=== PATIENT | male | born 1955 | race Caucasian/White ===

== ENCOUNTER 2020-03-15 15:33 | Outpatient (REF) | payer BC, SELFPAY | END 2020-03-15 15:34 | disposition home or self-care (01) | LOC: HO.LAB 15:33 | PROVIDERS: Visit Provider Internal Medicine | DX: Z20.828 Contact with and (suspected) exposure to other viral communicable diseases (principal) | CPT/HCPCS: C9803; U0003 ==

== ENCOUNTER 2020-09-18 11:30 | Outpatient (REF) | payer BC, SELFPAY ==
[2020-09-18 12:45] LABS: MANUAL DIFF FLAG NO
[2020-09-18 12:52] LABS: Basophils Absolute Auto 0.1 X10*3/uL (0.0-0.2); Basophils Percent Auto 1.3 % (0-2); Eosinophils Absolute Auto 0.1 X10*3/uL (0.0-0.4); Eosinophils Percent Auto 2.1 % (0-4); Hematocrit 43.6 % (42-52); Hemoglobin 14.5 g/dl (14.0-18.0); Imm Gran Abs Auto 0.02 X10*3/uL (0.00-0.03); Imm Gran Pct Auto 0.4 % (0.0-0.4); Lymphocytes Absolute Auto 1.5 X10*3/uL (1.2-4.9); Lymphocytes Percent Auto 28.2 % (20-40); Mean Corpuscular HGB Conc 33.3 g/dl (31.0-36.0); Mean Corpuscular Hemoglobin 30.9 pg (27.0-33.0); Mean Corpuscular Volume 92.8 fL (80-98); Monocytes Absolute Auto 0.7 X10*3/uL (0.1-1.2); Neutrophils Absolute Auto 2.8 X10*3/uL (2.0-8.3); Platelet Count 320 X10*3/uL (160-400); Red Cell Distribution Width 12.9 % (11.0-16.0); White Blood Count 5.2 X10*3/uL (4.8-10.8)
[2020-09-18 13:20] LABS: Alanine Aminotransferase 26 U/L (0-40); Albumin Level 4.3 g/dL (3.5-5.0); Alkaline Phosphatase 91 U/L (39-117); Anion Gap 14 (12-20); Aspartate Amino Transferase 25 U/L (5-37); Bilirubin Total 0.4 mg/dL (0.0-1.0); Blood Urea Nitrogen 12 mg/dL (9-16); Calcium 9.3 mg/dL (8.4-10.2); Carbon Dioxide 23 mmol/L (22-29); Chloride 108 mmol/L (96-108); Cholesterol 194 mg/dL; Estimated Glomerular Filt Rate > 60; Glucose Fasting 85 mg/dL (60-99); HDL Cholesterol 47 mg/dL; LDL Cholesterol Calculated 130 mg/dl; Potassium 5.3 mmol/L (3.3-5.1); Sodium 140 mmol/L (135-145); Total Protein 8.2 g/dL (6.5-8.0); Triglycerides 85 mg/dL
== END 2020-09-18 11:31 | disposition home or self-care (01) ==
LOC: HO.LAB 11:30
PROVIDERS: PCP Internal Medicine; Visit Provider Internal Medicine
DX: Z00.00 Encounter for general adult medical examination without abnormal findings (principal); E11.9 Type 2 diabetes mellitus without complications
CPT/HCPCS: 36415; 80053; 80061; 85025

== ENCOUNTER 2021-07-02 08:53 | Day surgery (SDC) | payer BC, SELFPAY ==
[2021-06-26 10:02] VITALS: BMI 24.7
--- NOTE | 2021-06-28 14:19 | P.CONAN_ITS ---
HPI - Anesthesia Eval Consult details Narrative: 66yo M for Colonoscopy [facility] Active Problems Active Problems: All Active Problems (Updated 06/26/21 @ 10:01 by Geneva Harrison RN) Physical exam (Acute) Allergic rhinitis (Acute) Asthma (Acute) Past Medical History Medical History (Updated 06/26/21 @ 10:01 by Geneva Harrison RN) Allergic rhinitis Asthma COVID-19 vaccine series completed Family History Family History Mother No problems noted. Father No problems noted. Surgical History Surgical History (Updated 06/26/21 @ 09:49 by Geneva Harrison RN) H/O colonoscopy Hx of bilateral inguinal hernia repair Hx of shoulder surgery Social History Social History Housing: House Are you a primary aged or disabled carer to a significant other at home: No Do you presently have visiting nurse or other home services: No Alcohol intake: current Alcohol intake frequency: a few times a month Patient Tobacco Use Status: Never used Tobacco Second Hand Smoke Exposure: No Use of substances other than those prescribed or required for medical reasons: Yes Substance Use Type Other:: occasional use-advised to hold pre-op Substance Use Frequency: Occasionally Have you been hit, kicked, punched, or otherwise hurt by someone within the past year? If so, by whom?: No Are you DNR?: No Advance Directives: No Advance Directives Information Provided: Yes Advance Directives on File: No Recently lost weight without trying: No Eating poorly because of decreased appetite: No Nutrition Risks: No Nutritional Risk Poor oral hygiene: No (full upper denture) service: No Current occupational status: employed Meds Allergies Allergy/AdvReac Type Severity Reaction Status Date / Time Penicillins Allergy Severe ANAPHYLAXIS Verified 03/09/21 08:31 Home Medications Medication Instructions Recorded Confirmed Last Taken Type loratadine 10 mg tablet (Allergy 10 mg PO DAILY 06/16/20 06/26/21 Unknown History Relief (loratadine)) albuterol sulfate 90 mcg/actuation 2 puff INHALATION Q4-6H PRN 06/26/21 06/26/21 Unknown History aerosol inhaler (Ventolin HFA) Exam Exam Date and Time: June 28, 2021 1419 Height,Weight and Vital Signs: Height 5 ft 10 in Weight 78.018 kg Assessment and Plan Assessment Anesthesia Assessment: Chart Reviewed
[2021-07-02 09:36] VITALS: PULSE 98; RESP 17; TEMP 36.6; O2SAT 98; BMI 25.0
[2021-07-02 09:55] VITALS: BP 176/110
[2021-07-02 10:14] VITALS: BP 163/105
[2021-07-02 11:31] VITALS: BP 106/74; PULSE 68; RESP 16; TEMP 36.1; O2SAT 98
--- NOTE | 2021-07-02 11:34 | P.BOP_ITS ---
Brief Operative Note Date of Service: 07/02/21 Pre-op diagnosis: Screening Post-op diagnosis: other (Colon polyps) Procedure: Colonoscopy to the cecum with cold snare polypectomy at 50cm and distal transverse colon, and hot snare polypectomy at cecum , ascending colon, and transverse colon x 2 Surgeon: Pedro Montesinos Anesthesia: MAC Was an Office Services Associate used for this Procedure?: No Estimated blood loss (mL): 2.0 Pathology: other (A. Polyp at 50cm B. Transverse colon polyps C. Cecal polyp D. Ascending colon polyp) Condition: stable Disposition: PACU
[2021-07-02 11:46] VITALS: BP 117/84; PULSE 80; RESP 16; TEMP 36.1; O2SAT 99
--- NOTE | 2021-07-02 13:14 | OP_ITS ---
SURGEON: Pedro Montesinos MD INDICATIONS: The patient presents for evaluation of colorectal cancer screening. Full consent was obtained from him for this, including risks of bleeding and perforation. PREOPERATIVE DIAGNOSIS: Colorectal cancer screening. POSTOPERATIVE DIAGNOSIS: Colorectal cancer screening, colon polyps, diverticulosis and internal hemorrhoids. PROCEDURE PERFORMED: Colonoscopy to the cecum with cold snare polypectomy and hot snare polypectomies. ESTIMATED BLOOD LOSS: COMPLICATIONS: ANESTHESIA: Monitored anesthesia care. ASSISTANTS: SPECIMENS: DESCRIPTION OF PROCEDURE: The patient was placed in the left lateral decubitus position. The digital rectal exam revealed no abnormalities. The Olympus video pediatric colonoscope was entered into the rectum and advanced easily to the cecum. Once in the cecum I did identify cecal pouch with appendiceal orifice and a normal appearing ileocecal valve. The entire cecum was well visualized. In the cecum was an approximately 10 mm polyp, which was removed by hot snare polypectomy and recovered by suction. The polypectomy site appeared clean, without any sign of residual polyp nor bleeding. There was transillumination of light deep in the right lower quadrant. The remainder of the cecum appeared normal. The scope was then slowly withdrawn assessing all mucosal surfaces carefully. Preparation was excellent. In the distal ascending colon was an approximately 10-12 mm polyp, which was removed by hot snare polypectomy and recovered by suction. The polypectomy site appeared clean, without any sign of residual polyp nor bleeding. In the transverse colon were 2 somewhat larger polyps approximately 12 to 15 mm in size. Both of these were removed by hot snare polypectomy and recovered by suction. Both polypectomy sites appeared clean, without any sign of residual polyp nor bleeding. Also, in the transverse colon was an approximately 4 or 5 mm polyp, which was removed by cold snare polypectomy and recovered by suction. There was no sign of any residual polyp nor significant bleeding. At 50 cm was an approximately 4 or 5 mm polyp, which was also removed by cold snare polypectomy and recovered by suction. The polypectomy site appeared clean, without any sign of residual polyp nor any significant bleeding. I did not visualize any other polyps, colitis, nor angiodysplasia. There was a mild amount of sigmoid diverticulosis. In the rectum, the scope was retroflexed visualizing internal hemorrhoids, but no other pathology. The rectal mucosa appeared normal. The scope was straightened and withdrawn from the patient. He tolerated the procedure well and was returned to recovery area in stable condition. IMPRESSION: 1. Colon polyps. 2. Diverticulosis. 3. Internal hemorrhoids. PLAN: The results of the pathology will be checked. I would recommend a repeat colonoscopy in 3 years for further screening. He was advised not to use any aspirin and NSAIDs for 1 week. He will otherwise see me on a p.r.n. basis. MD ZACKARY Boss/YANCI / [phone] MTDJean Marie
== END 2021-07-02 12:20 | disposition home or self-care (01) ==
PROVIDERS: PCP Internal Medicine; Visit Provider Internal Medicine
PROC: 0DJD8ZZ Inspection of Lower Intestinal Tract, Via Natural or Artificial Opening Endoscopic (ICD-10-PCS; CPT 45378; principal; 2021-07-02 10:00)
DX: Z12.11 Encounter for screening for malignant neoplasm of colon (principal); D12.0 Benign neoplasm of cecum; D12.2 Benign neoplasm of ascending colon; D12.3 Benign neoplasm of transverse colon; D12.6 Benign neoplasm of colon, unspecified; K57.30 Diverticulosis of large intestine without perforation or abscess without bleeding; K64.8 Other hemorrhoids
CPT/HCPCS: 45385; 88305

== ENCOUNTER 2021-07-25 18:32 | Inpatient (IN) | payer BC, SELFPAY ==
[2021-07-25 19:33] VITALS: BP 188/84; PULSE 101; RESP 19; TEMP 36.6; O2SAT 96; BMI 25.8
--- NOTE | 2021-07-25 20:18 | PC.NURSE ---
Pt not in waiting room at this time 2018
[2021-07-25 20:26] LABS: MANUAL DIFF FLAG NO
--- NOTE | 2021-07-25 20:32 | ED_ITS ---
HPI - GI Bleed General Chief complaint: GI Bleed Stated complaint: rectal bleed Time Seen by Provider: 07/25/21 20:32 Source: patient Mode of arrival: ambulatory Limitations: no limitations History of Present Illness HPI Narrative: Patient had a colonoscopy 07/02. He had 6 polyps removed all benign. Patient has been spotting since the colonoscopy but last night had a large BM with blood and again this morning. This afternoon it has stopped. Stool is dark but it has blood around it. No pain. Onset (ago): week(s) Severity: mild Associated symptoms: denies other symptoms Related Data Home Medications Medication Instructions Recorded Confirmed loratadine 10 mg tablet (Allergy 10 mg PO DAILY 06/16/20 06/26/21 Relief (loratadine)) albuterol sulfate 90 mcg/actuation 2 puff INHALATION Q4-6H PRN 06/26/21 06/26/21 aerosol inhaler (Ventolin HFA) Allergies Allergy/AdvReac Type Severity Reaction Status Date / Time Penicillins Allergy Severe ANAPHYLAXIS Verified 07/25/21 19:35 Review of Systems Constitutional: Constitutional: Reports no additional constitutional complaints Eyes: Eyes: Reports no additional eye complaints ENT: Denies dizziness Cardiovascular: Cardiovascular: Reports no additional cardiovascular complaints Respiratory: Respiratory: Reports as per HPI Gastrointestinal: Gastrointestinal: Reports no additional gastrointestinal complaints Musculoskeletal: Musculoskeletal: Reports no additional musculoskeletal complaints Integumentary/Breasts: Skin/Breast: Denies rash Neurologic: Reports system reviewed and no additional complaints, except as documented, Denies dizziness and Denies Sensory deficit (Neuro) Psychiatric: Psychiatric: Denies anxiety [facility] Past Medical History Medical History Allergic rhinitis Asthma COVID-19 vaccine series completed Surgical History H/O colonoscopy Hx of bilateral inguinal hernia repair Hx of shoulder surgery Family History Family History Mother No problems noted. Father No problems noted. Social History Social History Housing: House Are you a primary career technical counselor to a significant other at home: No Do you presently have visiting nurse or other home services: No Alcohol intake: current Alcohol intake frequency: a few times a month Patient Tobacco Use Status: Never used Tobacco Second Hand Smoke Exposure: No Advance Directives: No service: No Current occupational status: employed Physical Exam Vital Signs: Vital Signs: Last Vital Signs Temp 97.9 F 07/25/21 20:44 Pulse 72 07/25/21 20:44 Resp 20 07/25/21 20:44 BP 162/98 H 07/25/21 20:44 Pulse Ox 98 07/25/21 20:44 BMI result Body Mass Index 25.8 Const: General: healthy appearing Nutritional Appearance: average body habitus Orientation/consciousness: oriented to person and patient oriented x3 Limitations: no limitations HEENT: Head: Yes normal to inspection Ears: external ears normal General nose exam: Normal external nose present Mouth: Normal oral and palatal mucosa present and oropharynx normal Throat: Yes posterior oropharynx normal Eyes: General: appearance normal, both eyes and all related structures Neck: Other: supple Neck: Yes normal visual inspection Chest: Chest palpation & inspection: normal inspection of the chest Resp: Auscultation: clear to auscultation bilaterally Cardio: Jugular venous distension: no JVD Rate: regular rate Rhythm: regular rhythm Heart sounds: S1 normal heart sound present and S2 normal heart sound present GI: Inspection: Yes normal to inspection Palpation (GI): Soft to palpation, nontender and No hepatosplenomegaly present Auscultation: normal bowel sounds : Other: rectal black, maroon strong heme positive General: Yes no CVA tenderness Back/Spine/Pelvis: Back: no CVA tenderness Skin: General skin exam: no rashes or lesions noted Neuro: General: oriented to person and patient oriented x3 Cranial nerves: Yes CN's II-XII intact bilaterally Motor exam (neuro): 5/5 motor strength present throughout Sensory Exam: No Sensory deficit (Neuro) Extrem: General: Yes normal to inspection Psych: Appearance: grossly normal Course Reevaluation(s) Reevaluation #1: Discussed with both Dr. Gomez and Dr. Montesinos, with roughly 4 point Hct drop will admit Time: 21:23 MDM - GI Bleed Lab Data Result diagrams: 07/25/21 20:20 07/25/21 20:20 Labs: Lab Results 07/25/21 07/25/21 Range/Units 20:20 20:20 WBC 4.9 (4.8-10.8) X10*3/uL RBC 4.16 L (4.60-5.80) X10*6/uL Hgb 12.8 L (14.0-18.0) g/dl Hct 38.9 L (42.0-52.0) % MCV 93.5 (80.0-98.0) fL MCH 30.8 (27.0-33.0) pg MCHC 32.9 (31.0-36.0) g/dl RDW 12.7 (11.0-16.0) % Plt Count 306 (160-400) X10*3/uL MPV 8.5 L (9.4-12.4) fL Immature Gran % (Auto) 0.4 (0.0-0.4) % Neut % (Auto) 45.6 (45-73) % Lymph % (Auto) 32.5 (20-40) % Emmet % (Auto) 15.8 H (2-11) % Eos % (Auto) 4.3 H (0-4) % Baso % (Auto) 1.4 (0-2) % Lymph # (Auto) 1.6 (1.2-4.9) X10*3/uL Emmet # (Auto) 0.8 (0.1-1.2) X10*3/uL Eos # (Auto) 0.2 (0.0-0.4) X10*3/uL Baso # (Auto) 0.1 (0.0-0.2) X10*3/uL Abs Immat Gran (auto) 0.02 (0.00-0.03) X10*3/uL Absolute Neuts (auto) 2.2 (2.0-8.3) x10*3/uL Absolute Nucleated RBC 0.000 (0.0-0.012) X10*3/uL Nucleated RBC % (auto) 0.0 (0.0-0.2) /100WBC Sodium 139 (135-145) mmol/L Potassium 4.3 (3.3-5.1) mmol/L Chloride 103 (96-108) mmol/L Carbon Dioxide 28 (22-29) mmol/L Anion Gap 12 (12-20) BUN 23 H (9-16) mg/dL Creatinine 0.91 (0.5-1.4) mg/dL Estim Creat Clear Calc 78.2 Estimated GFR > 60 Random Glucose 99 (60-115) mg/dL Calcium 9.7 (8.4-10.2) mg/dL Total Bilirubin 0.3 (0.0-1.0) mg/dL AST 29 (5-37) U/L ALT 34 (0-40) U/L Alkaline Phosphatase 106 (39-117) U/L Total Protein 7.9 (6.5-8.0) g/dL Albumin 4.1 (3.5-5.0) g/dL Discharge Plan Discharge Clinical Impression: Lower gastrointestinal hemorrhage, Upper gastrointestinal hemorrhage Patient Disposition: Admitted As Inpatient Prescriptions: No Action albuterol sulfate [Ventolin HFA] 90 mcg/actuation Hfa Aerosol Inhaler 2 puff INHALATION Q4-6H PRN (Reason: Wheezing) 0RF loratadine [Allergy Relief (loratadine)] 10 mg tablet 10 mg PO DAILY 0RF
[2021-07-25 20:42] LABS: Basophils Absolute Auto 0.1 X10*3/uL (0.0-0.2); Basophils Percent Auto 1.4 % (0-2); Eosinophils Absolute Auto 0.2 X10*3/uL (0.0-0.4); Eosinophils Percent Auto 4.3 % (0-4); Hematocrit 38.9 % (42.0-52.0); Hemoglobin 12.8 g/dl (14.0-18.0); Imm Gran Abs Auto 0.02 X10*3/uL (0.00-0.03); Imm Gran Pct Auto 0.4 % (0.0-0.4); Lymphocytes Absolute Auto 1.6 X10*3/uL (1.2-4.9); Lymphocytes Percent Auto 32.5 % (20-40); Mean Corpuscular HGB Conc 32.9 g/dl (31.0-36.0); Mean Corpuscular Hemoglobin 30.8 pg (27.0-33.0); Mean Corpuscular Volume 93.5 fL (80.0-98.0); Mean Platelet Volume 8.5 fL (9.4-12.4); Monocytes Absolute Auto 0.8 X10*3/uL (0.1-1.2); Monocytes Percent Auto 15.8 % (2-11); Neutrophils Absolute Auto 2.2 x10*3/uL (2.0-8.3); Neutrophils Percent Auto 45.6 % (45-73); Platelet Count 306 X10*3/uL (160-400); Red Blood Count 4.16 X10*6/uL (4.60-5.80); Red Cell Distribution Width 12.7 % (11.0-16.0); White Blood Count 4.9 X10*3/uL (4.8-10.8)
[2021-07-25 20:44] VITALS: BP 162/98; PULSE 72; RESP 20; TEMP 36.6; O2SAT 98
[2021-07-25 20:45] LABS: Alanine Aminotransferase 34 U/L (0-40); Albumin Level 4.1 g/dL (3.5-5.0); Alkaline Phosphatase 106 U/L (39-117); Anion Gap 12 (12-20); Aspartate Amino Transferase 29 U/L (5-37); Bilirubin Total 0.3 mg/dL (0.0-1.0); Blood Urea Nitrogen 23 mg/dL (9-16); Calcium 9.7 mg/dL (8.4-10.2); Carbon Dioxide 28 mmol/L (22-29); Chloride 103 mmol/L (96-108); Creatinine Clr Calc Pharmacy 78.2; Estimated Glomerular Filt Rate > 60; Glucose Random 99 mg/dL (60-115); Potassium 4.3 mmol/L (3.3-5.1); Sodium 139 mmol/L (135-145); Total Protein 7.9 g/dL (6.5-8.0)
--- NOTE | 2021-07-25 21:41 | PHA.MEDREC ---
Pharmacy Consult ? Medication Reconciliation Pharmacy has completed the medication reconciliation.
[2021-07-25 22:19] LABS: COVID-19 Test Negative (Negative)
--- NOTE | 2021-07-25 22:19 | PM.EVENT ---
Event Note Date of Service: 07/25/21 Event Note: GI-Case D/W patient via phone calls and with Dr. Lau--Full consult will be done in the AM, 07/26. GI bleed in a 66 yo male s/p colonoscopy with me on 07/02 with multiple polypectomies. His presentation of a possible postpolypectomy bleed is quite unusual given the > 3 weeks that have passed since the colonoscopy. He is having dark stool which could imply an UGI source but that would be an unusual coinicidence as well. His Hgb has dropped somewhat from baseline to 12.8 and his BUN is 23. At this point I will plan for an upper endoscopy and colonoscopy for him tomorrow after an overnight bowel prep. In the meantime, F/U Hgb, check PT/INR, IV PPI, and NPO except for meds. D/W patient in detail and he is comfortable with this plan. Thanks
[2021-07-25] MEDS: Pantoprazole Sodium 40 MG/10 ML VIAL IVPUSH (22:28)
--- NOTE | 2021-07-25 22:31 | MHC.CM.PN ---
CM met with admitted patient with bed assignment pending. Pt recently unemployed. Pt does not have medicare. Still has [employer]. HCP not on file. HCP/nephew Efrem Segura ([phone]). Copy requested. Vax/boostedx1/Modern[employer]. Lives alone. No services/DME. Independent. D/C plan: Home without services. Will drive home. CM to follow for d/c needs.
--- NOTE | 2021-07-25 22:37 | PM.IMHP ---
History of Present Illness Date of Service: 07/25/21 Chief Complaint: GI bleed This is a 66-year-old male with no significant past medical history who presents to the hospital with complaints of bleed per rectum. Patient reports that he had colonoscopy done on 07/02, and ever since has been progressively having increased bleed per rectum. He reports that it started with spotting but last night he had a large stool with large amount of blood, another 2 episodes today prior to presenting to the hospital. Patient reports no abdominal pain. No headache, no dizziness, no change in vision. No shortness of breath or chest pain. Patient reports that his stools have also been dark Ilsa. He otherwise denies any palpitations, no nausea or vomiting, no diarrhea or constipation, no urinary symptoms and no lower extremity edema. Patient colonoscopy was done on 07/02, status post polypectomy. Patient was evaluated by in the ED tonight, advised to be admitted, started on PPI, and made NPO for colonoscopy as well possible EGD in a.m.. Vitals were reviewed, unremarkable except for a slight elevated blood pressure Labs are significant for WBC count of 4.7, hemoglobin of 12.8 which dropped from 14.5 on 09/18 , hematocrit of 30.9, labs otherwise unremarkable. Review of Systems Review of Systems: Yes all other systems are reviewed and are negative [facility] Medical History Allergic rhinitis Asthma COVID-19 vaccine series completed Family History Mother No problems noted. Father No problems noted. Surgical History H/O colonoscopy Hx of bilateral inguinal hernia repair Hx of shoulder surgery Social History Housing: House Are you a primary childcare aide to a significant other at home: No Do you presently have visiting nurse or other home services: No Alcohol intake: current Alcohol intake frequency: a few times a month Patient Tobacco Use Status: Never used Tobacco Second Hand Smoke Exposure: No Advance Directives: No service: No Current occupational status: employed Meds Allergies Allergy/AdvReac Type Severity Reaction Status Date / Time Penicillins Allergy Severe ANAPHYLAXIS Verified 07/25/21 19:35 Active Medications: Current Medications Pharmacy Consult (Consult Rx Perform Med Rec) 1 each MISCELLANE ONCE PRN PRN Reason: Consult order Home Medications Medication Instructions Recorded Confirmed Last Taken Type loratadine 10 mg tablet (Allergy 10 mg PO DAILY PRN 06/16/20 07/25/21 Unknown History Relief (loratadine)) Physical Exam Vital Signs and Narrative: Vital Signs: Last Vital Signs Temp 97.9 F 07/25/21 20:44 Pulse 72 07/25/21 20:44 Resp 20 07/25/21 20:44 BP 162/98 H 07/25/21 20:44 Pulse Ox 98 07/25/21 20:44 BMI result Body Mass Index 25.8 Const: General: cooperative and no acute distress Orientation/consciousness: patient oriented x3 Eyes: General: appearance normal, both eyes and all related structures Pupils: Equal, round and reactive pupils present Resp: Effort & Inspection: normal respiratory effort Auscultation: clear to auscultation bilaterally Cardio: Rate: regular rate Rhythm: regular rhythm GI: Other: No abdominal tenderness guarding or rebound Palpation (GI): Soft to palpation Auscultation: normal bowel sounds Skin: General skin exam: no rashes or lesions noted Neuro: General: patient oriented x3 Cranial nerves: Yes Equal, round and reactive pupils present Cognition (Neuro): normal cognition Extrem: General: Yes normal to inspection and Yes no pedal edema Results Labs CBC and Chem 7: 07/25/21 22:52 07/25/21 20:20 Labs: Laboratory Results - last 24 hr 07/25/21 07/25/21 07/25/21 20:20 20:20 22:00 MCV 93.5 MCH 30.8 MCHC 32.9 RDW 12.7 Plt Count 306 MPV 8.5 L Immature Gran % (Auto) 0.4 Neut % (Auto) 45.6 Lymph % (Auto) 32.5 Brown % (Auto) 15.8 H Eos % (Auto) 4.3 H Baso % (Auto) 1.4 Lymph # (Auto) 1.6 Brown # (Auto) 0.8 Eos # (Auto) 0.2 Baso # (Auto) 0.1 Abs Immat Gran (auto) 0.02 Absolute Neuts (auto) 2.2 Absolute Nucleated RBC 0.000 Nucleated RBC % (auto) 0.0 Anion Gap 12 Estim Creat Clear Calc 78.2 Estimated GFR > 60 Random Glucose 99 Calcium 9.7 Total Bilirubin 0.3 AST 29 ALT 34 Alkaline Phosphatase 106 Total Protein 7.9 Albumin 4.1 COVID-19 (JACOBY) Negative COVID-19 Clin Com See Note Assessment and Plan (1) GI bleed: Status: Acute Plan 66-year-old male with no significant past medical history presents to the hospital with complaints of blood per rectum # GI bleed - lower versus upper GI bleed - patient had colonoscopy on 07/02, with polypectomy - evaluated by GI in the ED tonight, unusual for bleed post polypectomy but patient will be admitted for further evaluation with colonoscopy and possibly EGD in a.m. - will continue PPI IV b.i.d. - follow CBC - GoLYTELY ordered by GI DVT prophylaxis: SCDs in the setting of acute GI bleed Quality Stroke Does the patient have a stroke diagnosis?: No VTE Prior VTE?: No VTE Risk Level:: Medical - moderate - high VTE Device Contraindication: N/A - Device Ordered VTE Drug Contraindication: Treatment Not Indicated
[2021-07-25 22:58] LABS: MANUAL DIFF FLAG NO
[2021-07-25] MEDS: PEG 3350/Na Sulf,Bicarb,Cl/KCL 4,000 ML SOLN.RECON 4000 ML PO (23:06)
[2021-07-25 23:08] LABS: INTERNATIONAL NORM RATIO 1.1 (0.9-1.1); Prothrombin Time 12.5 SEC (9.9-13.0)
[2021-07-25 23:18] LABS: Basophils Absolute Auto 0.1 X10*3/uL (0.0-0.2); Basophils Percent Auto 1.7 % (0-2); Eosinophils Absolute Auto 0.2 X10*3/uL (0.0-0.4); Eosinophils Percent Auto 4.1 % (0-4); Hematocrit 35.6 % (42.0-52.0); Hemoglobin 11.8 g/dl (14.0-18.0); Imm Gran Abs Auto 0.02 X10*3/uL (0.00-0.03); Imm Gran Pct Auto 0.4 % (0.0-0.4); Lymphocytes Absolute Auto 1.6 X10*3/uL (1.2-4.9); Lymphocytes Percent Auto 33.7 % (20-40); Mean Corpuscular HGB Conc 33.1 g/dl (31.0-36.0); Mean Corpuscular Hemoglobin 30.9 pg (27.0-33.0); Mean Corpuscular Volume 93.2 fL (80.0-98.0); Mean Platelet Volume 8.5 fL (9.4-12.4); Monocytes Absolute Auto 0.7 X10*3/uL (0.1-1.2); Monocytes Percent Auto 14.9 % (2-11); Neutrophils Absolute Auto 2.1 x10*3/uL (2.0-8.3); Neutrophils Percent Auto 45.2 % (45-73); Platelet Count 277 X10*3/uL (160-400); Red Blood Count 3.82 X10*6/uL (4.60-5.80); Red Cell Distribution Width 12.6 % (11.0-16.0); White Blood Count 4.7 X10*3/uL (4.8-10.8)
[2021-07-26] VITALS (10 sets, daily range): BP systolic 99–168; BP diastolic 62–95; PULSE 64–94; RESP 12–18; TEMP 36.3–36.7; O2SAT 96–99
[2021-07-26] MEDS: 0.9 % Sodium Chloride Flush 3 ML SYRINGE IVFLUSH ×2 (00:59→07:49)
--- NOTE | 2021-07-26 02:07 | PC.NURSE ---
Patient arrived to ED overflow around midnight. Pt is A&O X4, completing bowel prep for procedure later today. PT to BR a few times, offered commode but declined. Pt on SR on tele.
[2021-07-26] MEDS: Pantoprazole Sodium 40 MG/10 ML VIAL IVPUSH (05:56)
[2021-07-26 07:04] LABS: MANUAL DIFF FLAG NO
[2021-07-26 07:13] LABS: Basophils Absolute Auto 0.1 X10*3/uL (0.0-0.2); Basophils Percent Auto 1.4 % (0-2); Basophils Percent Auto 1.6 % (0-2); Eosinophils Absolute Auto 0.2 X10*3/uL (0.0-0.4); Eosinophils Percent Auto 3.9 % (0-4); Eosinophils Percent Auto 4.1 % (0-4); Hematocrit 33.6 % (42.0-52.0); Hematocrit 34.1 % (42.0-52.0); Hemoglobin 11.2 g/dl (14.0-18.0); Imm Gran Abs Auto 0.02 X10*3/uL (0.00-0.03); Imm Gran Pct Auto 0.5 % (0.0-0.4); Lymphocytes Absolute Auto 1.3 X10*3/uL (1.2-4.9); Lymphocytes Percent Auto 28.6 % (20-40); Lymphocytes Percent Auto 29.3 % (20-40); Mean Corpuscular HGB Conc 32.8 g/dl (31.0-36.0); Mean Corpuscular HGB Conc 33.3 g/dl (31.0-36.0); Mean Corpuscular Hemoglobin 30.7 pg (27.0-33.0); Mean Corpuscular Hemoglobin 30.9 pg (27.0-33.0); Mean Corpuscular Volume 92.8 fL (80.0-98.0); Mean Corpuscular Volume 93.4 fL (80.0-98.0); Mean Platelet Volume 8.5 fL (9.4-12.4); Monocytes Absolute Auto 0.7 X10*3/uL (0.1-1.2); Monocytes Percent Auto 14.9 % (2-11); Monocytes Percent Auto 15.6 % (2-11); Neutrophils Absolute Auto 2.2 x10*3/uL (2.0-8.3); Neutrophils Percent Auto 49.8 % (45-73); Platelet Count 251 X10*3/uL (160-400); Platelet Count 257 X10*3/uL (160-400); Red Blood Count 3.62 X10*6/uL (4.60-5.80); Red Blood Count 3.65 X10*6/uL (4.60-5.80); Red Cell Distribution Width 12.6 % (11.0-16.0); Red Cell Distribution Width 12.7 % (11.0-16.0); White Blood Count 4.4 X10*3/uL (4.8-10.8)
[2021-07-26 07:34] LABS: Anion Gap 12 (12-20); Blood Urea Nitrogen 19 mg/dL (9-16); Calcium 8.8 mg/dL (8.4-10.2); Carbon Dioxide 26 mmol/L (22-29); Chloride 104 mmol/L (96-108); Creatinine Clr Calc Pharmacy 90.1; Estimated Glomerular Filt Rate > 60; Glucose Fasting 87 mg/dL (60-99); Potassium 4.1 mmol/L (3.3-5.1); Sodium 138 mmol/L (135-145)
[2021-07-26 07:38] LABS: Anion Gap 12 (12-20); Blood Urea Nitrogen 19 mg/dL (9-16); Calcium 8.9 mg/dL (8.4-10.2); Carbon Dioxide 27 mmol/L (22-29); Chloride 104 mmol/L (96-108); Creatinine Clr Calc Pharmacy 90.1; Estimated Glomerular Filt Rate > 60; Glucose Random 86 mg/dL (60-115); Potassium 4.2 mmol/L (3.3-5.1); Sodium 139 mmol/L (135-145)
--- NOTE | 2021-07-26 08:34 | MHC.SHP ---
Pre-Procedural Eval Section A Date of Service: 07/26/21 The patient is an INPATIENT: Yes The History & Physical has been completed within 30 days and I have reviewed it.: Yes Section B Chief Complaint: GI bleed Allergies: Allergies Allergy/AdvReac Type Severity Reaction Status Date / Time Penicillins Allergy Severe ANAPHYLAXIS Verified 07/25/21 19:35 Plan I have reviewed the history and physical and performed a pertinent physical examination on my patient. No changes have occurred unless specified.
--- NOTE | 2021-07-26 08:43 | PM.EVENT ---
Event Note Date of Service: 07/26/21 Event Note: GI-Consult dictated Imp: GI Bleed-? Postpolypectomy in relation to colonoscopy on 07/02/2021 vs. an UGI bleed Rec: EGD/Colonoscopy with MAC today. Full consent obtained from him for this, including risks of bleeding and perforation. Continue monitoring of Hgb and continue IV PPI. D/W patient in detail and he is comfortable wih this plan. Thanks
--- NOTE | 2021-07-26 09:51 | P.CONAN_ITS ---
HPI - Anesthesia Eval Consult details Narrative: 66-year-old male presenting with lower GI bleed for upper and lower endoscopy [facility] Active Problems Active Problems: All Active Problems (Updated 07/26/21 @ 06:23 by Brie Piedra MD) GI bleed (Acute) Physical exam (Acute) Lower gastrointestinal hemorrhage (Acute) Upper gastrointestinal hemorrhage (Acute) Allergic rhinitis (Acute) Asthma (Acute) Past Medical History Medical History Allergic rhinitis Asthma COVID-19 vaccine series completed Family History Family History Mother No problems noted. Father No problems noted. Family history of problems with anesthesia: No Surgical History Surgical History H/O colonoscopy Hx of bilateral inguinal hernia repair Hx of shoulder surgery History of Problems with Anesthesia: No Social History Social History Housing: House Are you a primary vehicle care specialist to a significant other at home: No Do you presently have visiting nurse or other home services: No Alcohol intake: current Alcohol intake frequency: a few times a month Patient Tobacco Use Status: Never used Tobacco Second Hand Smoke Exposure: No Use of substances other than those prescribed or required for medical reasons: Yes Substance Use Frequency: Weekly Are you DNR?: No Advance Directives: No service: No Current occupational status: employed Meds Allergies Allergy/AdvReac Type Severity Reaction Status Date / Time Penicillins Allergy Severe ANAPHYLAXIS Verified 07/26/21 08:51 Active Medications: Current Medications Ondansetron HCl (Ondansetron Hcl 4 Mg/2 Ml Vial) 4 mg IVPUSH Q8H PRN PRN Reason: Nausea and Vomiting Pantoprazole Sodium (Pantoprazole Sodium 40 Mg/10 Ml Vial) 40 mg IVPUSH BID@0630,1630 [facility] Last Admin: 07/26/21 05:56 Dose: 40 mg Documented by: Pharmacy Consult (Consult Rx Perform Med Rec) 1 each MISCELLANE ONCE PRN PRN Reason: Consult order Sodium Chloride (0.9 % Sodium Chloride Flush 3 Ml Syringe) 3 ml IVFLUSH QSHIFT [facility] Last Admin: 07/26/21 07:49 Dose: 3 ml Documented by: Home Medications Medication Instructions Recorded Confirmed Last Taken Type loratadine 10 mg tablet (Allergy 10 mg PO DAILY PRN 06/16/20 07/25/21 Unknown History Relief (loratadine)) Exam Exam Date and Time: July 26, 2021 0951 Height,Weight and Vital Signs: Height 5 ft 8 in Weight 169 lb 12.095 oz Last Vital Signs Temp 97.9 F 07/26/21 08:51 Pulse 90 07/26/21 08:51 Resp 16 07/26/21 08:51 BP 163/92 H 07/26/21 08:51 Pulse Ox 99 07/26/21 08:51 Pertinent Lab Results Pertinent Lab Results: Laboratory Tests 07/25/21 07/25/21 07/25/21 20:20 20:20 22:00 WBC 4.9 RBC 4.16 L Hgb 12.8 L Hct 38.9 L MCV 93.5 MCH 30.8 MCHC 32.9 RDW 12.7 Plt Count 306 MPV 8.5 L Immature Gran % (Auto) 0.4 Neut % (Auto) 45.6 Lymph % (Auto) 32.5 Webb % (Auto) 15.8 H Eos % (Auto) 4.3 H Baso % (Auto) 1.4 Lymph # (Auto) 1.6 Webb # (Auto) 0.8 Eos # (Auto) 0.2 Baso # (Auto) 0.1 Abs Immat Gran (auto) 0.02 Absolute Neuts (auto) 2.2 Absolute Nucleated RBC 0.000 Nucleated RBC % (auto) 0.0 PT INR Sodium 139 Potassium 4.3 Chloride 103 Carbon Dioxide 28 Anion Gap 12 BUN 23 H Creatinine 0.91 Estim Creat Clear Calc 78.2 Estimated GFR > 60 Random Glucose 99 Fasting Glucose Calcium 9.7 Total Bilirubin 0.3 AST 29 ALT 34 Alkaline Phosphatase 106 Total Protein 7.9 Albumin 4.1 COVID-19 (JACOBY) Negative COVID-19 Clin Com See Note 07/25/21 07/25/21 07/26/21 22:52 22:52 06:45 WBC 4.7 L 4.4 L RBC 3.82 L 3.65 L Hgb 11.8 L 11.2 L Hct 35.6 L 34.1 L MCV 93.2 93.4 MCH 30.9 30.7 MCHC 33.1 32.8 RDW 12.6 12.6 Plt Count 277 257 MPV 8.5 L 8.5 L Immature Gran % (Auto) 0.4 0.5 H Neut % (Auto) 45.2 49.8 Lymph % (Auto) 33.7 29.3 Webb % (Auto) 14.9 H 14.9 H Eos % (Auto) 4.1 H 4.1 H Baso % (Auto) 1.7 1.4 Lymph # (Auto) 1.6 1.3 Webb # (Auto) 0.7 0.7 Eos # (Auto) 0.2 0.2 Baso # (Auto) 0.1 0.1 Abs Immat Gran (auto) 0.02 0.02 Absolute Neuts (auto) 2.1 2.2 Absolute Nucleated RBC 0.000 0.000 Nucleated RBC % (auto) 0.0 0.0 PT 12.5 INR 1.1 Sodium Potassium Chloride Carbon Dioxide Anion Gap BUN Creatinine Estim Creat Clear Calc Estimated GFR Random Glucose Fasting Glucose Calcium Total Bilirubin AST ALT Alkaline Phosphatase Total Protein Albumin COVID-19 (JACOBY) COVID-19 Clin Com 07/26/21 07/26/21 07/26/21 06:45 06:45 06:46 WBC 4.4 L RBC 3.62 L Hgb 11.2 L Hct 33.6 L MCV 92.8 MCH 30.9 MCHC 33.3 RDW 12.7 Plt Count 251 MPV 8.5 L Immature Gran % (Auto) 0.5 H Neut % (Auto) 49.8 Lymph % (Auto) 28.6 Webb % (Auto) 15.6 H Eos % (Auto) 3.9 Baso % (Auto) 1.6 Lymph # (Auto) 1.3 Webb # (Auto) 0.7 Eos # (Auto) 0.2 Baso # (Auto) 0.1 Abs Immat Gran (auto) 0.02 Absolute Neuts (auto) 2.2 Absolute Nucleated RBC 0.000 Nucleated RBC % (auto) 0.0 PT INR Sodium 138 139 Potassium 4.1 4.2 Chloride 104 104 Carbon Dioxide 26 27 Anion Gap 12 12 BUN 19 H 19 H Creatinine 0.79 0.79 Estim Creat Clear Calc 90.1 90.1 Estimated GFR > 60 > 60 Random Glucose 86 Fasting Glucose 87 Calcium 8.8 D 8.9 Total Bilirubin AST ALT Alkaline Phosphatase Total Protein Albumin COVID-19 (JACOBY) COVID-19 Clin Com Airway Mallampati Class: I TM Dist: >3cm Neck ROM: Full Loose/Missing/Broken Teeth: Yes Assessment and Plan Assessment Anesthesia Assessment: Anesthesia Plan Discussed and Chart Reviewed Final Anesthetic Review Family History of Problems with Anesthesia: No History of Problems with Anesthesia: No NPO: Yes ASA Class: II and Emergency Final Preanesthetic Review: No Changes in Pt Med Stat, Meds/Allgs Chart Reviewed, Consent Obtained/Reviewed and Anes Risks/Benef Reviewed Patient Risk: Intermediate Procedure Risk: Low Anesthetic Plan Anesthetic Plan: MAC: Disposition: Standard PACU
--- NOTE | 2021-07-26 09:55 | PC.NURSE ---
0845- report given to Teddy. Pt transported to [facility] via [email or web address]
--- NOTE | 2021-07-26 10:47 | HO.PM.IMPN ---
Subjective Subjective Date of Service: 07/26/21 Interval History: seen and examined this morning follow up with GI bleeding no abdominal pain, nausea or vomiting last BM with no blood Review of Systems Review of Systems: Yes all other systems are reviewed and are negative Constitutional Constitutional: Denies chills and Denies fever(s) Cardiovascular Cardiovascular: Denies chest pain, Denies palpitations and Denies dyspnea Respiratory Respiratory: Denies cough and Denies dyspnea Gastrointestinal Gastrointestinal: Denies abdominal pain, Reports melena, Denies nausea and Denies vomiting Endocrine Endocrine: Denies palpitations Physical Exam Vital Signs: Vital Signs: Last Vital Signs Temp 97.9 F 07/26/21 08:51 Pulse 90 07/26/21 08:51 Resp 16 07/26/21 08:51 BP 163/92 H 07/26/21 08:51 Pulse Ox 99 07/26/21 08:51 BMI result Body Mass Index 25.8 Const: General: cooperative, comfortable, no acute distress, alert and awake Orientation/consciousness: patient oriented x3 Eyes: Pupils: Equal, round and reactive pupils present EOM: EOMs intact bilaterally Resp: Effort & Inspection: normal respiratory effort and able to speak in complete sentences Auscultation: clear to auscultation bilaterally GI: Inspection: No distended Palpation (GI): Soft to palpation and nontender Neuro: General: patient oriented x3 Cranial nerves: Yes Equal, round and reactive pupils present Extrem: General: Yes no pedal edema Objective Data Active Medications Ondansetron HCl (Ondansetron Hcl 4 Mg/2 Ml Vial) 4 mg IVPUSH Q8H PRN PRN Reason: Nausea and Vomiting Pantoprazole Sodium (Pantoprazole Sodium 40 Mg/10 Ml Vial) 40 mg IVPUSH BID@0630,1630 [facility] Last Admin: 07/26/21 05:56 Dose: 40 mg Documented by: MACK Pharmacy Consult (Consult Rx Perform Med Rec) 1 each MISCELLANE ONCE PRN PRN Reason: Consult order Sodium Chloride (0.9 % Sodium Chloride Flush 3 Ml Syringe) 3 ml IVFLUSH QSHIFT [facility] Last Admin: 07/26/21 07:49 Dose: 3 ml Documented by: MICHAEL Labs CBC & Chem 7: 07/26/21 06:45 07/26/21 06:46 Labs: Laboratory Results - last 24 hr 07/25/21 07/25/21 07/25/21 20:20 20:20 22:00 MCV 93.5 MCH 30.8 MCHC 32.9 RDW 12.7 Plt Count 306 MPV 8.5 L Immature Gran % (Auto) 0.4 Neut % (Auto) 45.6 Lymph % (Auto) 32.5 Crawford % (Auto) 15.8 H Eos % (Auto) 4.3 H Baso % (Auto) 1.4 Lymph # (Auto) 1.6 Crawford # (Auto) 0.8 Eos # (Auto) 0.2 Baso # (Auto) 0.1 Abs Immat Gran (auto) 0.02 Absolute Neuts (auto) 2.2 Absolute Nucleated RBC 0.000 Nucleated RBC % (auto) 0.0 PT INR Anion Gap 12 Estim Creat Clear Calc 78.2 Estimated GFR > 60 Random Glucose 99 Fasting Glucose Calcium 9.7 Total Bilirubin 0.3 AST 29 ALT 34 Alkaline Phosphatase 106 Total Protein 7.9 Albumin 4.1 COVID-19 (JACOBY) Negative COVID-19 Clin Com See Note 07/25/21 07/25/21 07/26/21 22:52 22:52 06:45 MCV 93.2 93.4 MCH 30.9 30.7 MCHC 33.1 32.8 RDW 12.6 12.6 Plt Count 277 257 MPV 8.5 L 8.5 L Immature Gran % (Auto) 0.4 0.5 H Neut % (Auto) 45.2 49.8 Lymph % (Auto) 33.7 29.3 Crawford % (Auto) 14.9 H 14.9 H Eos % (Auto) 4.1 H 4.1 H Baso % (Auto) 1.7 1.4 Lymph # (Auto) 1.6 1.3 Crawford # (Auto) 0.7 0.7 Eos # (Auto) 0.2 0.2 Baso # (Auto) 0.1 0.1 Abs Immat Gran (auto) 0.02 0.02 Absolute Neuts (auto) 2.1 2.2 Absolute Nucleated RBC 0.000 0.000 Nucleated RBC % (auto) 0.0 0.0 PT 12.5 INR 1.1 Anion Gap Estim Creat Clear Calc Estimated GFR Random Glucose Fasting Glucose Calcium Total Bilirubin AST ALT Alkaline Phosphatase Total Protein Albumin COVID-19 (JACOBY) COVID-19 Clin Com 07/26/21 07/26/21 07/26/21 06:45 06:45 06:46 MCV 92.8 MCH 30.9 MCHC 33.3 RDW 12.7 Plt Count 251 MPV 8.5 L Immature Gran % (Auto) 0.5 H Neut % (Auto) 49.8 Lymph % (Auto) 28.6 Crawford % (Auto) 15.6 H Eos % (Auto) 3.9 Baso % (Auto) 1.6 Lymph # (Auto) 1.3 Crawford # (Auto) 0.7 Eos # (Auto) 0.2 Baso # (Auto) 0.1 Abs Immat Gran (auto) 0.02 Absolute Neuts (auto) 2.2 Absolute Nucleated RBC 0.000 Nucleated RBC % (auto) 0.0 PT INR Anion Gap 12 12 Estim Creat Clear Calc 90.1 90.1 Estimated GFR > 60 > 60 Random Glucose 86 Fasting Glucose 87 Calcium 8.8 D 8.9 Total Bilirubin AST ALT Alkaline Phosphatase Total Protein Albumin COVID-19 (JACOBY) COVID-19 Clin Com Assessment and Plan (1) GI bleed: Status: Acute Plan This is [id number] male with no significant past medical history presents to the hospital with complaints of blood per rectum GI bleed lower versus upper GI bleed. patient had colonoscopy on 07/02, with polypectomy, also h/o hemorrhoids seen by GI, unusual for bleed this long after polypectomy plan for colonoscopy and EGD this a.m. H/H stable - continue PPI IV b.i.d. - follow CBC DVT prophylaxis: SCDs in the setting of acute GI bleed Attending dr. álvarez Quality Stroke Does the patient have a stroke diagnosis?: No VTE Prior VTE?: No VTE Risk Level:: Medical - moderate - high VTE Device Contraindication: N/A - Device Ordered VTE Drug Contraindication: Treatment Not Indicated
--- NOTE | 2021-07-26 11:15 | PM.OP ---
Brief Operative Note Date of Service: 07/26/21 Pre-op diagnosis: GI Bleed Post-op diagnosis: other (Gastritis, Healing gastric ulcer, Hiatal hernia, Colon polyp) Procedure: EGD with biopsies, Colonoscopy to the cecum with hot snare polypectomy and placement of 2 Resolution clips on previous cecal polypectomy site Surgeon: Pedro Montesinos Anesthesia: MAC Was an [employer] used for this Procedure?: No Estimated blood loss (mL): 2.0 Pathology: other (A, Gastric antrum B. Ascending colon polyp) Condition: stable Disposition: PACU
--- NOTE | 2021-07-26 11:17 | PM.EVENT ---
Event Note Date of Service: 07/26/21 Event Note: GI-Full note dictated EGD 1. Linear healing gastric ulcer in antrum-no bleeding, no vessel 2. Gastritis-antrum biopsied x 3 3. Hiatal hernia Colonoscopy to the cecum 1. Previous cecal polypectomy site with some friability, but no bleeding nor vessel--clipped x 2 2. Approx 1.2 cm polyp in ascending colon in between folds-removed by hot snare polypectomy in piecemeal fashion 3. No other suspicious polypectomy sites seen and no blood/melena in the colon 4. Diverticulosis Plan: Change to po PPI, avoid aspirin and NSAIDs [facility]. Full liquids today, and advance diet and discharge 5/6 if stable. F/U Hgb later today and in AM. D/W patient. Thanks
--- NOTE | 2021-07-26 12:11 | PC.NURSE ---
Pt returned from PACU. Denies pain, N/V. To be started on full liquid diet
[2021-07-26] MEDS: Omeprazole 40 MG CAPSULE.DR PO (13:12)
[2021-07-26 14:29] LABS: Hematocrit 34.5 % (42.0-52.0); Hemoglobin 11.3 g/dl (14.0-18.0)
--- NOTE | 2021-07-26 19:56 | CONS_ITS ---
DATE OF SERVICE: 07/26/2021 REASON FOR CONSULTATION: GI bleeding. HISTORY OF PRESENT ILLNESS: The patient is a 66-year-old male, well known to me, who underwent a screening colonoscopy on July 02. The procedure was notable for multiple polyps that were removed, which included a cecal polyp, distal ascending colon polyp, 3 transverse colon polyps, and a polyp at 50 cm. All of the polyps were removed by hot snare polypectomy, except for the polyp at 50 cm and 1 of the transverse colon polyps which were removed with a cold snare polypectomy. He was also noted to have some diverticulosis and internal hemorrhoids. The patient had been doing well up until around July 16 when he noticed several days of some bright red blood on the toilet paper after otherwise normal bowel movements. This persisted despite using some preparation H suppositories. Over the past 24 hours before admission, he began noticing the onset of black and tarry stool. He came to the ER for admission. The rectal exam did reveal some black tarry stool, which was heme-positive. He was admitted for further evaluation. The patient denies using any aspirin or NSAIDs. He does not smoke nor use any significant amounts of alcohol. He has not been using any iron supplements nor Pepto-Bismol. He denies any abdominal pain, significant heartburn, nausea, vomiting, dysphagia, nor early satiety. He has had no previous history of GI bleeding. MEDICATIONS: At home included only allergy medicine. Medications here in the hospital currently include Zofran p.r.n. and IV Protonix. PAST MEDICAL HISTORY: Hernia surgery. Shoulder surgery. Colonoscopy July 02 with removal of multiple tubular adenomas. He denies history of heart disease, diabetes, stroke, nor kidney disease. SOCIAL HISTORY: He is recently retired. He does not smoke nor use any significant amounts of alcohol. FAMILY HISTORY: Noncontributory. REVIEW OF SYSTEMS: CONSTITUTIONAL: He had been feeling well with good appetite and good energy. SKIN: No rash. No pruritus. CARDIAC: No chest pain. PULMONARY: No coughing or hemoptysis. GI: As above. GENITOURINARY: No dysuria. No hematuria. PHYSICAL EXAMINATION: GENERAL: The patient is a pleasant, alert male. SKIN: Warm and dry. Anicteric sclerae. NECK: Supple without lymphadenopathy. CARDIAC: Normal S1, S2. ABDOMEN: Soft, nondistended, nontender without mass. LABORATORY DATA: His initial CBC in the ER showed hemoglobin 12.8 compared to 14.5 in August 2020. Subsequent hemoglobins were 11.8 last evening and 11.2 this morning. Platelet count 251,000. PT 12.5 with INR 1.1. Electrolytes are normal. Initial BUN was 23 and this point is 19. Creatinine 0.8. Liver profile was normal. COVID test was negative. IMPRESSION: The patient is a 66-year-old male presenting with evidence of gastrointestinal bleeding. He is status post colonoscopy with removal of several tubular adenomas just over 3 weeks ago. Given the clinical history he may be bleeding from one of the right-sided polypectomy sites, although 3 weeks later would be quite unusual. Another possibility would be that of an upper GI bleed in relation to ulcer disease. At this point, he does appear stable, but given his symptomatology and drop in hemoglobin. I would recommend he undergo both upper endoscopy and colonoscopy today for further evaluation. Full consent was obtained from him for both procedures, including risks of bleeding and perforation. In the meantime, he will continue his IV Protonix and monitoring of his hemoglobin.This has been discussed in detail with the patient. He is comfortable with the plan. Thank you for consultation. MD ZACKARY Boss/YANCI / [id number] MTDJean Marie
[2021-07-27] VITALS: BP 157/88; PULSE 76; RESP 18; TEMP 36.7; O2SAT 97
[2021-07-27 03:54] VITALS: BP 143/77; PULSE 73; RESP 16; TEMP 36.6; O2SAT 98
[2021-07-27] MEDS: Omeprazole 40 MG CAPSULE.DR PO (06:05)
--- NOTE | 2021-07-27 06:32 | OP_ITS ---
SURGEON: Pedro Montesinos MD INDICATIONS: Patient presents for evaluation of GI bleeding. Full consent was obtained from him for this including risks of bleeding and perforation. PREOPERATIVE DIAGNOSIS: Gastrointestinal bleeding. POSTOPERATIVE DIAGNOSIS: PROCEDURE PERFORMED: Esophagogastroduodenoscopy with biopsies, and colonoscopy to the cecum with hot snare polypectomy and placement of 2 Resolution clips on previous polypectomy site. ESTIMATED BLOOD LOSS: COMPLICATIONS: ANESTHESIA: Monitored anesthesia care. ASSISTANTS: SPECIMENS: POSTOPERATIVE DIAGNOSES: Gastrointestinal bleeding, small healing gastric ulcer, gastritis, hiatal hernia, colon polyp, diverticulosis, and internal hemorrhoids. DESCRIPTION OF PROCEDURE: The patient was placed in the left lateral decubitus position. The Olympus video gastroscope was passed in the posterior oropharynx and upper esophagus under direct vision. The scope was passed slowly to the distal esophagus. The gastroesophageal junction appeared normal at 38 cm. There was no sign of any esophagitis nor Diane's esophagus. The scope advanced into the stomach. There was a small hiatal hernia. The scope was advanced to the pylorus. The duodenum was cannulated to the descending portion. The duodenum including the bulb appeared normal without mass or ulceration. The scope was withdrawn back into the stomach. The gastric antrum had areas of some gastritis with some edema and erythema, as well as a linear approximately 10 mm healing ulcer with some mild edema. The ulcer base was clean, without any visible vessel, nor bleeding. It appeared to be grossly benign. Biopsies were obtained from around the ulcer. The antrum appeared normal with good peristalsis. The scope was retroflexed visualizing the proximal stomach carefully, which appeared normal, without any sign of mass or ulceration. The scope was straightened. Of note, there was no blood anywhere in the upper GI tract. The scope was withdrawn back to the esophagus. The esophageal mucosa appeared normal. The scope was withdrawn from the patient. He was turned around for the colonoscopy. The digital rectal exam revealed no abnormalities. The Olympus video pediatric colonoscope was entered into the rectum and advanced easily to the cecum. Once in the cecum, I did identify cecal pouch with appendiceal orifice and a normal-appearing ileocecal valve. There was transillumination of light deep in the right lower quadrant. In the cecum, was the previous polypectomy site. There was some minimal friability from the central part of the polypectomy site. There was no sign of any ulceration, visible vessel, nor bleeding. Given the history, I did place 2 Resolution clips on the polypectomy site with good deployment and good hemostasis. The sscope was then slowly withdrawn assessing all mucosal surfaces carefully. For the most part, preparation was good, although there were some areas of liquid that had to be suctioned and removed as best as possible. However, there was no sign of any blood, nor melena in the colon. In what appeared to be the midportion of the ascending colon between some folds, was an approximately 1.2 cm grossly adenomatous polyp that was removed by hot snare polypectomy in piecemeal fashion. Pieces were recovered by suction. Post polypectomy, did not appear to be any sign of residual polyp, nor bleeding. I did not visualize any other polyps, colitis, or angiodysplasia. I did visualize one other polypectomy site in the transverse colon, which appeared fine, without any ulceration, bleeding, nor visible vessel. Other polypectomy sites from a month ago were not visualized. There was a mild amount of sigmoid diverticulosis. In the rectum, the scope was retroflexed visualizing internal hemorrhoids, but no other pathology. The rectal mucosa appeared normal. The scope was straightened and withdrawn from the patient. He tolerated both procedures well and was returned to the recovery area in stable condition. IMPRESSION: 1. Small healing gastric ulcer, rule out Helicobacter pylori. 2. Hiatal hernia. 3. Gastritis. 4. Colon polyp. 5. Diverticulosis. 6. Internal hemorrhoids. PLAN: The results of the pathology will be checked. If H pylori is present in the gastric biopsies, I would recommend treating that. Based on the findings 1 month ago and today's findings, I would recommend a repeat colonoscopy in 1 to 2 years for further screening and surveillance. In regard to the cause of his GI bleeding, this may very well have been in relation to the findings in the stomach with the small ulcer given the description of melena. I did not really find anything in the colon that would account for the bleeding, including the polypectomy site in the cecum. While it had some friability, I do not think it was the source of bleeding. The patient will start full liquids and be switched to an oral PPI today. His diet will be advanced tomorrow as long as things are stable, and he should be able to be discharged tomorrow if things remain stable. He should stay on a PPI and avoid all aspirin and NSAIDs long-term. Again, I would recommend a repeat colonoscopy in 1 to 2 years given the multiple polyps removed last month and today's findings as well. MD ZACKARY Boss/YANCI / [id number] MTDD
[2021-07-27 06:47] LABS: Hematocrit 35.5 % (42.0-52.0); Hemoglobin 11.8 g/dl (14.0-18.0); Mean Corpuscular HGB Conc 33.2 g/dl (31.0-36.0); Mean Corpuscular Hemoglobin 31.3 pg (27.0-33.0); Mean Corpuscular Volume 94.2 fL (80.0-98.0); Mean Platelet Volume 8.4 fL (9.4-12.4); Platelet Count 247 X10*3/uL (160-400); Red Blood Count 3.77 X10*6/uL (4.60-5.80); Red Cell Distribution Width 12.6 % (11.0-16.0); White Blood Count 5.4 X10*3/uL (4.8-10.8)
[2021-07-27 07:10] LABS: Anion Gap 12 (12-20); Blood Urea Nitrogen 11 mg/dL (9-16); Calcium 9.1 mg/dL (8.4-10.2); Carbon Dioxide 26 mmol/L (22-29); Chloride 106 mmol/L (96-108); Creatinine Clr Calc Pharmacy 84.8; Estimated Glomerular Filt Rate > 60; Glucose Fasting 93 mg/dL (60-99); Potassium 4.7 mmol/L (3.3-5.1); Sodium 139 mmol/L (135-145)
[2021-07-27 07:35] VITALS: BP 156/87; PULSE 96; RESP 20; TEMP 36.4; O2SAT 98
[2021-07-27] MEDS: 0.9 % Sodium Chloride Flush 3 ML SYRINGE IVFLUSH (07:55)
--- NOTE | 2021-07-27 10:47 | PM.DS ---
DS: Providers Provider Date of Service: 07/27/21 Date of admission: 07/25/21 22:30 Date of discharge: 07/27/21 Primary care physician: Dylon Perez MD Consults: 07/25/21 22:29 Consult to Gastroenterology Routine Consulting Provider: Pedrito Gomez Reason for consultation: GI bleed Has provider been notified: Yes Attending physician on discharge: Bayron Chaparro Discharging clinician: Naye Goncalves DS: Diagnosis Discharge Diagnosis (1) GI bleed: Status: Acute (2) Gastritis: Status: Acute (3) Gastric ulcer: Status: Acute DS: Summary Hospital Course Hospital Course: From H&P on day of admission This is a 66-year-old male with no significant past medical history who presents to the hospital with complaints of bleed per rectum.? Patient reports that he had colonoscopy done on 07/02, and ever since has been progressively having increased bleed per rectum.? He reports that it started with spotting but last night he had a large stool with large amount of blood, another 2 episodes today prior to presenting to the hospital.? Patient reports no abdominal pain.? No headache, no dizziness, no change in vision.? No shortness of breath or chest pain.? Patient reports that his stools have also been dark Ilsa.? He otherwise denies any palpitations, no nausea or vomiting, no diarrhea or constipation, no urinary symptoms and no lower extremity edema.? Patient colonoscopy was done on 07/02, status post polypectomy.? [facility] advised to be admitted, started on PPI, and made NPO for colonoscopy as well possible EGD in a.m.. Vitals were reviewed, unremarkable except for a slight elevated blood pressure Labs are significant for WBC count of 4.7, hemoglobin of 12.8 which dropped from 14.5 on 09/18 , hematocrit of 30.9, labs otherwise unremarkable. Hospital Course by problem: Acute GI bleed secondary to gastritis/gastric ulcer. Patient was started on IV PPI. He was Seen by GI and underwent EGD and colonoscopy on July 26 showing gastritis, healing gastric ulcer with no bleeding. A polyp in the ascending colon was removed by polypectomy. Previous polypectomy site had some friability been no bleeding or facile, it was clipped x2. His PPI was changed to p.o., his diet was advanced. He has had no further bleeding, his H/H has remained stable. He has remained hemodynamically stable. Plan to discharge home with oral PPI, avoid aspirin and NSAIDs long-term. Time Spent with Patient Time attestation: Total time spent providing and/or coordinating discharge services: Discharge coordination time: Greater than 30 minutes Quality: Safe Use of Opioids Does Pt have an Active Cancer Diagnosis on the Problem List?: No Quality: Stroke Does the patient have a stroke diagnosis?: No Physical Exam Vital Signs: Vital Signs: Last Vital Signs Temp 97.6 F 07/27/21 07:35 Pulse 96 07/27/21 07:35 Resp 20 07/27/21 07:35 BP 156/87 H 07/27/21 07:35 Pulse Ox 98 07/27/21 07:35 BMI result Body Mass Index 25.8 Const: General: cooperative, comfortable, no acute distress, alert and awake Orientation/consciousness: patient oriented x3 Eyes: Pupils: Equal, round and reactive pupils present EOM: EOMs intact bilaterally Resp: Effort & Inspection: normal respiratory effort and able to speak in complete sentences Auscultation: clear to auscultation bilaterally GI: Inspection: No distended Palpation (GI): Soft to palpation and nontender Neuro: General: patient oriented x3 Cranial nerves: Yes Equal, round and reactive pupils present Extrem: General: Yes no pedal edema DS: Data Data Completed and Pending Pending studies at discharge: Pending at discharge 07/26/21 10:32 Surgical [PTH] Routine Labs on day of discharge: Laboratory Results - last 24 hr 07/26/21 07/27/21 07/27/21 14:24 06:41 06:41 WBC 5.4 RBC 3.77 L Hgb 11.3 L 11.8 L Hct 34.5 L 35.5 L MCV 94.2 MCH 31.3 MCHC 33.2 RDW 12.6 Plt Count 247 MPV 8.4 L Absolute Nucleated RBC 0.000 Nucleated RBC % (auto) 0.0 Sodium 139 Potassium 4.7 Chloride 106 Carbon Dioxide 26 Anion Gap 12 BUN 11 Creatinine 0.84 Estim Creat Clear Calc 84.8 Estimated GFR > 60 Fasting Glucose 93 Calcium 9.1 Discharge Plan Discharge Patient Disposition: Home, Self-Care Discharge Diagnosis: Gastric ulcer Gastritis Referrals: Dylon Perez MD [Primary Care Provider] - Discharge Medications: New omeprazole 40 mg Capsule,Delayed Release(Dr/Ec) 40 mg PO DAILY@0630 30 Days Qty: 30 0RF Continued loratadine [Allergy Relief (loratadine)] 10 mg tablet 10 mg PO DAILY PRN (Reason: Allergy Symptoms) 0RF Discharge Orders: Discharge Order (Routine); Ordered 07/27/21 Ordered By: Naye Goncalves Activity on Discharge: As tolerated Stand Alone Forms: Patient Portal Discharge page Care Plan Goals: see below Health Concerns: GI bleeding Gastritis Gastric ulcer Plan of Treatment: Start taking omeprazole daily as prescribed Do not use Aspirin or other NSAIDs (ibuprofen, motrin, etc) Call to schedule follow up with PCP, GI as needed Assessment: see discharge summary Discharge Date/Time: 07/27/21 10:52
--- NOTE | 2021-07-27 11:33 | MHC.CM.PN ---
Male 66 DX GIB He is discharged to home selfcare. Patient has arranged for transportation at discharge.
--- NOTE | 2021-07-27 15:30 | HO.POSTANES ---
Post Anesthesia Evaluation Post Anesthesia Evaluation Vital Signs: Vital Signs Temp Pulse Resp BP Pulse Ox 07/27/21 07:35 97.6 F 96 20 156/87 H 98 07/27/21 03:54 97.8 F 73 16 143/77 H 98 Anesthesia: Monitored Mental Status: Awake Pain Control: Satisfactory Nausea/Vomiting: None Hydration: Adequate Anesthesia-Related Issues: No Anes. Related Issues
== END 2021-07-27 10:52 | disposition home or self-care (01) | DRG 241 ==
LOC: HO.ED 21:27 → HO.EDOVER 22:39 → HO.IMC 07-26 17:09
PROVIDERS: Internal Medicine; Admitting Provider Internal Medicine; Emergency Provider Emergency Medicine; PCP Internal Medicine; Visit Provider Physician Assistant Medical
PROC: 0DB78ZX Excision of Stomach, Pylorus, Via Natural or Artificial Opening Endoscopic, Diagnostic (ICD-10-PCS; principal; 2021-07-26 09:20)
DX: K29.71 Gastritis, unspecified, with bleeding (principal); K57.31 Diverticulosis of large intestine without perforation or abscess with bleeding; K25.4 Chronic or unspecified gastric ulcer with hemorrhage; K63.5 Polyp of colon; K44.9 Diaphragmatic hernia without obstruction or gangrene; J45.909 Unspecified asthma, uncomplicated; Z86.010 Personal history of colon polyps; Z20.822 Contact with and (suspected) exposure to COVID-19; Z88.0 Allergy status to penicillin; Z79.899 Other long term (current) drug therapy
CPT/HCPCS: 36415; 80048; 80053; 85014; 85018; 85025; 85027; 85610; 87635; 88305; 88342; 96374; 99285; J2250

== ENCOUNTER 2021-08-09 14:43 | Outpatient (REF) | payer BC, SELFPAY ==
[2021-08-09 15:04] LABS: MANUAL DIFF FLAG NO
[2021-08-09 15:14] LABS: Basophils Absolute Auto 0.1 X10*3/uL (0.0-0.2); Basophils Percent Auto 1.7 % (0-2); Eosinophils Absolute Auto 0.3 X10*3/uL (0.0-0.4); Eosinophils Percent Auto 5.1 % (0-4); Hemoglobin 12.2 g/dl (14.0-18.0); Imm Gran Abs Auto 0.02 X10*3/uL (0.00-0.03); Imm Gran Pct Auto 0.4 % (0.0-0.4); Lymphocytes Absolute Auto 1.7 X10*3/uL (1.2-4.9); Lymphocytes Percent Auto 31.6 % (20-40); Mean Corpuscular Hemoglobin 30.6 pg (27.0-33.0); Mean Corpuscular Volume 92.7 fL (80.0-98.0); Mean Platelet Volume 8.4 fL (9.4-12.4); Monocytes Absolute Auto 0.8 X10*3/uL (0.1-1.2); Monocytes Percent Auto 14.3 % (2-11); Neutrophils Absolute Auto 2.5 x10*3/uL (2.0-8.3); Neutrophils Percent Auto 46.9 % (45-73); Platelet Count 345 X10*3/uL (160-400); Red Blood Count 3.99 X10*6/uL (4.60-5.80); Red Cell Distribution Width 12.7 % (11.0-16.0); White Blood Count 5.3 X10*3/uL (4.8-10.8)
== END 2021-08-09 14:44 | disposition home or self-care (01) ==
LOC: HO.LAB 14:43
PROVIDERS: PCP Internal Medicine; Visit Provider Internal Medicine
DX: Z13.0 Encounter for screening for diseases of the blood and blood-forming organs and certain disorders involving the immune mechanism (principal)
CPT/HCPCS: 36415; 85025

== ENCOUNTER 2022-02-22 09:16 | Outpatient (REF) | payer BC, SELFPAY ==
[2022-02-22 10:33] LABS: MANUAL DIFF FLAG NO
[2022-02-22 10:35] LABS: Basophils Absolute Auto 0.1 X10*3/uL (0.0-0.2); Basophils Percent Auto 2.2 % (0-2); Eosinophils Absolute Auto 0.2 X10*3/uL (0.0-0.4); Eosinophils Percent Auto 4.8 % (0-4); Hematocrit 41.8 % (42.0-52.0); Hemoglobin 13.8 g/dl (14.0-18.0); Imm Gran Abs Auto 0.02 X10*3/uL (0.00-0.03); Imm Gran Pct Auto 0.5 % (0.0-0.4); Lymphocytes Absolute Auto 1.2 X10*3/uL (1.2-4.9); Lymphocytes Percent Auto 28.2 % (20-40); Mean Corpuscular Hemoglobin 31.6 pg (27.0-33.0); Mean Corpuscular Volume 95.7 fL (80.0-98.0); Mean Platelet Volume 8.7 fL (9.4-12.4); Monocytes Absolute Auto 0.8 X10*3/uL (0.1-1.2); Monocytes Percent Auto 19.4 % (2-11); Neutrophils Absolute Auto 1.9 x10*3/uL (2.0-8.3); Neutrophils Percent Auto 44.9 % (45-73); Platelet Count 327 X10*3/uL (160-400); Red Blood Count 4.37 X10*6/uL (4.60-5.80); Red Cell Distribution Width 12.7 % (11.0-16.0); White Blood Count 4.2 X10*3/uL (4.8-10.8)
[2022-02-22 14:30] LABS: Alanine Aminotransferase 36 U/L (0-40); Albumin Level 4.3 g/dL (3.5-5.0); Alkaline Phosphatase 81 U/L (39-117); Anion Gap 13 (12-20); Aspartate Amino Transferase 32 U/L (5-37); Bilirubin Total 0.3 mg/dL (0.0-1.0); Blood Urea Nitrogen 20 mg/dL (9-16); Calcium 9.4 mg/dL (8.4-10.2); Carbon Dioxide 27 mmol/L (22-29); Chloride 101 mmol/L (96-108); Cholesterol 182 mg/dL; Estimated Glomerular Filt Rate > 60; Glucose Fasting 93 mg/dL (60-99); HDL Cholesterol 33 mg/dL; LDL Cholesterol Calculated 117 mg/dl; Potassium 4.7 mmol/L (3.3-5.1); Prostate Specific Antigen Scr 0.76 ng/mL (<0.05-4.0); Sodium 136 mmol/L (135-145); Thyroid Stimulating Hormone 1.43 uIU/mL (0.32-4.0); Triglycerides 161 mg/dL
== END 2022-02-22 09:17 | disposition home or self-care (01) ==
LOC: HO.10HDL 09:16
PROVIDERS: Visit Provider Internal Medicine
DX: Z00.00 Encounter for general adult medical examination without abnormal findings (principal); Z13.0 Encounter for screening for diseases of the blood and blood-forming organs and certain disorders involving the immune mechanism; Z12.5 Encounter for screening for malignant neoplasm of prostate; E78.5 Hyperlipidemia, unspecified; E03.9 Hypothyroidism, unspecified; I10 Essential (primary) hypertension
CPT/HCPCS: 36415; 80053; 80061; 84153; 84443; 85025

== ENCOUNTER → 2022-05-10 11:43 | Outpatient (REF) | payer BC, SELFPAY ==
--- NOTE | ~2022-05-10 | XR_ITS ---
EXAMINATION: XR CHEST CLINICAL INFORMATION: Chest pain. COMPARISON: None TECHNIQUE: 2 views of the chest were obtained. FINDINGS: No significant abnormality is noted involving the heart, lungs, mediastinum, bony thorax or soft tissues. XR/XR chest 2V IMPRESSION: No acute cardiopulmonary process.
--- NOTE | 2022-05-10 11:48 | ECG_ITS ---
Test Reason : cp Blood Pressure : / mmHG Vent. Rate : 086 BPM Atrial Rate : 086 BPM P-R Int : 190 ms QRS Dur : 084 ms QT Int : 352 ms P-R-T Axes : 046 023 057 degrees QTc Int : 421 ms Normal sinus rhythm Normal ECG No previous ECGs available Referred By: Dylon Perez Electronically Signed By:Bryant Huang
== END ==
LOC: HO.CARD 11:43
PROVIDERS: PCP Internal Medicine; Visit Provider Internal Medicine
DX: R07.9 Chest pain, unspecified (principal)
CPT/HCPCS: 71046; 93005

== ENCOUNTER 2023-02-28 08:10 | Outpatient (AMB) | payer MEDICARE, SELFPAY ==
[2023-02-28 08:31] VITALS: BP 132/74; PULSE 88; O2SAT 98; BMI 25.1
--- NOTE | 2023-02-28 08:31 | MHC.PC.OV ---
Vital Signs 02/28/23 08:31 Height 5 ft 10 in Weight 175 lb BMI 25.1 BP 132/74 Blood Pressure Location Lt brachial Position Sitting Pulse 88 Pulse Source Pulse Oximeter Pulse Oximetry (%) 98 Oxygen Delivery Method Room Air Intake Visit Reasons: 3mth f/u Lining Cementer Required: No Tax Examiner: Not Required per policy Accompanied by: Self / Same As Patient Allergies Penicillins Allergy (Severe, Verified 02/28/23 08:32) ANAPHYLAXIS Medication List - Last Reconciled 02/28/23 by Dylon Perez MD albuterol sulfate 90 mcg/actuation (Ventolin HFA) 2 puffs inhalation Q4-6H PRN lisinopril 20 mg PO DAILY loratadine (Allergy Relief (loratadine)) 10 mg PO DAILY PRN omeprazole 40 mg PO DAILY@0630 30 days Tobacco use date assessed: 08/23/22 Fall risk assessment: No Falls in past year Last assessed Fall Risk: 02/28/23 Dental Screening Dental Screen Date: 02/28/23 Did you have a dental visit in the last 12 months?: Yes Did you have a dental problem in the last 6 months where you did not have access to dental care?: No Was dental information given to patient?: Patient has dentist HPI 3mth f/u HPI Details HTN gerd and asthma on rx; doing well; compliant [facility] Medical History COVID-19 vaccine series completed Allergic rhinitis Asthma Surgical History Hx of bilateral inguinal hernia repair H/O colonoscopy Hx of shoulder surgery Family History Mother No problems noted. Father No problems noted. Social History Household Members: None Housing: House Are you a primary healthcare network pricing consultant to a significant other at home: No Do you presently have visiting nurse or other home services: No Alcohol intake: current Alcohol intake frequency: a few times a month Patient Tobacco Use Status: Never used Tobacco e-Cigarette/Vaping Use: Never Used Second Hand Smoke Exposure: No service: No Current occupational status: employed Cognitive needs: No Hearing needs: No Vision needs: No Questionnaire Thrive Questionnaire Date Thrive assessed: 05/10/22 KALI-7 AMB Questionnaire KALI-7 Date KALI - 7 assessed: 05/10/22 Source: Developed by Drs. Pedro Elizabeth, Leticia Shultz, Jae Maharaj and colleagues, with an educational vickie from [employer]. Review of Systems Const Denies chills, Denies headache(s) and Denies weight loss ENT Denies headache(s) Card Denies chest pain, Denies syncope, Denies irregular heart rhythm and Denies dyspnea Resp Denies chest congestion, Denies cough and Denies dyspnea GI Denies abdominal pain, Denies change in stool character, Denies nausea and Denies vomiting Musc Denies deformity and Denies joint swelling Neuro Denies syncope and Denies headache(s) Physical exam (Primary Care) Vital Signs: Last Vital Signs Pulse 88 02/28/23 08:31 BP 132/74 02/28/23 08:31 Pulse Ox 98 02/28/23 08:31 Oxygen Delivery Method Room Air 02/28/23 08:31 BMI result Body Mass Index 25.1 Tobacco/Smoking Status: Tobacco use Status Tobacco use date assessed 08/23/22 02/28/23 08:36 Patient Tobacco Use Status Never used Tobacco 02/28/23 08:36 e-Cigarette/Vaping Use Never Used 02/28/23 08:36 Thrive Assessment: Date of Thrive Assessment Date Thrive assessed 05/10/22 02/28/23 08:36 Const General: cooperative, comfortable, no acute distress and alert Neck Neck: Yes no lymphadenopathy Thyroid: Thyroid normal Resp Effort & Inspection: normal respiratory effort Auscultation: clear to auscultation bilaterally Percussion: percussion normal Cardio Jugular venous distension: no JVD Palpation: normal PMI Rate: regular rate Rhythm: regular rhythm Heart sounds: S1 normal heart sound present and S2 normal heart sound present GI Inspection: Yes normal to inspection Palpation (GI): No hepatosplenomegaly present Skin General skin exam: no rashes or lesions noted Extrem General: Yes no clubbing, cyanosis or edema Assessment and Plan Assessment & Plan (1) Hypertension: Code(s): I10 - Essential (primary) hypertension Plan: stable; same rx (2) Chronic GERD: Code(s): K21.9 - Gastro-esophageal reflux disease without esophagitis Plan: stable; sees GI (3) Asthma: Code(s): J45.909 - Unspecified asthma, uncomplicated Plan: stable; same rx Coding Level of Care Code Est Pt Level 4 (21850) Diagnoses Hypertension I10 Chronic GERD K21.9 Asthma J45.909
== END 2023-02-28 08:48 | disposition home or self-care (01) ==
PROVIDERS: PCP Internal Medicine; Visit Provider Internal Medicine
DX: I10 Essential (primary) hypertension (principal); K21.9 Gastro-esophageal reflux disease without esophagitis; J45.909 Unspecified asthma, uncomplicated
CPT/HCPCS: 99214

== ENCOUNTER 2023-02-28 08:53 | Outpatient (REF) | payer MEDICARE, SELFPAY ==
[2023-02-28 09:22] LABS: MANUAL DIFF FLAG NO
[2023-02-28 10:00] LABS: Basophils Absolute Auto 0.1 X10*3/uL (0.0-0.2); Basophils Percent Auto 1.6 % (0-2); Eosinophils Absolute Auto 0.3 X10*3/uL (0.0-0.4); Eosinophils Percent Auto 5.6 % (0-4); Hematocrit 42.9 % (42.0-52.0); Imm Gran Abs Auto 0.04 X10*3/uL (0.00-0.03); Imm Gran Pct Auto 0.7 % (0.0-0.4); Lymphocytes Absolute Auto 1.5 X10*3/uL (1.2-4.9); Lymphocytes Percent Auto 26.2 % (20-40); Mean Corpuscular HGB Conc 32.6 g/dl (31.0-36.0); Mean Corpuscular Hemoglobin 29.9 pg (27.0-33.0); Mean Corpuscular Volume 91.5 fL (80.0-98.0); Mean Platelet Volume 8.4 fL (9.4-12.4); Monocytes Percent Auto 17.9 % (2-11); Neutrophils Absolute Auto 2.7 x10*3/uL (2.0-8.3); Platelet Count 351 X10*3/uL (160-400); Red Blood Count 4.69 X10*6/uL (4.60-5.80); Red Cell Distribution Width 13.2 % (11.0-16.0); White Blood Count 5.6 X10*3/uL (4.8-10.8)
[2023-02-28 10:45] LABS: Alanine Aminotransferase 41 U/L (0-40); Albumin Level 4.4 g/dL (3.5-5.0); Alkaline Phosphatase 130 U/L (39-117); Anion Gap 13 (12-20); Aspartate Amino Transferase 46 U/L (5-37); Bilirubin Total 0.5 mg/dL (0.0-1.0); Blood Urea Nitrogen 16 mg/dL (9-16); Calcium 9.5 mg/dL (8.4-10.2); Carbon Dioxide 27 mmol/L (22-29); Chloride 105 mmol/L (96-108); Cholesterol 198 mg/dL (<200); Estimated Glomerular Filt Rate > 60; Glucose Fasting 97 mg/dL (60-99); HDL Cholesterol 33 mg/dL (>40); LDL Cholesterol Calculated 130 mg/dL (<100); Potassium 4.7 mmol/L (3.3-5.1); Sodium 140 mmol/L (135-145); Total Protein 8.8 g/dL (6.5-8.0); Triglycerides 179 mg/dL (<150)
[2023-02-28 11:09] LABS: Prostate Specific Antigen Scr 0.79 ng/mL (<0.05-4.0)
== END 2023-02-28 08:54 | disposition home or self-care (01) ==
LOC: HO.LAB 08:53
PROVIDERS: PCP Internal Medicine; Visit Provider Internal Medicine
DX: Z00.00 Encounter for general adult medical examination without abnormal findings (principal); Z12.5 Encounter for screening for malignant neoplasm of prostate; N28.9 Disorder of kidney and ureter, unspecified; E78.5 Hyperlipidemia, unspecified; D64.9 Anemia, unspecified
CPT/HCPCS: 36415; 80053; 80061; 84153; 85025

== ENCOUNTER 2023-05-26 08:01 | Day surgery (SDC) | payer MEDICARE, SELFPAY ==
[2023-05-22 14:49] VITALS: BMI 25.4
--- NOTE | 2023-05-23 12:35 | P.CONAN_ITS ---
HPI - Anesthesia Eval Consult details Narrative: 68yo M for Colonoscopy [facility] Active Problems Active Problems: All Active Problems (Updated 05/22/23 @ 14:48 by Geneva Harrison RN) Chest pain (Acute) Hypertension (Acute) Chronic GERD (Acute) Gastric ulcer (Acute) Gastritis (Acute) GI bleed (Acute) Physical exam (Acute) Allergic rhinitis (Acute) Asthma (Acute) Past Medical History Medical History (Updated 05/22/23 @ 14:48 by Geneva Harrison RN) Gastric ulcer GERD (gastroesophageal reflux disease) HTN (hypertension) Allergic rhinitis Asthma Family History Family History Mother No problems noted. Father No problems noted. Family history of problems with anesthesia: No Surgical History Surgical History (Updated 05/22/23 @ 14:50 by Geneva Harrison RN) History of esophagogastroduodenoscopy (EGD) Hx of bilateral inguinal hernia repair H/O colonoscopy Hx of shoulder surgery History of Problems with Anesthesia: No Social History Social History (Updated 05/22/23 @ 14:49 by Geneva Harrison RN) Household Members: None Housing: House Are you a primary ambulatory care nurse to a significant other at home: No Do you presently have visiting nurse or other home services: No Alcohol intake: current Alcohol intake frequency: a few times a month Patient Tobacco Use Status: Never used Tobacco e-Cigarette/Vaping Use: Never Used Second Hand Smoke Exposure: No service: No Current occupational status: employed Cognitive needs: No Hearing needs: No Vision needs: No Meds Allergies Allergy/AdvReac Type Severity Reaction Status Date / Time Penicillins Allergy Severe ANAPHYLAXIS Verified 02/28/23 08:32 Home Medications Medication Instructions Recorded Confirmed Last Taken Type loratadine 10 mg tablet (Allergy 10 mg PO DAILY PRN Allergy Symptoms 06/16/20 05/22/23 Unknown History Relief (loratadine)) Exam Height,Weight and Vital Signs: Height 5 ft 10 in Weight 80.286 kg Assessment and Plan Assessment Anesthesia Assessment: Chart Reviewed Final Anesthetic Review Family History of Problems with Anesthesia: No History of Problems with Anesthesia: No
[2023-05-26 09:09] VITALS: BP 140/93; PULSE 92; RESP 16; TEMP 36.8; O2SAT 97
[2023-05-26] MEDS: Lactated Ringers 1,000 ML 100 ML IVCONT (09:10)
--- NOTE | 2023-05-26 09:14 | P.CONAN_ITS ---
[facility] Active Problems Active Problems: All Active Problems (Updated 05/22/23 @ 14:48 by Geneva Harrison RN) Chest pain (Acute) Hypertension (Acute) Chronic GERD (Acute) Gastric ulcer (Acute) Gastritis (Acute) GI bleed (Acute) Physical exam (Acute) Allergic rhinitis (Acute) Asthma (Acute) Past Medical History Medical History Gastric ulcer GERD (gastroesophageal reflux disease) HTN (hypertension) Allergic rhinitis Asthma Family History Family History Mother No problems noted. Father No problems noted. Family history of problems with anesthesia: No Surgical History Surgical History History of esophagogastroduodenoscopy (EGD) Hx of bilateral inguinal hernia repair H/O colonoscopy Hx of shoulder surgery History of Problems with Anesthesia: No Social History Social History Household Members: None Housing: House Are you a primary wound care nurse to a significant other at home: No Do you presently have visiting nurse or other home services: No Alcohol intake: current Alcohol intake frequency: does not drink Patient Tobacco Use Status: Never used Tobacco e-Cigarette/Vaping Use: Never Used Second Hand Smoke Exposure: No Use of substances other than those prescribed or required for medical reasons: No Are you DNR?: No Advance Directives: No Advance Directives Information Provided: Yes Advance Directives on File: No service: No Current occupational status: employed Cognitive needs: No Hearing needs: No Vision needs: No Meds Allergies Allergy/AdvReac Type Severity Reaction Status Date / Time Penicillins Allergy Severe ANAPHYLAXIS Verified 02/28/23 08:32 Active Medications: Current Medications Albuterol Sulfate (Albuterol Sulfate (0.083%) 2.5 Mg/3 Ml Vial.Neb) 2.5 mg INHALE ONCE PRN PRN Reason: Shortness of Breath/Wheezing Lactated Ringer's (Lr) 1,000 mls @ 100 mls/hr IVCONT .Q10H LENA Last Admin: 05/26/23 09:10 Dose: 100 mls/hr Sodium Biphosphate/Sodium Phosphate (Sodium Phosphate,[place]-Dibasic 133 Ml Enema) 133 ml LA ONCE PRN PRN Reason: Poor Colonoscopy Prep Results Home Medications Medication Instructions Recorded Confirmed Last Taken Type loratadine 10 mg tablet (Allergy 10 mg PO DAILY PRN Allergy Symptoms 06/16/20 05/22/23 Unknown History Relief (loratadine)) Exam Height,Weight and Vital Signs: Height 5 ft 10 in Weight 80.286 kg Last Vital Signs Temp 98.3 F 05/26/23 09:09 Pulse 92 05/26/23 09:09 Resp 16 05/26/23 09:09 BP 140/93 H 05/26/23 09:09 Pulse Ox 97 05/26/23 09:09 O2 Del Method Room Air 05/26/23 09:09 Airway Mallampati Class: II TM Dist: >3cm Neck ROM: Full Heart: RRR Lungs: CTA Assessment and Plan Assessment Anesthesia Assessment: Anesthesia Plan Discussed Final Anesthetic Review Family History of Problems with Anesthesia: No History of Problems with Anesthesia: No NPO: Yes ASA Class: II Final Preanesthetic Review: Meds/Allgs Chart Reviewed, Consent Obtained/Reviewed and Anes Risks/Benef Reviewed Patient Risk: Low Procedure Risk: Low Anesthetic Plan Anesthetic Plan: MAC: Disposition: Standard PACU
[2023-05-26 10:43] VITALS: BP 82/50; PULSE 61; RESP 16; TEMP 36.2; O2SAT 100
--- NOTE | 2023-05-26 10:44 | PM.OP ---
Brief Operative Note Date of Service: 05/26/23 Pre-op diagnosis: Screening Post-op diagnosis: other (Colon polyp) Procedure: Colonoscopy to the cecum with hot snare polypectomy x 1 Surgeon: Pedro Montesinos MD Anesthesia: MAC Was an Line Haul Owner Operator used for this Procedure?: No Estimated blood loss (mL): 0 Pathology: other (A. Transverse colon polyp) Condition: stable Disposition: PACU
[2023-05-26 10:58] VITALS: BP 113/68; PULSE 70; RESP 15; TEMP 36.1; O2SAT 100
--- NOTE | 2023-05-26 11:47 | OP_ITS ---
DATE OF SERVICE: 05/26/2023 SURGEON: Pedro Montesinos MD INDICATIONS: The patient presents for evaluation of colorectal cancer screening and personal history of tubular adenoma of the colon. Full consent was obtained from him for this, including risks of bleeding and perforation. PREOPERATIVE DIAGNOSIS: POSTOPERATIVE DIAGNOSIS: PROCEDURE PERFORMED: Colonoscopy to the cecum with hot snare polypectomy x1. ESTIMATED BLOOD LOSS: COMPLICATIONS: ANESTHESIA: Monitored anesthesia care. ASSISTANTS: SPECIMENS: PREOPERATIVE DIAGNOSES: Colorectal cancer screening and personal history of tubular adenoma of the colon. POSTOPERATIVE DIAGNOSES: Colorectal cancer screening, personal history of tubular adenoma of the colon, colon polyp, diverticulosis, and internal hemorrhoids. DESCRIPTION OF PROCEDURE: The patient was placed in the left lateral decubitus position. The digital rectal exam revealed no abnormalities. The Olympus video pediatric colonoscope was then entered into the rectum and advanced easily to the cecum. Once in the cecum, I did identify normal-appearing cecal pouch with appendiceal orifice and a normal-appearing ileocecal valve. The entire cecum and ileocecal valve appeared normal. The appendiceal orifice appeared normal. The scope was slowly withdrawn, assessing all mucosal surfaces carefully. Preparation was excellent. In the transverse colon, there was an approximately 8 mm polyp, which was removed by hot snare polypectomy and recovered by suction. The polypectomy site appeared clean, without any sign of residual polyp nor bleeding. I did not visualize any other polyps, colitis, nor angiodysplasia. There was a mild amount of sigmoid diverticulosis. In the rectum, scope was retroflexed visualizing internal hemorrhoids, but no other pathology. The rectal mucosa appeared normal. The scope was straightened and withdrawn from the patient. He tolerated the procedure well and was returned to the recovery area in stable condition. IMPRESSION: 1. Colon polyp. 2. Diverticulosis. 3. Internal hemorrhoids. PLAN: The results of the pathology will be checked. Given his previous history, I would recommend a repeat colonoscopy in 3 years for further surveillance. He was advised not to use any aspirin and NSAIDs for at least 1 week. MD ZACKARY Boss/YANCI / [id number]
--- NOTE | 2023-05-26 12:20 | HO.POSTANES ---
Post Anesthesia Evaluation Post Anesthesia Evaluation Date of Service: 05/26/23 Vital Signs: Vital Signs Temp Pulse Resp BP Pulse Ox O2 Del Method 05/26/23 10:58 97 F 70 15 113/68 100 Room Air 05/26/23 10:43 97.1 F 61 16 82/50 L 100 Room Air 05/26/23 09:09 98.3 F 92 16 140/93 H 97 Room Air Anesthesia: Monitored Mental Status: Awake Pain Control: Satisfactory Nausea/Vomiting: None Hydration: Adequate Anesthesia-Related Issues: No Anes. Related Issues
== END 2023-05-26 11:16 | disposition home or self-care (01) ==
PROVIDERS: PCP Internal Medicine; Visit Provider Internal Medicine
PROC: 0DJD8ZZ Inspection of Lower Intestinal Tract, Via Natural or Artificial Opening Endoscopic (ICD-10-PCS; CPT 45378; principal; 2023-05-26 09:50)
DX: Z12.11 Encounter for screening for malignant neoplasm of colon (principal); Z86.010 Personal history of colon polyps; D12.3 Benign neoplasm of transverse colon; K57.30 Diverticulosis of large intestine without perforation or abscess without bleeding; K64.8 Other hemorrhoids; I10 Essential (primary) hypertension; J45.909 Unspecified asthma, uncomplicated; K25.9 Gastric ulcer, unspecified as acute or chronic, without hemorrhage or perforation; L40.50 Arthropathic psoriasis, unspecified; Z79.899 Other long term (current) drug therapy; Z88.0 Allergy status to penicillin
CPT/HCPCS: 45385; 88305; J2371; J2704

== ENCOUNTER 2023-09-18 13:46 | Outpatient (AMB) | payer MEDICARE, SELFPAY ==
[2023-09-18 13:50] VITALS: BP 120/86; PULSE 85; O2SAT 97; BMI 24.8
--- NOTE | 2023-09-18 13:50 | A.OFFPC_ITS ---
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 Fire Extinguisher Charger: Not Required per policy Accompanied by: Self / Same As Patient Allergies Penicillins Allergy (Severe, Verified 09/18/23 13:51) ANAPHYLAXIS Medication List - Last Reconciled 09/19/23 by Dylon Perez MD albuterol sulfate 90 mcg/actuation (Ventolin HFA) 2 puffs inhalation Q4-6H PRN azithromycin take 500 mg today (day 1), then 250 mg for 4 days (days 2-5) PO lisinopril 20 mg PO DAILY loratadine (Allergy Relief (loratadine)) 10 mg PO DAILY PRN omeprazole 40 mg PO DAILY@30 30 days Tobacco use date assessed: 09/18/23 Fall risk assessment: No Falls in past year Last assessed Fall Risk: 09/18/23 Dental Screening Dental Screen Date: 09/18/23 Did you have a dental visit in the last 12 months?: No Did you have a dental problem in the last 6 months where you did not have access to dental care?: No Was dental information given to patient?: Patient has dentist HPI 6M f/u HPI Details htn on rx; doing well and compliant [facility] Medical History Gastric ulcer GERD (gastroesophageal reflux disease) HTN (hypertension) Allergic rhinitis Asthma Surgical History History of esophagogastroduodenoscopy (EGD) Hx of bilateral inguinal hernia repair H/O colonoscopy Hx of shoulder surgery Family History Mother No problems noted. Father No problems noted. Social History Household Members: None Housing: House Are you a primary cardiac care nurse to a significant other at home: No Do you presently have visiting nurse or other home services: No Alcohol intake: current Alcohol intake frequency: does not drink Patient Tobacco Use Status: Never used Tobacco e-Cigarette/Vaping Use: Never Used Second Hand Smoke Exposure: No service: No Current occupational status: employed Cognitive needs: No Hearing needs: No Vision needs: No Questionnaire PHQ-9 Over the last 2 weeks, how often have you been bothered by any of the following problems? 1. Little interest or pleasure in doing things: not at all 2. Feeling down, depressed, or hopeless: not at all 3. Trouble falling or staying asleep, or sleeping too much: not at all 4. Feeling tired or having little energy: not at all 5. Poor appetite or overeating: not at all 6. Feeling bad about yourself - or that you are a failure or have let yourself or your family down: not at all 7. Trouble concentrating on things, such as reading the newspaper or watching television: not at all 8. Moving or speaking so slowly that other people could have noticed. Or the opposite - being so fidgety or restless that you have been moving around a lot more than usual: not at all 9. Thoughts that you would be better off or of hurting yourself in some way: not at all Total score: 0 Depression Screening Interpretation: Negative Depression Screening Done: Yes Source: Developed by Drs. Pedro Elizabeth, Leticia Shultz, Jae Maharaj and colleagues, with an educational vickie from [employer]. Thrive Questionnaire Date Thrive assessed: 09/18/23 I am a: Patient What is your living situation today?: I have a steady place to live Within the past 12 months, did the food you bought not last and you didn't have the money to get more?: Never true Within the past 12 months, did you worry whether your food would run out before you got money to buy more?: Never true Do you have trouble paying for medicines?: No Do you have trouble getting transportation to medical appointments?: No Do you have trouble paying your heating and electricity bill?: No Do you have trouble taking care of your child, family member or friend?: No Do you have trouble with day-to-day activities such as bathing, preparing meals, shopping, managing finances, etc.?: No Are you currently unemployed and looking for a job?: No Are you interested in more education?: No Please select the resources that you would like help with: None THRIVE Score: 0 AUDIT C Alcohol Use Questionnaire (AUDIT-C) 1. How often do you have a drink containing alcohol?: 2-3 times a week 2. How many drinks containing alcohol do you have on a typical day when you are drinking?: 3 or 4 3. How often do you have six or more drinks on one occasion?: Never Total Score: 4 Score Reviewed/Action Taken: Yes KALI-7 AMB Questionnaire KALI-7 Date KALI - 7 assessed: 09/18/23 Feeling nervous, anxious, or on edge: 0 = Not at all Not being able to stop or control worryin = Not at all Worrying too much about different things: 0 = Not at all Trouble relaxin = Not at all Being so restless that it is hard to sit still: 0 = Not at all Becoming easily annoyed or irritable: 0 = Not at all Feeling afraid as if something awful might happen: 0 = Not at all Total KALI-7 score (0-4 normal; 5-9 mild; 10-14 moderate; 15-21 severe): 0 Source: Developed by Drs. Pedro Elizabeth, Leticia Shultz, Jae Maharaj and colleagues, with an educational vickie from [employer]. Review of Systems Const Denies chills, Denies headache(s) and Denies weight loss ENT Denies headache(s) Card Denies chest pain, Denies syncope, Denies irregular heart rhythm and Denies dyspnea Resp Denies chest congestion, Denies cough and Denies dyspnea GI Denies abdominal pain, Denies change in stool character, Denies nausea and Denies vomiting Musc Denies deformity and Denies joint swelling Neuro Denies syncope and Denies headache(s) Physical exam (Primary Care) Vital Signs: Last Vital Signs Pulse 85 09/18/23 13:50 BP 120/86 09/18/23 13:50 Pulse Ox 97 09/18/23 13:50 Oxygen Delivery Method Room Air 09/18/23 13:50 BMI result Body Mass Index 24.8 Tobacco/Smoking Status: Tobacco use Status Tobacco use date assessed 09/18/23 09/18/23 13:52 Patient Tobacco Use Status Never used Tobacco 09/18/23 13:52 e-Cigarette/Vaping Use Never Used 09/18/23 13:52 PHQ-9: PHQ-9 Score PHQ-9: Total score 0 09/18/23 13:52 Depression Screening Interpretation: Negative Thrive Assessment: Date of Thrive Assessment Date Thrive assessed 09/18/23 09/18/23 13:52 Const General: cooperative, comfortable, no acute distress and alert Neck Neck: Yes no lymphadenopathy Thyroid: Thyroid normal Resp Effort & Inspection: normal respiratory effort Auscultation: clear to auscultation bilaterally Percussion: percussion normal Cardio Jugular venous distension: no JVD Palpation: normal PMI Rate: regular rate Rhythm: regular rhythm Heart sounds: S1 normal heart sound present and S2 normal heart sound present GI Inspection: Yes normal to inspection Palpation (GI): No hepatosplenomegaly present Skin General skin exam: no rashes or lesions noted Extrem General: Yes no clubbing, cyanosis or edema Assessment and Plan Assessment & Plan (1) Hypertension: Code(s): I10 - Essential (primary) hypertension Plan: stable; same rx Orders: Orders Lipid Panel Today Z13.220 - Encounter for screening for lipoid disorders Comprehensive [place]. Panel Fast Today Z13.9 - Encounter for screening, unspecified Complete Blood Count Auto Diff Today Z13.0 - Encounter for screening for diseas es of the blood and blood-forming organs and certain disorders involving the immune mechanism Medications: New azithromycin take 500 mg today (day 1), then 250 mg for 4 days (days 2-5) PO 6 tabs 0RF Coding Level of Care Code Est Pt Level 3 (06452) Diagnoses Hypertension I10
== END 2023-09-18 14:05 | disposition home or self-care (01) ==
PROVIDERS: PCP Internal Medicine; Visit Provider Internal Medicine
DX: I10 Essential (primary) hypertension (principal)
CPT/HCPCS: 99213

== ENCOUNTER 2024-02-11 01:08 | Emergency (ER) | payer MEDICARE, SELFPAY ==
[2024-02-11] VITALS (7 sets, daily range): BP systolic 92–124; BP diastolic 65–78; PULSE 77–114; RESP 15–20; TEMP 36.2–36.9; O2SAT 96–99; BMI 25.1
--- NOTE | 2024-02-11 | ECG_ITS ---
Test Reason : CP Blood Pressure : / mmHG Vent. Rate : 087 BPM Atrial Rate : 087 BPM P-R Int : 166 ms QRS Dur : 084 ms QT Int : 362 ms P-R-T Axes : 047 008 062 degrees QTc Int : 435 ms Normal sinus rhythm Normal ECG When compared with ECG of 10-MAY-2022 11:51, No significant change was found Referred By: Generic ED Physician Electronically Signed By:FADUMO ELIAS MD
--- NOTE | ~2024-02-11 | XR_ITS ---
EXAMINATION: XR CHEST CLINICAL INFORMATION: sob COMPARISON: Chest radiograph 02/11/2024 TECHNIQUE: Frontal view of the chest was obtained. FINDINGS: Normal appearance of the cardiomediastinal structures. Mild left base airspace opacification minimally obscuring visualization of the left hemidiaphragmatic margin. No effusions or pneumothoraces. Normal pattern of pulmonary vasculature. XR/XR chest 1V IMPRESSION: Mild focal left lower lobe airspace opacification which may represent mild atelectasis and/or consolidation. Electronically signed by: Dereck Nixon MD 02/11/2024 02:21 AM [facility]
--- NOTE | ~2024-02-11 | CT_ITS ---
EXAMINATION: CT ANGIOGRAM CHEST CLINICAL INFORMATION: Acute shortness of breath. COMPARISON: Chest radiograph 02/11/2024 TECHNIQUE: Multiple axial images were obtained through the chest after the administration of 80 mL of Omnipaque 350 intravenous contrast. Extensive vascular post-processing including two-dimensional and three-dimensional reformatted images were created and reviewed on an independent workstation. This CT examination was performed using dose optimization techniques as appropriate, variously including the following: *Automated exposure control *Adjustment of mA and/or kV according to patient size (this includes techniques or standardized protocols for targeted exams where dose is matched to indication/reason for exam; i.e. extremities or head) *Use of iterative reconstruction technique DLP: 263 mGy-cm FINDINGS: Pulmonary arterial system: High density intraluminal opacification is noted within the visualized pulmonary arterial system. No intraluminal filling defects are identified to suggest the presence of pulmonary emboli. The main and central pulmonary arteries are normal in caliber. Thoracic aorta: Normal caliber. Mediastinum: No lymphadenopathy. Partial visualization of moderate-marked scattered coronary artery calcific atherosclerotic plaques partially obscured from visualization by cardiac motion artifact. Lungs and pleura: Mild peribronchial wall thickening is noted. Mild peribronchial reticular opacities are present within the right upper pulmonary lobe. No dense pulmonary consolidation is identified. No pleural effusions or pneumothoraces visualized. Thoracic wall: No axillary lymphadenopathy. No thoracic wall inflammatory changes. Visualized abdomen and pelvis: The liver is partially included within the imaged field of view. Partial visualization is made of an approximate 10 cm heterogeneous density rounded lesion within the anterior segment of the right lobe of the liver with irregular vascularity which may represent neovascularity. A small number of peripheral subcentimeter similar hyperdense foci are noted elsewhere within the posterior lobe the right lobe of the liver. A small quantity of free intraperitoneal fluid is present in the left subphrenic space 19 Hounsfield units). Thereafter osseous structures: No suspicious skeletal lesions noted. CT/CT angio chest PE protocol IMPRESSION: *CT pulmonary angiogram negative for pulmonary emboli. *Partially visualized 10 cm mass within the incidentally visualized portions of the liver. This finding is suspicious for hepatocellular carcinoma but is not fully assessed. This lesion is only partially included within the imaged field of view. Additionally, small quantity of intermediate low density free intraperitoneal fluid is present in the left subphrenic space and may be reactive fluid related to the liver lesion. *Mild peribronchial wall inflammatory changes and minimal right upper lobe peribronchial consolidation. Findings could represent bronchitis. Electronically signed by: Dereck Nixon MD 02/11/2024 04:06 AM [facility]
--- NOTE | 2024-02-11 01:14 | ED_ITS ---
HPI - SOB/Dyspnea General Chief Complaint: Dyspnea Stated Complaint: DIFICULTY BREATHING Time Seen by Provider: 02/11/24 01:14 Source: patient Mode of arrival: ambulatory Limitations: no limitations History of Present Illness ED Provider: rebecca YOO Narrative: Patient's history of stable asthma noticed acute onset of shortness a breath just prior to arrival with pain in the right shoulder apparently patient was moving heavy furniture earlier today was doing well during the daytime all of a sudden just prior to arrival noticed pain in the right side of chest and shoulder with increased shortness a breath no history of coronary artery disease Related Data Home Medications ?Medication ?Instructions ?Recorded ?Confirmed loratadine 10 mg tablet (Allergy 10 mg PO DAILY PRN Allergy Symptoms 06/16/20 09/19/23 Relief (loratadine)) Previous Rx's ?Medication ?Instructions ?Recorded omeprazole 40 mg capsule,delayed 40 mg PO DAILY@30 30 days #30 07/27/21 release caps albuterol sulfate 90 mcg/actuation 2 puff inhalation Q4-6H PRN 05/10/22 aerosol inhaler (Ventolin HFA) shortness of breath or wheezing #8.5 grams lisinopril 20 mg tablet 20 mg PO DAILY #90 tabs 07/03/23 azithromycin 250 mg tablet See Rx Instructions PO .COMPLEX #6 09/18/23 tabs azithromycin 500 mg tablet 500 mg PO DAILY 3 days #3 tabs 02/11/24 (Zithromax) prednisone 20 mg tablet 40 mg (2 x 20 mg) PO DAILY #10 tabs 02/11/24 Allergies Allergy/AdvReac Type Severity Reaction Status Date / Time Penicillins Allergy Severe ANAPHYLAXIS Verified 02/11/24 01:38 Review of Systems 2 Review of Systems: Yes all other systems are reviewed and are negative [facility] Past Medical History Medical History Gastric ulcer GERD (gastroesophageal reflux disease) HTN (hypertension) Allergic rhinitis Asthma Surgical History History of esophagogastroduodenoscopy (EGD) Hx of bilateral inguinal hernia repair H/O colonoscopy Hx of shoulder surgery Family History Family History Mother No problems noted. Father No problems noted. Social History Social History Household Members: None Housing: House Are you a primary cardiac care nurse to a significant other at home: No Do you presently have visiting nurse or other home services: No Alcohol intake: never Patient Tobacco Use Status: Never used Tobacco e-Cigarette/Vaping Use: Never Used Second Hand Smoke Exposure: No service: No Current occupational status: employed Cognitive needs: No Hearing needs: No Vision needs: No Physical Exam 2 Vital Signs: Vital Signs: Last Vital Signs Temp 97.6 F 02/11/24 04:00 Pulse 93 02/11/24 04:00 Resp 20 02/11/24 04:00 BP 100/67 02/11/24 04:00 Pulse Ox 96 02/11/24 04:00 O2 Del Method Room Air 02/11/24 04:00 BMI result Body Mass Index 25.1 Appearance: Alert. Oriented X3. No acute distress. Eyes: PERRLA, No Nystagmus ENT: Pharynx normal. Oral Mucosa moist Neck: Normal inspection. Neck supple. CVS: Normal heart rate and rhythm. Pulses normal. Respiratory: No respiratory distress. Equal air entry bilateral, prolonged expiration Abdomen: Soft and nontender. Bowel sounds are present, no mass palpable, no CVA tenderness Skin: Skin warm and dry. Normal skin color. Normal skin turgor. Extremities: No lower extremity edema. No calf tenderness Neuro: Oriented X 3. No motor deficit. Medications Administered Discontinued Medications Generic Name Dose Route Start Last Admin Trade Name Freq PRN Reason Stop Dose Admin Azithromycin 500 mg 02/11/24 06:06 02/11/24 06:11 Azithromycin 500 Mg Tablet PO 02/11/24 06:07 500 mg ONCE ONE Administration Albuterol Sulfate 2.5 mg/ 0 mg 02/11/24 01:21 02/11/24 01:32 Albuterol/Ipratropium 3 ml INHALE 02/11/24 01:22 3.5 dose ONCE ONE Administration Sodium Chloride 1,000 mls @ 999 mls/hr 02/11/24 02:28 02/11/24 06:01 Ns IV 02/11/24 03:28 Infused .Q1H1M ONE Infusion Iohexol 65 ml 02/11/24 02:45 02/11/24 02:48 Iohexol 350 Mg/Ml 100 Ml Infus..Btl IV 02/11/24 02:46 65 ml ONCE ONE Administration Prednisone 40 mg 02/11/24 06:05 02/11/24 06:11 Prednisone 20 Mg Tablet PO 02/11/24 06:06 40 mg ONCE ONE Administration Medical Decision Making Medical Decision Making [facility] Narrative: Patient with atypical left shoulder pain workup showed hepatocellular mass 10 cm likely the referred pain from the no history of hepatitis C, 2 sets of cardiac enzymes negative for ACS patient has just had colonoscopy 2 months ago which was negative patient advised to follow up with his primary care doctor oncologist for further evaluation management at this time patient is feeling much better no significant shoulder pain no chest pain Differential Diagnosis Differential Diagnoses: The differential diagnosis associated with the presentation includes ACS/referred pain/musculoskeletal pain/PE/bronchitis Admission/Observation Consideration of admission/observation: Escalation of care including admission/observation considered Lab Data [facility] Lab Attestation statement: I reviewed the patient's lab results. 02/11/24 02:00 02/11/24 02:00 Labs: Lab Results 02/11/24 02/11/24 Range/Units 02:00 05:07 WBC 11.1 H (4.8-10.8) X10*3/uL RBC 3.71 L D (4.60-5.80) X10*6/uL Hgb 11.0 L D (14.0-18.0) g/dl Hct 33.1 L D (42.0-52.0) % MCV 89.2 (80.0-98.0) fL MCH 29.6 (27.0-33.0) pg MCHC 33.2 (31.0-36.0) g/dl RDW 13.2 (11.0-16.0) % Plt Count 442 H D (160-400) X10*3/uL MPV 8.3 L (9.4-12.4) fL Immature Gran % (Auto) 1.3 H (0.0-0.4) % Neut % (Auto) 75.2 H (45-73) % Lymph % (Auto) 16.3 L (20-40) % [place] % (Auto) 5.0 (2-11) % Eos % (Auto) 1.6 (0-4) % Baso % (Auto) 0.6 (0-2) % Lymph # (Auto) 1.8 (1.2-4.9) X10*3/uL [place] # (Auto) 0.6 (0.1-1.2) X10*3/uL Eos # (Auto) 0.2 (0.0-0.4) X10*3/uL Baso # (Auto) 0.1 (0.0-0.2) X10*3/uL Abs Immat Gran (auto) 0.14 H (0.00-0.03) X10*3/uL Absolute Neuts (auto) 8.4 H (2.0-8.3) x10*3/uL Absolute Nucleated RBC 0.000 (0.0-0.012) X10*3/uL Nucleated RBC % (auto) 0.0 (0.0-0.2) /100WBC PT 13.2 H (10.9-12.4) SEC INR 1.1 (0.9-1.1) APTT 30.3 (26.0-36.8) SEC D-Dimer High Sensitivty 631 NG/ML Sodium 139 (135-145) mmol/L Potassium 4.5 (3.3-5.1) mmol/L Chloride 105 (96-108) mmol/L Carbon Dioxide 20 L (22-29) mmol/L Anion Gap 19 (12-20) BUN 23 H (9-16) mg/dL Creatinine 1.61 H (0.5-1.4) mg/dL Estim Creat Clear Calc 45.3 Estimated GFR 43 Random Glucose 185 H (60-115) mg/dL Calcium 9.3 (8.4-10.2) mg/dL Total Bilirubin 0.3 (0.0-1.0) mg/dL AST 71 H (5-37) U/L ALT 32 (0-40) U/L Alkaline Phosphatase 239 H (39-117) U/L Troponin I High Sens < 2.7 < 2.7 (<3.5-35.0) ng/L B-Natriuretic Peptide < 10 (<100) pg/mL Total Protein 7.7 (6.5-8.0) g/dL Albumin 3.8 (3.5-5.0) g/dL Independent Interpretation I performed an independent interpretation of an: EKG, Plain X-Ray and CT Scan Interpretation: Normal sinus rhythm heart rate 87 beats per minute normal interval normal axis no acute STT wave changes no acute ischemia Radiology Impression Discussion of test interpretation with radiology: I have reviewed the radiologist's reading. Radiologist Impression: CT/CT angio chest PE protocol IMPRESSION: *CT pulmonary angiogram negative for pulmonary emboli. *Partially visualized 10 cm mass within the incidentally visualized portions of the liver. This finding is suspicious for hepatocellular carcinoma but is not fully assessed. This lesion is only partially included within the imaged field of view. Additionally, small quantity of intermediate low density free intraperitoneal fluid is present in the left subphrenic space and may be reactive fluid related to the liver lesion. *Mild peribronchial wall inflammatory changes and minimal right upper lobe peribronchial consolidation. Findings could represent bronchitis. Electronically signed by: Dereck Nixon MD 02/11/2024 04:06 AM [facility] [place] Time Critical Care Time Critical Care Time: Yes Total Critical Care Time: 45 Attestation: The patient was critically ill with a high probability of imminent or life threatening deterioration. I spent greater than 50??minutes of discontinuous time evaluating the patient,delivering critical care at the bedside, discussing and evaluating pertinent data with consultants. Critical care time does not include time spent performing separately billable procedures or teaching. Total time spent performing critical care was 45???minutes. Discharge Plan Discharge Clinical Impression: Asthma with exacerbation, Liver mass Patient Disposition: Home, Self-Care Instructions: Asthma (ED), Liver Cancer (DC) Additional Instructions: Continue to use your inhaler use prednisone and take antibiotic as prescribed Incidentally 10 cm mass was noticed in your liver which needs further evaluation Follow with oncologist and PCP Prescriptions: New azithromycin [Zithromax] 500 mg tablet 500 mg PO DAILY 3 Days Qty: 3 0RF prednisone 20 mg tablet 40 mg PO DAILY Qty: 10 0RF No Action lisinopril 20 mg tablet 20 mg PO DAILY Qty: 90 3RF omeprazole 40 mg Capsule,Delayed Release(Dr/Ec) 40 mg PO DAILY@0630 30 Days Qty: 30 0RF loratadine [Allergy Relief (loratadine)] 10 mg tablet 10 mg PO DAILY PRN (Reason: Allergy Symptoms) albuterol sulfate [Ventolin HFA] 90 mcg/actuation HFA aerosol inhaler 2 puff inhalation Q4-6H PRN (Reason: shortness of breath or wheezing) Qty: 8.5 0RF azithromycin 250 mg tablet See Rx Instructions PO .COMPLEX Qty: 6 0RF Rx Instructions: take 500 mg today (day 1), then 250 mg for 4 days (days 2-5) PO Referrals: Trinidad Ta MD [Physician] - 1 week Print Language: Slovak
[2024-02-11] MEDS: Albuterol Sulfate 2.5 MG, Albuterol/Iprat 2.5/0.5MG 3 ML 3 ML INHALE (01:32)
[2024-02-11 02:05] LABS: MANUAL DIFF FLAG NO
[2024-02-11 02:07] LABS: Basophils Absolute Auto 0.1 X10*3/uL (0.0-0.2); Basophils Percent Auto 0.6 % (0-2); Eosinophils Absolute Auto 0.2 X10*3/uL (0.0-0.4); Eosinophils Percent Auto 1.6 % (0-4); Hematocrit 33.1 % (42.0-52.0); Imm Gran Abs Auto 0.14 X10*3/uL (0.00-0.03); Imm Gran Pct Auto 1.3 % (0.0-0.4); Lymphocytes Absolute Auto 1.8 X10*3/uL (1.2-4.9); Lymphocytes Percent Auto 16.3 % (20-40); Mean Corpuscular HGB Conc 33.2 g/dl (31.0-36.0); Mean Corpuscular Hemoglobin 29.6 pg (27.0-33.0); Mean Corpuscular Volume 89.2 fL (80.0-98.0); Mean Platelet Volume 8.3 fL (9.4-12.4); Monocytes Absolute Auto 0.6 X10*3/uL (0.1-1.2); Neutrophils Absolute Auto 8.4 x10*3/uL (2.0-8.3); Neutrophils Percent Auto 75.2 % (45-73); Platelet Count 442 X10*3/uL (160-400); Red Blood Count 3.71 X10*6/uL (4.60-5.80); Red Cell Distribution Width 13.2 % (11.0-16.0); White Blood Count 11.1 X10*3/uL (4.8-10.8)
[2024-02-11 02:14] LABS: INTERNATIONAL NORM RATIO 1.1 (0.9-1.1); Prothrombin Time 13.2 SEC (10.9-12.4)
[2024-02-11 02:16] LABS: D Dimer High Sensitivity 631 NG/ML; Partial Thromboplastin Time 30.3 SEC (26.0-36.8)
[2024-02-11 02:24] LABS: Alanine Aminotransferase 32 U/L (0-40); Albumin Level 3.8 g/dL (3.5-5.0); Alkaline Phosphatase 239 U/L (39-117); Anion Gap 19 (12-20); Aspartate Amino Transferase 71 U/L (5-37); Bilirubin Total 0.3 mg/dL (0.0-1.0); Blood Urea Nitrogen 23 mg/dL (9-16); Calcium 9.3 mg/dL (8.4-10.2); Carbon Dioxide 20 mmol/L (22-29); Chloride 105 mmol/L (96-108); Creatinine Clr Calc Pharmacy 45.3; Estimated Glomerular Filt Rate 43; Glucose Random 185 mg/dL (60-115); Potassium 4.5 mmol/L (3.3-5.1); Sodium 139 mmol/L (135-145); Total Protein 7.7 g/dL (6.5-8.0)
[2024-02-11 02:30] LABS: B Type Natriuretic Peptide < 10 pg/mL (<100); Troponin-I High Sensitivity < 2.7 ng/L (<3.5-35.0)
[2024-02-11] MEDS: 0.9 % Sodium Chloride 1,000 ML 999 ML IV (02:35)
[2024-02-11] MEDS: iohexoL 350 MG/ML 100 ML INFUS..BTL 65 ML IV (02:48)
--- NOTE | 2024-02-11 03:19 | PC.NURSE ---
(jer) Efrem [phone]. 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
[2024-02-11 05:42] LABS: Troponin-I High Sensitivity < 2.7 ng/L (<3.5-35.0)
[2024-02-11] MEDS: predniSONE 20 MG TABLET 40 MG PO (06:11)
[2024-02-11] MEDS: Azithromycin 500 MG TABLET PO (06:11)
== END 2024-02-11 06:35 | disposition home or self-care (01) ==
PROVIDERS: Emergency Provider Internal Medicine; PCP Internal Medicine
DX: J45.901 Unspecified asthma with (acute) exacerbation (principal); R16.0 Hepatomegaly, not elsewhere classified; R06.02 Shortness of breath; I10 Essential (primary) hypertension; J45.909 Unspecified asthma, uncomplicated
CPT/HCPCS: 36415; 71045; 71275; 80053; 83880; 84484; 85025; 85379; 85610; 85730; 93005; 94640; 99284; 99285; Q9967

== ENCOUNTER → 2024-02-11 01:21 | Outpatient (BNV) | payer MEDICARE, SELFPAY | PROVIDERS: Emergency Provider Internal Medicine; PCP Internal Medicine; Visit Provider Internal Medicine Cardiovascular Disease | DX: R07.9 Chest pain, unspecified (principal) | CPT/HCPCS: 93010 ==

== ENCOUNTER 2024-02-13 11:28 | Outpatient (AMB) | payer MEDICARE, SELFPAY ==
--- NOTE | 2024-02-13 11:36 | A.OFFPC_ITS ---
Vital Signs 02/13/24 11:37 Height 5 ft 10 in Weight 171 lb 4 oz BMI 24.6 BP 120/70 Blood Pressure Location Lt brachial Position Sitting Pulse 116 H Pulse Source Pulse Oximeter Pulse Oximetry (%) 93 Oxygen Delivery Method Room Air Intake Visit Reasons: issues trying to talk Intake Note: Patient is here to follow-up after a visit the emergency department at [facility] [place] on 02/10/24. Clinical Coordinator Required: No Housing Assistant: Present Accompanied by: Nephew or Niece Allergies Penicillins Allergy (Severe, Verified 02/13/24 11:36) ANAPHYLAXIS Medication List - Last Reconciled 02/16/24 by Dylon Perez MD albuterol sulfate 90 mcg/actuation (Ventolin HFA) 2 puffs inhalation Q4-6H PRN lisinopril 20 mg PO DAILY loratadine (Allergy Relief (loratadine)) 10 mg PO DAILY PRN omeprazole 40 mg PO DAILY@0630 30 days prednisone 40 mg (2 x 20 mg) PO DAILY Tobacco use date assessed: 02/13/24 Fall risk assessment: No Falls in past year Last assessed Fall Risk: 02/13/24 Dental Screening Dental Screen Date: 09/18/23 HPI issues trying to talk HPI Details had an er visit for dyspnea; had a chest ct which showed possible liver mass; needs abd ct [facility] Medical History Gastric ulcer GERD (gastroesophageal reflux disease) HTN (hypertension) Allergic rhinitis Asthma Surgical History History of esophagogastroduodenoscopy (EGD) Hx of bilateral inguinal hernia repair H/O colonoscopy Hx of shoulder surgery Family History Mother No problems noted. Father No problems noted. Social History Household Members: None Housing: House Are you a primary career placement services counselor to a significant other at home: No Do you presently have visiting nurse or other home services: No Alcohol intake: never Patient Tobacco Use Status: Never used Tobacco e-Cigarette/Vaping Use: Never Used Second Hand Smoke Exposure: No service: No Current occupational status: employed Cognitive needs: No Hearing needs: No Vision needs: No Questionnaire Thrive Questionnaire Date Thrive assessed: 09/18/23 KALI-7 AMB Questionnaire KALI-7 Date KALI - 7 assessed: 09/18/23 Source: Developed by Drs. Pedro Elizabeth, Leticia Shultz, Jae Maharaj and colleagues, with an educational vickie from [employer]. Review of Systems Const Denies chills, Denies headache(s) and Denies weight loss ENT Denies headache(s) Card Denies chest pain, Denies syncope, Denies irregular heart rhythm and Denies dyspnea Resp Denies chest congestion, Denies cough and Denies dyspnea GI Denies abdominal pain, Denies change in stool character, Denies nausea and Denies vomiting Musc Denies deformity and Denies joint swelling Neuro Denies syncope and Denies headache(s) Physical exam (Primary Care) Vital Signs: Last Vital Signs Pulse 116 H 02/13/24 11:37 BP 120/70 02/13/24 11:37 Pulse Ox 93 02/13/24 11:37 Oxygen Delivery Method Room Air 02/13/24 11:37 BMI result Body Mass Index 24.6 Tobacco/Smoking Status: Tobacco use Status Tobacco use date assessed 02/13/24 02/13/24 11:45 Patient Tobacco Use Status Never used Tobacco 02/13/24 11:45 e-Cigarette/Vaping Use Never Used 02/13/24 11:45 Thrive Assessment: Date of Thrive Assessment Date Thrive assessed 09/18/23 02/13/24 11:45 Const General: cooperative, comfortable, no acute distress and alert Neck Neck: Yes no lymphadenopathy Thyroid: Thyroid normal Resp Effort & Inspection: normal respiratory effort Auscultation: clear to auscultation bilaterally Percussion: percussion normal Cardio Jugular venous distension: no JVD Palpation: normal PMI Rate: regular rate Rhythm: regular rhythm Heart sounds: S1 normal heart sound present and S2 normal heart sound present GI Inspection: Yes normal to inspection Palpation (GI): No hepatosplenomegaly present Skin General skin exam: no rashes or lesions noted Extrem General: Yes no clubbing, cyanosis or edema Results AMB Hemoglobin A1c AMB Hemoglobin A1c 5.7 % Last Edit by EUN Lorenzana on 02/13/24 11:48 Results Reviewed Results Reviewed: Laboratory Last Values Hgb A1c (Clinic) 5.7 % (4.0-6.0) 02/13/24 11:35 Coding Level of Care Code Est Pt Level 3 (57146) Diagnoses Liver mass R16.0 Assessment & Plan Assessment & Plan (1) Liver mass: Code(s): R16.0 - Hepatomegaly, not elsewhere classified Category: Medical Plan: ct ordered Orders: Orders AMB Hemoglobin A1c 02/13/24 Z13.9 - Encounter for screening, unspecified Liver Panel 02/13/24 R16.0 - Hepatomegaly, not elsewhere classified CT abdomen w IV con 02/13/24 R16.0 - Hepatomegaly, not elsewhere classified Medications: Refilled albuterol sulfate 90 mcg/actuation (Ventolin HFA) 2 puffs inhalation Q4-6H PRN 8.5 grams 3RF shortness of breath or wheezing
[2024-02-13 11:37] VITALS: BP 120/70; PULSE 116; O2SAT 93; BMI 24.6
== END 2024-02-13 11:58 | disposition home or self-care (01) ==
PROVIDERS: PCP Internal Medicine; Visit Provider Internal Medicine
DX: R16.0 Hepatomegaly, not elsewhere classified (principal)

== ENCOUNTER 2024-02-13 11:28 | Outpatient (REF) | payer MEDICARE, SELFPAY ==
[2024-02-13 13:29] LABS: Alanine Aminotransferase 44 U/L (0-40); Albumin Level 4.1 g/dL (3.5-5.0); Alkaline Phosphatase 200 U/L (39-117); Aspartate Amino Transferase 130 U/L (5-37); Bilirubin Direct 0.2 mg/dL (0.0-0.5); Bilirubin Total 0.6 mg/dL (0.0-1.0); Total Protein 8.1 g/dL (6.5-8.0)
== END 2024-02-13 11:29 | disposition home or self-care (01) ==
LOC: HO.LAB 11:28
PROVIDERS: PCP Internal Medicine; Visit Provider Internal Medicine
DX: R16.0 Hepatomegaly, not elsewhere classified (principal); Z13.1 Encounter for screening for diabetes mellitus
CPT/HCPCS: 36415; 80076; 83036; 99212

== ENCOUNTER 2024-03-05 11:23 | Outpatient (AMB) | payer MEDICARE, SELFPAY ==
--- OUTSIDE RECORDS SUMMARY | 2024-03-05 11:27 | XMS_ITS ---
Author Organization [facility] Address [address] [place] [address] Care Team Providers Care Electrical Troubleshooter Name Role Phone Dylon Perez MD Primary Care Provider Pedro Valdes Unavailable [phone] REASON FOR VISIT screening,hx polyps PROBLEMS Problem Type ICD Code Onset Dates Problem Status W/U Status Risk SNOMED Code Notes Problem Diverticulosis of large intestine without perforation or abscess without bleeding (K57.30) Active confirmed Diverticul ar disease of colon (152547083) Encounters Encounter Location Date Provider Diagnosis [facility] [place] [address], [place] [phone] 05/26/2023 Pedro Montesinos Encounter for scre ening colonoscopy Z12.11 ; Colon polyps K63.5 ; Diverticulosis of large intestine without perforation or abscess without bleeding K57.30 and Other hemorrhoids K64.8 ASSESSMENTS Encounter Date Diagnosis Assessment Notes Treatment Notes Treatment Clinical Notes 05/26/2023 Encounter for screening colonoscopy (ICD-10 - Z12.11) 05/26/2023 Colon polyps (ICD-10 - K63.5) 05/26/2023 Diverticulosis of large intestine without perforation or abscess without bleeding (ICD-10 - K57.30) 05/26/2023 Other hemorrhoids (ICD-10 - K64.8) PLAN OF TREATMENT No Information
--- OUTSIDE RECORDS SUMMARY | 2024-03-05 11:27 | XMS_ITS ---
Author Organization [facility] Address [address] [place] [address] Care Team Providers Care Microarray Specialist Name Role Phone Dylon Perez MD Primary Care Provider Pedro Valdes Unavailable [phone] ALLERGIES Allergen (clinical drug ingredient) Drug/Non Drug Allergy documented on EMR Reaction Allergy Type Onset Date Status Penicillin anaphylaxis Drug Allergy Acti ve REASON FOR VISIT Patient presents today for an ulcer MEDICATIONS Medication SIG (Take, Route, Fr equency, Duration) Notes Start Date End Date Status Loratadine 10 MG 1 tablet Orally Twice a day Active Acetaminophen ER 650 MG 2 tablets as nee ded Orally every 8 hrs Active Lansoprazole 15 MG 1 capsule before a m eal Orally Once a day for 30 day(s) Active Lisinopril 20 MG Oral for 90 A ctive SOCIAL HISTORY Tobacco Use: Social History Observation Description Date Details (start date - stop date) Never Smoker NA - NA Sex Assigned At : Social History Observation Description Sex Assigned At Unknown Tobacco Use/Smoking Question Answer Notes Patient is a nonsmoker Alcohol Screen Question Answer Notes Did you have a drink contain ing alcohol in the past year? Yes How often did you have a dri nk containing alcohol in the past year? 2 to 4 times a month (2 points) How many drinks did you have on a typical day when you were drinking in the past year? 1 or 2 drinks (0 point) Points 2 Interpretation Negative VITAL SIGNS BMI 25.39 kg/m2 02/27/2023 Blood pressure systolic 00 mm Hg 02/28/20 23 Blood pressure diastolic 00 mm Hg 023 Height 70 in 02/27/2023 Temperature 97.5 degrees Fahrenheit 02/28/20 23 Weight 177 lbs 02/27/2023 Encounters Encounter Location Date Provider Diagnosis [facility] [address] [place] [address] 02/27/2023 Pedro Montesinos Encounter for screen ing for malignant neoplasm of colon Z12.11 ; Gastric ulcer K25.9 ; Diverticulosis of colon K57.30 and History of adenomatous polyp of colon Z86.010 ASSESSMENTS Encounter Date Diagnosis Assessment Notes Treatment Notes Treatment Clinical Notes 02/27/2023 Encounter for screening for malignant neoplasm of colon (ICD-10 - Z12.11) 02/27/2023 Gastric ulcer (ICD-1 0 - K25.9) 02/27/2023 Diverticulosis of colon (ICD-10 - K57.30) 02/27/2023 History of adenomatous polyp of colon (ICD-10 - Z86.010) PLAN OF TREATMENT Future Test Test Name Order Date COLONOSCOPY 02/27/2023 Next Appt Details Follow Up: prn, Reason: Progress Notes * Examination Category Sub-Category Detail Notes General Examination GENERAL APPEARANCE: pleasant , well nourished, well developed, in no acute distress HEAD: EYES: sclera non-icteric EARS: NOSE: THROAT: NECK/THYROID: no cervical lymphade nopathy, neck supple HEART: S1, S2 normal CHEST: LUNGS: clear to auscultatio n bilaterally ABDOMEN: normal bowel sounds, no guarding or rigidity, no guarding or rigidity, no masses palpable, soft, nontender, nondistended NEUROLOGIC: alert and oriented SKIN: nonjaundiced, no spi fabio angiomata EXTREMITIES: no edema PERIPHERAL PULSES: BACK: BREASTS: MUSCULOSKELETAL: MALE GENITOURINARY: LYMPH NODES: RECTAL EXAM: FEMALE GENITOURINARY: ORAL CAVITY: mucosa moist
--- OUTSIDE RECORDS SUMMARY | 2024-03-05 11:27 | XMS_ITS | Patient Health Record ---
Author Organization [facility] Address [address] [place] [address] Care Team Providers Care Transportation Analyst Name Role Phone Dylon Perez MD Primary Care Provider Pedro Valdes Unavailable [phone] ALLERGIES Allergen (clinical drug ingredient) Drug/Non Drug Allergy documented on EMR Reaction Allergy Type Onset Date Status Penicillin anaphylaxis Drug Allergy Acti ve RESULTS Component Value Reference Range Notes Pathology Reviewed date:07/06/2023 12:31:15 AM Interpretation: Performing Lab:[facility], [address] [place] [id number] Notes/Report: REASON FOR REFERRAL No Information MEDICATIONS Medication SIG (Take, Route, Fr equency, Duration) Notes Start Date End Date Status Loratadine 10 MG 1 tablet Orally Twice a day Active Acetaminophen ER 650 MG 2 tablets as nee ded Orally every 8 hrs Active Lansoprazole 15 MG 1 capsule before a m eal Orally Once a day for 30 day(s) Active Lisinopril 20 MG Oral for 90 A ctive IMMUNIZATIONS Vaccine Route Administration Date Status Comme nts Influenza Unknown 05/25/2021 Refused SOCIAL HISTORY Tobacco Use: Social History Observation [...] drinks (0 point) Points 2 Interpretation Negative PROBLEMS Problem Type ICD Code Onset Dates Problem Status W/U Status Risk SNOMED Code Notes Problem Encounter for screening for malignant neoplasm of colon (Z12.11) Active confirmed 316382672 Problem Pre-procedural examination (Z01.818) Active confirmed [id number] Problem Diverticulosis of colon (K57.30) Active confirmed Diverticulosi s of colon (509582024) Problem Chronic gastritis (K29.50) Active confirmed Chronic gastrit is (7118251) Problem Gastric ulcer (K25.9) Active confirmed Gastric ulcer (937149966) Problem History of adenomatous polyp of colon (Z86.010) Active confirmed History of adenomatous polyp of colon (742930417) Problem Diverticulosis of large intestine without perforation or abscess without bleeding (K57.30) Active confirmed Diverticul ar disease of colon (840386715) Encounters Encounter Location Date Provider Diagnosis [facility] [place] [address] [place] [phone] 05/26/2023 Pedro Montesinos Encounter for scre ening [...] hemorrhoids (ICD-10 - K64.8) PLAN OF TREATMENT Future Test Test Name Order Date COLONOSCOPY 05/25/2021 COLONOSCOPY 02/27/2023 Insurance Providers Payer Name Payer Address Payer Phone Subscriber Number Group Number Insured Name Patient Relationship to Insured Coverage Start Date Coverage End Date [facility] [address] [place], [place] [id number] KEN MONTANEZ Self - patient is the insured MEDICAL (GENERAL) HISTORY Medical History History ICD Code Asthma--inactive Denies CO,DM,CVA,renal disease Reports a negative colonoscopy in 2005 a t [facility] Psoriatic arthritis Colonoscopy in June of 2021 revealed multiple tubular adenomas that were removed Hospitalized in July of 2021 with GI bleeding--an upper endoscopy revealed a small gastric ulcer with gastric biopsies negative for H. pylori and a repeat colonoscopy revealed some healing polypectomy sites as well as a single tubular adenoma that was removed. Hypertension Surgical History Surgery Date(Month/Year) Right shoulder
[2024-03-05 11:29] VITALS: BP 140/80; PULSE 113; O2SAT 96; BMI 23.1
--- NOTE | 2024-03-05 11:29 | A.OFFPC_ITS ---
Vital Signs 03/05/24 11:29 Height 5 ft 10 in Weight 161 lb BMI 23.1 BP 140/80 H Blood Pressure Location Lt brachial Position Sitting Pulse 113 H Pulse Source Pulse Oximeter Pulse Oximetry (%) 96 Oxygen Delivery Method Room Air Intake Visit Reasons: 6 Month F/U Allergies Penicillins Allergy (Severe, Verified 03/05/24 11:30) ANAPHYLAXIS Medication List - Last Reconciled 03/08/24 by Dylon Perez MD albuterol sulfate 90 mcg/actuation (Ventolin HFA) 2 puffs inhalation Q4-6H PRN lisinopril 20 mg PO DAILY loratadine (Allergy Relief (loratadine)) 10 mg PO DAILY PRN omeprazole 40 mg PO DAILY@0630 30 days Tobacco use date assessed: 02/13/24 Fall risk assessment: No Falls in past year Last assessed Fall Risk: 03/05/24 Dental Screening Dental Screen Date: 09/18/23 HPI 6 Month F/U HPI Details had an ER visit for dyspnea and chest pain; CT of chest revealed some liver abnormalities and CT abd pending; feeling better [facility] Medical History Gastric ulcer GERD (gastroesophageal reflux disease) HTN (hypertension) Allergic rhinitis Asthma Surgical History History of esophagogastroduodenoscopy (EGD) Hx of bilateral inguinal hernia repair H/O colonoscopy Hx of shoulder surgery Family History Mother No problems noted. Father No problems noted. Social History Household Members: None Housing: House Are you a primary disabilities caregiver to a significant other at home: No Do you presently have visiting nurse or other home services: No Alcohol intake: never Patient Tobacco Use Status: Never used Tobacco Tobacco use type: Cigarette e-Cigarette/Vaping Use: Never Used Second Hand Smoke Exposure: No service: No Current occupational status: employed Cognitive needs: No Hearing needs: No Vision needs: No Questionnaire PHQ-9 Over the last 2 weeks, how often have you been bothered by any of the following problems? 1. Little interest or pleasure in doing things: not at all 2. Feeling down, depressed, or hopeless: not at all 3. Trouble falling or staying asleep, or sleeping too much: not at all 4. Feeling tired or having little energy: not at all 5. Poor appetite or overeating: not at all 6. Feeling bad about yourself - or that you are a failure or have let yourself or your family down: not at all 7. Trouble concentrating on things, such as reading the newspaper or watching television: not at all 8. Moving or speaking so slowly that other people could have noticed. Or the opposite - being so fidgety or restless that you have been moving around a lot more than usual: not at all 9. Thoughts that you would be better off or of hurting yourself in some way: not at all Total score: 0 Depression Screening Interpretation: Negative Depression Screening Done: Yes Source: Developed by Drs. Pedro Elizabeth, Leticia Shultz, Jae Maharaj and colleagues, with an educational vickie from [employer]. Thrive Questionnaire Date Thrive assessed: 09/18/23 AUDIT C Alcohol Use Questionnaire (AUDIT-C) 1. How often do you have a drink containing alcohol?: 2-3 times a week 2. How many drinks containing alcohol do you have on a typical day when you are drinking?: 3 or 4 3. How often do you have six or more drinks on one occasion?: Never Total Score: 4 Score Reviewed/Action Taken: Yes KALI-7 AMB Questionnaire KALI-7 Date KALI - 7 assessed: 09/18/23 Source: Developed by Drs. Pedro Elizabeth, Leticia Shultz, Jae Maharaj and colleagues, with an educational vickie from [employer]. Review of Systems Const Denies chills, Denies headache(s) and Denies weight loss ENT Denies headache(s) Card Denies chest pain, Denies syncope, Denies irregular heart rhythm and Denies dyspnea Resp Denies chest congestion, Denies cough and Denies dyspnea GI Denies abdominal pain, Denies change in stool character, Denies nausea and Denies vomiting Musc Denies deformity and Denies joint swelling Neuro Denies syncope and Denies headache(s) Physical exam (Primary Care) Vital Signs: Last Vital Signs Pulse 113 H 03/05/24 11:29 BP 140/80 H 03/05/24 11:29 Pulse Ox 96 03/05/24 11:29 Oxygen Delivery Method Room Air 03/05/24 11:29 BMI result Body Mass Index 23.1 Tobacco/Smoking Status: Tobacco use Status Tobacco use date assessed 02/13/24 03/05/24 11:34 Patient Tobacco Use Status Never used Tobacco 03/05/24 11:34 Tobacco use type Cigarette 03/05/24 11:34 e-Cigarette/Vaping Use Never Used 03/05/24 11:34 PHQ-9: PHQ-9 Score PHQ-9: Total score 0 03/05/24 11:34 Depression Screening Interpretation: Negative Thrive Assessment: Date of Thrive Assessment Date Thrive assessed 09/18/23 03/05/24 11:34 Const General: cooperative, comfortable, no acute distress and alert Neck Neck: Yes no lymphadenopathy Thyroid: Thyroid normal Resp Effort & Inspection: normal respiratory effort Auscultation: clear to auscultation bilaterally Percussion: percussion normal Cardio Jugular venous distension: no JVD Palpation: normal PMI Rate: regular rate Rhythm: regular rhythm Heart sounds: S1 normal heart sound present and S2 normal heart sound present GI Inspection: Yes normal to inspection Palpation (GI): No hepatosplenomegaly present Skin General skin exam: no rashes or lesions noted Extrem General: Yes no clubbing, cyanosis or edema Coding Level of Care Code Est Pt Level 3 (39973) Diagnoses Liver mass R16.0 Assessment & Plan Assessment & Plan (1) Liver mass: Code(s): R16.0 - Hepatomegaly, not elsewhere classified Category: Medical Plan: await CT Orders: Orders Thyroid Stimulating Hormone 03/05/24 Z13.29 - Encounter for screening for other suspected endocrine disorder Complete Blood Count Auto Diff 03/05/24 Z13.0 - Encounter for screening for diseases of the blood and blood-forming organs and certain disorders involving the immune mechanism Prostate Specific Antigen Scr 03/05/24 Z00.00 - Encounter for general adult medical examination without abnormal findings Lipid Panel 03/05/24 Z13.220 - Encounter for screening for lipoid disorders Comprehensive [place]. Panel Fast 03/05/24 Z13.9 - Encounter for screening, unspecified
== END 2024-03-05 13:11 | disposition home or self-care (01) ==
PROVIDERS: PCP Internal Medicine; Visit Provider Internal Medicine
DX: R16.0 Hepatomegaly, not elsewhere classified (principal)

== ENCOUNTER 2024-03-09 13:08 | Outpatient (REF) | payer MEDICARE, SELFPAY ==
--- NOTE | ~2024-03-09 | CT_ITS ---
EXAMINATION: CT ABDOMEN WITHOUT AND WITH CONTRAST CLINICAL INFORMATION: Hepatomegaly. COMPARISON: CT angiogram chest dated 02/11/2024 TECHNIQUE: Contiguous axial thin section helical images of the abdomen were performed before and after the administration of 85 mL of Omnipaque 350 intravenous contrast. The data set was reformatted in the coronal and sagittal planes and reviewed on an independent workstation. The post contrast images were obtained. This CT examination was performed using dose optimization techniques as appropriate, variously including the following: *Automated exposure control *Adjustment of mA and/or kV according to patient size (this includes techniques or standardized protocols for targeted exams where dose is matched to indication/reason for exam; i.e. extremities or head) *Use of iterative reconstruction technique DLP: 573 mGy-cm FINDINGS: LUNG BASES: There is scarring at the lung bases left greater than right. No pleural effusion LIVER, GALLBLADDER, AND BILIARY TREE: Abnormal. There is an ill-defined enhancing mass, in the anterior right lobe of the liver extending into the posterior right lobe of the liver, as was seen on 02/11/2024. The mass measures approximately 9.9 x 8.5 x 13 cm with more central necrotic appearing areas and central and peripheral punctate areas of neovascularity and enhancement. A large hepatocellular carcinoma could have such an appearance and biopsy is therefore advised. There is underlying hepatic steatosis. There is no intrahepatic biliary dilatation. There appears to be normal enhancement within the hepatic and portal venous structures of the liver. Gallbladder is unremarkable. No intra or extrahepatic biliary dilatation. PANCREAS: Unremarkable SPLEEN: Unremarkable ADRENAL GLANDS AND KIDNEYS: Unremarkable BOWEL LOOPS: No bowel obstruction or right or left-sided inflammatory change. The pelvis was not scanned. LYMPH NODES: Normal. VASCULAR: There are atherosclerotic but not aneurysmal. BONES: Spondylitic changes seen in the lower thoracic spine and lower lumbar spine. CT/CT abdomen wo/w IV con IMPRESSION: Large hepatic mass noted, suspicious for malignancy. Tissue sampling is advised. Fleischner guidelines were followed. Electronically signed by: Jake White MD 03/10/2024 12:53 PM MARY
--- OUTSIDE RECORDS SUMMARY | 2024-03-09 13:10 | XMS_ITS | Patient Health Record ---
Author Organization [facility] Address [address] [place] [address] Care Team Providers Care Custom Applicator Name Role Phone Dylon Perez MD Primary Care Provider Pedro Valdes Unavailable [phone] ALLERGIES Allergen (clinical drug ingredient) Drug/Non Drug Allergy documented on EMR Reaction Allergy Type Onset Date Status Penicillin anaphylaxis Drug Allergy Acti ve RESULTS Component Value Reference Range Notes Pathology Reviewed date:07/06/2023 12:31:15 AM Interpretation: Performing Lab:[facility], [address] [place] [id number] Notes/Report: REASON FOR REFERRAL No Information MEDICATIONS [...] malignant neoplasm of colon (Z12.11) Active confirmed 310513960 Problem Pre-procedural examination (Z01.818) Active confirmed 430698798976175 Problem Diverticulosis of colon (K57.30) Active confirmed Diverticulosi s of colon (283431326) Problem Chronic gastritis (K29.50) Active confirmed Chronic gastrit is (1379445) Problem Gastric ulcer (K25.9) Active confirmed Gastric ulcer (476821965) Problem History of adenomatous polyp of colon (Z86.010) Active confirmed History of adenomatous polyp of colon (599737462) Problem Diverticulosis of large intestine without perforation or abscess without bleeding (K57.30) Active confirmed Diverticul ar disease of colon (561214413) Encounters Encounter Location Date Provider Diagnosis [facility] Outpatient [address] [place] [phone] 05/26/2023 Pedro Montesinos Encounter for scre ening [...] Insured Coverage Start Date Coverage End Date [facility] [address] [place], [place] [id number] KEN MONTANEZ Self - patient is the insured MEDICAL (GENERAL) HISTORY Medical History History ICD Code Asthma--inactive Denies [place],DM,CVA,renal disease Reports a negative colonoscopy in 2005 a t [facility] Psoriatic arthritis Colonoscopy in June of 2021 [...]
--- OUTSIDE RECORDS SUMMARY | 2024-03-09 13:10 | XMS_ITS ---
Author Organization [facility] Address [address] [place] [address] Care Team Providers Care Cloud Subject Matter Expert Name Role Phone Dylon Perez MD Primary Care Provider Pedro Valdes Unavailable [phone] REASON FOR VISIT screening,hx polyps PROBLEMS Problem Type ICD Code Onset Dates Problem Status W/U Status Risk SNOMED Code Notes Problem Diverticulosis of large intestine without perforation or abscess without bleeding (K57.30) Active confirmed Diverticul ar disease of colon (538232502) Encounters Encounter Location Date Provider Diagnosis [facility] [address] [place] [address], [place] [phone] 05/26/2023 Pedro Montesinos Encounter for scre ening [...]
--- OUTSIDE RECORDS SUMMARY | 2024-03-09 13:10 | XMS_ITS ---
Author Organization [facility] Address [address] [place] [address] Care Team Providers Care Wire Insulator Name Role Phone Dylon Perez MD Primary Care Provider Pedro Valdes Unavailable [phone] ALLERGIES Allergen (clinical drug ingredient) Drug/Non Drug [...] 02/27/2023 Encounters Encounter Location Date Provider Diagnosis [facility] [address] [place] [address] 02/27/2023 Pedro Montesinos Encounter for screen ing [...]
[2024-03-09] MEDS: iohexoL 350 MG/ML 100 ML INFUS..BTL IV (14:15)
== END 2024-03-09 13:09 | disposition home or self-care (01) ==
LOC: HO.CT 13:08
PROVIDERS: PCP Internal Medicine; Visit Provider Internal Medicine
DX: R16.0 Hepatomegaly, not elsewhere classified (principal)
CPT/HCPCS: 74170; Q9967

== ENCOUNTER → 2024-03-26 08:30 | Outpatient (BNV) | payer MEDICARE, SELFPAY | PROVIDERS: PCP Internal Medicine; Referring Provider Internal Medicine; Visit Provider Internal Medicine Medical Oncology | DX: K76.89 Other specified diseases of liver (principal) | CPT/HCPCS: 99204 ==

== ENCOUNTER 2024-04-02 14:24 | Outpatient (REF) | payer MEDICARE, SELFPAY ==
--- NOTE | ~2024-04-02 | MR_ITS ---
CLINICAL HISTORY: Large Liver mass,?HCC, Pt presents with no symptoms. Incidental finding on CT scan 03/09/2024. MR abdomen with and without gadolinium Comparison: CT/SR - CT ABDOMEN WO/W IV CON - 03/09/24 13:35 EST Findings: There are 2 similar-appearing heterogeneous masses within the liver. The larger mass is centered at the level of segment 5 but also extends to involve adjacent segments this mass demonstrates a capsule or pseudocapsule but there is significant extension of tumor beyond this capsule with marked irregularity. The mass measures up to 11 cm in greatest dimension. Adjacent 9 cm mass centered at the level of segment 8. Enhancement is present upon administration of contrast without specific features. There are numerous nodules involving both the right and left lobes with a similar enhancement pattern. Irregularity of the liver cortex. Mild hepatomegaly. Normal spleen size. Unremarkable pancreas, adrenal glands and kidneys. No cholelithiasis or biliary obstruction. No acute abnormality of visualized bowel. No ascites. No suspicious bone lesion. IMPRESSION: Two dominant masses within the liver measuring approximately 11 and 9 cm in greatest dimension respectively, highly suggestive of malignancy. Biopsy recommended. Numerous additional nodules within the liver, likely secondary to metastatic disease. This document has been electronically signed by: Leticia Edwards MD on 04/02/2024 16:45:25
--- OUTSIDE RECORDS SUMMARY | 2024-04-02 14:32 | XMS_ITS | Patient Health Record ---
Author Organization [facility] Address [address] [place] [phone] Care Team Providers Care Supervisor Dental Laboratory Name Role Phone Dylon Perez MD Primary Care Provider Pedro Valdes Unavailable [phone] ALLERGIES Allergen (clinical drug ingredient) Drug/Non Drug Allergy documented on EMR Reaction Allergy Type Onset Date Status Penicillin anaphylaxis Drug Allergy Acti ve RESULTS Component Value Reference Range Notes Pathology Reviewed date:07/06/2023 12:31:15 AM Interpretation: Performing Lab:, [address] [place] [phone] Notes/Report: REASON FOR REFERRAL No Information MEDICATIONS [...] malignant neoplasm of colon (Z12.11) Active confirmed 898463834 Problem Pre-procedural examination (Z01.818) Active confirmed [id number] Problem Diverticulosis of colon (K57.30) Active confirmed Diverticulosi s of colon (831163096) Problem Chronic gastritis (K29.50) Active confirmed Chronic gastrit is (3775825) Problem Gastric ulcer (K25.9) Active confirmed Gastric ulcer (324909833) Problem History of adenomatous polyp of colon (Z86.010) Active confirmed History of adenomatous polyp of colon (196655764) Problem Diverticulosis of large intestine without perforation or abscess without bleeding (K57.30) Active confirmed Diverticul ar disease of colon (506015702) Encounters Encounter Location Date Provider Diagnosis [facility] Outpatient [address] [place] [phone] 05/26/2023 Pedro Montesinos Encounter for scre ening [...] Insured Coverage Start Date Coverage End Date [facility] [id number] [place], [place] [id number] KEN MONTANEZ Self - patient is the insured MEDICAL (GENERAL) HISTORY Medical History History ICD Code Asthma--inactive Denies [place],DM,CVA,renal disease Reports a negative colonoscopy in [address] [facility] Psoriatic arthritis Colonoscopy in June of 2021 [...]
--- OUTSIDE RECORDS SUMMARY | 2024-04-02 14:32 | XMS_ITS ---
Author Organization [facility] Address [address] [place] [phone] Care Team Providers Care Director Social Welfare Name Role Phone Dylon Perez MD Primary Care Provider Pedro Valdes Unavailable [phone] ALLERGIES Allergen (clinical drug ingredient) Drug/Non Drug [...] 02/27/2023 Encounters Encounter Location Date Provider Diagnosis [facility] [address] [place] [address] 02/27/2023 Pedro Montesinos Encounter for screen ing [...]
[2024-04-02] MEDS: gadobutroL 7.5 ML VIAL IVPUSH (15:39)
== END 2024-04-02 14:25 | disposition home or self-care (01) ==
LOC: HO.MRI 14:24
PROVIDERS: PCP Internal Medicine; Visit Provider Internal Medicine Medical Oncology
DX: R16.0 Hepatomegaly, not elsewhere classified (principal)
CPT/HCPCS: 74183; A9585

== ENCOUNTER → 2024-04-02 14:40 | Outpatient (BNV) | payer MEDICARE, SELFPAY | PROVIDERS: PCP Internal Medicine; Visit Provider Radiology Diagnostic Radiology | DX: K76.89 Other specified diseases of liver (principal) | CPT/HCPCS: 74183 ==

== ENCOUNTER 2024-04-06 09:43 | Day surgery (SDC) | payer MEDICARE, SELFPAY ==
[2024-04-06] VITALS (14 sets, daily range): BP systolic 109–147; BP diastolic 68–86; PULSE 69–96; RESP 14–20; TEMP 37–37.4; O2SAT 96–99; BMI 23.4
--- NOTE | ~2024-04-06 | US_ITS ---
Multiple large liver masses. PROCEDURES: 1. Limited preprocedure ultrasound of the abdomen. Permanent images saved in PACS. 2. Ultrasound-guided biopsy of the right lobe liver mass. 3. Limited preprocedure ultrasound of the abdomen. Permanent images saved in PACS. CLINICIANS: Rex Howell PA-C MEDICATIONS: -Versed 1.5 mg, Fentanyl 75 mcg, and lidocaine 1% 10 mL SQ -Antibiotics: None -For additional details, please see nursing flowsheet. COMPLICATIONS: None ESTIMATED BLOOD LOSS: < 5 ml CONTRAST: None SPECIMENS: 5 x 20 g cores were sent to pathology MODERATE SEDATION TIME: 17 min PROCEDURE NOTE: The procedure, risks, benefits, and alternatives were carefully explained to the patient and written informed consent was obtained. The patient was placed supine on the exam table. A timeout was performed. A limited ultrasound of the abdomen was performed to localize the right lobe liver lesion and choose appropriate needle entry and trajectory. The patient was prepped and draped in usual sterile fashion. The skin and deeper soft tissues were anesthetized with lidocaine. Under ultrasound guidance, a 19 gague trocar needle was advanced to the liver lesion. A 20 gauge biopsy device was inserted through the trocar needle advanced into the liver lesion. A total of 5, 20 gauge cores were performed. The specimens were placed in formalin. A total of 2 Gelfoam torpedoes were then administered through the trocar needle into the biopsy tract and at the level of the liver capsule. The needle was removed. A limited post procedure ultrasound was then performed. Images were saved in PACS. A dry dressing was applied and secured with Tegaderm. There were no immediate complications. The patient was stable after the procedure and was transferred to the post anesthesia care unit. The procedure was done under moderate sedation with a dedicated nurse for monitoring of vital signs. US/US biopsy liver Impression: Ultrasound-guided biopsy of a right lobe liver mass. This procedure was performed by Rex Howell PA-C and supervised by Dr. Manrique. Electronically signed by: Kris Tinajero MD 04/07/2024 05:26 PM [facility]
--- OUTSIDE RECORDS SUMMARY | 2024-04-06 10:47 | XMS_ITS ---
Author Organization [facility] Address [address] [place] [address] Care Team Providers Care Ammonia Print Operator Name Role Phone Dylon Perez MD Primary Care Provider Pedro Valdes Unavailable [phone] REASON FOR VISIT screening,hx polyps PROBLEMS Problem Type ICD Code Onset Dates Problem Status W/U Status Risk SNOMED Code Notes Problem Diverticulosis of large intestine without perforation or abscess without bleeding (K57.30) Active confirmed Diverticul ar disease of colon (401097907) Encounters Encounter Location Date Provider Diagnosis [facility] [place] [address] [place], [place] [phone] 05/26/2023 Pedro Montesinos Encounter for scre ening [...]
--- OUTSIDE RECORDS SUMMARY | 2024-04-06 10:47 | XMS_ITS ---
Author Organization [facility] Address [address] [place] [address] Care Team Providers Care Roving Marker Name Role Phone Dylon Perez MD Primary Care Provider Pedro Valdes Unavailable [phone] ALLERGIES Allergen (clinical drug ingredient) Drug/Non Drug [...] 02/27/2023 Encounters Encounter Location Date Provider Diagnosis [facility] [address] [place] [address] 02/27/2023 Pedro Montesinos Encounter for screen ing [...]
--- OUTSIDE RECORDS SUMMARY | 2024-04-06 10:48 | XMS_ITS | Patient Health Record ---
Author Organization [facility] Address [address] [place] [address] Care Team Providers Care Alarm Technician Name Role Phone Dylon Perez MD Primary Care Provider Pedro Valdes Unavailable [phone] ALLERGIES Allergen (clinical drug ingredient) Drug/Non Drug Allergy documented on EMR Reaction Allergy Type Onset Date Status Penicillin anaphylaxis Drug Allergy Acti ve RESULTS Component Value Reference Range Notes Pathology Reviewed date:07/06/2023 12:31:15 AM Interpretation: Performing Lab:[facility], [address] [place] [phone] Notes/Report: REASON FOR REFERRAL No Information MEDICATIONS [...] malignant neoplasm of colon (Z12.11) Active confirmed 544612285 Problem Pre-procedural examination (Z01.818) Active confirmed [id number] Problem Diverticulosis of colon (K57.30) Active confirmed Diverticulosi s of colon (614194261) Problem Chronic gastritis (K29.50) Active confirmed Chronic gastrit is (2254802) Problem Gastric ulcer (K25.9) Active confirmed Gastric ulcer (471227619) Problem History of adenomatous polyp of colon (Z86.010) Active confirmed History of adenomatous polyp of colon (833077354) Problem Diverticulosis of large intestine without perforation or abscess without bleeding (K57.30) Active confirmed Diverticul ar disease of colon (654493722) Encounters Encounter Location Date Provider Diagnosis [facility] [place] [address] [place] [phone] 05/26/2023 Pedro Montesinos Encounter for scre ening [...] Insured Coverage Start Date Coverage End Date [facility] [address] [place], [place] [id number] KEN MONTANEZ Self - patient is the insured MEDICAL (GENERAL) HISTORY Medical History History ICD Code Asthma--inactive Denies [place],DM,CVA,renal disease Reports a negative colonoscopy in 2005 a [place] [facility] Psoriatic arthritis Colonoscopy in June of 2021 [...]
[2024-04-06] MEDS: Acetaminophen 1,000 MG/100 ML PIGGYBACK 400 MG IV (11:21)
--- NOTE | 2024-04-06 11:35 | MHC.SHP ---
Pre-Procedural Eval Section A - 24 Hr Update-Section A only Date of Service: 04/06/24 Section B - Complete if H&P > 30 days Chief Complaint: hepatomegaly, liver mass Details of Present Illness: 69 y/o man with multiple large liver masses. Oncology requests a biopsy. Relevant Family History (Specify if Yes): No Relevant Social History: None Present Medications: see Short Stay Collaborative assessment Medical History: Significant History History of Previous Operations: Relevant previous surgery/procedure and date(s) Allergies: Allergies Allergy/AdvReac Type Severity Reaction Status Date / Time Penicillins Allergy Severe ANAPHYLAXIS Verified 03/26/24 08:58 Review of Systems Sugical H&P ROS: Negative: Constitution, Cardiovascular, Respiratory and Gastrointestinal (no abd pain) Exam Surgical H&P Exam: Normal: Heart, Normal: Lungs, Normal: Abdomen (soft, nt, nd), Normal: Skin and Normal: Neurological Plan 69 y/o man with multiple large liver masses -Image guided liver mass biopsy. Time Spent With Patient Time: Total time managing care of this patient today ____ minutes.
[2024-04-06] MEDS: Midazolam HCl 2 MG/2 ML VIAL 1 MG IVPUSH ×2 (11:44→11:49)
[2024-04-06] MEDS: fentaNYL citrate/PF 100 MCG/2 ML VIAL 50 MCG IVPUSH (11:45)
[2024-04-06] MEDS: fentaNYL citrate/PF 100 MCG/2 ML VIAL 25 MCG IVPUSH (11:50)
[2024-04-06] MEDS: Lidocaine HCl 1 % MPF 30 ML VIAL SUBCUT (12:07)
== END 2024-04-06 14:28 | disposition home or self-care (01) ==
PROVIDERS: Radiology Vascular & Interventional Radiology; PCP Internal Medicine; Visit Provider Internal Medicine Medical Oncology
DX: C22.0 Liver cell carcinoma (principal); R16.0 Hepatomegaly, not elsewhere classified; K76.0 Fatty (change of) liver, not elsewhere classified; I10 Essential (primary) hypertension; K21.9 Gastro-esophageal reflux disease without esophagitis; K25.9 Gastric ulcer, unspecified as acute or chronic, without hemorrhage or perforation; J45.909 Unspecified asthma, uncomplicated; Z79.899 Other long term (current) drug therapy; Z88.0 Allergy status to penicillin; Z98.890 Other specified postprocedural states
CPT/HCPCS: 47000; 76942; 86850; 86900; 86901; 88307; 88313; 99152; 99153; J0131; J2003; J2250; J2310; J3010

== ENCOUNTER → 2024-04-06 11:14 | Outpatient (BNV) | payer MEDICARE, SELFPAY | PROVIDERS: PCP Internal Medicine; Visit Provider Physician Assistant Surgical | DX: C22.0 Liver cell carcinoma (principal) | CPT/HCPCS: 47000; 76942 ==

== ENCOUNTER 2024-06-09 08:41 | Outpatient (AMB) | payer MEDICARE, SELFPAY ==
--- NOTE | 2024-06-09 09:16 | MHC.PC.OV ---
Vital Signs 06/09/24 09:23 Height 5 ft 10 in Weight 148 lb 6 oz BMI 21.3 BP 132/72 Blood Pressure Location Rt brachial Position Sitting Respiration 12 Pulse 99 Pulse Source Pulse Oximeter Temp 98.2 F Temp Source Oral Pulse Oximetry (%) 99 Oxygen Delivery Method Room Air Intake Visit Reasons: DARNELL / Dylon Perez Intake Note: Darnell to establish care Steam Presser Required: No Allergies Penicillins Allergy (Severe, Verified 06/09/24 09:42) ANAPHYLAXIS Medication List - Last Reconciled 06/09/24 by Lianne Lucas, [facility]- albuterol sulfate 90 mcg/actuation (Ventolin HFA) 2 puffs inhalation Q4-6H PRN allopurinol 300 mg PO DAILY ferrous sulfate 325 mg PO DAILY lansoprazole 15 mg PO DAILY lisinopril 20 mg PO DAILY loratadine (Allergy Relief (loratadine)) 10 mg PO DAILY PRN polyethylene glycol 3350 (Miralax) 17 grams PO DAILY Tobacco use date assessed: 06/09/24 Fall risk assessment: No Falls in past year Last assessed Fall Risk: 06/09/24 Dental Screening Dental Screen Date: 06/09/24 Did you have a dental visit in the last 12 months?: No Did you have a dental problem in the last 6 months where you did not have access to dental care?: No Was dental information given to patient?: Yes HPI HPI Comments History of Present Illness Details 69 y/o M with GERD, HTN, asthma, Hepatocellular CA, anemia, HLD, OA, BIG SANDY, seasonal allergies, hx of GI bleed d/t NSAIDS SurgHx: s/p bilat inguinal hernia repair, R shoulder surgery, EGD FHx SocHx: Health Maintenance: Colon: 2022, repeat 2025 Vaccines: tdap 2016, flu declined AAA screen EKG: [place] of Care: Pain mgmt GI Heme Nephew: Efrem History of Present Illness - The patient is a 69-year-old male presenting to establish care given his extensive history of chronic conditions and recent cancer diagnosis. - His past medical issues include GERD, which was formerly managed with daily lansoprazole; taking PRN only with + effect. - The patient suffers from chronic arthritis, historically managed with prolonged use of acetaminophen but ceased due to considerations from liver health perspectives. Did also take NSAIDs correction which resulted in GI bleed. Not taking currently. Wonders if anything can be used to treat chronic OA pain in shoulders neck and hands - Asthma is mild and intermittently managed with an as-needed albuterol inhaler. - Essential hypertension is treated with lisinopril. - Presently undergoing treatment for recently diagnosed hepatocellular carcinoma, which initially significantly impacted his lifestyle, including taste alteration and drastic weight reduction. Improvements in weight and appetite are now noted. Feels more himself. Allopurinol part of tx. - The patient experiences persistent generalized itching, topical aloe helps, otherwise no other agents have helped. - Issues with L leg weakness and soreness, predating cancer treatment interventions, foot feels different, like it has a slipper on it at all times; bumps left foot on stairs when climbing. Decrease calf muscle size bilat.Denies claudication. Denies chest pain. - BIG SANDY would like hearing exam. Physical Exam General: Well developed, well nourished, in no acute distress. Appears stated age. Accompanied by nephew Efrem Head: Normocephalic, atraumatic. Eyes: Pupils are equal, round and reactive to light and accommodation. Conjunctivae are clear. Lungs: Clear to auscultation bilaterally. No rales, rhonchi or wheeze noted. Good air flow in all mack. Heart: Regular rate and rhythm. No murmurs, click, rubs or gallops are noted. Musculoskeletal: Joints are nontender, without swelling, redness, or effusions. Pulses: Peripheral pulses are equal and palpable bilaterally - decreased. Skin to lower ext is intact. Extremities: No clubbing, cyanosis nor edema is noted. Psych: Mood and affect appropriate. Neuro exam nonfocal. Results 02/2024 Lipids, PSA Discussion Notes During this visit, I discussed with the patient the management of his multi-system conditions, providing therapeutic adjustments and referrals where indicated. Given his history of hepatocellular carcinoma under active immunotherapy, I emphasized the importance of continuous oncological follow-up for cancer staging and monitoring. For his OA pain, try topical alternatives such as Voltaren for arthritis pain. Chronic itch, likely related to underlying liver pathology, ok to use topical aloe if this helps. Referral for vascular evaluation due to concerning leg symptoms of BLE L>R, was agreed upon as a preventive measure to rule out peripheral vascular disease. Finally, the importance of maintaining consistent communication using the patient portal for convenient management and routine health checks was highlighted. Assessment and Plan 1. Hepatocellular Carcinoma: Continues under the care of oncology with observed improvements; follow-up imaging for cancer staging should be performed. 2. Gastroesophageal Reflux Disease (GERD): Currently asymptomatic; use lansoprazole as needed for symptom control. 3. Chronic Arthritis: Start topical Voltaren due to hepatic health considerations. 4. Essential Hypertension: Continued management with lisinopril, now refilled. 5. Iron Deficiency Anemia: Managed with ferrous sulfate and addressed associated constipation with Miralax. 6. Persistent Itching: Likely related to liver dysfunction; comfort measures with natural aloe are in use. 7. Vascular Assessment: Referral for further evaluation is prudent given leg symptoms. 8. BIG SANDY - refer for hearing exam Patient Instructions - Update health insurance records to reflect the current provider. - Follow up with oncology for routine cancer monitoring and discus any new or worsening symptoms with the oncologist. - Utilize lansoprazole if experiencing gastroesophageal reflux symptoms - Apply Voltaren gel for arthritis-related pain as needed and monitor response. - Take lisinopril as prescribed and monitor blood pressure regularly. - Continue ferrous sulfate but also use Miralax as needed to manage constipation. - Employ aloe vera gel or similar soothing agents to alleviate itching. - Schedule and attend referral appointments for vascular assessment. - Utilize the patient portal for any communication with our office or to update me on your condition. - Please adhere to all oncology recommendations and inform me of any significant changes in your condition. RTO 4 months for sAWV, sooner PRN Consent Consent was obtained from the patient regarding prescribed therapies and adjustments, particularly the plan to incorporate topical NSAIDs and manage chronic conditions through oncological and vascular consultations. The implications were discussed, with the patient indicating understanding and agreement with the proposed management strategy. The patient was advised of the referral to Dr. Rivers for a vascular evaluation and oncology for ongoing hepatocellular carcinoma management, agreeing to follow recommendations. All risks, such as potential for adverse skin reactions to topical treatments, were explained in simple terms, ensuring the patient?s informed decision-making. Patient was informed and verbally consented to the use of an ambient scribe for clinic note documentation during this visit. Total time spent caring for the patient today was 50 minutes. This includes time spent before the visit reviewing the chart, time spent during the visit, and time spent after the visit on documentation, reviewing laboratory results, diagnostic imaging, medications, performing a medically necessary evaluation, counseling on diagnoses, care coordination, ordering appropriate tests, ordering appropriate medications, review of tests performed by other providers, reporting test results with the patient, communication with other healthcare providers. [facility] Medical History (Updated 06/09/24 @ 12:30 by Lianne Lucas [facility]) Allergic rhinitis Arthritis Asthma Gastric ulcer GERD (gastroesophageal reflux disease) GI bleed HTN (hypertension) Liver cancer Metastasis Peptic ulcer Surgical History (Updated 06/09/24 @ 12:[facility] H/O colonoscopy (~2021) History of esophagogastroduodenoscopy (EGD) Hx of bilateral inguinal hernia repair Hx of shoulder surgery Family History (Updated 06/09/24 @ 09:31 by Brooklyn Miller MA) Mother Cardiovascular disease Father Diabetes Social History (Updated 06/09/24 @ 09:32 by Brooklyn Miller MA) Household Members: None Housing: House Are you a primary healthcare financial analyst to a significant other at home: No Do you presently have visiting nurse or other home services: No Alcohol intake: current Alcohol intake frequency: a few times a month Alcohol type: beer Patient Tobacco Use Status: Never used Tobacco Tobacco use type: Cigarette e-Cigarette/Vaping Use: Never Used Second Hand Smoke Exposure: No Use of substances other than those prescribed or required for medical reasons: No Have you been hit, kicked, punched, or otherwise hurt by someone within the past year? If so, by whom?: No Do you feel safe in your current relationship?: Yes Do you have thoughts of harming others: None service: No Current occupational status: employed and retired Cognitive needs: No Hearing needs: No Vision needs: No Questionnaire PHQ-9 Over the last 2 weeks, how often have you been bothered by any of the following problems? 1. Little interest or pleasure in doing things: not at all 2. Feeling down, depressed, or hopeless: not at all 3. Trouble falling or staying asleep, or sleeping too much: not at all 4. Feeling tired or having little energy: not at all 5. Poor appetite or overeating: not at all 6. Feeling bad about yourself - or that you are a failure or have let yourself or your family down: not at all 7. Trouble concentrating on things, such as reading the newspaper or watching television: not at all 8. Moving or speaking so slowly that other people could have noticed. Or the opposite - being so fidgety or restless that you have been moving around a lot more than usual: not at all 9. Thoughts that you would be better off or of hurting yourself in some way: not at all Total score: 0 90664 - PHQ-9 Billing: Yes Source: Developed by Drs. Pedro Elizabeth, Leticia Shultz, Jae Maharaj and colleagues, with an educational vickie from [employer]. Thrive Questionnaire Date Thrive assessed: 06/09/24 I am a: Patient What is your living situation today?: I have a steady place to live Within the past 12 months, did the food you bought not last and you didn't have the money to get more?: Never true Within the past 12 months, did you worry whether your food would run out before you got money to buy more?: Never true Do you have trouble paying for medicines?: No Do you have trouble getting transportation to medical appointments?: No Do you have trouble paying your heating and electricity bill?: No Do you have trouble taking care of your child, family member or friend?: No Do you have trouble with day-to-day activities such as bathing, preparing meals, shopping, managing finances, etc.?: No Are you currently unemployed and looking for a job?: No Are you interested in more education?: No THRIVE Score: 0 AUDIT C Alcohol Use Questionnaire (AUDIT-C) 1. How often do you have a drink containing alcohol?: Monthly or less 2. How many drinks containing alcohol do you have on a typical day when you are drinking?: 1 or 2 Total Score: 1 KALI-7 AMB Questionnaire KALI-7 Date KALI - 7 assessed: 06/09/24 Feeling nervous, anxious, or on edge: 0 = Not at all Not being able to stop or control worryin = Not at all Worrying too much about different things: 0 = Not at all Trouble relaxin = Not at all Being so restless that it is hard to sit still: 0 = Not at all Becoming easily annoyed or irritable: 0 = Not at all Feeling afraid as if something awful might happen: 0 = Not at all Total KALI-7 score (0-4 normal; 5-9 mild; 10-14 moderate; 15-21 severe): 0 Source: Developed by Drs. Pedro Elizabeth, Leticia Shultz, Jae Maharaj and colleagues, with an educational vickie from [employer]. KALI-7 Assessment Billing KALI-7 Assessment Tool: KALI-7 Assessment 07496 Physical exam (Primary Care) Vital Signs: Last Vital Signs Temp 98.2 F 06/09/24 09:23 Pulse 99 06/09/24 09:23 Resp 12 06/09/24 09:23 BP 132/72 06/09/24 09:23 Pulse Ox 99 06/09/24 09:23 Oxygen Delivery Method Room Air 06/09/24 09:23 BMI result Body Mass Index 21.3 Tobacco/Smoking Status: Tobacco use Status Tobacco use date assessed 06/09/24 06/09/24 09:19 Patient Tobacco Use Status Never used Tobacco 06/09/24 09:32 Tobacco use type Cigarette 06/09/24 09:32 e-Cigarette/Vaping Use Never Used 06/09/24 09:32 PHQ-9: PHQ-9 Score PHQ-9: Total score 0 06/09/24 09:42 Thrive Assessment: Date of Thrive Assessment Date Thrive assessed 06/09/24 06/09/24 09:19 Coding Level of Care Code New Pt Level 4 (64891) Complex EM visit Add On G2211 Diagnoses HCC (hepatocellular carcinoma) C22.0 Primary hypertension I10 Hypertension type: primary hypertension BIG SANDY (hard of hearing) H91.90 Chronic GERD K21.9 Mild intermittent asthma without complication J45.20 Asthma severity: mild Asthma persistence: intermittent Asthma complication type: uncomplicated PVD (peripheral vascular disease) I73.9 Iron deficiency anemia, unspecified iron deficiency anemia type D50.9 Anemia type: iron deficiency Iron deficiency anemia type: unspecified iron deficiency Primary osteoarthritis involving multiple joints M15.0 Osteoarthritis location: multiple joints Osteoarthritis type: primary Non-seasonal allergic rhinitis due to other allergic trigger J30.89 Allergic rhinitis trigger: other Allergic rhinitis seasonality: non-seasonal Influenza vaccination declined by caregiver Z28.82 Additional Codes KALI-7 Assessment Billing - KALI-7 Assessment Tool: KALI-7 Assessment 90542 ([id number]) PHQ-9 - 18949 - PHQ-9 Billing: Yes ([id number]) Assessment & Plan Assessment & Plan (1) HCC (hepatocellular carcinoma): Comment: Status post chemoembolization by IR at [facility] on Friday04/16/24. He started bevacizumab and atezolizumab on 04/29/24 Code(s): C22.0 - Liver cell carcinoma Category: Medical (2) Hypertension: Code(s): I10 - Essential (primary) hypertension Category: Medical Qualifiers: Hypertension type: primary hypertension Qualified Code(s): I10 - Essential (primary) hypertension (3) BIG SANDY (hard of hearing): Code(s): H91.90 - Unspecified hearing loss, unspecified ear Category: Medical (4) Chronic GERD: Code(s): K21.9 - Gastro-esophageal reflux disease without esophagitis Category: Medical (5) Asthma: Code(s): J45.909 - Unspecified asthma, uncomplicated Category: Medical Qualifiers: Asthma severity: mild Asthma persistence: intermittent Asthma complication type: uncomplicated Qualified Code(s): J45.20 - Mild intermittent asthma, uncomplicated (6) PVD (peripheral vascular disease): Code(s): I73.9 - Peripheral vascular disease, unspecified Category: Medical (7) Anemia: Code(s): D64.9 - Anemia, unspecified Category: Medical Qualifiers: Anemia type: iron deficiency Iron deficiency anemia type: unspecified iron deficiency Qualified Code(s): D50.9 - Iron deficiency anemia, unspecified (8) Osteoarthritis: Code(s): M19.90 - Unspecified osteoarthritis, unspecified site Category: Medical Qualifiers: Osteoarthritis location: multiple joints Osteoarthritis type: primary Qualified Code(s): M15.0 - Primary generalized (osteo)arthritis (9) Allergic rhinitis: Comment: takes loratadine daily during allergy season and QOD otherwise Code(s): J30.9 - Allergic rhinitis, unspecified Category: Medical Qualifiers: Allergic rhinitis trigger: other Allergic rhinitis seasonality: non-seasonal Qualified Code(s): J30.89 - Other allergic rhinitis (10) Influenza vaccination declined by caregiver: Code(s): Z28.82 - Immunization not carried out because of caregiver refusal Category: Medical Plan . Orders: Referrals Audiology Referral H91.90 - Unspecified hearing loss, unspecified ear Vascular Surgery Referral I73.9 - Peripheral vascular disease, unspecified Medications: New diclofenac sodium 1% (Voltaren Arthritis Pain) apply to single elbow, wrist or hand; for hand includes palm/fingers/back of hand 2 grams topical QID PRN 100 grams 2RF pain Changed From lansoprazole 15 mg PO DAILY To lansoprazole 15 mg PO .prn Refilled lisinopril 20 mg PO DAILY 90 tabs 3RF Patient Instructions: - Update health insurance records to reflect the current provider. - Follow up with oncology for routine cancer monitoring and discus any new or worsening symptoms with the oncologist. - Utilize lansoprazole if experiencing gastroesophageal reflux symptoms and inform our office. - Apply Voltaren gel for arthritis-related pain as needed and monitor response. - Take lisinopril as prescribed and monitor blood pressure regularly. - Continue ferrous sulfate but also use Miralax as needed to manage constipation. - Employ aloe vera gel or similar soothing agents to alleviate itching. - Schedule and attend referral appointments for vascular assessment. - Utilize the patient portal for any communication with our office or to update me on your condition. - Please adhere to all oncology recommendations and inform me of any significant changes in your condition. Walk-In Care (Urgent Care): We Make it Easy Walk-in for urgent medical issues such as: ? Seasonal Allergies ? Insect Bites ? Cough ? Diarrhea ? Acute Asthma Attacks ? Back, Knee or Joint Pain ? Ear Infection ? Fever without a Rash ? Headaches ? Nausea ? Smarr Eye, Rash or Skin Irritation ? Sore Throat ? Sports Physicals ? Vomiting Most insurances are accepted. Patients do not need to be part of the [facility] to seek care at the walk-in clinic. Locations [facility] , [place] [address] ? [phone] [facility] Walk-In Care in [place] provides services to ages 18 and over. Open Friday-Friday: 8 a.m. to 5 p.m. and Friday: 9 a.m. to 3 p.m.* *Hours may vary due to staffing availability. To confirm Walk-In Care hours in [place], please call [phone]. [address] [place] [address] ? [phone] [facility] Walk-In Care in [place] provides services to ages 12 and over. Open Friday-Friday: 8 a.m. to 5 p.m. Hours may vary due to staffing availability. To confirm Walk-In Care hours in [place], please call [phone]. LABORATORY SERVICES: [facility] ? Primary Location [address] [place] [address] Friday through Friday 6:00 AM ? 5:00 PM Friday 7:00 AM ? 11:00 AM* [phone] The [facility] is centrally located near the front entrance of the [facility] for easy outpatient access. Convenient parking is provided for outpatients. *Hours may vary due to staffing availability. To confirm Laboratory hours for any location, please call [phone]. Offsite Location For your convenience, we offer offsite laboratory draw stations at the following locations: [address] [place] [address] ? [address], [address] Friday through Friday 7:30 AM ? 1:00 PM* [phone] *Hours may vary due to staffing availability. To confirm Laboratory hours for any location, please call [phone]. [place] ? [address] Friday through Friday 6:00 AM ? 3:30 PM* Friday 6:30 AM ? 3 PM* [phone] *Hours may vary due to staffing availability. To confirm Laboratory hours for any location, please call [phone] [place] [address] Friday through Friday 7:30 AM ? 4:00 PM* [phone] *Hours may vary due to staffing availability. To confirm Laboratory hours for any location, please call [phone] [place] [address] Friday through 9:00 AM ? 4:00 PM* *Hours may vary due to staffing availability. To confirm Laboratory hours for any location, please call [phone]. Appointments are not necessary. Walk-ins are welcome. Like all the departments throughout the [facility], our Lab undergoes frequent reviews to ensure the quality and accuracy of test results, and our staff takes special pride in its status as a nationally accredited facility. Patient Portal: ONE PATIENT. ONE RECORD. BETTER CARE. [facility] has a fully integrated, cutting-edge mobile electronic health information system that has revolutionized the way we care for our patients and manage our organization. This system improves communication and coordination enabling us to provide safe, higher-quality care, and an overall positive experience for staff and patients. Our first priority, as always, is to deliver the highest quality care possible. The system is running in the background supporting that priority. This portal is for all [facility] services and practices. If you are experiencing any technical difficulties with enrolling or logging into the Patient Portal please complete the [facility] Patient Portal Technical Support Form. [facility] now offers a new secure on-line interactive tool for patients to review their health information ? ?Patient Portal. This interactive web portal will enable patients and their families to take an active role in their care by providing easy, secure access to their health information via the internet. The Patient Portal provides patients with instant access to their health information, including laboratory results, medications, allergies, demographic information, visit history, and more. In addition to managing their own care, parents and health care proxies with authorized consent will appreciate the ability to access the records of those individuals for whom they provide care. Please note: if you wish to gain access (Proxy) to another patient?s portal, you will be required to come to the Medical Records Department in person at [facility]. Both the patient giving proxy access and the proxy will need to provide photo identification and complete the appropriate authorization. The Patient Portal also allows track their appointments online. The [facility] Patient Portal also saves patients time by allowing them to submit updates to their demographic and contact information prior to their visits. Portal email notifications will also alert patients to any new activity on their portal, such as test results and new appointments. In order to initially enroll in the [facility] Patient Portal, you will need to enter some required information including the following: your [facility] Medical Record number your personal home email address name date of Please note: In order to enroll in the [facility] Patient Portal, we need to have your email address on file in your electronic medical record. ?The email address needs to be specific for one person (yourself) in order for your Portal enrollment to be successful. ?You can update your email address in person with our Registration staff when you are registering for a hospital visit. ?Otherwise, you will need to come to the Health Information Management (Medical Records) Department at [facility]. ?We are open from Friday ? Friday from 7:30 a.m. ? 4:30 p.m. ?You will be required to present a photo id. Once you have successfully enrolled in the Patient Portal, you will receive a one-time user id and password for the Portal, sent to your email address. ?This will allow you to log into the Patient Portal within 99 hrs and reset your own logon id and password, and define personal security questions. ?Once your permanent login and password have been set, you can log into the [facility] Patient Portal at any time via the blue button above or from the Portal Logon button on any page of the [facility] website. [facility] and [facility] encourage all of our patients to enroll in Patient Portal as it presents a valuable opportunity for patients and their families to actively participate in their care and stay healthy Welcome to [facility]. ?We look forward to working with you.
[2024-06-09 09:23] VITALS: BP 132/72; PULSE 99; RESP 12; TEMP 36.8; O2SAT 99; BMI 21.3
--- OUTSIDE RECORDS SUMMARY | 2024-06-09 09:32 | XMS_ITS ---
Author Organization [facility] Address [address] [place] [id number] Care Team Providers Care Digital Communications Manager Name Role Phone Dylon Perez MD Primary Care Provider Pedro Valdes Unavailable [phone] Allergies Allergen (clinical drug ingredient) Drug/Non Drug Allergy documented on EMR Reaction Allergy Type Onset Date Status Penicillin anaphylaxis Drug Allergy Acti ve REASON FOR VISIT Patient presents today for an ulcer Medications Medication SIG (Take, Route, Fr equency, Duration) Notes Start Date End Date Status Loratadine 10 MG 1 tablet Orally Twice a day Active Acetaminophen ER 650 MG 2 tablets as nee ded Orally every 8 hrs Active Lansoprazole 15 MG 1 capsule before a m eal Orally Once a day for 30 day(s) Active Lisinopril 20 MG Oral for 90 A ctive Social History Tobacco Use: Social History Observation Description Date Details (start date - stop date) Never Smoker NA - NA Tobacco Use/Smoking Question Answer Notes Patient is [...] drinks (0 point) Points 2 Interpretation Negative Section Notes: Nonsmoker; drinks alcohol on the weekend Vital Signs Temperature 97.5 degrees Fahrenheit 02/28/20 23 Blood pressure systolic 00 mm Hg 02/28/20 23 Blood pressure diastolic 00 mm Hg 023 Height 70 in 02/27/2023 Weight 177 lbs 02/27/2023 BMI 25.39 kg/m2 02/27/2023 Encounters Encounter Location Date Provider Diagnosis [facility] [address] [place] [address] 02/27/2023 Pedro Montesinos Encounter for screen ing for malignant neoplasm of colon Z12.11 ; Gastric ulcer K25.9 ; Diverticulosis of colon K57.30 and History of adenomatous polyp of colon Z86.010 Assessments Encounter Date Diagnosis (ICD Code) Assessment Notes Treatment Notes Treatment Clinical Notes Section Notes 02/27/2023 Encounter for screening for malignant neoplasm of colon (ICD-10 - Z12.11) Overall, Ken appears to be doing very well. He is not having any new or worrisome GI complaints. On his previous visit I did recommend that he switch from the mwxq-yca-idzjbm r lansoprazole to an chio-osm-bikmcf r H2 juan francisco but he has not done that. He is comfortable taking the lansoprazole and feels well on that. Thus, he will stay on that. He will be scheduled for his followup colonoscopy for some time into 2023. Given the multiple tubular adenomas removed on his colonoscopy in 2021, I do think a followup exam for 2023 is important. We did review the rationale for this in regard to colorectal cancer prevention and/or early detection. Full consent is obtained for this, including risks of bleeding and perforation. The procedure will be done with monitored anesthesia care. Arthur was comfortable with this plan. Thank you again for allowing me to participate in Ken's care. I shall continue to keep you advised of his progress. 02/27/2023 Gastric ulcer (ICD-10 - K25.9) Overall, Ken appears to be doing very well. He is not having any new or worrisome GI complaints. On his previous visit I did recommend that he switch from the eliv-umx-xqmlqu r lansoprazole to an dlge-hgy-vwrbnz r H2 juan francisco but he has not done that. He is comfortable taking the lansoprazole and feels well on that. Thus, he will stay on that. He will be scheduled for his followup colonoscopy for some time into 2023. Given the multiple tubular adenomas removed on his colonoscopy in 2021, I do think a followup exam for 2023 is important. We did review the rationale for this in regard to colorectal cancer prevention and/or early detection. Full consent is obtained for this, including risks of bleeding and perforation. The procedure will be done with monitored anesthesia care. Arthur was comfortable with this plan. Thank you again for allowing me to participate in Ken's care. I shall continue to keep you advised of his progress. 02/27/2023 Diverticulosis of colon (ICD-10 - K57.30) Overall, Ken appears to be doing very well. He is not having any new or worrisome GI complaints. On his previous visit I did recommend that he switch from the nzly-lqo-zmsiuy r lansoprazole to an rgjr-yfi-wppbkh r H2 juan francisco but he has not done that. He is comfortable taking the lansoprazole and feels well on that. Thus, he will stay on that. He will be scheduled for his followup colonoscopy for some time into 2023. Given the multiple tubular adenomas removed on his colonoscopy in 2021, I do think a followup exam for 2023 is important. We did review the rationale for this in regard to colorectal cancer prevention and/or early detection. Full consent is obtained for this, including risks of bleeding and perforation. The procedure will be done with monitored anesthesia care. Arthur was comfortable with this plan. Thank you again for allowing me to participate in Ken's care. I shall continue to keep you advised of his progress. 02/27/2023 History of adenomatous polyp of colon (ICD-10 - Z86.010) Overall, Ken appears to be doing very well. He is not having any new or worrisome GI complaints. On his previous visit I did recommend that he switch from the cjrq-bta-haahap r lansoprazole to an tlvd-ged-pugitt r H2 juan francisco but he has not done that. He is comfortable taking the lansoprazole and feels well on that. Thus, he will stay on that. He will be scheduled for his followup colonoscopy for some time into 2023. Given the multiple tubular adenomas removed on his colonoscopy in 2021, I do think a followup exam for 2023 is important. We did review the rationale for this in regard to colorectal cancer prevention and/or early detection. Full consent is obtained for this, including risks of bleeding and perforation. The procedure will be done with monitored anesthesia care. Arthur was comfortable with this plan. Thank you again for allowing me to participate in [facility] care. I shall continue to keep you advised of his progress. Plan Of Treatment Future Test Test Name Order Date COLONOSCOPY 02/27/2023 Next Appt Details Follow Up: prn, Reason: Progress Notes * KEN MONTANEZ RDOB: [birth year] (68 yo M)Acc No.[id number]:02/27/2023 Progress Notes Patient:?KEN MONTANEZ Provider:?Pedro Montesinos MD :1955???Age:68 Y???Sex:Male Sudarshan e:02/27/2023 Address:[address] [place], [id number] Pcp:Dylon Perez MD Subjective: * Chief Complaints: * ???Patient presents today fo r an ulcer * HPI: ???incontinence:? I saw Ken in followup today in regard to his previous history of his gastric ulcer and personal history of multiple tubular adenomas of the colon. ?Since I last saw Ken in July he has been feeling very well. He enjoys a good appetite, without any significant heartburn or dysphagia. He remains on his lansoprazole 15 mg daily. He has had no problems with abdominal pain, jaundice, nor weight loss. His bowel movements have remained regular and without any hematochezia nor melena. He did retire shortly before I saw him in July and reports that is going well thus far. He is bothered by arthritis but is only using acetaminophen as he knows he needs to avoid NSAIDs due to the previous history of ulcer disease. * ROS:?General/Constitutional:?Change in appetite?denies.?Chills?denies.?Fatigue?denies.?Ophthalmologic:?Comments?all negative.?ENT:?Comments?all negative.?Respiratory:?hemoptysis?denies.?Cough?denies.?Cardiovascular:?Chest pain?denies.?Orthopnea?denies.?Gastrointestinal:?Comments?See HPI for details.?Genitourinary:?Hematuria?denies.?Dysuria?denies.?Musculoskeletal:?Painful joints?denies.?Weakness?denies.?Skin:?Itching?denies.?Rash?denies.?Neurologic:?Headache?denies.?Seizures?denies.?Psychiatric:?Comments?all negative.? * Medical History:? * Surgical History:?Right nathalie rizvi * Hospitalization/Major Diagno stic Procedure:?No Hospitalization History. * Family History:?Father: dece ased.?Mother: .? No known hx of colon cancer. * Social History:?Tobacco Use:?Tobacco Use/Smoking?Patient is a?nonsmoker.?Drugs/Alcohol:?Alcohol Screen?Did you have a drink containing alcohol in the past year??Yes,?How often did you have a drink containing alcohol in the past year??2 to 4 times a month (2 points),?How many drinks did you have on a typical day when you were drinking in the past year??1 or 2 drinks (0 point),?Points?2,?Interpretation?Negative.?Miscellaneous:?Marital status: single. 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 ???Nonsmoker; drinks alcohol on the weekend. * Medications:?TakingAcetamino phen ER 650 MG Tablet Extended Release 2 tablets as needed Orally every 8 hrsLoratadine 10 MG Tablet 1 tablet Orally Twice a dayLansoprazole 15 MG Capsule Delayed Release 1 capsule before a meal Orally Once a dayLisinopril 20 MG Tablet Oral Medication List reviewed and reconciled with the patientTaking Acetaminophen ER 650 MG Tablet Extended Release 2 tablets as needed Orally every 8 hrsTaking Loratadine 10 MG Tablet 1 tablet Orally Twice a dayTaking Lansoprazole 15 MG Capsule Delayed Release 1 capsule before a meal Orally Once a dayTaking Lisinopril 20 MG Tablet Oral Medication List reviewed and reconciled with the patient * Allergies:?Penicillin: anaph ylaxisyes[Allergies Verified] Objective: * Vitals:?Wt: 177 lbs, Ht: 70 in, BMI:25.39 Index, BP: 00/00 mm Hg, Temp: 97.5. * Examination: ???General Examination: ?GENERAL APPEARANCE:?pleasant, well nourished, well developed, in no acute distress.?EYES:?sclera non-icteric.?ORAL CAVITY:?mucosa moist.?NECK/THYROID:?no cervical lymphadenopathy, neck supple.?SKIN:?nonjaundiced, no spider angiomata.?HEART:?S1, S2 normal.?LUNGS:?clear to auscultation bilaterally.?ABDOMEN:?normal bowel sounds, no guarding or rigidity, no guarding or rigidity, no masses palpable, soft, nontender, nondistended.?EXTREMITIES:?no edema.?NEUROLOGIC:?alert and oriented.? Assessment: * Assessment: 1.?Gastric ulcer - K25.9 (Pr imary)?2.?Encounter for screening for malignant neoplasm of colon - Z12.11?3.?Diverticulosis of colon - K57.30?4.?History of adenomatous polyp of colon - Z86.010? Overall, Ken appears to be doing very well. He is not having any new or worrisome GI complaints. On his previous visit I did recommend that he switch from the jfxv-xke-iwwqzwx lansoprazole to an vcjn-tvx-jjjqicn H2 juan francisco but he has not done that. He is comfortable taking the lansoprazole and feels well on that. Thus, he will stay on that. He will be scheduled for his followup colonoscopy for some time into 2023. Given the multiple tubular adenomas removed on his colonoscopy in 2021, I do think a followup exam for 2023 is important. We did review the rationale for this in regard to colorectal cancer prevention and/or early detection. Full consent is obtained for this, including risks of bleeding and perforation. The procedure will be done with monitored anesthesia care. Arthur was comfortable with this plan. Thank you again for allowing me to participate in Ken's care. I shall continue to keep you advised of his progress. Plan: * Treatment: 2.?History of adenomatous polyp of colon?Procedure: COLONOSCOPY (Ordered for 02/27/2023)* with MACsched for 05/26/23 at 9:30 ammiralax * Procedure Codes:?3017F COLOR ECTAL CA SCREEN DOC [id number] TOBACCO [id number] BP SCR NOT PRFRM REC REASON NOS * Preventive Medicine:? ??Counseling:?Care goal follow-up plan:?Above Normal BMI Follow-up?Giving encouragement to exercise,?BMI management provided?Yes.? * Follow Up:?prn * * Sign off status: Completed true * Provider:?Pedro Montesinos MD Date:? 023 Generated for Estela higgins/Tobi/eTransmitting on:?06/09/2024 09:32 AM EDT History and Physical Notes * HPI (History of Present Illness) Category Sub-Category Detail Notes Category Not es incontinence I saw Ken in followup today in regard to his previous history of his gastric ulcer and personal history of multiple tubular adenomas of the colon. Since I last saw Ken in July he has been feeling very well. He enjoys a good appetite, without any significant heartburn or dysphagia. He remains on his lansoprazole 15 mg daily. He has had no problems with abdominal pain, jaundice, nor weight loss. His bowel movements have remained regular and without any hematochezia nor melena. He did retire shortly before I saw him in July and reports that is going well thus far. He is bothered by arthritis but is only using acetaminophen as he knows he needs to avoid NSAIDs due to the previous history of ulcer disease. Examination Category Sub-Category Detail Notes Category Not es General Examination GENERAL APPEARANCE: pleasant , well [...]
--- OUTSIDE RECORDS SUMMARY | 2024-06-09 09:32 | XMS_ITS | Patient Health Record ---
Author Organization [facility] Address [address] [place] [address] Care Team Providers Care Head Of It Name Role Phone Dylon Perez MD Primary Care Provider Pedro Valdes Unavailable [phone] Allergies Allergen (clinical drug ingredient) Drug/Non Drug Allergy documented on EMR Reaction Allergy Type Onset Date Status Penicillin anaphylaxis Drug Allergy Acti ve Reason For Referral No Information Medications Medication SIG (Take, Route, Fr equency, Duration) Notes Start Date End Date Status Loratadine 10 MG 1 tablet Orally Twice a day Active Acetaminophen ER 650 MG 2 tablets as nee ded Orally every 8 hrs Active Lansoprazole 15 MG 1 capsule before a m eal Orally Once a day for 30 day(s) Active Lisinopril 20 MG Oral for 90 A ctive Immunizations Vaccine Route Administration Date Status Comme nts Influenza Unknown 05/25/2021 Refused Social History Tobacco Use: Social History Observation [...] Notes: Nonsmoker; drinks alcohol on the weekend Nonsmoker; drinks alcohol on the weekend Nonsmoker; drinks alcohol on the weekend Nonsmoker; drinks alcohol on the weekend Problems Problem Type SNOMED Code ICD Code Onset Dates Problem Status W/U Status Risk Notes Problem [id number] Encounter for screening for malignant neoplasm of colon (Z12.11) Active confirmed Problem History of adenomatous polyp of colon (918804283) History of adenomatous polyp of colon (Z86.010) Active confirmed Problem Diverticular disease of colon (815037295) Diverticulosis of large intestine without perforation or abscess without bleeding (K57.30) Active confirmed Problem [id number] Pre-procedural examination (Z01.818) Active confirmed Problem Chronic gastritis (4027760) Chronic gastritis (K29.50) Active confirmed Problem Gastric ulcer (880246433) Gastric ulcer (K25.9) Active confirmed Problem Diverticulosis of colon (457409285) Diverticulosis of colon (K57.30) Active confirmed Plan Of Treatment Future Test Test Name Order Date COLONOSCOPY 05/25/2021 COLONOSCOPY 02/27/2023 Insurance Providers Payer Name Payer Address Payer Phone Subscriber Number Group Number Insured Name Patient Relationship to Insured Coverage Start Date Coverage End Date [facility] [address] [place], [place] [id number] KEN MONTANEZ Self - patient is the insured Medical (General) History Medical History History ICD Code Asthma--inactive Denies ID,DM,CVA,renal disease Reports a negative colonoscopy in 2005 a [facility] Psoriatic arthritis Colonoscopy in June of 2021 [...]
--- OUTSIDE RECORDS SUMMARY | 2024-06-09 09:33 | XMS_ITS ---
Author Organization [facility] Address [address] [place] [address] Care Team Providers Care Anthropology Professor Name Role Phone Dylon Perez MD Primary Care Provider Pedro Valdes Unavailable [phone] REASON FOR VISIT screening,hx polyps Problems Problem Type SNOMED Code ICD Code Onset Dates Problem Status W/U Status Risk Notes Problem Diverticular disease of colon (697186738) Diverticulosis of large intestine without perforation or abscess without bleeding (K57.30) Active confirmed Encounters Encounter Location Date Provider Diagnosis [facility] [address] [place], [place] [phone] 05/26/2023 Pedro Montesinos Encounter for scre ening colonoscopy Z12.11 ; Colon polyps K63.5 ; Diverticulosis of large intestine without perforation or abscess without bleeding K57.30 and Other hemorrhoids K64.8 Assessments Encounter Date Diagnosis (ICD Code) Assessment Notes Treatment Notes Treatment Clinical Notes Section Notes 05/26/2023 Encounter for screening colonoscopy (ICD-10 - Z12.11) 05/26/2023 Colon polyps (ICD-10 - K63.5) 05/26/2023 Diverticulosis of large intestine without perforation or abscess without bleeding (ICD-10 - K57.30) 05/26/2023 Other hemorrhoids (ICD-10 - K64.8) Plan Of Treatment No Information Progress Notes * KEN MONTANEZ RDOB: [birth year] (69 yo M)Acc No.[id number]:05/26/2023 COLON WITH MAC Patient:?KEN MONTANEZ Provider:?Pedro Montesinos MD :1955???Age:68 Y???Sex:Male Sudarshan e:05/26/2023 Address:[address] [place], [place] Pcp:Dylon Perez MD Subjective: * Chief Complaints: * ???1. Screening,hx polyps. * Medical History:? Objective: * Vitals:? Assessment: * Assessment: 1.?Encounter for screening c olonoscopy - Z12.11 (Primary)???2.?Colon polyps - K63.5???3.?Diverticulosis of large intestine without perforation or abscess without bleeding - K57.30???4.?Other hemorrhoids - K64.8??? Plan: * Treatment: * Procedure Codes:?02395 LESIO N REMOVAL COLONOSCOPY, Modifiers: PT * * The named appointment provid er may or may not be the originator of this progress note, and it is not deemed complete until electronically signed by the appointment provider. Sign off status: Pending * Provider:?Pedro Montesinos MD Date:? 024 Generated for Estela higgins/Tobi/eTransmitting on:?06/09/2024 09:32 AM EDT
== END 2024-06-09 10:17 | disposition home or self-care (01) ==
LOC: HO.HMCFM 08:42
PROVIDERS: PCP Internal Medicine; Visit Provider Nurse Practitioner Family
DX: I73.9 Peripheral vascular disease, unspecified (principal); C22.0 Liver cell carcinoma; I10 Essential (primary) hypertension; K21.9 Gastro-esophageal reflux disease without esophagitis; J45.20 Mild intermittent asthma, uncomplicated; D50.9 Iron deficiency anemia, unspecified; M15.0 Primary generalized (osteo)arthritis; J30.89 Other allergic rhinitis; Z28.82 Immunization not carried out because of caregiver refusal

== ENCOUNTER → 2024-06-09 08:41 | Outpatient (BNVA) | payer MEDICARE, SELFPAY | PROVIDERS: PCP Internal Medicine; Visit Provider Nurse Practitioner Family | DX: C22.0 Liver cell carcinoma (principal); I10 Essential (primary) hypertension; H91.90 Unspecified hearing loss, unspecified ear; K21.9 Gastro-esophageal reflux disease without esophagitis; J45.20 Mild intermittent asthma, uncomplicated; I73.9 Peripheral vascular disease, unspecified; M15.0 Primary generalized (osteo)arthritis; J30.89 Other allergic rhinitis; Z28.82 Immunization not carried out because of caregiver refusal | CPT/HCPCS: 96127; 99202 ==

== ENCOUNTER 2024-06-15 13:29 | Outpatient (AMB) | payer MEDICARE, SELFPAY ==
--- NOTE | 2024-06-15 13:46 | A.OFFVIS_ITS ---
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 Pt states the only issue he has experienced has been dragging or not able to lift his left foot quite as well. 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 blood clot in the left leg/foot. He states that this started awhile ago, prior to surgery for his cancer and current immunotherapy treatments. He states he is unable to pull his foot up towards him and he is unable to wear certain shoes due to this loss of dorsiflexion. He states he gets numb/tingling feelings in his foot as well. He states that during surgery they had difficulties finding pulses in his left foot. He denies any concerns with his right foot. He denies any swelling or pain. He does not smoke and is not a diabetic. He denies any injuries/wounds to the foot. Patient denies any previous venous surgery or injections. Patient denies any history of DVT/ PE. Patient denies any history of phlebitis. Trial of compression includes - none They now present for vascular evaluation regarding their varicose veins. [facility] Medical History GI bleed Metastasis Liver cancer Peptic ulcer Arthritis Gastric ulcer GERD (gastroesophageal reflux disease) HTN (hypertension) Allergic rhinitis Asthma Surgical History History of esophagogastroduodenoscopy (EGD) Hx of bilateral inguinal hernia repair H/O colonoscopy (~2021) Hx of shoulder surgery Family History Mother Cardiovascular disease Father Diabetes Social History Household Members: None Both parents involved: No Caregiver staying overnight: No Housing: House Are you a primary healthcare architect to a significant other at home: No Do you presently have visiting nurse or other home services: No 75 years or older and lives alone: No Alcohol intake: current Alcohol intake frequency: a few times a month Alcohol type: beer Patient Tobacco Use Status: Never used Tobacco Tobacco use type: Cigarette e-Cigarette/Vaping Use: Never Used Second Hand Smoke Exposure: No service: No Current occupational status: employed and retired Cognitive needs: No Hearing needs: No Vision needs: No Review of Systems Const Reports as per HPI and Denies weakness ENT Reports Normal hearing present Card Reports as per HPI, Denies chest pain, Denies chest pain at rest, Denies chest pain with activity, Denies dyspnea and Denies dyspnea on exertion Resp Reports as per HPI, Denies cough, Denies dyspnea and Denies dyspnea on exertion GI Reports as per HPI, Denies abdominal pain, Denies nausea and Denies vomiting Musc Denies numbness Skin/Breast Reports as per HPI, Denies erythema and Denies wounds Neuro Reports Normal hearing present, Denies numbness, Denies Sensory deficit (Neuro) and Denies weakness Psych Reports no additional complaints Endo Reports no additional complaints Physical Exam Vital Signs: BMI result Body Mass Index 21.1 Const General: healthy appearing and no acute distress Orientation/consciousness: patient oriented x3 HEENT Head: Yes normal to inspection Ears: hearing grossly normal bilaterally Mouth: Normal oral and palatal mucosa present Resp Effort & Inspection: normal respiratory effort and able to speak in complete sentences Auscultation: clear to auscultation bilaterally Cardio Jugular venous distension: no JVD Rate: regular rate Rhythm: regular rhythm Heart sounds: S1 normal heart sound present and S2 normal heart sound present Bruits: no abdominal aortic bruits, no carotid bruits, no femoral bruits and no renal bruits Peripheral pulses: Peripheral pulses 2+ throughout GI Inspection: Yes normal to inspection Palpation (GI): No Abdominal aortic bruit present Skin General skin exam: no rashes or lesions noted Wounds: no wounds Hair: normal Neuro General: patient oriented x3 Cranial nerves: Yes CN's II-XII intact bilaterally and Yes Normal hearing present Cognition (Neuro): normal cognition Gait exam (Neuro): Normal gait present Motor exam (neuro): 5/5 motor strength present throughout Sensory Exam: No Sensory deficit (Neuro) Extrem Other: Left foot: warm to the touch. Palpable DP and PT pulses. He has strong plantar flexion, but negative dorsiflexion. Cap refill <3 seconds. No discoloration noted. Trace peripheral edema noted. CEAP: C - 3 E - primary A - superficial P - reflux General: Yes normal to inspection, Yes full ROM, Yes capillary refill normal and Yes normal gait Assessment & Plan Assessment & Plan (1) PVD (peripheral vascular disease): Code(s): I73.9 - Peripheral vascular disease, unspecified Category: Medical Plan: Christoph is presenting today on a referral from his PCP for concerns of left foot tingling, numbness, and inability to move the foot up/diff walking. He is unable to wear shoes that do not have back support. We have ordered a US stat to r/o any blood clots/venous insufficiency. This does seem like it is more of a foot drop concern but we will r/o venous insufficiency. In short, the patient has evidence of venous insufficiency. I have discussed the pathophysiology with the patient. In addition I have provided informational material regarding venous disease to the patient. We have discussed conservative measures including compression, elevation, and exercise. I have taken the liberty of ordering venous insufficiency testing with the patient. They will follow up with me after testing. The patient had an opportunity to ask questions regarding the treatment plan. All questions were answered. Imaging studies, laboratory studies and physical exam results were discussed and reviewed in detail. No major barriers to understanding were identified. The patient expressed understanding and agreement with the above treatment plan. The patient is aware they should contact our office by phone for worsening of the current condition or the appearance of new symptoms. Thank you for allowing me to participate in the vascular care of this patient. If you have any questions or concerns regarding the treatment for the above condition please do not hesitate to contact me. The office telephone contact is [phone]. This note is constructed using voice recognition software. While every effort has been made to ensure accuracy, automation qa lead errors may have been included. Thank you for allowing me to participate in the care of your patient. Yours sincerely, ARABELLA Fox Orders: Orders US venous duplex LE BI 1 Day I73.9 - Peripheral vascular disease, unspecified Coding Level of Care Code New Pt Level 4 (16896) Diagnoses PVD (peripheral vascular disease) I73.9
[2024-06-15 13:50] VITALS: BMI 21.1
--- OUTSIDE RECORDS SUMMARY | 2024-06-15 16:30 | XMS_ITS ---
Author Organization [facility] Address [address] [place] [address] Care Team Providers Care Saddle And Side Wire Stitcher Name Role Phone Dylon Perez MD Primary Care Provider Pedro Valdes Unavailable [phone] Allergies Allergen (clinical drug ingredient) Drug/Non Drug [...] 02/27/2023 Encounters Encounter Location Date Provider Diagnosis [facility] [address] [place] [address] 02/27/2023 Pedro Montesinos Encounter for screen ing [...] did recommend that he switch from the xgin-cws-wshstl r lansoprazole to an adlq-lla-vrvnqu r H2 juan francisco but he has [...] did recommend that he switch from the nyvk-dfe-qcdlsi r lansoprazole to an jbej-puz-prlsfw r H2 juan francisco but he has [...] did recommend that he switch from the fgjh-kjv-bvvnnl r lansoprazole to an drbi-wtv-etgiaw r H2 juan francisco but he has [...] did recommend that he switch from the iysc-spz-swnfij r lansoprazole to an teok-oop-ehtgwf r H2 juan francisco but he has [...] KEN MONTANEZ RDOB: [birth year] (68 yo M)Acc No.[id number]:02/27/2023 Progress Notes Patient:?KEN MONTANEZ Provider:?Pedro Montesinos MD :1955???Age:68 Y???Sex:Male Sudarshan e:02/27/2023 Address:[address] [place], [id number] Pcp:Dylon Perez MD Subjective: * Chief Complaints: [...] did recommend that he switch from the cazy-mki-mnfrhlq lansoprazole to an dggp-ftb-vqidlbr H2 juan francisco but he has not [...] Procedure Codes:?3017F COLOR ECTAL CA SCREEN DOC [id number] TOBACCO NON-[id number] BP SCR NOT PRFRM REC REASON NOS * Preventive Medicine:? ??Counseling:?Care goal follow-up plan:?Above Normal BMI Follow-up?Giving encouragement to exercise,?BMI management provided?Yes.? * Follow Up:?prn * * Sign off status: Completed true * Provider:?Pedro Montesinos MD Date:? 023 Generated for Estela higgins/Tobi/eTransmitting on:?06/15/2024 04:30 PM EDT History and Physical Notes * HPI [...]
--- OUTSIDE RECORDS SUMMARY | 2024-06-15 16:30 | XMS_ITS ---
Author Organization [facility] Address [address] [place] [address] Care Team Providers Care Real Estate Subagent Name Role Phone Dylon Perez MD Primary Care Provider Pedro Valdes Unavailable [phone] REASON FOR VISIT screening,hx polyps Problems Problem Type SNOMED Code ICD Code Onset Dates Problem Status W/U Status Risk Notes Problem Diverticular disease of colon (285982096) Diverticulosis of large intestine without perforation or abscess without bleeding (K57.30) Active confirmed Encounters Encounter Location Date Provider Diagnosis [facility] Outpatient [address] [place], [place] [id number] 05/26/2023 Pedro Montesinos Encounter for scre ening [...] KEN MONTANEZ RDOB: [birth year] (69 yo M)Acc No.[id number]:05/26/2023 COLON WITH MAC Patient:?KEN MONTANEZ Provider:?Pedro Montesinos MD :1955???Age:68 Y???Sex:Male Sudarshan e:05/26/2023 Address:[address] [place], [place] Pcp:Dylon Perez MD Subjective: * Chief Complaints: * ???1. Screening,hx polyps. * Medical History:? Objective: * Vitals:? Assessment: * Assessment: 1.?Encounter for screening c olonoscopy - Z12.11 (Primary)???2.?Colon polyps - K63.5???3.?Diverticulosis of large intestine without perforation or abscess without bleeding - K57.30???4.?Other hemorrhoids - K64.8??? Plan: * Treatment: * Procedure Codes:?63928 LESIO N REMOVAL COLONOSCOPY, Modifiers: PT * * The named appointment provid er may or may not be the originator of this progress note, and it is not deemed complete until electronically signed by the appointment provider. Sign off status: Pending * Provider:?Pedro Montesinos MD Date:? 024 Generated for Estela higgins/Tobi/eTransmitting on:?06/15/2024 04:30 PM EDT
--- OUTSIDE RECORDS SUMMARY | 2024-06-15 16:30 | XMS_ITS | Patient Health Record ---
Author Organization [facility] Address [address] [place] [address] Care Team Providers Care Architectural Practice Manager Name Role Phone Dylon Perez MD Primary Care Provider Pedro Valdes Unavailable [phone] Allergies Allergen (clinical drug ingredient) Drug/Non Drug [...] Problem Status W/U Status Risk Notes Problem 441538007 Encounter for screening for malignant neoplasm of colon (Z12.11) Active confirmed Problem History of adenomatous polyp of colon (363698144) History of adenomatous polyp of colon (Z86.010) Active confirmed Problem Diverticular disease of colon (468905275) Diverticulosis of large intestine without perforation or abscess without bleeding (K57.30) Active confirmed Problem 068775862504605 Pre-procedural examination (Z01.818) Active confirmed Problem Chronic gastritis (9714276) Chronic gastritis (K29.50) Active confirmed Problem Gastric ulcer (094845484) Gastric ulcer (K25.9) Active confirmed Problem Diverticulosis of colon (201013162) Diverticulosis of colon (K57.30) Active confirmed Plan Of Treatment Future Test Test Name Order Date COLONOSCOPY 05/25/2021 COLONOSCOPY 02/27/2023 Insurance Providers Payer Name Payer Address Payer Phone Subscriber Number Group Number Insured Name Patient Relationship to Insured Coverage Start Date Coverage End Date [facility] [address] [place], [place] [id number] KEN MONTANEZ Self - patient is the insured Medical (General) History Medical History History ICD Code Asthma--inactive Denies CT,DM,CVA,renal disease Reports a negative colonoscopy in 2005 a [facility] Psoriatic arthritis Colonoscopy in June of 2021 [...]
== END 2024-06-15 15:21 | disposition home or self-care (01) ==
LOC: HO.HVS 13:29
PROVIDERS: PCP Nurse Practitioner Family; Visit Provider Physician Assistant Surgical
DX: I73.9 Peripheral vascular disease, unspecified (principal)
CPT/HCPCS: 99204

== ENCOUNTER → 2024-06-15 13:29 | Outpatient (BNVA) | payer MEDICARE, SELFPAY | PROVIDERS: PCP Nurse Practitioner Family; Visit Provider Physician Assistant Surgical | DX: I73.9 Peripheral vascular disease, unspecified (principal) | CPT/HCPCS: 99202 ==

== ENCOUNTER 2024-06-30 11:42 | Outpatient (REF) | payer MEDICARE, SELFPAY ==
--- NOTE | ~2024-06-30 | CT_ITS ---
EXAMINATION: CT ABDOMEN WITH IV CONTRAST HISTORY: hepatocellular carcinoma, restaging/tx response COMPARISON: Comparison is made with the prior examination dated 03/09/2024. TECHNIQUE: CT scan of the abdomen and pelvis was performed following administration of 85 mL Omnipaque 350 using standard departmental protocol. Coronal and sagittal reformatted images were generated and reviewed. Oral contrast material was not administered at the request of the referring physician. This CT exam was performed with one or more of the following dose reduction techniques: automated exposure control, adjustment of the mA and/or kV according to patient size, use of iterative reconstruction technique. DLP: 179 mGy-cm FINDINGS: LOWER CHEST: There is linear scarring at the left lung base. The visualized right lung base is clear. There is no pleural effusion. CARDIOVASCULATURE: The heart is normal in size. There is no pericardial effusion. LIVER: There is a large amount of hyperdense material at the site of the previously seen dominant masses at the dome and more inferior portions of the right lobe of the liver. This is compatible with the posttreatment appearance. Evaluation for residual enhancement is not possible. The previously seen arterially enhancing satellite nodules in the right lobe are not visualized, likely due to timing of the contrast bolus in the portal venous phase. The hepatic and portal veins are patent. GALLBLADDER / BILE DUCTS: There is cholelithiasis. There is no intra or extrahepatic biliary ductal dilatation. SPLEEN: The spleen is normal in size. No focal splenic lesion is identified. PANCREAS: The pancreas is unremarkable in appearance. ADRENAL GLANDS: Within normal limits. KIDNEYS/RETROPERITONEUM: No renal calculi are identified. There is no hydronephrosis. No renal masses are identified. LYMPH NODES: No abdominal or pelvic lymphadenopathy. VASCULATURE: The abdominal aorta demonstrates atherosclerotic calcification, but is normal in caliber. MESENTERY/PERITONEUM: No free fluid. No masses. There is no free intraperitoneal gas. STOMACH: The stomach is unremarkable. SMALL BOWEL: The visualized small bowel is normal in caliber. COLON: The visualized portion of the colon is unremarkable. APPENDIX: Normal. BONES / SOFT TISSUES: There is degenerative disc disease of the spine. CT/CT abdomen w IV con IMPRESSION: Posttreatment changes involving the 2 dominant masses in the liver. Evaluation for residual enhancement is not possible. The previously noted multiple satellite nodules in the right lobe are not visualized, likely related to the phase of the contrast bolus. MRI of the liver without and with contrast would be better able to assess for enhancement of the dominant masses as well as size of the smaller lesions. Electronically signed by: Pedro Puckett MD 06/30/2024 02:21 PM EDT
[2024-06-30] MEDS: Barium Sulfate Oral (Mocha) 450 ML ORAL.SUSP PO (13:38)
[2024-06-30] MEDS: iohexoL 350 MG/ML 100 ML INFUS..BTL IV (13:38)
--- OUTSIDE RECORDS SUMMARY | 2024-06-30 13:49 | XMS_ITS ---
Author Organization [facility] Address [address] [place] [address] Care Team Providers Care Water Hydrant Installer Name Role Phone Dylon Perez MD Primary Care Provider Pedro Valdes Unavailable [phone] REASON FOR VISIT screening,hx polyps Problems Problem Type SNOMED Code ICD Code Onset Dates Problem Status W/U Status Risk Notes Problem Diverticular disease of colon (309687883) Diverticulosis of large intestine without perforation or abscess without bleeding (K57.30) Active confirmed Encounters Encounter Location Date Provider Diagnosis [facility] Outpatient [address] [place], [place] [id number] 05/26/2023 Pedro Montesinos Encounter for scre ening [...] KEN MONTANEZ RDOB: [birth year] (69 yo M)Acc No.[id number]:05/26/2023 COLON WITH MAC Patient:?KEN MONTANEZ Provider:?Pedro Montesinos MD :1955???Age:68 Y???Sex:Male Sudarshan e:05/26/2023 Address:[address] [place], [place] Pcp:Dylon Perez MD Subjective: * Chief Complaints: * ???1. Screening,hx polyps. * Medical History:? Objective: * Vitals:? Assessment: * Assessment: 1.?Encounter for screening c olonoscopy - Z12.11 (Primary)???2.?Colon polyps - K63.5???3.?Diverticulosis of large intestine without perforation or abscess without bleeding - K57.30???4.?Other hemorrhoids - K64.8??? Plan: * Treatment: * Procedure Codes:?74097 LESIO N REMOVAL COLONOSCOPY, Modifiers: PT * * The named appointment provid er may or may not be the originator of this progress note, and it is not deemed complete until electronically signed by the appointment provider. Sign off status: Pending * Provider:?Pedro Montesinos MD Date:? 024 Generated for Estela higgins/Tobi/eTransmitting on:?06/30/2024 01:49 PM EDT
--- OUTSIDE RECORDS SUMMARY | 2024-06-30 13:49 | XMS_ITS | Patient Health Record ---
Author Organization [facility] Address [address] [place] [address] Care Team Providers Care Competency Evaluated Nurse Aide Name Role Phone Dylon Perez MD Primary Care Provider Pedro Valdes Unavailable [phone] Allergies Allergen (clinical drug ingredient) Drug/Non Drug [...] Problem Status W/U Status Risk Notes Problem 596414832 Encounter for screening for malignant neoplasm of colon (Z12.11) Active confirmed Problem History of adenomatous polyp of colon (602075282) History of adenomatous polyp of colon (Z86.010) Active confirmed Problem Diverticular disease of colon (258550933) Diverticulosis of large intestine without perforation or abscess without bleeding (K57.30) Active confirmed Problem 157938486081277 Pre-procedural examination (Z01.818) Active confirmed Problem Chronic gastritis (8394471) Chronic gastritis (K29.50) Active confirmed Problem Gastric ulcer (864633322) Gastric ulcer (K25.9) Active confirmed Problem Diverticulosis of colon (352584330) Diverticulosis of colon (K57.30) Active confirmed Plan Of Treatment Future Test Test Name Order Date COLONOSCOPY 05/25/2021 COLONOSCOPY 02/27/2023 Insurance Providers Payer Name Payer Address Payer Phone Subscriber Number Group Number Insured Name Patient Relationship to Insured Coverage Start Date Coverage End Date [facility] [address] [place], [place] [id number] KEN MONTANEZ Self - patient is the insured Medical (General) History Medical History History ICD Code Asthma--inactive Denies CO,DM,CVA,renal disease Reports [facility] Psoriatic arthritis Colonoscopy in June of 2021 [...]
--- OUTSIDE RECORDS SUMMARY | 2024-06-30 13:49 | XMS_ITS ---
Author Organization [facility] Address [address] [place] [address] Care Team Providers Care Land Economist Name Role Phone Dylon Perez MD Primary Care Provider Pedro Valdes Unavailable [phone] Allergies Allergen (clinical drug ingredient) Drug/Non Drug [...] 02/27/2023 Encounters Encounter Location Date Provider Diagnosis [facility] [address] [place] [address] 02/27/2023 Pedro Montesinos Encounter for screen ing [...] did recommend that he switch from the kukx-bee-dpkjvb r lansoprazole to an rjrj-xwy-xwaxsh r H2 juan francisco but he has [...] did recommend that he switch from the kodm-trj-radwrz r lansoprazole to an ydgl-mav-smaapd r H2 juan francisco but he has [...] did recommend that he switch from the dtax-cih-hrxags r lansoprazole to an uqcu-vrj-adqmvj r H2 juan francisco but he has [...] will be done with monitored anesthesia care. Rathur was comfortable with this plan. Thank you [...] did recommend that he switch from the fwvj-wcy-abnbmp r lansoprazole to an bbzi-hcv-xfdzai r H2 juan francisco but he has [...] KEN MONTANEZ RDOB: [birth year] (68 yo M)Acc No.[id number]:02/27/2023 Progress Notes Patient:?KEN MONTANEZ Provider:?Pedro Montesinos MD :1955???Age:68 Y???Sex:Male Sudarshan e:02/27/2023 Address:[address] [place], [place] Pcp:Dylon Perez MD Subjective: * Chief Complaints: [...] did recommend that he switch from the yies-vie-mmjpaui lansoprazole to an gjsi-tzt-lhummor H2 juan francisco but he has not [...] Procedure Codes:?3017F COLOR ECTAL CA SCREEN DOC RGB4110W TOBACCO NON-HBQFA3149 BP SCR NOT PRFRM REC REASON NOS * Preventive Medicine:? ??Counseling:?Care goal follow-up plan:?Above Normal BMI Follow-up?Giving encouragement to exercise,?BMI management provided?Yes.? * Follow Up:?prn * * Sign off status: Completed true * Provider:?Pedro Montesinos MD Date:? 023 Generated for Estela higgins/Tobi/eTransmitting on:?06/30/2024 01:49 PM EDT History and Physical Notes * [...]
== END 2024-06-30 11:43 | disposition home or self-care (01) ==
LOC: HO.CT 11:42
PROVIDERS: PCP Nurse Practitioner Family; Visit Provider Nurse Practitioner Family
DX: C22.0 Liver cell carcinoma (principal)
CPT/HCPCS: 74160; Q9967

== ENCOUNTER → 2024-06-30 11:45 | Outpatient (BNV) | payer MEDICARE, SELFPAY | PROVIDERS: PCP Nurse Practitioner Family; Visit Provider Radiology Diagnostic Radiology | DX: K76.89 Other specified diseases of liver (principal) | CPT/HCPCS: 74160 ==

== ENCOUNTER 2024-07-02 08:05 | Outpatient (REF) | payer MEDICARE, SELFPAY ==
--- NOTE | ~2024-07-02 | US_ITS ---
EXAMINATION: US LOWER EXTREMITY VENOUS (REFLUX EXAM), BILATERAL CLINICAL INFORMATION: Peripheral vascular disease, unspecified. Decreased sensation and foot, rule out clot versus venous insufficiency. Patient is on cancer treatment. COMPARISON: None. TECHNIQUE: Color flow triplex imaging and compression Doppler was performed to evaluate both the deep and the superficial systems bilaterally. To evaluate the superficial system, the examination was performed in the upright position. Color-flow Doppler ultrasound and compression ultrasound were utilized. In addition, maneuvers were utilized to demonstrate reflux. FINDINGS: 1. DEEP VENOUS ULTRASOUND OF THE RIGHT LOWER EXTREMITY: Common Femoral Vein: Compressible, normal respiratory variation and augmented flow. Femoral Vein: Compressible, normal color flow and augmentation. Popliteal Vein: Compressible, normal augmentation. Deep Reflux: There is no evidence of reflux in the deep system in either the common femoral vein, superficial femoral or the popliteal vein. There is no evidence of a Rubio's cyst. 2. SUPERFICIAL ULTRASOUND WITH DOPPLER OF RIGHT LOWER EXTREMITY: GREAT SAPHENOUS VEIN: Saphenofemoral Junction: 0.4 cm; Reflux: 0 ms Proximal Thigh: 0.3 cm; Reflux: 0 ms Mid Thigh: 0.2 cm; Reflux: 0 ms Distal Thigh: 0.2 cm; Reflux: 0 ms At Knee: 0.2 cm; Reflux: 1804 ms Proximal Calf: 0.1 cm; Reflux: 0 ms Mid Calf: 0.1 cm; Reflux: 0 ms Distal Calf: 0.1 cm; Reflux: 0 ms DUPLICATED MEDIAL GREAT SAPHENOUS VEIN: Diameter: None imaged Reflux: NA DUPLICATED LATERAL GREAT SAPHENOUS VEIN: Diameter: 0.2 Reflux: None SMALL SAPHENOUS VEIN: Saphenopopliteal Junction: 0.4 cm; Reflux: 0 ms Proximal: 0.2 cm; Reflux: 0 ms Distal: 0.2 cm; Reflux: 0 ms VEIN OF GIACOMINI: Size: NA Reflux: NA PERFORATORS: Location: Proximal calf Size: 0.09 Reflux: None. VARICOSITIES: None. 3. DEEP VENOUS ULTRASOUND OF THE LEFT LOWER EXTREMITY: Common Femoral Vein: Compressible, normal respiratory variation and augmented flow. Femoral Vein: Compressible, normal color flow and augmentation. Popliteal Vein: Compressible, normal augmentation. Deep Reflux: There is no evidence of reflux in the deep system in either the common femoral vein, superficial femoral or the popliteal vein. There is no evidence of a Rubio's cyst. 4. SUPERFICIAL ULTRASOUND WITH DOPPLER OF LEFT LOWER EXTREMITY: GREAT SAPHENOUS VEIN: Saphenofemoral Junction: 0.7 cm; Reflux: 0 ms Proximal Thigh: 0.4 cm; Reflux: 0 ms Mid Thigh: 0.2 cm; Reflux: 0 ms Distal Thigh: 0.2 cm; Reflux: 0 ms At Knee: 0.2 cm; Reflux: 0 ms Proximal Calf: 0.3 cm; Reflux: 0 ms Mid Calf: 0.2 cm; Reflux: 0 ms Distal Calf: 0.2 cm; Reflux: 0 ms DUPLICATED MEDIAL GREAT SAPHENOUS VEIN: Diameter: None imaged Reflux: NA DUPLICATED LATERAL GREAT SAPHENOUS VEIN: Diameter: None imaged. Reflux: NA SMALL SAPHENOUS VEIN: Saphenopopliteal Junction: 0.3 cm; Reflux: 0 ms Proximal: 0.1 cm; Reflux: 0 ms Distal: 2.2 cm; Reflux: 0 ms VEIN OF GIACOMINI: Size: 0.1 Reflux: None. PERFORATORS: Mid thigh, 0.2 cm, no reflux. Mid calf, 0.1 cm, no reflux. Distal calf, 0.1 cm, no reflux. VARICOSITIES: None. US/US venous insuf bilat IMPRESSION: Right: No hemodynamically significant venous insufficiency identified. No DVT present. There are no varicosities present. Left: No hemodynamically significant venous insufficiency identified. No DVT present. There are no varicosities present. Electronically signed by: Nakul Francis MD 07/02/2024 01:20 PM EDT
--- OUTSIDE RECORDS SUMMARY | 2024-07-02 08:12 | XMS_ITS ---
Author Organization [facility] Address [address] [place] [address] Care Team Providers Care Order Entry Name Role Phone Dylon Perez MD Primary Care Provider Pedro Valdes Unavailable [phone] REASON FOR VISIT screening,hx polyps Problems Problem Type SNOMED Code ICD Code Onset Dates Problem Status W/U Status Risk Notes Problem Diverticular disease of colon (857657985) Diverticulosis of large intestine without perforation or abscess without bleeding (K57.30) Active confirmed Encounters Encounter Location Date Provider Diagnosis [facility] Out[facility] [address] [place], [place] [id number] 05/26/2023 Pedro Montesinos Encounter for scre ening [...] KEN MONTANEZ RDOB: [birth year] (69 yo M)Acc No.[id number]:05/26/2023 COLON WITH MAC Patient:?KEN MONTANEZ Provider:?Pedro Montesinos MD :1955???Age:68 Y???Sex:Male Sudarshan e:05/26/2023 Address:[address] [place], [place] Pcp:Dylon Perez MD Subjective: * Chief Complaints: * ???1. Screening,hx polyps. * Medical History:? Objective: * Vitals:? Assessment: * Assessment: 1.?Encounter for screening c olonoscopy - Z12.11 (Primary)???2.?Colon polyps - K63.5???3.?Diverticulosis of large intestine without perforation or abscess without bleeding - K57.30???4.?Other hemorrhoids - K64.8??? Plan: * Treatment: * Procedure Codes:?81333 LESIO N REMOVAL COLONOSCOPY, Modifiers: PT * * The named appointment provid er may or may not be the originator of this progress note, and it is not deemed complete until electronically signed by the appointment provider. Sign off status: Pending * Provider:?Pedro Montesinos MD Date:? 024 Generated for Estela higgins/Tobi/eTransmitting on:?07/02/2024 08:12 AM EDT
--- OUTSIDE RECORDS SUMMARY | 2024-07-02 08:12 | XMS_ITS | Patient Health Record ---
Author Organization [facility] Address [address] [place] [address] Care Team Providers Care Sales And Marketing Agent Name Role Phone Dylon Perez MD Primary Care Provider Pedro Valdes Unavailable [phone] Allergies Allergen (clinical drug ingredient) Drug/Non Drug [...] Problem Status W/U Status Risk Notes Problem 250398387 Encounter for screening for malignant neoplasm of colon (Z12.11) Active confirmed Problem History of adenomatous polyp of colon (239541207) History of adenomatous polyp of colon (Z86.010) Active confirmed Problem Diverticular disease of colon (323117217) Diverticulosis of large intestine without perforation or abscess without bleeding (K57.30) Active confirmed Problem 774964060205314 Pre-procedural examination (Z01.818) Active confirmed Problem Chronic gastritis (8328917) Chronic gastritis (K29.50) Active confirmed Problem Gastric ulcer (263475746) Gastric ulcer (K25.9) Active confirmed Problem Diverticulosis of colon (280732171) Diverticulosis of colon (K57.30) Active confirmed Plan Of Treatment Future Test Test Name Order Date COLONOSCOPY 05/25/2021 COLONOSCOPY 02/27/2023 Insurance Providers Payer Name Payer Address Payer Phone Subscriber Number Group Number Insured Name Patient Relationship to Insured Coverage Start Date Coverage End Date [facility] [address] [place], [place] [id number] [phone] [id number] KEN MONTANEZ Self - patient is the insured Medical (General) History Medical History History ICD Code Asthma--inactive Denies [place],DM,CVA,renal disease Reports a negative colonoscopy in 2005 a [facility] Psoriatic arthritis Colonoscopy in June of 2021 [...]
--- OUTSIDE RECORDS SUMMARY | 2024-07-02 08:12 | XMS_ITS ---
Author Organization [facility] Address [address] [place] [address] Care Team Providers Care Dough Mixer Helper Name Role Phone Dylon Perez MD Primary Care Provider Pedro Valdes Unavailable [phone] Allergies Allergen (clinical drug ingredient) Drug/Non Drug [...] 02/27/2023 Encounters Encounter Location Date Provider Diagnosis [facility] [address] [place] [address] 02/27/2023 Pedro Montesinos Encounter for screen ing for malignant neoplasm of colon Z12.11 ; Gastric ulcer K25.9 ; Diverticulosis of colon K57.30 and History of adenomatous polyp of colon Z86.010 Assessments Encounter Date Diagnosis (ICD Code) Assessment Notes Treatment Notes Treatment Clinical Notes Section Notes 02/27/2023 Encounter for screening for malignant neoplasm of colon (ICD-10 - Z12.11) Overall, John appears to be doing very well. He is not having any new or worrisome GI complaints. On his previous visit I did recommend that he switch from the hydd-xae-pregeh r lansoprazole to an bvjk-jtl-ormzyd r H2 juan francisco but he has [...] again for allowing me to participate in John's care. I shall continue to keep you advised of his progress. 02/27/2023 Gastric ulcer (ICD-10 - K25.9) Overall, John appears to be doing very well. He is not having any new or worrisome GI complaints. On his previous visit I did recommend that he switch from the arjq-ejj-knnckw r lansoprazole to an xjmr-dzl-gwkwgq r H2 juan francisco but he has [...] again for allowing me to participate in John's care. I shall continue to keep you advised of his progress. 02/27/2023 Diverticulosis of colon (ICD-10 - K57.30) Overall, John appears to be doing very well. He is not having any new or worrisome GI complaints. On his previous visit I did recommend that he switch from the loib-baz-vutqlx r lansoprazole to an jlrz-xrr-vgrnxj r H2 juan francisco but he has [...] again for allowing me to participate in John's care. I shall continue to keep you advised of his progress. 02/27/2023 History of adenomatous polyp of colon (ICD-10 - Z86.010) Overall, John appears to be doing very well. He is not having any new or worrisome GI complaints. On his previous visit I did recommend that he switch from the uvqx-gzh-trzbtp r lansoprazole to an sxnq-atf-colojk r H2 juan francisco but he has [...] Follow Up: prn, Reason: Progress Notes * JOHN MONTANEZ RDOB: [birth year] (68 yo M)Acc No.[id number]:02/27/2023 Progress Notes Patient:?JOHN MONTANEZ Provider:?Pedro Montesinos MD :1955???Age:68 Y???Sex:Male Sudarshan e:02/27/2023 Address:[address] [place], [id number] Pcp:Dylon Perez MD Subjective: * Chief Complaints: * ???Patient presents today fo r an ulcer * HPI: ???incontinence:? I saw John in followup today in regard to his previous history of his gastric ulcer and personal history of multiple tubular adenomas of the colon. ?Since I last saw John in July he has been feeling very [...] adenomatous polyp of colon - Z86.010? Overall, John appears to be doing very well. He is not having any new or worrisome GI complaints. On his previous visit I did recommend that he switch from the vnrj-bka-pcucgjf lansoprazole to an gbxq-cvh-bgcjked H2 juan francisco but he has not [...] again for allowing me to participate in John's care. I shall continue to keep you advised of his progress. Plan: * Treatment: 2.?History of adenomatous polyp of colon?Procedure: COLONOSCOPY (Ordered for 02/27/2023)* with MACsched for 05/26/23 at 9:30 ammiralax * Procedure Codes:?3017F COLOR ECTAL CA SCREEN DOC [id number] TOBACCO NON-[id number] BP SCR NOT PRFRM REC REASON NOS * Preventive Medicine:? ??Counseling:?Care goal follow-up plan:?Above Normal BMI Follow-up?Giving encouragement to exercise,?BMI management provided?Yes.? * Follow Up:?prn * * Sign off status: Completed true * Provider:?Pedro Montesinos MD Date:? 023 Generated for Estela higgins/Tobi/Calvinransmitting on:?07/02/2024 08:12 AM EDT History and Physical Notes * HPI (History of Present Illness) Category Sub-Category Detail Notes Category Not es incontinence I saw John in followup today in regard to his previous history of his gastric ulcer and personal history of multiple tubular adenomas of the colon. Since I last saw John in July he has been feeling very [...]
== END 2024-07-02 08:06 | disposition home or self-care (01) ==
LOC: HO.US 08:05
PROVIDERS: PCP Nurse Practitioner Family; Visit Provider Physician Assistant Surgical
DX: I73.9 Peripheral vascular disease, unspecified (principal); R20.0 Anesthesia of skin; I83.11 Varicose veins of right lower extremity with inflammation
CPT/HCPCS: 93970

== ENCOUNTER → 2024-07-02 08:07 | Outpatient (BNV) | payer MEDICARE, SELFPAY | PROVIDERS: PCP Nurse Practitioner Family; Visit Provider Radiology Diagnostic Radiology | DX: I73.9 Peripheral vascular disease, unspecified (principal) | CPT/HCPCS: 93970 ==

== ENCOUNTER 2024-07-08 10:58 | Outpatient (AMB) | payer MEDICARE, SELFPAY ==
--- NOTE | 2024-07-08 11:08 | A.OFFVIS_ITS ---
Intake Visit Reasons: follow up s/p [facility] 07/02/24 Intake Note: Patient presents for follow up [facility]. No complaints. Accompanied by: Self / Same As Patient Allergies Penicillins Allergy (Severe, Verified 07/08/24 11:10) ANAPHYLAXIS HPI HPI follow up s/p [facility] 07/02/24: Details: Christoph is presenting today as a follow up to [facility], performed on 07/02/24. He sta hilary he is feeling much better and his foot is doing better. He states he is able to flex it much better and there is less swelling and numbness/tingling. He states he continues with immunotherapy every 3w for a year total. He has been tolerating this treatment. He states he has been eating better and becoming more active. [facility] Medical History GI bleed Metastasis Liver cancer Peptic ulcer Arthritis Gastric ulcer GERD (gastroesophageal reflux disease) HTN (hypertension) Allergic rhinitis Asthma Surgical History History of esophagogastroduodenoscopy (EGD) Hx of bilateral inguinal hernia repair H/O colonoscopy (~2021) Hx of shoulder surgery Family History Mother Cardiovascular disease Father Diabetes Social History Household Members: None Both parents involved: No Caregiver staying overnight: No Housing: House Are you a primary college and career counselor to a significant other at home: No Do you presently have visiting nurse or other home services: No 75 years or older and lives alone: No Alcohol intake: current Alcohol intake frequency: a few times a month Alcohol type: beer Patient Tobacco Use Status: Never used Tobacco Tobacco use type: Cigarette e-Cigarette/Vaping Use: Never Used Second Hand Smoke Exposure: No service: No Current occupational status: employed and retired Cognitive needs: No Hearing needs: No Vision needs: No Review of Systems Const Reports as per HPI and Denies weakness ENT Reports Normal hearing present and Denies dizziness Card Reports as per HPI, Denies chest pain, Denies chest pain at rest, Denies chest pain with activity, Denies dyspnea and Denies dyspnea on exertion Resp Reports as per HPI, Denies cough, Denies dyspnea and Denies dyspnea on exertion GI Reports as per HPI, Denies abdominal pain, Denies nausea and Denies vomiting Musc Denies numbness Skin/Breast Reports as per HPI, Denies erythema and Denies wounds Neuro Reports Normal hearing present, Denies dizziness, Denies numbness, Denies Sensory deficit (Neuro) and Denies weakness Psych Reports no additional complaints Endo Reports no additional complaints Physical Exam Neuro Cranial nerves: Yes Normal hearing present Sensory Exam: No Sensory deficit (Neuro) Extrem Other: Left foot: warm to the touch. Palpable DP and PT pulses. He has strong plantar flexion and dorsiflexion has improved greatly. Cap refill <3 seconds. No discoloration noted. Trace peripheral edema noted. Results Reviewed Results Reviewed: Brief summary of venous insufficiency testing is as follows: right great saphenous vein: negative except at the knee, with vein size of 0.2cm and 1804ms reflux right small saphenous vein: negative right accessory vein: none present left great saphenous vein: negative left small saphenous vein: negative left accessory vein: none present Please note there is no evidence of any venous aneurysms or significant tortuosity Assessment & Plan Assessment & Plan (1) PVD (peripheral vascular disease): Code(s): I73.9 - Peripheral vascular disease, unspecified Category: Medical Plan: Christoph is presenting today as a follow up to US, performed on 07/02/24. He states he is feeling better and has better mobility with his left foot. He states the numbness/tingling has been going away and he is able to bend his foot. He states he is not having any difficulty walking and the swelling has decreased. The US was negative for insufficiency with the exception of a small section of the right GSV at the knee, which had mild reflux. We discussed the importance of continuing with compression, elevation, and physical activity. We discussed the importance of a healthy, well balanced diet with physical activity. We discussed that this could have been foot drop and if it does continue and not completely go away, he should reach out to his PCP for a referral to Neuro or PT. We discussed that he will not need to follow up with us unless needed. Thank you for allowing us to participate in the patient's care. If there are any questions or concerns, please do not hesitate to reach out to us. Coding Level of Care Code Est Pt Level 4 (20330) Diagnoses PVD (peripheral vascular disease) I73.9 Comment review of US
--- OUTSIDE RECORDS SUMMARY | 2024-07-08 13:24 | XMS_ITS | Patient Health Record ---
Author Organization [facility] Address [address] [place] [address] Care Team Providers Care Electrocardiographic Technician Name Role Phone Dylon Perez MD Primary Care Provider Pedro Valdes Unavailable [phone] Allergies Allergen (clinical drug ingredient) Drug/Non Drug [...] Problem Status W/U Status Risk Notes Problem 338355250 Encounter for screening for malignant neoplasm of colon (Z12.11) Active confirmed Problem History of adenomatous polyp of colon (593935234) History of adenomatous polyp of colon (Z86.010) Active confirmed Problem Diverticular disease of colon (313729304) Diverticulosis of large intestine without perforation or abscess without bleeding (K57.30) Active confirmed Problem 952324898020127 Pre-procedural examination (Z01.818) Active confirmed Problem Chronic gastritis (2411860) Chronic gastritis (K29.50) Active confirmed Problem Gastric ulcer (232990978) Gastric ulcer (K25.9) Active confirmed Problem Diverticulosis of colon (791805402) Diverticulosis of colon (K57.30) Active confirmed Plan Of Treatment Future Test Test Name Order Date COLONOSCOPY 05/25/2021 COLONOSCOPY 02/27/2023 Insurance Providers Payer Name Payer Address Payer Phone Subscriber Number Group Number Insured Name Patient Relationship to Insured Coverage Start Date Coverage End Date [facility] [address] [place], [place] [id number] KEN MONTANEZ Self - patient is the insured Medical (General) History Medical History History ICD Code Asthma--inactive Denies [place],DM,CVA,renal disease Reports a negative colonoscopy in 2005 a [facility] Psoriatic arthritis Colonoscopy in [...]
--- OUTSIDE RECORDS SUMMARY | 2024-07-08 13:25 | XMS_ITS ---
Author Organization [facility] Address [address] [place] [address] Care Team Providers Care Wildlife Conservation Officer Name Role Phone Dylon Perez MD Primary Care Provider Pedro Valdes Unavailable [phone] REASON FOR VISIT screening,hx polyps Problems Problem Type SNOMED Code ICD Code Onset Dates Problem Status W/U Status Risk Notes Problem Diverticular disease of colon (910886577) Diverticulosis of large intestine without perforation or abscess without bleeding (K57.30) Active confirmed Encounters Encounter Location Date Provider Diagnosis [facility] [address] [place], [place] [phone] 05/26/2023 Pedro Montesinos Encounter for scre ening [...] KEN MONTANEZ RDOB: [birth year] (69 yo M)Acc No.[id number]:05/26/2023 COLON WITH MAC Patient:?KEN MONTANEZ Provider:?Pedro Montesinos MD :1955???Age:68 Y???Sex:Male Sudarshan e:05/26/2023 Address:[address] [place], [place] Pcp:Dylon Perez MD Subjective: * Chief Complaints: * ???1. Screening,hx polyps. * Medical History:? Objective: * Vitals:? Assessment: * Assessment: 1.?Encounter for screening c olonoscopy - Z12.11 (Primary)???2.?Colon polyps - K63.5???3.?Diverticulosis of large intestine without perforation or abscess without bleeding - K57.30???4.?Other hemorrhoids - K64.8??? Plan: * Treatment: * Procedure Codes:?37968 LESIO N REMOVAL COLONOSCOPY, Modifiers: PT * * The named appointment provid er may or may not be the originator of this progress note, and it is not deemed complete until electronically signed by the appointment provider. Sign off status: Pending * Provider:?Pedro Montesinos MD Date:? 024 Generated for Estela higgins/Tobi/eTransmitting on:?07/08/2024 01:24 PM EDT
--- OUTSIDE RECORDS SUMMARY | 2024-07-08 13:25 | XMS_ITS ---
Author Organization [facility] Address [address] [place] [address] Care Team Providers Care Transplanter Orchid Name Role Phone Dylon Perez MD Primary Care Provider Pedro Valdes Unavailable [phone] Allergies Allergen (clinical drug ingredient) Drug/Non Drug [...] Encounters Encounter Location Date Provider Diagnosis [facility] [address] [place] [address] 02/27/2023 Pedro Montesinos Encounter for screen ing [...] did recommend that he switch from the anrm-axk-mgcwne r lansoprazole to an wkhe-asu-cdpfwt r H2 juan francisco but he has [...] did recommend that he switch from the fqox-rgk-wwvlls r lansoprazole to an awdu-dwx-fqqfey r H2 juan francisco but he has [...] did recommend that he switch from the gpvg-yee-tfbpjd r lansoprazole to an apax-coi-aztnzw r H2 juan francisco but he has [...] did recommend that he switch from the oqfc-sro-jbvepc r lansoprazole to an ncul-jjg-iqkyoy r H2 juan francisco but he has [...] KEN MONTANEZ RDOB: [birth year] (68 yo M)Acc No.[id number]:02/27/2023 Progress Notes Patient:?KEN MONTANEZ Provider:?Pedro Montesinos MD :1955???Age:68 Y???Sex:Male Sudarshan e:02/27/2023 Address:[address] [place], [place] Pcp:Dylon Perez MD Subjective: * Chief Complaints: [...] did recommend that he switch from the mxez-kpe-qnhlles lansoprazole to an gknb-vxu-jwbwaeb H2 juan francisco but he has not [...] Procedure Codes:?3017F COLOR ECTAL CA SCREEN DOC [id number] TOBACCO NON-[id number] BP SCR NOT PRFRM REC REASON NOS * Preventive Medicine:? ??Counseling:?Care goal follow-up plan:?Above Normal BMI Follow-up?Giving encouragement to exercise,?BMI management provided?Yes.? * Follow Up:?prn * * Sign off status: Completed true * Provider:?Pedro Montesinos MD Date:? 023 Generated for Estela higgins/Tobi/eTransmitting on:?07/08/2024 01:24 PM EDT History and Physical Notes * [...]
== END 2024-07-08 11:34 | disposition home or self-care (01) ==
LOC: HO.HVS 10:58
PROVIDERS: PCP Nurse Practitioner Family; Visit Provider Physician Assistant Surgical
DX: I73.9 Peripheral vascular disease, unspecified (principal)
CPT/HCPCS: 99214

== ENCOUNTER → 2024-07-08 10:58 | Outpatient (BNVA) | payer MEDICARE, SELFPAY | PROVIDERS: PCP Nurse Practitioner Family; Visit Provider Physician Assistant Surgical | DX: I73.9 Peripheral vascular disease, unspecified (principal) | CPT/HCPCS: 99212 ==

== ENCOUNTER 2024-07-09 07:58 | Outpatient (REF) | payer MEDICARE, SELFPAY ==
--- OUTSIDE RECORDS SUMMARY | 2024-07-09 08:03 | XMS_ITS ---
Author Organization [facility] Address [address] [place] [address] Care Team Providers Care Miter Saw Operator Name Role Phone Dylon Perez MD Primary Care Provider Pedro Valdes Unavailable [phone] REASON FOR VISIT screening,hx polyps Problems Problem Type SNOMED Code ICD Code Onset Dates Problem Status W/U Status Risk Notes Problem Diverticular disease of colon (405803667) Diverticulosis of large intestine without perforation or abscess without bleeding (K57.30) Active confirmed Encounters Encounter Location Date Provider Diagnosis [facility] Out[facility] [address], [place] [id number] 05/26/2023 Pedro Montesinos Encounter for scre ening [...] KEN MONTANEZ RDOB: [birth year] (69 yo M)Acc No.[id number]:05/26/2023 COLON WITH MAC Patient:?KEN MONTANEZ Provider:?Pedro Montesinos MD :1955???Age:68 Y???Sex:Male Sudarshan e:05/26/2023 Address:[address] [place], [place] Pcp:Dylon Perez MD Subjective: * Chief Complaints: * ???1. Screening,hx polyps. * Medical History:? Objective: * Vitals:? Assessment: * Assessment: 1.?Encounter for screening c olonoscopy - Z12.11 (Primary)???2.?Colon polyps - K63.5???3.?Diverticulosis of large intestine without perforation or abscess without bleeding - K57.30???4.?Other hemorrhoids - K64.8??? Plan: * Treatment: * Procedure Codes:?79509 LESIO N REMOVAL COLONOSCOPY, Modifiers: PT * * The named appointment provid er may or may not be the originator of this progress note, and it is not deemed complete until electronically signed by the appointment provider. Sign off status: Pending * Provider:?Pedro Montesinos MD Date:? 024 Generated for Estela higgins/Tobi/eTransmitting on:?07/09/2024 08:03 AM EDT
--- OUTSIDE RECORDS SUMMARY | 2024-07-09 08:03 | XMS_ITS ---
Author Organization [facility] Address [address] [place] [id number] Care Team Providers Care Undergraduate Internship Name Role Phone Dylon Perez MD Primary Care Provider Pedro Valdes Unavailable [phone] Allergies Allergen (clinical drug ingredient) Drug/Non Drug [...] 02/27/2023 Encounters Encounter Location Date Provider Diagnosis [facility] [address] [place] [address] 02/27/2023 Pedro Montesinos Encounter for screen ing for malignant neoplasm of colon Z12.11 ; Gastric ulcer K25.9 ; Diverticulosis of colon K57.30 and History of adenomatous polyp of colon Z86.010 Assessments Encounter Date Diagnosis (ICD Code) Assessment Notes Treatment Notes Treatment Clinical Notes Section Notes 02/27/2023 Encounter for screening for malignant neoplasm of colon (ICD-10 - Z12.11) Overall, Kne appears to be doing very well. He is not having any new or worrisome GI complaints. On his previous visit I did recommend that he switch from the fywv-jmk-zfsbqr r lansoprazole to an zkxg-lkj-uecpmd r H2 juan francisco but he has [...] did recommend that he switch from the uhtr-lcr-zbjtfk r lansoprazole to an pllp-bkv-rdwxdi r H2 juan francisco but he has [...] did recommend that he switch from the fewn-vfb-tpgjjd r lansoprazole to an arat-yyt-apvvuj r H2 juan francisco but he has [...] did recommend that he switch from the rkel-dyu-kmczup r lansoprazole to an qrsv-toe-jhdufg r H2 juan francisco but he has [...] KEN MONTANEZ RDOB: [birth year] (68 yo M)Acc No.[id number]:02/27/2023 Progress Notes Patient:?KEN MONTANEZ Provider:?Pedro Montesinos MD :[id number]???Age:68 Y???Sex:Male Sudarshan e:02/27/2023 Address:[address] [place], [id number] Pcp:Dylon Perez MD Subjective: * Chief Complaints: [...] did recommend that he switch from the wmnj-bbu-mkbliho lansoprazole to an epga-zic-cytkvjm H2 juan francisco but he has not [...] Procedure Codes:?3017F COLOR ECTAL CA SCREEN DOC [id number] TOBACCO NON-[id number] BP SCR NOT PRFRM REC REASON NOS * Preventive Medicine:? ??Counseling:?Care goal follow-up plan:?Above Normal BMI Follow-up?Giving encouragement to exercise,?BMI management provided?Yes.? * Follow Up:?prn * * Sign off status: Completed true * Provider:?Pedro Montesinos MD Date:? 023 Generated for Estela higgins/Tobi/eTransmitting on:?07/09/2024 08:03 AM EDT History and Physical Notes * [...]
--- OUTSIDE RECORDS SUMMARY | 2024-07-09 08:03 | XMS_ITS | Patient Health Record ---
Author Organization [facility] Address [address] [place] [address] Care Team Providers Care Blood Bank Technician Name Role Phone Dylon Perez MD Primary Care Provider Pedro Valdes Unavailable [phone] Allergies Allergen (clinical drug ingredient) Drug/Non Drug [...] Problem Status W/U Status Risk Notes Problem 251802196 Encounter for screening for malignant neoplasm of colon (Z12.11) Active confirmed Problem History of adenomatous polyp of colon (891964202) History of adenomatous polyp of colon (Z86.010) Active confirmed Problem Diverticular disease of colon (735084524) Diverticulosis of large intestine without perforation or abscess without bleeding (K57.30) Active confirmed Problem 627324026930708 Pre-procedural examination (Z01.818) Active confirmed Problem Chronic gastritis (8888577) Chronic gastritis (K29.50) Active confirmed Problem Gastric ulcer (715224809) Gastric ulcer (K25.9) Active confirmed Problem Diverticulosis of colon (557640998) Diverticulosis of colon (K57.30) Active confirmed Plan Of Treatment Future Test Test Name Order Date COLONOSCOPY 05/25/2021 COLONOSCOPY 02/27/2023 Insurance Providers Payer Name Payer Address Payer Phone Subscriber Number Group Number Insured Name Patient Relationship to Insured Coverage Start Date Coverage End Date [facility] [address] [place], [place] [id number] [phone] [id number] KEN MONTANEZ Self - patient is the insured Medical (General) History Medical History History ICD Code Asthma--inactive Denies [place],DM,CVA,renal disease Reports a negative colonoscopy in 2005 a [facility] Psoriatic arthritis Colonoscopy in [...]
== END 2024-07-09 07:59 | disposition home or self-care (01) ==
LOC: HO.SH 07:58
PROVIDERS: Visit Provider Nurse Practitioner Family
DX: Z01.118 Encounter for examination of ears and hearing with other abnormal findings (principal); H90.3 Sensorineural hearing loss, bilateral
CPT/HCPCS: 92557

== ENCOUNTER → 2024-09-07 08:19 | Outpatient (BNV) | payer MEDICARE, SELFPAY | PROVIDERS: PCP Nurse Practitioner Family; Visit Provider Radiology Diagnostic Radiology | DX: C22.0 Liver cell carcinoma (principal) | CPT/HCPCS: 74183 ==

== ENCOUNTER 2024-09-07 08:22 | Outpatient (REF) | payer MEDICARE, SELFPAY ==
--- NOTE | ~2024-09-07 | MR_ITS ---
EXAMINATION: MR ABDOMEN WITHOUT AND WITH CONTRAST CLINICAL INFORMATION: HCC on immunotherapy. Follow-up. COMPARISON: MRI dated April 02, 2024 reported to a dominant, 11 and 9 cm, masses. Correlated to CT dated June 30, 2024. TECHNIQUE: MR abdomen was performed without and with use of 7 mL intravenous (Gadavist) gadolinium contrast. Postcontrast images are performed in multiphase dynamic sequences. Imaging was performed in 3 planes. No reported immediate complications FINDINGS: Limited by patient's motion artifact. LUNG BASES: No enhancing mass. LIVER, GALLBLADDER, AND BILIARY TREE: Liver measures 16 cm. There are multiple, less than 2 cm restricted diffusion enhancing lesions throughout the right and to a lesser extent left hepatic lobes. There are least 9 lesions in the right hepatic lobe and 2 lesions in the left hepatic lobe. There are 2 largest lesions in the dome and peripheral aspect right hepatic lobe which measured 6 and 8 cm in maximum dimension demonstrated peripheral and heterogeneous enhancement and hypointense T2 signal areas. The main portal veins, hepatic veins and intrahepatic portion of the IVC are patent. No intrahepatic biliary ductal dilatation. Gallbladder is contracted with cholelithiasis and biliary sludge. No gallbladder wall thickening or pericholecystic fluid collection. Common bile duct measures 4 mm. PANCREAS: No focal mass. No main pancreatic ductal dilatation. No peripancreatic fluid collection. SPLEEN: 7 cm. No focal lesion. ADRENAL GLANDS: No nodular lesion. KIDNEYS AND URETERS: No renal mass. No hydronephrosis. Subcentimeter cyst, left kidney. GASTROINTESTINAL TRACT: Abundant stool. No intestinal obstruction pattern. No ascites. ABDOMINAL WALL: Small tiny fat-containing umbilical hernia. LYMPH NODES: No mesenteric or retroperitoneal lymphadenopathy. VASCULAR: No aneurysm or dissection abdominal aorta. Celiac trunk variant demonstrated 2 separate arteries for the common hepatic and splenic arteries. OSSEOUS STRUCTURES: Spondylosis, L3-4 and L4-5 and L5-S1 level. Grade 1 retrolisthesis L3-4. Probable disc protrusion, T9-10 abutting the lower thoracic spinal cord. Central spinal canal and bilateral neuroforamina narrowing from L3-4 to L5-S1. MR/MR abdomen wo/w con IMPRESSION: Overall posttreatment changes in the largest hepatic lesions with residual enhancement/tumor infiltration. Overall worsening intrahepatic metastatic disease. Electronically signed by: Angel Rodríguez MD 09/07/2024 10:03 AM EDT
--- OUTSIDE RECORDS SUMMARY | 2024-09-07 08:34 | XMS_ITS | Patient Health Record ---
Author Organization [facility] Address [address] [place] [address] Care Team Providers Care Automotive Glass Technician Name Role Phone Dylon Perez MD Primary Care Provider Pedro Valdes Unavailable [phone] Allergies Allergen (clinical drug ingredient) Drug/Non Drug [...] Problem Status W/U Status Risk Notes Problem [id number] Encounter for screening for malignant neoplasm of colon (Z12.11) Active confirmed Problem History of adenomatous polyp of colon (095517465) History of adenomatous polyp of colon (Z86.010) Active confirmed Problem Diverticular disease of colon (942717108) Diverticulosis of large intestine without perforation or abscess without bleeding (K57.30) Active confirmed Problem 014030517304477 Pre-procedural examination (Z01.818) Active confirmed Problem Chronic gastritis (6297844) Chronic gastritis (K29.50) Active confirmed Problem Gastric ulcer (752353450) Gastric ulcer (K25.9) Active confirmed Problem Diverticulosis of colon (112708719) Diverticulosis of colon (K57.30) Active confirmed Plan Of Treatment Future Test Test Name Order Date COLONOSCOPY 05/25/2021 COLONOSCOPY 02/27/2023 Insurance Providers Payer Name Payer Address Payer Phone Subscriber Number Group Number Insured Name Patient Relationship to Insured Coverage Start Date Coverage End Date [facility] [address] [place], [place] [id number] KEN MONTANEZ Self - patient is the insured Medical (General) History Medical History History ICD Code Asthma--inactive Denies [place],DM,CVA,renal disease Reports a negative colonoscopy in 2005 a [facility] Psoriatic arthritis Colonoscopy in June [...]
[2024-09-07] MEDS: gadobutroL 7.5 ML VIAL IVPUSH (09:33)
== END 2024-09-07 08:23 | disposition home or self-care (01) ==
LOC: HO.MRI 08:22
PROVIDERS: PCP Nurse Practitioner Family; Visit Provider Internal Medicine Medical Oncology
DX: C22.0 Liver cell carcinoma (principal)
CPT/HCPCS: 74183; A9585

== ENCOUNTER 2024-10-06 07:50 | Outpatient (AMB) | payer MEDICARE, SELFPAY ==
--- NOTE | 2024-10-06 07:53 | A.OFFVIS_ITS ---
Intake Vital Signs 10/06/24 08:01 Height 5 ft 10 in Weight 142 lb 6 oz BMI 20.4 BP 96/66 Blood Pressure Location Lt brachial Position Sitting Respiration 12 Pulse 113 H Pulse Source Pulse Oximeter Temp 97.1 F Temp Source Oral Pulse Oximetry (%) 97 Oxygen Delivery Method Room Air Intake Visit Reasons: 4 months 30 min sAWV Intake Note: AWV Bill Of Lading Clerk Required: No Allergies Penicillins Allergy (Severe, Verified 10/06/24 08:22) ANAPHYLAXIS Medication List - Last Reconciled 10/06/24 by Lianne Lucas, [facility]- albuterol sulfate 90 mcg/actuation (Ventolin HFA) 2 puffs inhalation Q4-6H PRN allopurinol 300 mg PO DAILY diclofenac sodium 1% (Voltaren Arthritis Pain) 2 grams topical QID PRN ferrous sulfate 325 mg PO DAILY lansoprazole 15 mg PO .prn lenvatinib 12 mg PO DAILY lisinopril 20 mg PO DAILY loratadine (Allergy Relief (loratadine)) 10 mg PO DAILY PRN ondansetron 4 mg PO Q6H polyethylene glycol 3350 (Miralax) 17 grams PO DAILY Do you need a note to return to daycare/school/sports/work: No HPI HPI Comments History of Present Illness Details Here today for AWV. The Medicare Annual Wellness Visit (AWV) is a yearly appointment with a health professional to identify health risks and help reduce them and to create or update a personalized prevention plan. During a Medicare AWV, health professionals should also review any current opioid prescriptions, detect any cognitive impairment, and establish or update medical and family history. 69 y/o M with GERD, HTN, asthma, Hepatoc ellular CA, anemia, HLD, venous insuff, SurgHx: s/p bilat inguinal hernia repair, shoulder surgery, EGD FHx: Y SocHx: Y Health Maintenance: See scanned preventative medicine assessment with personalized health plan and screening schedule. Colon: 2022, repeat 2025 Vaccines: tdap 2016, due for shingles, PCV - defer @ this time AAA screen: NA EKG: done today Sinus tach, some flattening of ST noted in inferior leads, nonspecific T wave changes in V5-6 [place] of Care: Pain mgmt GI Heme Vascular - FU PRN Visual Acuity: no complaints, visual screen completed today Hearing Screening: [place] needs hearing aides; defer @ this time ACP: HCP Y, does not have MOLST or Living will. 5 wishes and MOLST provided today Dietary/Nutrition/Exercise Edu provided: Y During the course of the visit the patient was educated and counseled about appropriate screening and preventative services. Patient instructions were provided to the patient in written or electronic format. I have reviewed and verified the above information. History of Present Illness - The patient is a 69-year-old male pres enting for a Medicare Annual Wellness Visit. - Recurrent hepatocellular carcinoma wit h recent procedures addressing new liver lesions 09/29/24 . New med to start tomorrow. appt w/ Dr Cotton tomorrow. - Post-procedure cognitive and dizziness episodes noted. Cognitive changes have improved. Cont to feel pain all over and overall unwell. - HTN stable on current meds - Gout controlled on current meds - Asthma well controlled;does have a new cough over the last few days. puppy cough . Nephew mentions Specialist wanting to check CXR d/t most recent procedure; this has not been done yet. - EKG reviewed; no cardiac complaints. D efer any cards referrals at this time. Primary goal is cancer treatment @ this time. - Long-term management of anemia, hyperl ipidemia, gastritis, GI bleed, and asthma. - Prescriptions include albuterol, allo purinol, ferrous sulphate, lisoprazole, lisinopril, Claritin, MiraLax, and Zofran. - Function of foot improved since last v isit; Saw Vascular. No tx needed. Rec PT or neuro if issue returns. Social History - The patient expressed a desire to resu me usual activities, including yard work and chores, after completing treatment. Health Maintenance - A1c 5.7 - Discussion around the need for dental care to prevent infections during cancer treatment. Review of Systems - Neurologic: Reports cognitive issues p ost-procedure. - Respiratory: Reports a chronic cough. - General: Reports dizziness with positi onal changes. Physical Exam General: Chronically ill appearing, in NAD, accompanied by Efrem. Head: Normocephalic, atraumatic. Eyes: Pupils are equal, round and reactive to light and accommodation. Conjunctivae are clear. Ears: TMs clear AU, EACS WNL. Nose: Patent, without discharge. Neck: Supple, no adenopathy or thyromegaly. Breast: Edu on SBE Lungs: Decreased breath sounds in RLL otherwise WNL. Heart: Mild tachycardia, Regular rhythm. No murmurs, click, rubs or gallops are noted. Abdomen: Bowel sounds present in all quadrants. : Deferred. Reviewed JULIA & recommendations Pulses: Peripheral pulses are equal and palpable bilaterally - decreased. Extremities: No clubbing, cyanosis nor edema is noted. Neurologic: Gait and station normal. Cranial Nerves 2-12 intact. Motor strength grossly symmetrical and intact. No sensory loss. Balance normal. Skin: [place] facial rash w/ some skin drying; No ulcers, or lesions noted. Turgor is good. Skin color is good. Hair and nails are without abnormalities. Psych: Normal eye contact, affect and mood appropriate, and normal interactions. Tearful when talking about his cancer treatment. Able to smile and engage, joke. Results - Labs: A1c level at 5.7. Discussion Notes I discussed with the patient the current status of his hepatocellular carcinoma and the recent ablation of liver lesions. We discussed the importance of dental hygiene in preventing infections during ongoing cancer treatment. I highlighted the need for regular follow-ups to monitor his health and manage any developing symptoms or side effects. I have sent a message to Dr Cotton regarding decreased breath sounds RLL. Assessment and Plan 1. Hepatocellular Carcinoma - Cont care as per Onco 2. Anemia - Continue current treatment & fu per He me/Onc 3. Hyperlipidemia - Monitor. 4. Gastritis - Continue meds, monitor symptoms, avoid NSAIDs 5. History of Gastrointestinal Bleed - Monitor for signs, stable @ current 6. Asthma - Continue Albuterol - PVC and Shingles vaccines due - defer At this time Advised to seek routine dental care Take all meds as directed Message to Dr Cotton re: RLL lung sounds RTO 6 mo routine fu sooner PRN Patient Instructions - Take medications as prescribed and att end follow-up appointments with your oncologist as scheduled. - Make an appointment with the dentist t o maintain oral health and prevent potential infections. - Monitor for any new symptoms or advers e effects, especially dizziness or changes in cognition. - Contact the office if there are any is sues with medication delivery or if you have any concerning symptoms. Consent Patient was informed and verbally consented to the use of an ambient scribe for clinic note documentation during this visit. An additional 40 minutes was spent addressing the problem(s) noted at todays visit. This includes time spent before the visit reviewing the chart, time spent during the visit, and time spent after the visit on documentation reviewing laboratory results, diagnostic imaging, medications, performing a medically necessary evaluation, counseling on diagnoses, care coordination, ordering appropriate tests, ordering appropriate medications, review of tests performed by other providers, reporting test results with the patient, communication with other healthcare providers. FOR[facility]LY [facility] Medical History GI bleed Metastasis Liver cancer Peptic ulcer Arthritis Gastric ulcer GERD (gastroesophageal reflux disease) HTN (hypertension) Allergic rhinitis Asthma Surgical History History of esophagogastroduodenoscopy (EGD) Hx of bilateral inguinal hernia repair H/O colonoscopy (~2021) Hx of shoulder surgery Family History Mother Cardiovascular disease Father Diabetes Social History Household Members: None Both parents involved: No Caregiver staying overnight: No Housing: House Are you a primary respiratory care faculty to a significant other at home: No Do you presently have visiting nurse or other home services: No 75 years or older and lives alone: No Alcohol intake: current Alcohol intake frequency: a few times a month Alcohol type: beer Patient Tobacco Use Status: Never used Tobacco Tobacco use type: Cigarette e-Cigarette/Vaping Use: Never Used Second Hand Smoke Exposure: No service: No Current occupational status: employed and retired Cognitive needs: No Hearing needs: No Vision needs: No Questionnaire Medicare Wellness Checkup What [age] What gender do you identify with?: male During the past 4 weeks, how much have you been bothered by emotional problems such as feeling anxious, depressed, irritable, sad or downhearted, and blue?: not at all During the past 4 weeks, has your physical & emotional health limited your social activities with family, friends, neighbors, or groups?: not at all During the past 4 weeks, how much bodily pain have you generally had?: moderate pain During the past 4 weeks, was someone available to help you if you needed & wanted help?: yes, as much as I wanted During the past 4 weeks, what was the hardest physical activity you could do for at least 2 minutes?: very light Can you get to places out of walking distance without help? (For eg., can you travel alone on buses, taxis or drive your car?): Yes Can you go shopping for groceries or clothes without someone's help?: Yes Can you prepare your own meals?: Yes Can you do your housework without help?: Yes Because of any health problems, do you need the help of another person with your personal care needs such as eating, bathing, dressing or getting around the house?: Yes Can you handle your own money without help?: Yes During the past 4 weeks, how would you rate your health in general?: fair During the past 4 weeks how have things been going for you?: good & bad parts about equal Are you having difficulties driving your car?: no Do you always fasten your seat belt when you are in a car?: yes, usually During past 4 weeks, have you been bothered by the following: never: Sexual problems?, Trouble eating well?, Teeth or denture problems? and Problems using the telephone?, sometimes: Tiredness or fatigue? and often: Falling or dizzy when standing up Have you fallen 2 or more times in the past year?: No Are you afraid of falling?: No Are you a smoker?: no During the past 4 weeks, how many drinks of wine, beer, or other alcoholic beverages did you have?: no alcohol at all Do you exercise for about 20 minutes 3 or more times a week?: no, I usually do not exercise this much Have you been given information to help with the following?: no: Hazards in your house that might hurt you? and no: Keeping track of your medications? How often do you have trouble taking medicines the way you have been told to take them?: I always take medicine as prescribed How confident are you that you can control & manage most of your health problems?: very confident What is your race?: White Activity of Daily Living Bathing - sponge bath, tub bath or shower: receives no assistance (gets in/out by self, if usual bathing means Dressing - getting clothes from closets & drawers, including inner/outer garments & fasteners.: gets clothes & gets completely dressed without help Toileting - going to the 'toilet room' for urine/bowel elimination & cleaning self/arranging clothes: goes to toilet room, cleans self, arranges clothes without help Transfer: moves in & out of bed and chair without help (may use support object) Continence: controls urination/bowel movements completely by self Feeding: feeds self without help Total Score: 0 Information obtained from: patient Using telephone: independent Traveling: independent Shopping: independent Preparing meals: independent Housework: independent Taking medicine: independent Managing money: independent PHQ-9 Over the last 2 weeks, how often have you been bothered by any of the following problems? 1. Little interest or pleasure in doing things: not at all 2. Feeling down, depressed, or hopeless: not at all 3. Trouble falling or staying asleep, or sleeping too much: not at all 4. Feeling tired or having little energy: not at all 5. Poor appetite or overeating: not at all 6. Feeling bad about yourself - or that you are a failure or have let yourself or your family down: not at all 7. Trouble concentrating on things, such as reading the newspaper or watching television: not at all 8. Moving or speaking so slowly that other people could have noticed. Or the opposite - being so fidgety or restless that you have been moving around a lot more than usual: not at all 9. Thoughts that you would be better off or of hurting yourself in some way: not at all Total score: 0 Depression Screening Interpretation: Negative Depression Screening Done: Yes 13406 - PHQ-9 Billing: Yes Source: Developed by Drs. Pedro Elizabeth, Leticia Shultz, Jae Maharaj and colleagues, with an educational vickie from [employer]. Physical Exam Vital Signs: Last Vital Signs Temp 97.1 F 10/06/24 08:01 Pulse 113 H 10/06/24 08:01 Resp 12 10/06/24 08:01 BP 96/66 10/06/24 08:01 Pulse Ox 97 10/06/24 08:01 Oxygen Delivery Method Room Air 10/06/24 08:01 BMI result Body Mass Index 20.4 Office Procedures EKG 14939-Libuyndnuybecogra, Complete Vision Screening Right Eye: 20/40 Left Eye: 20/40 Bilateral: 20/30 Color: Pass 54156 - Vision Screening Results AMB Hemoglobin A1c AMB Hemoglobin A1c 5.7 % Last Edit by Brooklyn Miller MA on 10/06/24 08:16 Results Reviewed Results Reviewed: Laboratory Last Values Hgb A1c (Clinic) 5.7 % (4.0-6.0) 10/06/24 08:06 Assessment & Plan Assessment & Plan (1) Encounter for subsequent annual wellness visit (AWV) in Medicare patient: Onset Date: ~10/06/24 Code(s): Z00.00 - Encounter for general adult medical examination without abnormal findings (2) ACP (advance care planning): Code(s): Z71.89 - Other specified counseling (3) Hypertension: Code(s): I10 - Essential (primary) hypertension Qualifiers: Hypertension type: primary hypertension Qualified Code(s): I10 - Essential (primary) hypertension (4) PVD (peripheral vascular disease): Code(s): I73.9 - Peripheral vascular disease, unspecified (5) [place] (hard of hearing): Code(s): H91.90 - Unspecified hearing loss, unspecified ear (6) Allergic rhinitis: Comment: takes loratadine daily during allergy season and QOD otherwise Code(s): J30.9 - Allergic rhinitis, unspecified Qualifiers: Allergic rhinitis seasonality: non-seasonal Allergic rhinitis trigger: other Qualified Code(s): J30.89 - Other allergic rhinitis (7) Chronic GERD: Code(s): K21.9 - Gastro-esophageal reflux disease without esophagitis (8) Anemia: Code(s): D64.9 - Anemia, unspecified Qualifiers: Anemia type: iron deficiency Iron deficiency anemia type: unspecified iron deficiency Qualified Code(s): D50.9 - Iron deficiency anemia, unspecified (9) HCC (hepatocellular carcinoma): Comment: Status post chemoembolization by IR at [facility] on Friday04/16/24. He started bevacizumab and atezolizumab on 04/29/24 Code(s): C22.0 - Liver cell carcinoma (10) Asthma: Code(s): J45.909 - Unspecified asthma, uncomplicated Qualifiers: Asthma severity: mild Asthma persistence: intermittent Asthma complication type: uncomplicated Qualified Code(s): J45.20 - Mild intermittent asthma, uncomplicated (11) HLD (hyperlipidemia): Code(s): E78.5 - Hyperlipidemia, unspecified Qualifiers: Hyperlipidemia type: mixed hyperlipidemia Qualified Code(s): E78.2 - Mixed hyperlipidemia (12) Decreased breath sounds at right lung base: Code(s): R06.89 - Other abnormalities of breathing Plan . Orders: Orders AMB Hemoglobin A1c Today Z13.9 - Encounter for screening, unspecified Quality Reporting (2019) Adult ([facility] 138/2/69) Smoking risk assessment performed?: Yes Patient Tobacco Use Status: Never used Tobacco Depression screening performed: Yes Screen Results: Yes Negative screen Systolic BP not done?: No Diastolic BP not done?: No BMI screening not done: No Sexual Activity Screening ([facility] 153) Sexually active?: No Immunizations ([facility] 147, 117) Annual Influenza Vaccine: No (not flu season ) Measles Antibody Test: No Mumps Antibody Test: No Rubella Antibody Test: No Varicella Antibody Test: No Anti Hepatitis A IgG Antigen test: No Anti Hepatitis B Virus Surface Ab test: No Fall Risk Screening ([facility] 139) Last assessed Fall Risk: 10/06/24 Fall risk assessment: No Falls in past year Dementia Assessment ([facility] 149) Cognitive assessment recorded: Yes Assessment of cognition with standardized tool: Yes (8/28 on 6 CIT ) Depression/Bipolar (159/160/161/177) PHQ-9: Total score: 0 Ophthalmol:Cataracts Visual Acuity (133) Visual acuity exam performed: Yes (see results) Coding Level of Care Code Medicare Subsequent (G0439) Est Pt Level 5 (90641) Diagnoses Encounter for subsequent annual wellness visit (AWV) in Medicare patient Z00.00 ACP (advance care planning) Z71.89 Primary hypertension I10 Hypertension type: primary hypertension PVD (peripheral vascular disease) I73.9 [place] (hard of hearing) H91.90 Non-seasonal allergic rhinitis due to other allergic trigger J30.89 Allergic rhinitis seasonality: non-seasonal Allergic rhinitis trigger: other Chronic GERD K21.9 Iron deficiency anemia, unspecified iron deficiency anemia type D50.9 Anemia type: iron deficiency Iron deficiency anemia type: unspecified iron deficiency HCC (hepatocellular carcinoma) C22.0 Mild intermittent asthma without complication J45.20 Asthma severity: mild Asthma persistence: intermittent Asthma complication type: uncomplicated Mixed hyperlipidemia E78.2 Hyperlipidemia type: mixed hyperlipidemia Decreased breath sounds at right lung base R06.89 CPT Codes Advance Care Planning - Time spent: 1-15 minutes, not on file ([id number]) EKG - CPT: 33389-Njcymsbqcwceehzjl, Complete ([id number]) Vision Screening - Vision Screenin - Vision Screening ([id number]) Additional Codes PHQ-9 - 99133 - PHQ-9 Billing: Yes ([id number]) Advance Care Planning Advance Care Planning discussion: Exists, not on file Date of discussion: 10/06/24 Who was present: self and Efrem Forms completed: Health Care Proxy, MOLST and Living will Time spent: 1-15 minutes, not on file Actual minutes spent: 5
--- OUTSIDE RECORDS SUMMARY | 2024-10-06 07:53 | XMS_ITS | Patient Health Record ---
Author Organization [facility] Address [address] [place] [address] Care Team Providers Care Medical Records Coordinator Name Role Phone Dylon Perez MD Primary Care Provider Pedro Valdes Unavailable [phone] Allergies Allergen (clinical drug ingredient) Drug/Non Drug [...] Problem Status W/U Status Risk Notes Problem 762437180 Encounter for screening for malignant neoplasm of colon (Z12.11) Active confirmed Problem History of adenomatous polyp of colon (329179917) History of adenomatous polyp of colon (Z86.010) Active confirmed Problem Diverticulosis o f large intestine without perforation or abscess without bleeding (K57.30) Active confirmed Problem 044304179796919 Pre-procedural examination (Z01.818) Active confirmed Problem Chronic gastritis (5995915) Chronic gastritis (K29.50) Active confirmed Problem Gastric ulcer (265768224) Gastric ulcer (K25.9) Active confirmed Problem Diverticulosis of colon (641815194) Diverticulosis of colon (K57.30) Active confirmed Plan Of Treatment Future Test Test Name Order Date COLONOSCOPY 05/25/2021 COLONOSCOPY 02/27/2023 Insurance Providers Payer Name Payer Address Payer Phone Subscriber Number Group Number Insured Name Patient Relationship to Insured Coverage Start Date Coverage End Date [facility] [address] [place], [place] [id number] [phone] [id number] KEN MONTANEZ Self - patient is the insured Medical (General) History Medical History History ICD Code Asthma--inactive Denies [place],DM,CVA,renal disease Reports a negative colonoscopy in 2005 a [facility] Psoriatic arthritis Colonoscopy in June [...]
[2024-10-06 08:01] VITALS: BP 96/66; PULSE 113; RESP 12; TEMP 36.2; O2SAT 97; BMI 20.4
== END 2024-10-06 08:54 | disposition home or self-care (01) ==
LOC: HO.HMCFM 07:51
PROVIDERS: PCP Nurse Practitioner Family; Visit Provider Nurse Practitioner Family
DX: Z00.00 Encounter for general adult medical examination without abnormal findings (principal); I10 Essential (primary) hypertension; I73.9 Peripheral vascular disease, unspecified; C22.0 Liver cell carcinoma; H91.93 Unspecified hearing loss, bilateral; J30.89 Other allergic rhinitis; K21.9 Gastro-esophageal reflux disease without esophagitis; D50.9 Iron deficiency anemia, unspecified; J45.20 Mild intermittent asthma, uncomplicated; E78.2 Mixed hyperlipidemia; R06.89 Other abnormalities of breathing; Z13.9 Encounter for screening, unspecified

== ENCOUNTER → 2024-10-06 07:50 | Outpatient (BNVA) | payer MEDICARE, SELFPAY | PROVIDERS: PCP Nurse Practitioner Family; Visit Provider Nurse Practitioner Family | DX: Z00.00 Encounter for general adult medical examination without abnormal findings (principal); K21.9 Gastro-esophageal reflux disease without esophagitis; I10 Essential (primary) hypertension; D64.9 Anemia, unspecified; E78.5 Hyperlipidemia, unspecified; C22.8 Malignant neoplasm of liver, primary, unspecified as to type; I73.9 Peripheral vascular disease, unspecified; H91.90 Unspecified hearing loss, unspecified ear; J30.89 Other allergic rhinitis; D50.9 Iron deficiency anemia, unspecified; C22.0 Liver cell carcinoma; J45.20 Mild intermittent asthma, uncomplicated; E78.2 Mixed hyperlipidemia; R06.89 Other abnormalities of breathing; Z71.89 Other specified counseling | CPT/HCPCS: 83036; 93005; 96127; 99212 ==

== ENCOUNTER 2024-10-07 10:28 | Outpatient (REF) | payer MEDICARE, SELFPAY ==
--- NOTE | ~2024-10-07 | XR_ITS ---
EXAMINATION: XR CHEST CLINICAL INFORMATION: Cough COMPARISON: 02/11/2024. TECHNIQUE: 2 views of the chest were obtained. FINDINGS: The cardiac, hilar, and mediastinal contours are normal. There is a new small right layering pleural effusion. There is mild passive atelectasis in the right lung base. There is mild discoid atelectasis in the left lung base. Lungs otherwise clear. There is no pneumothorax. Calcified masses in the region of the liver, in keeping with known partially treated liver neoplasm. Moderate degenerative changes in both shoulders and throughout the spine. XR/XR chest 2V IMPRESSION: 1. New small right pleural effusion with associated passive atelectasis. Minor linear atelectasis left lung base. 2. Lungs otherwise clear. 3. Ancillary findings as discussed. Electronically signed by: Nakul Francis MD 10/07/2024 10:55 AM EDT
--- OUTSIDE RECORDS SUMMARY | 2024-10-07 10:59 | XMS_ITS | Patient Health Record ---
Author Organization [facility] Address [address] [place] [id number] Care Team Providers Care Master Ship Name Role Phone Dylon Perez MD Primary Care Provider Pedro Valdes Unavailable [phone] Allergies Allergen (clinical drug ingredient) Drug/Non Drug [...] Problem Status W/U Status Risk Notes Problem 734250883 Encounter for screening for malignant neoplasm of colon (Z12.11) Active confirmed Problem History of adenomatous polyp of colon (828854824) History of adenomatous polyp of colon (Z86.010) Active confirmed Problem Diverticular disease of colon (211644136) Diverticulosis of large intestine without perforation or abscess without bleeding (K57.30) Active confirmed Problem [id number] Pre-procedural examination (Z01.818) Active confirmed Problem Chronic gastritis (5345506) Chronic gastritis (K29.50) Active confirmed Problem Gastric ulcer (604951751) Gastric ulcer (K25.9) Active confirmed Problem Diverticulosis of colon (707538961) Diverticulosis of colon (K57.30) Active confirmed Plan Of Treatment Future Test Test Name Order Date COLONOSCOPY 05/25/2021 COLONOSCOPY 02/27/2023 Insurance Providers Payer Name Payer Address Payer Phone Subscriber Number Group Number Insured Name Patient Relationship to Insured Coverage Start Date Coverage End Date [facility] [address] [place], [place] [id number] KEN MONTANEZ Self - patient is the insured Medical (General) History Medical History History ICD Code Asthma--inactive Denies [place],DM,CVA,renal disease Reports a negative colonoscopy in 2005 a [facility] Psoriatic arthritis Colonoscopy in June of 2021 [...]
== END 2024-10-07 10:29 | disposition home or self-care (01) ==
LOC: HO.XRAY 10:28
PROVIDERS: PCP Nurse Practitioner Family; Visit Provider Internal Medicine Medical Oncology
DX: C22.0 Liver cell carcinoma (principal); R05.9 Cough, unspecified
CPT/HCPCS: 71046

== ENCOUNTER → 2024-10-07 10:30 | Outpatient (BNV) | payer MEDICARE, SELFPAY | PROVIDERS: PCP Nurse Practitioner Family; Visit Provider Radiology Diagnostic Radiology | DX: J90 Pleural effusion, not elsewhere classified (principal) | CPT/HCPCS: 71046 ==

== ENCOUNTER 2024-11-01 07:55 | Outpatient (REF) | payer MEDICARE, SELFPAY ==
--- NOTE | ~2024-11-01 | CT_ITS ---
CLINICAL HISTORY: hepatocellular carcinoma, restaging CT chest with contrast Comparison: CR/SR - XR CHEST 2 VIEWS - 10/07/24 10:47 EDT MR/MT - MR ABDOMEN WO/W CON - 04/02/24 15:[address]/MT/SR - CT CHEST ANGIOGRAPHY WITH IV CONTRAST - 02/11/24 02:41 EST Findings: Severe coronary artery atherosclerotic vascular calcifications. Redemonstration of noncalcified and partially calcified mediastinal lymph nodes and bilateral hilar lymph nodes. For example, there is a partially calcified subcarinal lymph node measuring 1.5 cm in short axis. These are nonspecific. Similar appearance of ground-glass opacities in the right upper lobe of the lung and multiple bilateral pulmonary nodules. For example, there is a solid nodule in the right upper lobe of the lung measuring 7 mm, unchanged from 02/11/2024. Attention on follow-up imaging is recommended. Alternatively, PET-CT could be considered for further evaluation however these are likely below the resolution for PET due to the size. There is a new small right pleural effusion with adjacent atelectasis. Increased density of the dominant mass in the right hepatic lobe measuring 9.7 cm in diameter. There are calcifications /increased density of multiple additional masses within the liver. This may be due to treatment related effects in the correct clinical setting however is incompletely characterized on this chest CT. Small nodular appearance of the liver. Lucent lesion in the right humeral head partially included in the image is not included in the previous studies and measures 2.1 cm in diameter. There is a sclerotic margin and this is likely due to degenerative changes however is incompletely characterized on the current exam. Comparison with prior additional imaging if available is recommended. If additional imaging is not available then MRI could be obtained for further evaluation. IMPRESSION: 1. Similar appearance of ground-glass opacities in the right upper lobe of the lung and multiple bilateral pulmonary nodules. For example, there is a solid nodule in the right upper lobe of the lung measuring 7 mm, unchanged from 02/11/2024. Attention on follow-up imaging is recommended. Alternatively, PET-CT could be considered for further evaluation however these are likely below the resolution for PET due to the size. 2. Redemonstration of noncalcified and partially calcified mediastinal lymph nodes and bilateral hilar lymph nodes. For example, there is a partially calcified subcarinal lymph node measuring 1.5 cm in short axis. These are nonspecific. 3. Increased density of the dominant mass in the right hepatic lobe measuring 9.7 cm in diameter. There are calcifications /increased density of multiple additional masses within the liver. This may be due to treatment related effects in the correct clinical setting however is incompletely characterized on this chest CT. 4. Lucent lesion in the right humeral head partially included in the image is not included in the previous studies and measures 2.1 cm in diameter. There is a sclerotic margin and this is likely due to degenerative changes however is incompletely characterized on the current exam. Comparison with prior additional imaging if available is recommended. If additional imaging is not available then MRI could be obtained for further evaluation. 5. There is a new small right pleural effusion with adjacent atelectasis. This document has been electronically signed by: Kj Tai DO on 11/01/2024 12:17:37
--- OUTSIDE RECORDS SUMMARY | 2024-11-01 07:57 | XMS_ITS | Patient Health Record ---
Author Organization [facility] Address [address] [place] [id number] Care Team Providers Care Historian Research Assistant Name Role Phone Dylon Perez MD Primary Care Provider Pedro Valdes Unavailable [phone] Allergies Allergen (clinical drug ingredient) Drug/Non Drug [...] Problem Status W/U Status Risk Notes Problem 420534908 Encounter for screening for malignant neoplasm of colon (Z12.11) Active confirmed Problem History of adenomatous polyp of colon (346322786) History of adenomatous polyp of colon (Z86.010) Active confirmed Problem Diverticulosis o f large intestine without perforation or abscess without bleeding (K57.30) Active confirmed Problem [id number] Pre-procedural examination (Z01.818) Active confirmed Problem Chronic gastritis (6587125) Chronic gastritis (K29.50) Active confirmed Problem Gastric ulcer (489713305) Gastric ulcer (K25.9) Active confirmed Problem Diverticulosis of colon (027453830) Diverticulosis of colon (K57.30) Active confirmed Plan Of Treatment Future Test Test Name Order Date COLONOSCOPY 05/25/2021 COLONOSCOPY 02/27/2023 Insurance Providers Payer Name Payer Address Payer Phone Subscriber Number Group Number Insured Name Patient Relationship to Insured Coverage Start Date Coverage End Date [facility] [address] [place], [place] [id number] KEN MONTANEZ Self - patient is the insured Medical (General) History Medical History History ICD Code Asthma--inactive Denies [place],DM,CVA,renal disease Reports a negative colonoscopy in 2005 a [facility] Psoriatic arthritis Colonoscopy in June [...]
== END 2024-11-01 07:56 | disposition home or self-care (01) ==
LOC: HO.CT 07:55
PROVIDERS: PCP Nurse Practitioner Family; Visit Provider Nurse Practitioner Family
DX: C22.0 Liver cell carcinoma (principal)
CPT/HCPCS: 71260

== ENCOUNTER → 2024-11-01 07:58 | Outpatient (BNV) | payer MEDICARE, SELFPAY | PROVIDERS: PCP Nurse Practitioner Family; Visit Provider Family Medicine | DX: J98.11 Atelectasis (principal) | CPT/HCPCS: 71260 ==

== ENCOUNTER 2024-11-11 14:41 | Outpatient (REF) | payer MEDICARE, SELFPAY ==
--- NOTE | ~2024-11-11 | MR_ITS ---
CLINICAL HISTORY: Right humerous lesion, seen on ct chest MR right shoulder with and without contrast Comparison: CT/REG/SR - CT CHEST W IV CON - 11/01/24 08:25 EDT Findings: No fracture or dislocation of the osseous structures. There is a lesion in the humeral head measuring 0.9 x 1.7 x 1.2 cm. The lesion is hyperintense on T2 weighted images, hypointense on T1 weighted images and demonstrates enhancement on the postcontrast images. There is an adjacent lesion measuring 0.8 cm in the humeral head with similar signal characteristics. There is a mild amount of edema and cystic change with enhancement in the glenoid. Trace amount of cystic change and edema at the acromioclavicular joint. There is glenohumeral and acromioclavicular joint space narrowing and osteophytosis, moderate to severe. No significant joint effusion. There is a small amount of fluid in the acromioclavicular joint. Trace amount of fluid in the subacromial/subdeltoid and subcoracoid bursa. There is increased signal in the supraspinatus tendon with partial tear. No complete tear or retraction. There is edema without enhancement within the supraspinatus muscle proximally (series 10 images 1 through 8). There is increased signal in the in infraspinatus and subscapularis muscles without tear or muscular atrophy. There is a trace amount of increased signal within the subscapularis muscle proximally without enhancement (series 9 and 10, image 1). Teres minor is unremarkable. There is increased signal and contour abnormality within the labrum of the anterior aspect from superior to inferiorly. There is full-thickness glenohumeral chondromalacia. The biceps tendon is located within the bicipital groove. The bicipital labral anchor is intact. The coracoacromial and coracohumeral ligaments are intact. Cutaneous and subcutaneous tissues are normal. The quadrilateral space is unremarkable. Impression: Lesions in the humeral head measuring up to 1.7 cm are favored to be degenerative/cystic. Metastatic disease is considered less likely. Moderate to severe glenohumeral and acromioclavicular joint degenerative change. Full-thickness glenohumeral chondromalacia. Supraspinatus, infraspinatus and subscapularis tendinopathy. Partial tear of supraspinatus. Mild/trace amount of edema without enhancement within the supraspinatus and subscapularis muscles, myositis versus artifact. Labral tear. This document has been electronically signed by: Tonja Araujo MD on 11/12/2024 16:12:53
--- OUTSIDE RECORDS SUMMARY | 2024-11-11 14:54 | XMS_ITS | Patient Health Record ---
Author Organization [facility] Address [address] [place] [id number] Care Team Providers Care Network Support Analyst Name Role Phone Dylon Perez MD Primary Care Provider Pedro Valdes Unavailable [phone] Allergies Allergen (clinical drug ingredient) Drug/Non Drug [...] Problem Status W/U Status Risk Notes Problem [id number] Encounter for screening for malignant neoplasm of colon (Z12.11) Active confirmed Problem History of adenomatous polyp of colon (390616501) History of adenomatous polyp of colon (Z86.010) Active confirmed Problem Diverticulosis o f large intestine without perforation or abscess without bleeding (K57.30) Active confirmed Problem [id number] Pre-procedural examination (Z01.818) Active confirmed Problem Chronic gastritis (5324783) Chronic gastritis (K29.50) Active confirmed Problem Gastric ulcer (671536772) Gastric ulcer (K25.9) Active confirmed Problem Diverticulosis of colon (811660207) Diverticulosis of colon (K57.30) Active confirmed Plan Of Treatment Future Test Test Name Order Date COLONOSCOPY 05/25/2021 COLONOSCOPY 02/27/2023 Insurance Providers Payer Name Payer Address Payer Phone Subscriber Number Group Number Insured Name Patient Relationship to Insured Coverage Start Date Coverage End Date [facility] [address] [place], [place] [id number] KEN MONTANEZ Self - patient is the insured Medical (General) History Medical History History ICD Code Asthma--inactive Denies CA,DM,CVA,renal disease Reports a negative colonoscopy in 2005 a [facility] Psoriatic arthritis Colonoscopy in June of [...]
== END 2024-11-11 14:42 | disposition home or self-care (01) ==
LOC: HO.MRI 14:41
PROVIDERS: PCP Nurse Practitioner Family; Visit Provider Internal Medicine Medical Oncology
DX: M75.91 Shoulder lesion, unspecified, right shoulder (principal)
CPT/HCPCS: 73223; A9585

== ENCOUNTER → 2024-11-11 14:59 | Outpatient (BNV) | payer MEDICARE, SELFPAY | PROVIDERS: PCP Nurse Practitioner Family; Visit Provider Radiology Diagnostic Radiology | DX: M19.011 Primary osteoarthritis, right shoulder (principal); M94.211 Chondromalacia, right shoulder | CPT/HCPCS: 73223 ==

== ENCOUNTER 2025-01-21 08:22 | Outpatient (AMB) | payer MEDICARE, SELFPAY ==
--- NOTE | 2025-01-21 08:28 | A.OFFPC_ITS ---
Vital Signs 01/21/25 08:36 Height 5 ft 10 in Weight 139 lb 4 oz BMI 20.0 BP 98/66 Blood Pressure Location Rt brachial Position Sitting Respiration 12 Pulse 92 Pulse Source Pulse Oximeter Temp 97.2 F Temp Source Oral Pulse Oximetry (%) 98 Oxygen Delivery Method Room Air Intake Visit Reasons: constipation discomfort and light bleeding Intake Note: Patient c/o constipation discomfort, diarrhea and light bleeding x 4 months. 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 Required: No Allergies Penicillins Allergy (Severe, Verified 01/21/25 08:44) ANAPHYLAXIS Medication List - Last Reconciled 01/21/25 by Lianne Lucas, [facility]- albuterol sulfate 90 mcg/actuation (Ventolin HFA) 2 puffs inhalation Q4-6H PRN diclofenac sodium 1% (Voltaren Arthritis Pain) 2 grams topical QID PRN durvalumab IV ferrous sulfate 325 mg PO DAILY lisinopril 20 mg PO DAILY loratadine (Allergy Relief (loratadine)) 10 mg PO DAILY PRN Magic Mouthwash Diphen/Nystat/Antacid 1:1:1 10 mL PO QID ondansetron 4 mg PO Q6H tremelimumab-actl (Imjudo) IV Tobacco use date assessed: 01/21/25 Fall risk assessment: No Falls in past year Last assessed Fall Risk: 01/21/25 Dental Screening Dental Screen Date: 01/21/25 Did you have a dental visit in the last 12 months?: Yes Did you have a dental problem in the last 6 months where you did not have access to dental care?: No Was dental information given to patient?: Patient has dentist HPI HPI Comments History of Present Illness Details 69 y/o M with GERD, HTN, asthma, Hepatoc ellular CA, anemia, HLD, venous insuff SurgHx: s/p bilat inguinal hernia repair, shoulder surgery, EGD FHx: Y SocHx: Y Health Maintenance: See scanned preventative medicine assessment with personalized health plan and screening schedule. Colon: 2022, repeat 2025 Vaccines: tdap 2016, due for shingles, PCV - defer @ this time, Flu declined 01/21/25 AAA screen: NA EKG: done today Sinus tach, some flattening of ST noted in inferior leads, nonspecific T wave changes in V5-6 [place] of Care: Pain mgmt GI Heme Vascular - FU PRN History of Present Illness The patient is a 69-year-old male presenting for a problem visit to discuss constipation and management of side effects related to his cancer therapy. Hepatocellular Carcinoma: - The patient was diagnosed in March the current year and is managed by hematology. - He was previously on Lenvima but exper ienced severe side effects, including a weight loss from 165 pounds to 110 pounds, and was taken off the medication. - He is now on a new immunotherapy regim en administered every 28 days. - He has undergone chemoembolization and is pending a third procedure after he gains more weight; his current weight is 139.7 lbs. - An MRI of the abdomen is scheduled for January to monitor his response to treatment. - A shoulder CT scan revealed an inciden peg finding in the lower right lung, whi ch is being addressed by his specialist, Dr. Chow. Constipation: - The patient attributes his constipatio n to ferrous sulfate supplements, which has led to hard, dark stools. - His oncologist, Dr. Eden, changed hi s ferrous sulfate regimen from daily to every other day, which has improved symptoms. - He had been experiencing significant f latulence and right lower quadrant pain, which has since improved. - He reports using a Q-tip with warm uvaldo er for manual disimpaction, which has provided relief. - Currently, his bowel movements require some effort to pass but are not painful. Hemorrhoids: - The patient developed severe, painful hemorrhoids that caused difficulty with sitting and lying down. - He manages the symptoms with Preparati on H medicated wipes and cream. - He has noted occasional bright red blo od when wiping but denies any dark blood. Anemia: - He has a history of anemia managed by hematology. - He takes ferrous sulfate every other d ay. - Recent lab results show an iron level of 49 (low end of normal), a low iron saturation of 15%, and a stable red blood cell count. Past Medical History - Hepatocellular Carcinoma, diagnosed in March of the current year. - History of chemoembolization. - Chronic anemia. - History of bilateral inguinal hernia r epair approximately 30 years ago. - History of a colon ulcer. - Incidental lower right lung nodule. - Abstains from alcohol since March of the current year. Review of Systems - Constitutional: Reports significant pa st weight loss with recent weight gain. Denies dizziness. - Gastrointestinal: Reports improving co nstipation and a history of flatulence. Reports discomfort in the right lower quadrant and back after a bowel movement, similar to his past hernia pain. Reports painful hemorrhoids which are improving. Reports occasional bright red blood per rectum after wiping. Denies dark, tarry stools. Physical Exam General: Chronically ill appearing, in NAD\ Head: Normocephalic, atraumatic. Eyes: Pupils are equal, round and reactive to light and accommodation.Scleras nonicteric Lungs: Decreased breath sounds in RLL otherwise WNL. Heart:Regular rate & rhythm. No murmurs, click, rubs or gallops are noted. Abdomen: Bowel sounds present in all quadrants. Nontender, soft. No CVAT : Deferred. Pulses: Peripheral pulses are equal and palpable bilaterally - decreased. Extremities: No clubbing, cyanosis nor edema is noted. Neurologic: Gait and station normal. Cranial Nerves 2-12 intact. Motor strength grossly symmetrical and intact. No sensory loss. Balance normal. Skin: [place] facial rash w/ some skin drying; No ulcers, or lesions noted. Turgor is good. Skin color is good. Hair and nails are without abnormalities. Psych: Normal eye contact, affect and mood appropriate, and normal interactions. Results - Labs 01/20/25 - Iron: 49 (low end of normal) - TIBC: 337 (normal) - Iron Saturation: 15% (low) - Unsaturated Iron Binding Capacity: 288 (normal) - Red Blood Cell Count: 4.46 (stable) Medical Decision Making The patient is a 69-year-old male with a history of hepatocellular carcinoma presenting for a problem visit regarding constipation and management of cancer treatment side effects. His overall condition is significantly improved since his last visit, having recovered from severe side effects of Lenvima and demonstrating substantial weight gain on a new immunotherapy regimen. His primary complaint of constipation appears well-managed by the recent adjustment of his ferrous sulfate dosage to every other day, a change initiated by his oncologist. His self-reported post-defecation discomfort in the right lower quadrant, radiating to the back in the area of a prior hernia repair, is noted but non- tender on examination, suggesting it is likely related to straining rather than an acute intra-abdominal process. His hemorrhoids are also improving with topical care. Recent labs show stable anemia, which is reassuring. Given his clinical stability and improvement, no major changes to his current regimen are warranted from a primary care perspective. The plan is to continue the current management plan established by his oncology team, including an [facility] in January to monitor treatment response. The patient will maintain close follow-up with his specialists and was instructed to report any worsening pain or new symptoms. Plan 1. Hepatocellular Carcinoma - The patient will continue his current immunotherapy regimen as prescribed by oncology. - Encouraged to continue efforts to gain weight in preparation for a potential third chemoembolization procedure. - The patient will proceed with a schedu led MRI of the abdomen in January to monitor treatment response. - He will follow up with his oncologist, Dr. Eden, in three weeks. 2. Constipation - Continue taking ferrous sulfate every other day as directed by his oncologist to balance iron supplementation with bowel regularity. - The patient was advised to monitor for any worsening abdominal pain and to seek care if it occurs. 3. Hemorrhoids - Continue using Preparation H medicated wipes and cream for symptomatic relief. - It was suggested that he could apply a zinc oxide barrier cream to the perianal area for skin protection. - Monitor for any changes in bleeding, s uch as the appearance of dark blood, and report if noted. 4. Anemia - Continue taking ferrous sulfate every other day. - The patient will have follow-up labs i n a few weeks as directed by his oncologist to monitor his blood counts and iron levels. Patient Instructions - It seems your constipation is getting better, so continue your current treatments. - For your hemorrhoids, continue using P reparation H wipes and cream. You can also apply a zinc oxide cream, like diaper cream, to the area to protect the skin. - Keep up with your good work on eating to gain weight. - If the pain in your abdomen or back ge ts worse, please let us know. - Please provide a copy of your new heal th insurance card once you receive it in January. - Your next follow-up appointment with catie caba is scheduled for March 28. If you need anything sooner, please send a message through the patient portal. Consent Patient was informed and verbally consented to the use of an ambient scribe for clinic note documentation during this visit. Total time spent caring for the patient today was 30 minutes. This includes time spent before the visit reviewing the chart, time spent during the visit, and time spent after the visit on documentation, reviewing laboratory results, johnnie gnostic imaging, medications, performing a medically necessary evaluation, counseling on diagnoses, care coordination, ordering appropriate tests, ordering appropriate medications, review of tests performed by other providers, reporting test results with the patient, communication with other healthcare providers. [facility] Medical History GI bleed Metastasis Liver cancer Peptic ulcer Arthritis Gastric ulcer GERD (gastroesophageal reflux disease) HTN (hypertension) Allergic rhinitis Asthma Surgical History History of esophagogastroduodenoscopy (EGD) Hx of bilateral inguinal hernia repair H/O colonoscopy (~2021) Hx of shoulder surgery Family History Mother Cardiovascular disease Father Diabetes Social History Household Members: None Both parents involved: No Caregiver staying overnight: No Housing: House Are you a primary school childcare attendant to a significant other at home: No Do you presently have visiting nurse or other home services: No 75 years or older and lives alone: No Alcohol intake: current Alcohol intake frequency: a few times a month Alcohol type: beer Patient Tobacco Use Status: Never used Tobacco Tobacco use type: Cigarette e-Cigarette/Vaping Use: Never Used Second Hand Smoke Exposure: No service: No Current occupational status: employed and retired Current occupational exposures/hazards: No Cognitive needs: No Hearing needs: No Vision needs: No Questionnaire Thrive Questionnaire Date Thrive assessed: 10/06/24 I am a: Patient What is your living situation today?: I have a steady place to live Within the past 12 months, did the food you bought not last and you didn't have the money to get more?: Never true Within the past 12 months, did you worry whether your food would run out before you got money to buy more?: Never true Do you have trouble paying for medicines?: No Do you have trouble getting transportation to medical appointments?: No Do you have trouble paying your heating and electricity bill?: No Do you have trouble taking care of your child, family member or friend?: No Do you have trouble with day-to-day activities such as bathing, preparing meals, shopping, managing finances, etc.?: No Are you currently unemployed and looking for a job?: No Are you interested in more education?: No Please select the resources that you would like help with: None Currently or been in a relationship where the following occur: No concerns reported THRIVE Score: 0 KALI-7 AMB Questionnaire KALI-7 Date KALI - 7 assessed: 06/09/24 Source: Developed by Drs. Pedro Elizabeth, Leticia Shultz, Jae Maharaj and colleagues, with an educational vickie from [employer]. Physical exam (Primary Care) Vital Signs: Last Vital Signs Temp 97.2 F 01/21/25 08:36 Pulse 92 01/21/25 08:36 Resp 12 01/21/25 08:36 BP 98/66 01/21/25 08:36 Pulse Ox 98 01/21/25 08:36 Oxygen Delivery Method Room Air 01/21/25 08:36 BMI result Body Mass Index 20.0 Tobacco/Smoking Status: Tobacco use Status Tobacco use date assessed 01/21/25 01/21/25 08:31 Patient Tobacco Use Status Never used Tobacco 01/21/25 08:31 Tobacco use type Cigarette 01/21/25 08:31 e-Cigarette/Vaping Use Never Used 01/21/25 08:31 Thrive Assessment: Date of Thrive Assessment Date Thrive assessed 10/06/24 01/21/25 08:31 Currently or been in a relationship where the following occur: No concerns reported Coding Level of Care Code Est Pt Level 4 (74364) Complex EM visit Add On G2211 Diagnoses Grade II hemorrhoids K64.1 Hemorrhoid type: second degree Drug induced constipation K59.03 Iron deficiency anemia, unspecified iron deficiency anemia type D50.9 Anemia type: iron deficiency Iron deficiency anemia type: unspecified iron deficiency HCC (hepatocellular carcinoma) C22.0 Influenza vaccination declined by caregiver Z28.82 Assessment & Plan Assessment & Plan (1) Hemorrhoids: Code(s): K64.9 - Unspecified hemorrhoids Category: Medical Qualifiers: Hemorrhoid type: second degree Qualified Code(s): K64.1 - Second degree hemorrhoids (2) Drug induced constipation: Code(s): K59.03 - Drug induced constipation Category: Medical (3) Anemia: Code(s): D64.9 - Anemia, unspecified Category: Medical Qualifiers: Anemia type: iron deficiency Iron deficiency anemia type: unspecified iron deficiency Qualified Code(s): D50.9 - Iron deficiency anemia, unspecified (4) HCC (hepatocellular carcinoma): Comment: Status post chemoembolization by IR at [facility] on Friday04/16/24. He started bevacizumab and atezolizumab on 04/29/24 Code(s): C22.0 - Liver cell carcinoma Category: Medical (5) Influenza vaccination declined by caregiver: Onset Date: ~01/21/25 Code(s): Z28.82 - Immunization not carried out because of caregiver refusal Category: Medical Plan . Medications: Changed From ferrous sulfate 325 mg PO DAILY 90 tabs 3RF R16.0 - Hepatomegaly, not elsewhere classified To ferrous sulfate 325 mg PO Q OTHER DAY 90 tabs 3RF R16.0 - Hepatomegaly, not elsewhere classified
--- OUTSIDE RECORDS SUMMARY | 2025-01-21 08:35 | XMS_ITS | Patient Health Record ---
Author Organization [facility] Address [address] [place] [id number] Care Team Providers Care Short Order Cook Name Role Phone Dylon Perez MD Primary Care Provider Pedro Valdes Unavailable [phone] Allergies Allergen (clinical drug ingredient) Drug/Non Drug [...] before a m eal Orally Once a day; Duration: 30 day(s) Active Lisinopril 20 MG Oral; Duration: 90 Active Immunizations Vaccine Route Administration Date Status Comme [...] Problem Status W/U Status Risk Notes Problem Screening for malignant neoplasm of colon (999643629) Encounter for screening for malignant neoplasm of colon (Z12.11) Active confirmed Problem History of adenomatous polyp of colon (775542369) History of adenomatous polyp of colon (Z86.010) Active confirmed Problem Diverticular disease of colon (524783528) Diverticulosis of large intestine without perforation or abscess without bleeding (K57.30) Active confirmed Problem Pre-procedure evaluation check (084834548) Pre-procedural examination (Z01.818) Active confirmed Problem Chronic gastritis (0486677) Chronic gastritis (K29.50) Active confirmed Problem Gastric ulcer (047951285) Gastric ulcer (K25.9) Active confirmed Problem Diverticulosis of colon (226397335) Diverticulosis of colon (K57.30) Active confirmed Plan Of Treatment Future Test Test Name Order Date COLONOSCOPY 05/25/2021 COLONOSCOPY 02/27/2023 Insurance Providers Payer Name Payer Address Payer Phone Subscriber Number Group Number Insured Name Patient Relationship to Insured Coverage Start Date Coverage End Date [facility] [address] [place], [place] [id number] [phone] [id number] KEN MONTANEZ Self - patient is the insured Medical (General) History Medical History History ICD Code Asthma--inactive Denies AL,DM,CVA,renal disease Reports a negative colonoscopy in 2005 a [facility] Psoriatic arthritis Colonoscopy in June [...]
[2025-01-21 08:36] VITALS: BP 98/66; PULSE 92; RESP 12; TEMP 36.2; O2SAT 98
== END 2025-01-21 12:22 | disposition home or self-care (01) ==
LOC: HO.HMCFM 08:23
PROVIDERS: PCP Nurse Practitioner Family; Visit Provider Nurse Practitioner Family
DX: K64.1 Second degree hemorrhoids (principal); K59.03 Drug induced constipation; D50.9 Iron deficiency anemia, unspecified; C22.0 Liver cell carcinoma; Z28.82 Immunization not carried out because of caregiver refusal

== ENCOUNTER → 2025-01-21 08:22 | Outpatient (BNVA) | payer MEDICARE, SELFPAY | PROVIDERS: PCP Nurse Practitioner Family; Visit Provider Nurse Practitioner Family | DX: C22.0 Liver cell carcinoma (principal); K59.00 Constipation, unspecified; K64.1 Second degree hemorrhoids; K59.03 Drug induced constipation; D50.9 Iron deficiency anemia, unspecified; Z28.82 Immunization not carried out because of caregiver refusal; Z79.899 Other long term (current) drug therapy | CPT/HCPCS: 99212 ==

== ENCOUNTER 2025-02-16 10:05 | Inpatient (IN) | payer MEDICARE, SELFPAY ==
[2025-02-16] VITALS (25 sets, daily range): BP systolic 66–128; BP diastolic 42–81; PULSE 94–117; RESP 14–26; TEMP 36.6–37.7; O2SAT 94–97; BMI 18.8
--- NOTE | ~2025-02-16 | CT_ITS ---
EXAMINATION: CT CHEST ANGIOGRAPHY WITH IV CONTRAST, CT ABDOMEN PELVIS WITH IV CONTRAST HISTORY: hypotension, weakness, abdominal pain and bleeding. COMPARISON: Comparison is made with the prior abdominal CT dated 06/30/2024. TECHNIQUE: Helical CT scan of the chest was performed following administration of intravenous contrast. The contrast bolus was timed to optimally opacify the pulmonary arteries. Thin sections were obtained through the pulmonary arteries. Subsequently, images were obtained from the lung bases through the proximal thighs. Coronal and sagittal reformatted images were generated. 3D/MIP reconstructed images are also obtained and reviewed. This CT exam was performed with one or more of the following dose reduction techniques: automated exposure control, adjustment of the mA and/or kV according to patient size, use of iterative reconstruction technique. DLP: 1098 mGy-cm CHEST: THYROID: The thyroid gland is unremarkable. PULMONARY ARTERIES: No intraluminal filling defects are identified within the pulmonary arteries to suggest pulmonary emboli. LUNGS: There is mild motion artifact. There is subsegmental atelectasis at both lung bases. MEDIASTINUM: There is no mediastinal lymphadenopathy. JENNIFER: There is no hilar lymphadenopathy. CARDIOVASCULATURE: The heart is normal in size. There is no pericardial effusion. The thoracic aorta is normal in caliber. DEGREE OF CORONARY CALCIFICATION: not evaluable, due to dense contrast in the coronary arteries. PLEURA: There is a small right pleural effusion. No pneumothorax. MAIN AIRWAYS: The mainstem bronchi and proximal branches are patent. AXILLA: There is no axillary lymphadenopathy. ABDOMEN/PELVIS: LIVER: Again seen is a large calcified mass in the liver. This is larger than on the prior study. In addition, there are new calcifications at the medial aspect of the dome. The liver contour appears nodular, compatible with cirrhosis. The hepatic and portal veins are patent. GALL BLADDER / BILE DUCTS: There is cholelithiasis. There is no intra or extrahepatic biliary ductal dilatation. SPLEEN: The spleen is normal in size. No focal splenic lesion is identified. PANCREAS: The pancreas is unremarkable in appearance. ADRENAL GLANDS: Within normal limits. KIDNEYS/RETROPERITONEUM: No renal calculi are identified. There is no hydronephrosis. No renal masses are identified. LYMPH NODES: No abdominal or pelvic lymphadenopathy. VASCULATURE: The abdominal aorta is normal in caliber. MESENTERY/PERITONEUM: No free air or free fluid. No masses. STOMACH: The stomach is unremarkable. SMALL BOWEL: There is abnormal wall thickening of multiple loops of distal ileum, consistent with enteritis. There is no evidence of obstruction. COLON: The colon is unremarkable. APPENDIX: Normal. URINARY BLADDER/PELVIC ORGANS: The urinary bladder is unremarkable. The prostate is normal in size. BONES / SOFT TISSUES: There is degenerative disc disease of the spine. CT/CT angio chest PE protocol IMPRESSION: 1. No evidence of pulmonary emboli. Small right pleural effusion. 2. Interval enlargement of the patient's known calcified mass. There are new smaller calcified masses at the dome, consistent with progression of disease. 3. Abnormal wall thickening of multiple loops of distal ileum, consistent with enteritis. This may be infectious or inflammatory in nature. Electronically signed by: Pedro Puckett MD 02/16/2025 12:03 PM [facility]
--- NOTE | ~2025-02-16 | CT_ITS ---
EXAMINATION: CT CHEST ANGIOGRAPHY WITH IV CONTRAST, CT ABDOMEN PELVIS WITH IV CONTRAST HISTORY: hypotension, weakness, abdominal pain and bleeding. COMPARISON: Comparison is made with the prior abdominal CT dated 06/30/2024. TECHNIQUE: Helical CT scan of the chest was performed following administration of intravenous contrast. The contrast bolus was timed to optimally opacify the pulmonary arteries. Thin sections were obtained through the pulmonary arteries. Subsequently, images were obtained from the lung bases through the proximal thighs. Coronal and sagittal reformatted images were generated. 3D/MIP reconstructed images are also obtained and reviewed. This CT exam was performed with one or more of the following dose reduction techniques: automated exposure control, adjustment of the mA and/or kV according to patient size, use of iterative reconstruction technique. DLP: 1098 mGy-cm CHEST: THYROID: The thyroid gland is unremarkable. PULMONARY ARTERIES: No intraluminal filling defects are identified within the pulmonary arteries to suggest pulmonary emboli. LUNGS: There is mild motion artifact. There is subsegmental atelectasis at both lung bases. MEDIASTINUM: There is no mediastinal lymphadenopathy. JENNIFER: There is no hilar lymphadenopathy. CARDIOVASCULATURE: The heart is normal in size. There is no pericardial effusion. The thoracic aorta is normal in caliber. DEGREE OF CORONARY CALCIFICATION: not evaluable, due to dense contrast in the coronary arteries. PLEURA: There is a small right pleural effusion. No pneumothorax. MAIN AIRWAYS: The mainstem bronchi and proximal branches are patent. AXILLA: There is no axillary lymphadenopathy. ABDOMEN/PELVIS: LIVER: Again seen is a large calcified mass in the liver. This is larger than on the prior study. In addition, there are new calcifications at the medial aspect of the dome. The liver contour appears nodular, compatible with cirrhosis. The hepatic and portal veins are patent. GALL BLADDER / BILE DUCTS: There is cholelithiasis. There is no intra or extrahepatic biliary ductal dilatation. SPLEEN: The spleen is normal in size. No focal splenic lesion is identified. PANCREAS: The pancreas is unremarkable in appearance. ADRENAL GLANDS: Within normal limits. KIDNEYS/RETROPERITONEUM: No renal calculi are identified. There is no hydronephrosis. No renal masses are identified. LYMPH NODES: No abdominal or pelvic lymphadenopathy. VASCULATURE: The abdominal aorta is normal in caliber. MESENTERY/PERITONEUM: No free air or free fluid. No masses. STOMACH: The stomach is unremarkable. SMALL BOWEL: There is abnormal wall thickening of multiple loops of distal ileum, consistent with enteritis. There is no evidence of obstruction. COLON: The colon is unremarkable. APPENDIX: Normal. URINARY BLADDER/PELVIC ORGANS: The urinary bladder is unremarkable. The prostate is normal in size. BONES / SOFT TISSUES: There is degenerative disc disease of the spine. CT/CT abdomen pelvis w IV con IMPRESSION: 1. No evidence of pulmonary emboli. Small right pleural effusion. 2. Interval enlargement of the patient's known calcified mass. There are new smaller calcified masses at the dome, consistent with progression of disease. 3. Abnormal wall thickening of multiple loops of distal ileum, consistent with enteritis. This may be infectious or inflammatory in nature. Electronically signed by: Pedro Puckett MD 02/16/2025 12:03 PM [facility]
--- NOTE | ~2025-02-16 | MR_ITS ---
CLINICAL HISTORY: HCC, encephalopathy, r o mets --- Additional Notes or Special Instructions: mdo requests pt have contrast MR of the brain with contrast Comparison: MR/REG/DC/SR - MR BRAIN WITHOUT IV CONTRAST - 02/18/25 13:08 EST Findings: No acute infarction, hemorrhage, mass-effect or herniation. No abnormal enhancement. No hydrocephalus. Prominence of the ventricles and extra-axial spaces due to atrophy of the brain parenchyma. Increased signal intensity is seen in the deep and periventricular white matter on the T2/FLAIR sequences, which most likely represents the sequela of chronic small vessel ischemic disease. No extra-axial fluid collection or mass. Unremarkable sella. Normal orbits. Clear paranasal sinuses and mastoid air cells. Unremarkable osseous structures. Impression: No abnormal enhancement. No evidence of metastatic disease. This document has been electronically signed by: Tonja Araujo MD on 02/19/2025 13:49:39
--- NOTE | ~2025-02-16 | XR_ITS ---
EXAMINATION: XR CHEST CLINICAL INFORMATION: dyspnea COMPARISON: Correlated to CT chest dated February 16, 2025. TECHNIQUE: Single portable AP view of the chest was obtained. FINDINGS: Patchy opacity right lower hemithorax. Limited right hemidiaphragm. Blunting of the right) angle. Multifocal patchy calcifications right lower hemithorax likely related to calcifications in the liver mass. There is gas in the hepatic colonic flexure. Prominence of the interstitial markings, right pulmonary hilum. No gross pneumothorax. Cardiomediastinal silhouette size is normal. Multilevel spondylosis, axial skeleton. Degenerative changes in the shoulders XR/XR chest 1V IMPRESSION: . Concerning acute airspace disease right lung with small right-sided pleural effusion. Please refer to the CT chest abdomen and pelvis dated February 16, 2025 Electronically signed by: Angel Rodríguez MD 02/21/2025 01:09 PM [facility]
--- NOTE | ~2025-02-16 | MR_ITS ---
EXAMINATION: MR BRAIN WITHOUT CONTRAST CLINICAL INFORMATION: Persistent encephalopathy. 70-year-old male. COMPARISON: No prior available. TECHNIQUE: MRI of the brain was obtained using routine sequences without contrast. Examination was performed on a 1.5 Amy Siemens high-field unit. FINDINGS: There is motion degradation on multiple pulsing sequences, limiting sensitivity of the examination. There is no diffusion restriction. There is no intracranial hemorrhage, acute infarction, mass effect, or edema. No extra-axial collection. Ventricles, sulci, and cisterns are diffusely somewhat prominent, in keeping with mildly age advanced cerebral and cerebellar volume loss. No shift of midline. There are numerous foci of punctate hemosiderin deposition present in the bilateral cerebral hemispheres, with sparing of the posterior fossa. There are scattered punctate and minimally confluent foci of white matter T2 hyperintensity in the periventricular, subcortical, and hemispheric deep white matter. These foci are nonspecific but statistically relate to small vessel ischemic changes. Midline structures appear normally formed. The pituitary gland appears normal. Posterior fossa structures appear normal. Cerebellar tonsils are appropriately located. Major flow voids are preserved within the skull base. The globes and orbital contents demonstrate no abnormalities. Paranasal sinuses are clear bilaterally. The mastoids and tympanic cavities are normally aerated. Extracranial soft tissues demonstrate no abnormalities. No suspicious bone marrow signal abnormalities are evident. There are mild to moderate degenerative changes in both TM joints. Atlantoaxial joint demonstrates moderate to severe degenerative arthritis. MR/MR head/brain wo con IMPRESSION: 1. Somewhat motion degraded examination. No evidence of intracranial hemorrhage, acute infarction, mass effect, or edema. 2. Mildly age advanced cerebral and cerebellar atrophy. 3. Hemispheric white matter foci of T2 signal hyperintensity, nonspecific, however statistically related to mild to moderate small vessel ischemic changes. 4. Scattered foci of hemosiderin deposition, nonspecific. Differential includes nonspecific/hypertensive microhemorrhages versus amyloid angiopathy. Electronically signed by: Nakul Francis MD 02/18/2025 02:03 PM [facility]
--- NOTE | 2025-02-16 10:11 | ED.GENADULT ---
HPI - General Adult General Chief complaint: Nausea/Vomiting/Diarrhea Stated complaint: from oncology Time Seen by Provider: 02/16/25 10:11 Source: patient and family (patient's nephew) Mode of arrival: wheelchair Limitations: no limitations History of Present Illness ED Provider: Analilia Romano PA-C HPI narrative: Patient is a 70 year old assigned male at with a history of GI bleed, gastric ulcer, gastritis, hemorrhoids, HLD, anemia, PVD, Hepatocellular carcinoma on cycle 4 of temelimumab + durvalumab immunotherapy following with [facility] Heme/Onc presenting to the emergency department today with increased weakness, confusion, vomiting black tarry substance, and no bowel movement over 3 days after taking immodium for diarrhea. Patient states that he has been feeling generally unwell and this morning he vomited dark substance that was sticky. Patient states that he has not had a bowel movement in 3 days after taking immodium for diarrhea. Patient confirms that if his heart were to stop - he would like compressions done. Patient states that he does not want to be intubated. Patient denies any other complaints at this time. Related Data Home Medications ?Medication ?Instructions ?Recorded ?Confirmed loratadine 10 mg tablet (Allergy 10 mg PO DAILY PRN Allergy Symptoms 06/16/20 01/21/25 Relief (loratadine)) ondansetron 4 mg disintegrating 4 mg PO Q6H 06/15/24 01/21/25 tablet durvalumab 50 mg/mL intravenous IV 01/21/25 01/21/25 solution tremelimumab-actl 20 mg/mL IV 01/21/25 01/21/25 intravenous solution (Imjudo) Previous Rx's ?Medication ?Instructions ?Recorded albuterol sulfate 90 mcg/actuation 2 puff inhalation Q4-6H PRN 02/13/24 aerosol inhaler (Ventolin HFA) shortness of breath or wheezing #8.5 grams diclofenac sodium 1 % topical gel 2 g topical QID PRN pain #100 grams 06/09/24 (Voltaren Arthritis Pain) lisinopril 20 mg tablet 20 mg PO DAILY #90 tabs 07/19/24 Magic Mouthwash 10 ml PO QID #240 mL 11/04/24 Diphen/Nystat/Antacid 1:1:1 240 mL suspension ferrous sulfate 325 mg (65 mg 325 mg PO Q OTHER DAY #90 tabs 01/21/25 iron) tablet Allergies Allergy/AdvReac Type Severity Reaction Status Date / Time Penicillins Allergy Severe ANAPHYLAXIS Verified 02/16/25 10:14 Review of Systems Constitutional: Constitutional: Reports as per HPI Eyes: Eyes: Reports as per HPI ENT: Reports as per HPI Cardiovascular: Cardiovascular: Reports as per HPI Respiratory: Respiratory: Reports as per HPI Gastrointestinal: Gastrointestinal: Reports as per HPI Genitourinary: Genitourinary: Reports as per HPI Musculoskeletal: Musculoskeletal: Reports as per HPI Integumentary/Breasts: Skin/Breast: Reports as per HPI Neurologic: Reports as per HPI Psychiatric: Psychiatric: Reports as per HPI Endocrine: Endocrine: Reports as per HPI Hematologic/Lymphatic: Hematologic/Lymphatic: Reports as per HPI Allergic/Immunologic: Allergic/Immunologic: Reports as per HPI PMF Past Medical History Attestation statement: The following information was validated with the patient. (all information validated with the patient's nephew) Source: old records reviewed, obtained from family (patient's nephew provided additional history and confirmed the history provided by the patient. ) and nursing notes reviewed Medical History GI bleed Metastasis Liver cancer Peptic ulcer Arthritis Gastric ulcer GERD (gastroesophageal reflux disease) HTN (hypertension) Allergic rhinitis Asthma Surgical History History of esophagogastroduodenoscopy (EGD) Hx of bilateral inguinal hernia repair H/O colonoscopy (~2021) Hx of shoulder surgery Family History Family History Mother Cardiovascular disease Father Diabetes Social History Social History Household Members: None Housing: House Are you a primary child adolescent care to a significant other at home: No Do you presently have visiting nurse or other home services: No Alcohol intake: current Alcohol intake frequency: a few times a month Alcohol type: beer Patient Tobacco Use Status: Never used Tobacco Tobacco use type: Cigarette e-Cigarette/Vaping Use: Never Used Second Hand Smoke Exposure: No Advance Directives: No Advance Directives Information Provided: Yes Do you have a plan to hurt others: No Plan service: No Current occupational status: employed and retired Current occupational exposures/hazards: No Cognitive needs: No Hearing needs: No Vision needs: No Physical Exam ED Vital Signs: Vital Signs - 24 hr 02/16/25 10:10 02/16/25 10:21 02/16/25 10:30 Temperature 97.9 F Pulse Rate 102 H 100 Respiratory Rate 16 Blood Pressure 95/58 L 83/53 L 81/53 L Pulse Oximetry 94 Oxygen Delivery Method Room Air 02/16/25 10:36 02/16/25 10:53 02/16/25 11:06 Temperature 98.5 F 98.5 F Pulse Rate 98 101 H 104 H Respiratory Rate 18 14 Blood Pressure 66/42 L 73/47 L 75/43 L Pulse Oximetry 96 Oxygen Delivery Method Room Air 02/16/25 11:09 02/16/25 11:25 02/16/25 11:40 Temperature 98.5 F 98.5 F Pulse Rate 109 H 106 H 106 H Respiratory Rate 16 20 18 Blood Pressure 85/42 L 74/52 L 97/46 L Pulse Oximetry 96 Oxygen Delivery Method Room Air 02/16/25 11:58 02/16/25 12:00 02/16/25 12:12 Temperature Pulse Rate 106 H 105 H Respiratory Rate Blood Pressure 88/62 L 109/56 L 103/62 Pulse Oximetry Oxygen Delivery Method 02/16/25 12:17 02/16/25 12:55 Temperature 99.2 F 98.6 F Pulse Rate 94 Respiratory Rate 19 Blood Pressure 94/64 Pulse Oximetry 94 Oxygen Delivery Method Room Air BMI result Body Mass Index 18.8 Const General: cooperative, no acute distress, alert and awake Nutritional Appearance: well nourished Orientation/consciousness: patient oriented x3 HENMT Head: Yes normal to inspection and Yes atraumatic Ears: hearing grossly normal bilaterally and external ears normal General nose exam: Normal external nose present, no nasal discharge noted and no epistaxis Face and sinus: No abrasion, No laceration and Yes other Mouth: Normal oral and palatal mucosa present, no drooling, malodorous breath, no muffled voice and other (evidence of dried dark substance to the border of the patients mouth) Eyes General: appearance normal, both eyes and all related structures Periorbital: periorbital findings normal Eyelids: Yes eyelids normal Conjunctivae: conjunctivae normal Pupils: Equal, round and reactive pupils present EOM: EOMs intact bilaterally Neck Neck: Yes normal visual inspection and Yes full ROM Resp Effort & Inspection: normal respiratory effort and able to speak in complete sentences Cardio Rate: tachycardic Rhythm: regular rhythm Skin Other: pale Neuro General: patient oriented x3, moves all extremities and CN's II-XI intact bilaterally Cranial nerves: Yes Equal, round and reactive pupils present Cognition (Neuro): normal cognition Extrem General: Yes normal to inspection, Yes full ROM and Yes capillary refill normal Psych Appearance: grossly normal Mental Status: mental status grossly normal Affect: normal affect Attitude: cooperative Thought process: Normal thought process present Thought content: Normal thought content present Insight: Good insight present (Psych) Course Course Course Narrative: 11:09 AM 02/16/2025 (Dr. Alexandro Streeter): I took a call from Dr. Ta that patient is presenting with hypotension in the setting of liver cirrhosis and tarry vomiting however he is also taking Imodium, this can cause tarry appearing vomitus and stools, the primary provider initiated IV fluids and PRBC transfusion concerning for massive GI bleeding causing hypotension, I did discuss the case with the provider, right now recommend fluids, albumin, H&H is stable and I think it is not unreasonable to transfuse 1 unit of blood, if patient remains hypotensive may need ICU admission and CT we will be obtained to evaluate for SBO or ongoing bleed, GI consultation. Medications Administered Generic Name Dose Route Start Last Admin Trade Name Freq PRN Reason Stop Dose Admin Albumin Human 100 mls @ 133.333 mls/hr 02/16/25 12:15 02/16/25 13:44 Kedbumin 25 % IV 02/16/25 13:59 Infused Q1H LENA Infusion Discontinued Medications Generic Name Dose Route Start Last Admin Trade Name Freq PRN Reason Stop Dose Admin Diazepam 2.5 mg 02/16/25 13:13 02/16/25 13:38 Diazepam 10 Mg/2 Ml Cartridge IVPUSH 02/16/25 13:14 2.5 mg STAT STA Administration Sodium Chloride 1,000 mls @ 999 mls/hr 02/16/25 10:30 02/16/25 11:17 Ns IV 02/16/25 11:30 Infused .Q1H1M LENA Infusion Sodium Chloride 1,000 mls @ 999 mls/hr 02/16/25 11:00 02/16/25 12:28 Ns IV 02/16/25 12:00 Infused .Q1H1M LENA Infusion Iohexol 85 ml 02/16/25 11:39 02/16/25 11:40 Iohexol 350 Mg/Ml 100 Ml Infus..Btl IV 02/16/25 11:40 85 ml ONCE ONE Administration Pantoprazole Sodium 40 mg 02/16/25 10:30 02/16/25 10:34 Pantoprazole Sodium 40 Mg/10 Ml Vial IVPUSH 02/16/25 10:31 40 mg ONCE ONE Administration Medical Decision Making Medical Decision Making [facility] Narrative: Patient is a 70 year old male with a history of GI bleed, gastric ulcer, gastritis, hemorrhoids, HLD, anemia, PVD, Hepatocellular carcinoma on cycle 4 of temelimumab + durvalumab immunotherapy following with [facility] Heme/Onc presenting to the emergency department today with increased weakness, confusion, vomiting black tarry substance, and no bowel movement over 3 days after taking immodium for diarrhea Exam showed a mildly pale individual who was tachycardic at 102, hypotensive at 86/51 with dried dark vomit to the left lower portion of this mouth and foul smelling breath. I had immediate concern for acute/active GI bleed and gave 1 unit of emergency release blood, 2 liters of NS, Albumin, and IV protonix. Patient got 500ml of NS in the Heme/Onc office before coming down to the ED. CT abd/pelvis + chest showed worsening mass of the liver and abnormal wall thickening of the distal ileum consistent with enteritis. Hgb on 02/15 was 13, first on today was 12.3, repeat was 11.4. HCT 40.2, 37.3, 35 respectively. I am suspicious the drop is from dilution rather than active bleeding. I consulted with Dr. Montesinos, the patient's GI specialist, who had recommendations at this time. Patient remained hypotensive with his last blood pressure at 87/60 and he became mildly agitated. Patient was started on levophed and given IV valium. I spoke with Dr. Garnica, the server engineer, who came and examined the patient. He agreed to admitting the patient to the ICU and recommended against starting the levophed at this time given his MAP is appropriate. Patient's clinical presentation is not consistent with sepsis (@1350). Patient's clinical presentation is more consistent with dehydration and possible GI bleeding. Patient and the patient's nephew verbalized agreement and understanding with this treatment plan and ICU admission. Dr. Streeter staffed this case with me and was in agreement with all of the above listed treatment. Differential Diagnosis Differential Diagnoses: The differential diagnosis associated with the presentation includes GI bleeding Hypotension Dehydration Admission/Observation Consideration of admission/observation: Escalation of care including admission/observation considered Patient admitted to the ICU as noted in the MDM Rationale portion of this note. Consult Healthcare Provider Management of the patient was discussed with: Oil Refinery Operator (spoke with Dr. Garnica and Dr. Montesinos as noted in the MDM rationale portion of this note. ) Lab Data [facility] Lab Attestation statement: I reviewed the patient's lab results. My interpretation of these results are in the MDM Rationale portion of this note. 02/16/25 12:31 02/16/25 10:40 Labs: Lab Results 02/16/25 02/16/25 02/16/25 Range/Units 10:16 10:40 10:45 WBC 6.6 (4.8-10.8) X10*3/uL RBC 4.05 L (4.60-5.80) X10*6/uL Hgb 12.3 L (14.0-18.0) g/dl Hct 37.3 L (42.0-52.0) % MCV 92.1 (80.0-98.0) fL MCH 30.4 (27.0-33.0) pg MCHC 33.0 (31.0-36.0) g/dl RDW 13.6 (11.0-16.0) % Plt Count 509 H (160-400) X10*3/uL MPV 8.7 L (9.4-12.4) fL Immature Gran % (Auto) 1.1 H (0.0-0.4) % Neut % (Auto) 48.7 (45-73) % Lymph % (Auto) 18.1 L (20-40) % [place] % (Auto) 14.6 H (2-11) % Eos % (Auto) 15.8 H (0-4) % Baso % (Auto) 1.7 (0-2) % Lymph # (Auto) 1.2 (1.2-4.9) X10*3/uL [place] # (Auto) 1.0 (0.1-1.2) X10*3/uL Eos # (Auto) 1.0 H (0.0-0.4) X10*3/uL Baso # (Auto) 0.1 (0.0-0.2) X10*3/uL Abs Immat Gran (auto) 0.07 H (0.00-0.03) X10*3/uL Absolute Neuts (auto) 3.2 (2.0-8.3) x10*3/uL Absolute Nucleated RBC 0.000 (0.0-0.012) X10*3/uL Nucleated RBC % (auto) 0.0 (0.0-0.2) /100WBC Smear Tech's Comments VERIFIED Hold Purple Top SEE NOTE PT (11.2-13.5) SEC INR (0.9-1.1) APTT (26.7-34.1) SEC Hold Blue Top SEE NOTE Sodium 132 L (135-145) mmol/L Potassium 4.3 (3.3-5.1) mmol/L Chloride 100 (96-108) mmol/L Carbon Dioxide 17 L (22-29) mmol/L Anion Gap 19 (12-20) BUN 27 H (9-16) mg/dL Creatinine 1.25 (0.5-1.4) mg/dL Estim Creat Clear Calc 46.8 Estimated GFR 57 POC Glucose 78 (60-115) mg/dL Random Glucose 72 (60-115) mg/dL Calcium 10.7 H (8.4-10.2) mg/dL Magnesium 1.7 (1.6-2.6) mg/dL Total Bilirubin 0.7 (0.0-1.0) mg/dL AST 59 H (5-37) U/L ALT 14 (0-40) U/L Alkaline Phosphatase 296 H (39-117) U/L Ammonia (13-55) umol/L NT-Pro-B Natriuret Pep 37.1 (<300) pg/mL Total Protein 7.3 (6.5-8.0) g/dL Albumin 3.5 (3.5-5.0) g/dL Blood Type O Positive Antibody Screen NEGATIVE Crossmatch See Detail 02/16/25 02/16/25 02/16/25 Range/Units 11:08 12:31 13:19 WBC 6.6 (4.8-10.8) X10*3/uL RBC 3.76 L (4.60-5.80) X10*6/uL Hgb 11.4 L (14.0-18.0) g/dl Hct 35.0 L (42.0-52.0) % MCV 93.1 (80.0-98.0) fL MCH 30.3 (27.0-33.0) pg MCHC 32.6 (31.0-36.0) g/dl RDW 13.5 (11.0-16.0) % Plt Count 346 D (160-400) X10*3/uL MPV 7.8 L (9.4-12.4) fL Immature Gran % (Auto) 0.9 H (0.0-0.4) % Neut % (Auto) 51.9 (45-73) % Lymph % (Auto) 18.0 L (20-40) % [place] % (Auto) 14.7 H (2-11) % Eos % (Auto) 13.0 H (0-4) % Baso % (Auto) 1.5 (0-2) % Lymph # (Auto) 1.2 (1.2-4.9) X10*3/uL [place] # (Auto) 1.0 (0.1-1.2) X10*3/uL Eos # (Auto) 0.9 H (0.0-0.4) X10*3/uL Baso # (Auto) 0.1 (0.0-0.2) X10*3/uL Abs Immat Gran (auto) 0.06 H (0.00-0.03) X10*3/uL Absolute Neuts (auto) 3.4 (2.0-8.3) x10*3/uL Absolute Nucleated RBC 0.000 (0.0-0.012) X10*3/uL Nucleated RBC % (auto) 0.0 (0.0-0.2) /100WBC Smear Tech's Comments Hold Purple Top PT 15.5 H (11.2-13.5) SEC INR 1.3 H (0.9-1.1) APTT 39.3 H (26.7-34.1) SEC Hold Blue Top Sodium (135-145) mmol/L Potassium (3.3-5.1) mmol/L Chloride (96-108) mmol/L Carbon Dioxide (22-29) mmol/L Anion Gap (12-20) BUN (9-16) mg/dL Creatinine (0.5-1.4) mg/dL Estim Creat Clear Calc Estimated GFR POC Glucose (60-115) mg/dL Random Glucose (60-115) mg/dL Calcium (8.4-10.2) mg/dL Magnesium (1.6-2.6) mg/dL Total Bilirubin (0.0-1.0) mg/dL AST (5-37) U/L ALT (0-40) U/L Alkaline Phosphatase (39-117) U/L Ammonia 22 (13-55) umol/L NT-Pro-B Natriuret Pep (<300) pg/mL Total Protein (6.5-8.0) g/dL Albumin (3.5-5.0) g/dL Blood Type Antibody Screen Crossmatch 02/16/25 Range/Units 13:20 WBC (4.8-10.8) X10*3/uL RBC (4.60-5.80) X10*6/uL Hgb (14.0-18.0) g/dl Hct (42.0-52.0) % MCV (80.0-98.0) fL MCH (27.0-33.0) pg MCHC (31.0-36.0) g/dl RDW (11.0-16.0) % Plt Count (160-400) X10*3/uL MPV (9.4-12.4) fL Immature Gran % (Auto) (0.0-0.4) % Neut % (Auto) (45-73) % Lymph % (Auto) (20-40) % [place] % (Auto) (2-11) % Eos % (Auto) (0-4) % Baso % (Auto) (0-2) % Lymph # (Auto) (1.2-4.9) X10*3/uL [place] # (Auto) (0.1-1.2) X10*3/uL Eos # (Auto) (0.0-0.4) X10*3/uL Baso # (Auto) (0.0-0.2) X10*3/uL Abs Immat Gran (auto) (0.00-0.03) X10*3/uL Absolute Neuts (auto) (2.0-8.3) x10*3/uL Absolute Nucleated RBC (0.0-0.012) X10*3/uL Nucleated RBC % (auto) (0.0-0.2) /100WBC Smear Tech's Comments Hold Purple Top SEE NOTE PT (11.2-13.5) SEC INR (0.9-1.1) APTT (26.7-34.1) SEC Hold Blue Top Sodium (135-145) mmol/L Potassium (3.3-5.1) mmol/L Chloride (96-108) mmol/L Carbon Dioxide (22-29) mmol/L Anion Gap (12-20) BUN (9-16) mg/dL Creatinine (0.5-1.4) mg/dL Estim Creat Clear Calc Estimated GFR POC Glucose (60-115) mg/dL Random Glucose (60-115) mg/dL Calcium (8.4-10.2) mg/dL Magnesium (1.6-2.6) mg/dL Total Bilirubin (0.0-1.0) mg/dL AST (5-37) U/L ALT (0-40) U/L Alkaline Phosphatase (39-117) U/L Ammonia (13-55) umol/L NT-Pro-B Natriuret Pep (<300) pg/mL Total Protein (6.5-8.0) g/dL Albumin (3.5-5.0) g/dL Blood Type Antibody Screen Crossmatch Independent Interpretation I performed an independent interpretation of an: CT Scan Interpretation: My interpretation is in agreement with the radiologist's impression of these imaging studies as written below. EXAMINATION: CT CHEST ANGIOGRAPHY WITH IV CONTRAST, CT ABDOMEN PELVIS WITH IV CONTRAST HISTORY: hypotension, weakness, abdominal pain and bleeding. COMPARISON: Comparison is made with the prior abdominal CT dated 06/30/2024. TECHNIQUE: Helical CT scan of the chest was performed following administration of intravenous contrast. The contrast bolus was timed to optimally opacify the pulmonary arteries. Thin sections were obtained through the pulmonary arteries. Subsequently, images were obtained from the lung bases through the proximal thighs. Coronal and sagittal reformatted images were generated. 3D/MIP reconstructed images are also obtained and reviewed. This CT exam was performed with one or more of the following dose reduction techniques: automated exposure control, adjustment of the mA and/or kV according to patient size, use of iterative reconstruction technique. DLP: 1098 mGy-cm CHEST: THYROID: The thyroid gland is unremarkable. PULMONARY ARTERIES: No intraluminal filling defects are identified within the pulmonary arteries to suggest pulmonary emboli. LUNGS: There is mild motion artifact. There is subsegmental atelectasis at both lung bases. MEDIASTINUM: There is no mediastinal lymphadenopathy. JENNIFER: There is no hilar lymphadenopathy. CARDIOVASCULATURE: The heart is normal in size. There is no pericardial effusion. The thoracic aorta is normal in caliber. DEGREE OF CORONARY CALCIFICATION: not evaluable, due to dense contrast in the coronary arteries. PLEURA: There is a small right pleural effusion. No pneumothorax. MAIN AIRWAYS: The mainstem bronchi and proximal branches are patent. AXILLA: There is no axillary lymphadenopathy. ABDOMEN/PELVIS: LIVER: Again seen is a large calcified mass in the liver. This is larger than on the prior study. In addition, there are new calcifications at the medial aspect of the dome. The liver contour appears nodular, compatible with cirrhosis. The hepatic and portal veins are patent. GALL BLADDER / BILE DUCTS: There is cholelithiasis. There is no intra or extrahepatic biliary ductal dilatation. SPLEEN: The spleen is normal in size. No focal splenic lesion is identified. PANCREAS: The pancreas is unremarkable in appearance. ADRENAL GLANDS: Within normal limits. KIDNEYS/RETROPERITONEUM: No renal calculi are identified. There is no hydronephrosis. No renal masses are identified. LYMPH NODES: No abdominal or pelvic lymphadenopathy. VASCULATURE: The abdominal aorta is normal in caliber. MESENTERY/PERITONEUM: No free air or free fluid. No masses. STOMACH: The stomach is unremarkable. SMALL BOWEL: There is abnormal wall thickening of multiple loops of distal ileum, consistent with enteritis. There is no evidence of obstruction. COLON: The colon is unremarkable. APPENDIX: Normal. URINARY BLADDER/PELVIC ORGANS: The urinary bladder is unremarkable. The prostate is normal in size. BONES / SOFT TISSUES: There is degenerative disc disease of the spine. CT/CT abdomen pelvis w IV con IMPRESSION: 1. No evidence of pulmonary emboli. Small right pleural effusion. 2. Interval enlargement of the patient's known calcified mass. There are new smaller calcified masses at the dome, consistent with progression of disease. 3. Abnormal wall thickening of multiple loops of distal ileum, consistent with enteritis. This may be infectious or inflammatory in nature. Electronically signed by: Pedro Puckett MD 02/16/2025 12:03 PM [facility] [place]ict[place] By: Pedro Puckett MD Signed By: Electronically signed by Pedro Puckett MD 02/16/25 1203 Radiology Impression Discussion of test interpretation with radiology: I have reviewed the radiologist's reading. Independent Historian Clinical information obtained from an independent historian. History obtained from or confirmed by: Other (patient's nephew provided additional history and confirmed the history provided by the patient. ) Critical Care Time Critical Care Time Critical Care Time: Yes Total Critical Care Time: 74 Attestation: I spent 74 minutes of Critical Care Time with this patient. This does not include time spent on separately reported billable procedures. Discharge Plan Discharge Clinical Impression: Hypotension, Enteritis, Hematemesis Patient Disposition: Admitted As Inpatient
[2025-02-16 10:21] LABS: Glucose, Whole Blood 78 mg/dL (60-115)
--- NOTE | 2025-02-16 10:39 | PC.NURSE ---
Addendum entered by Pat Costa RN 02/16/25 10:41: noted to have black vomit around mouth. emergenct release form for blood done by Ed provider with patient consent. patient requested to be DNI, wants CPR if it comes to it. secondary IV placed in the left #18, labs drawn and obtained. family aware of plan of care. Original Note: Patient presents from oncology appointment. Patient pale, dry and hypotensove on admission. Patient alert oriented x2. yard motor operator brought patient to ED in wheelchair with 500cc ns running thru #22 established in oncology. aptient has increased weakness, 2 assist getting into stretcher. secondary bag of 1l ns started on pressure bag as patient was hypotensive. ED provider at bedside, informed patient last vomited black tarry vomit this morning, noted to have black v
[2025-02-16 10:47] LABS: NRBC Abs Auto 0.000 X10*3/uL (0.0-0.012); NRBC Pct Auto 0.0 /100WBC (0.0-0.2); PLT CLUMP 1; SCAN SMEAR FLAG 1
[2025-02-16 10:49] LABS: Hematocrit 37.3 % (42.0-52.0); Hemoglobin 12.3 g/dl (14.0-18.0); Imm Gran Abs Auto 0.07 X10*3/uL (0.00-0.03); Imm Gran Pct Auto 1.1 % (0.0-0.4); Lymphocytes Absolute Auto 1.2 X10*3/uL (1.2-4.9); MANUAL DIFF FLAG SCAN; Mean Corpuscular HGB Conc 33.0 g/dl (31.0-36.0); Mean Corpuscular Hemoglobin 30.4 pg (27.0-33.0); Mean Corpuscular Volume 92.1 fL (80.0-98.0); Red Blood Count 4.05 X10*6/uL (4.60-5.80)
--- NOTE | 2025-02-16 10:56 | PC.NURSE ---
rapid transfuser primed, patient receiving first unit prbc via rapid transfuser. patient getting rbc at 2400ml/hr. patient is awake and alert, denies dizziness at this time. patient is in trendelenburg.
[2025-02-16 11:13] LABS: Alanine Aminotransferase 14 U/L (0-40); Albumin Level 3.5 g/dL (3.5-5.0); Alkaline Phosphatase 296 U/L (39-117); Anion Gap 19 (12-20); Aspartate Amino Transferase 59 U/L (5-37); Blood Urea Nitrogen 27 mg/dL (9-16); Calcium 10.7 mg/dL (8.4-10.2); Carbon Dioxide 17 mmol/L (22-29); Chloride 100 mmol/L (96-108); Creatinine Clr Calc Pharmacy 46.8; Estimated Glomerular Filt Rate 57; Magnesium 1.7 mg/dL (1.6-2.6); Potassium 4.3 mmol/L (3.3-5.1); Sodium 132 mmol/L (135-145); Total Protein 7.3 g/dL (6.5-8.0)
[2025-02-16 11:27] LABS: Platelet Count 509 X10*3/uL (160-400); White Blood Count 6.6 X10*3/uL (4.8-10.8)
[2025-02-16 11:29] LABS: INTERNATIONAL NORM RATIO 1.3 (0.9-1.1); Prothrombin Time 15.5 SEC (11.2-13.5)
[2025-02-16 11:29] LABS: NT Pro B Type Natriuretic Pept 37.1 pg/mL (<300)
[2025-02-16 11:32] LABS: Partial Thromboplastin Time 39.3 SEC (26.7-34.1)
[2025-02-16] MEDS: iohexoL 350 MG/ML 100 ML INFUS..BTL 85 ML IV (11:40)
--- NOTE | 2025-02-16 11:43 | PC.NURSE ---
patient went to ct on RN monitor and tele, remained stable. patient back in room 5, remains hypotensive, 1 unit prbc finished per tar. patient remains at baseline, call urrutia within reach
--- NOTE | 2025-02-16 11:44 | PC.NURSE ---
patient went to ct on RN monitor on tele, patient remained stable. back in room 4 at this time, patient remains hypotensive at this time, ED provider aware. call urrutia within reach, patient remains at baseline
[2025-02-16] MEDS: Albumin Human 25 % 100 ML 133.33 ML IV ×2 (12:12→12:52)
[2025-02-16 12:34] LABS: MANUAL DIFF FLAG NO
[2025-02-16 12:37] LABS: Hematocrit 35.0 % (42.0-52.0); Hemoglobin 11.4 g/dl (14.0-18.0); Imm Gran Abs Auto 0.06 X10*3/uL (0.00-0.03); Imm Gran Pct Auto 0.9 % (0.0-0.4); Lymphocytes Absolute Auto 1.2 X10*3/uL (1.2-4.9); Mean Corpuscular HGB Conc 32.6 g/dl (31.0-36.0); Mean Corpuscular Hemoglobin 30.3 pg (27.0-33.0); Mean Corpuscular Volume 93.1 fL (80.0-98.0); NRBC Abs Auto 0.000 X10*3/uL (0.0-0.012); NRBC Pct Auto 0.0 /100WBC (0.0-0.2); Platelet Count 346 X10*3/uL (160-400); Red Blood Count 3.76 X10*6/uL (4.60-5.80); White Blood Count 6.6 X10*3/uL (4.8-10.8)
[2025-02-16 13:37] LABS: Ammonia 22 umol/L (13-55)
--- NOTE | 2025-02-16 13:37 | PC.NURSE ---
patient noted to be increasingly confused/agitated, pulled one of his IV's out. patient now thinks its leno. #20 placed in the RAC#20. patient asking for nephew at bedside, nephew called and came to bedside to help reassure patient. patient moved into room 22 for better monitoring/closer to nurses station. at this point was advised not start pressors by icu attending.
[2025-02-16] MEDS: diazePAM 10 MG/2 ML CARTRIDGE 2.5 MG IVPUSH (13:38)
--- NOTE | 2025-02-16 13:44 | P.HPCC_ITS ---
History of Present Illness Date of Service: 02/16/25 Chief Complaint: Hypotension 70-year-old gentleman with remote GI bleed secondary to gastric ulcer, gastritis, hemorrhoids, hepatocellular carcinoma on immunologic therapy presented [facility] oncology office with hypotension and what appears to have been coffee-ground emesis. On ER evaluation patient with hypotension with initial poor response to IV fluid. Gastroenterology service consulted by emergency and plans for intervention at this time No overt GI bleeding, admitted to intensive care unit for close monitoring. Review of Systems 2 Constitutional: Constitutional: Denies daytime sleepiness, Denies excessive sweating, Denies fatigue, Denies fever(s), Denies lethargy, Denies malaise, Denies night sweats, Denies snoring and Denies weight loss Eyes: Eyes: Denies blurry vision and Denies itchy eyes ENT: Denies nasal congestion, Denies post nasal drip, Denies sinus pain, Denies sinus pressure and Denies other ( Thrush) Cardiovascular: Cardiovascular: Denies chest pain, Denies pedal edema, Denies dyspnea, Denies orthopnea and Denies paroxysmal nocturnal dyspnea Respiratory: Respiratory: Denies cough, Denies hemoptysis, Denies excessive phlegm production, Denies dyspnea, Denies snoring and Denies wheezing Gastrointestinal: Gastrointestinal: Denies abdominal pain, Denies heartburn and Reports vomiting Musculoskeletal: Musculoskeletal: Denies myalgias, Denies arthralgias and Denies joint swelling Integumentary/Breasts: Skin/Breast: Denies rash Neurologic: Denies memory loss and Denies seizure-like activity Psychiatric: Psychiatric: Denies abnormal sleep pattern, Denies anxiety and Denies memory loss Endocrine: Endocrine: Denies excessive sweating, Denies fatigue and Denies heat intolerance Hematologic/Lymphatic: Hematologic/Lymphatic: Denies easy bruising Allergic/Immunologic: Allergic/Immunologic: Denies itchy eyes, Denies seasonal rhinorrhea and Denies wheezing PMFSH Past Medical History Medical History GI bleed Metastasis Liver cancer Peptic ulcer Arthritis Gastric ulcer GERD (gastroesophageal reflux disease) HTN (hypertension) Allergic rhinitis Asthma Family History Family History Mother Cardiovascular disease Father Diabetes Surgical History Surgical History History of esophagogastroduodenoscopy (EGD) Hx of bilateral inguinal hernia repair H/O colonoscopy (~2021) Hx of shoulder surgery Social History Social History Household Members: None Housing: House Are you a primary career and technology education teacher to a significant other at home: No Do you presently have visiting nurse or other home services: No Alcohol intake: current Alcohol intake frequency: a few times a month Alcohol type: beer Patient Tobacco Use Status: Never used Tobacco Tobacco use type: Cigarette e-Cigarette/Vaping Use: Never Used Second Hand Smoke Exposure: No Advance Directives: No Advance Directives Information Provided: Yes Do you have a plan to hurt others: No Plan service: No Current occupational status: employed and retired Current occupational exposures/hazards: No Cognitive needs: No Hearing needs: No Vision needs: No Meds Allergies Allergy/AdvReac Type Severity Reaction Status Date / Time Penicillins Allergy Severe ANAPHYLAXIS Verified 02/16/25 10:14 Active Medications: Current Medications Albumin Human (Kedbumin 25 %) 100 mls @ 133.333 mls/hr IV Q1H LENA Stop: 02/16/25 13:59 Last Admin: 02/16/25 12:52 Dose: 133.33 mls/hr Lactated Ringer's (Lr) 1,000 mls @ 999 mls/hr IV .Q1H1M LENA Stop: 02/16/25 15:45 Home Medications ?Medication ?Instructions ?Recorded ?Confirmed ?Last Taken ?Type loratadine 10 mg tablet (Allergy 10 mg PO DAILY PRN Al lergy Symptoms 06/16/20 01/21/25 Unknown History Relief (loratadine)) ondansetron 4 mg disintegrating 4 mg PO Q6H 06/15/24 1 Unknown History tablet durvalumab 50 mg/mL intravenous IV 01/21/25 01/21/25 U nknown History solution tremelimumab-actl 20 mg/mL IV 01/21/25 01/21/25 Unknow n History intravenous solution (Imjudo) Physical Exam 2 Vital Signs: Vital Signs: Last Vital Signs Temp 98.6 F 02/16/25 12:55 Pulse 94 02/16/25 12:55 Resp 19 02/16/25 12:55 BP 94/64 02/16/25 12:55 Pulse Ox 94 02/16/25 12:55 O2 Del Method Room Air 02/16/25 12:55 BMI result Body Mass Index 18.8 Const: General: no acute distress, alert and awake Eyes: Sclerae: sclerae normal EOM: EOMs intact bilaterally Neck: Neck: Yes no lymphadenopathy, Yes trachea midline and Yes supple Resp: Effort & Inspection: normal respiratory effort and no respiratory distress Auscultation: clear to auscultation bilaterally Cardio: Rate: regular rate Rhythm: regular rhythm Heart sounds: no gallops, no murmurs and no rubs GI: Palpation (GI): Soft to palpation and Other GI palpation findings present ( Nontender) Auscultation: normal bowel sounds Extrem: General: Yes no pedal edema, No clubbing and No cyanosis Results Labs 02/16/25 12:31 02/16/25 10:40 Labs: Laboratory Results - last 24 hr 02/16/25 02/16/25 02/16/25 10:16 10:40 10:45 MCV 92.1 MCH 30.4 MCHC 33.0 RDW 13.6 Plt Count 509 H MPV 8.7 L Immature Gran % (Auto) 1.1 H Neut % (Auto) 48.7 Lymph % (Auto) 18.1 L [place] % (Auto) 14.6 H Eos % (Auto) 15.8 H Baso % (Auto) 1.7 Lymph # (Auto) 1.2 [place] # (Auto) 1.0 Eos # (Auto) 1.0 H Baso # (Auto) 0.1 Abs Immat Gran (auto) 0.07 H Absolute Neuts (auto) 3.2 Absolute Nucleated RBC 0.000 Nucleated RBC % (auto) 0.0 Smear Tech's Comments VERIFIED Hold Purple Top SEE NOTE PT INR APTT Hold Blue Top SEE NOTE Anion Gap 19 Estim Creat Clear Calc 46.8 Estimated GFR 57 POC Glucose 78 Random Glucose 72 Calcium 10.7 H Magnesium 1.7 Total Bilirubin 0.7 AST 59 H ALT 14 Alkaline Phosphatase 296 H Ammonia NT-Pro-B Natriuret Pep 37.1 Total Protein 7.3 Albumin 3.5 Blood Type O Positive Antibody Screen NEGATIVE Crossmatch See Detail 02/16/25 02/16/25 02/16/25 11:08 12:31 13:19 MCV 93.1 MCH 30.3 MCHC 32.6 RDW 13.5 Plt Count 346 D MPV 7.8 L Immature Gran % (Auto) 0.9 H Neut % (Auto) 51.9 Lymph % (Auto) 18.0 L [place] % (Auto) 14.7 H Eos % (Auto) 13.0 H Baso % (Auto) 1.5 Lymph # (Auto) 1.2 [place] # (Auto) 1.0 Eos # (Auto) 0.9 H Baso # (Auto) 0.1 Abs Immat Gran (auto) 0.06 H Absolute Neuts (auto) 3.4 Absolute Nucleated RBC 0.000 Nucleated RBC % (auto) 0.0 Smear Tech's Comments Hold Purple Top PT 15.5 H INR 1.3 H APTT 39.3 H Hold Blue Top Anion Gap Estim Creat Clear Calc Estimated GFR POC Glucose Random Glucose Calcium Magnesium Total Bilirubin AST ALT Alkaline Phosphatase Ammonia 22 NT-Pro-B Natriuret Pep Total Protein Albumin Blood Type Antibody Screen Crossmatch 02/16/25 13:20 MCV MCH MCHC RDW Plt Count MPV Immature Gran % (Auto) Neut % (Auto) Lymph % (Auto) [place] % (Auto) Eos % (Auto) Baso % (Auto) Lymph # (Auto) [place] # (Auto) Eos # (Auto) Baso # (Auto) Abs Immat Gran (auto) Absolute Neuts (auto) Absolute Nucleated RBC Nucleated RBC % (auto) Smear Tech's Comments Hold Purple Top SEE NOTE PT INR APTT Hold Blue Top Anion Gap Estim Creat Clear Calc Estimated GFR POC Glucose Random Glucose Calcium Magnesium Total Bilirubin AST ALT Alkaline Phosphatase Ammonia NT-Pro-B Natriuret Pep Total Protein Albumin Blood Type Antibody Screen Crossmatch Imaging Radiologist's Impressions: Impressions Abdomen/Pelvis CT 02/16/25 11:27 IMPRESSION: 1. No evidence of pulmonary emboli. Small right pleural effusion. 2. Interval enlargement of the patient's known calcified mass. There are new smaller calcified masses at the dome, consistent with progression of disease. 3. Abnormal wall thickening of multiple loops of distal ileum, consistent with enteritis. This may be infectious or inflammatory in nature. Electronically signed by: Pedro Puckett MD 02/16/2025 12:03 PM [facility] [place] Chest CTA 02/16/25 11:27 IMPRESSION: 1. No evidence of pulmonary emboli. Small right pleural effusion. 2. Interval enlargement of the patient's known calcified mass. There are new smaller calcified masses at the dome, consistent with progression of disease. 3. Abnormal wall thickening of multiple loops of distal ileum, consistent with enteritis. This may be infectious or inflammatory in nature. Electronically signed by: Pedro Puckett MD 02/16/2025 12:03 PM [facility] Assessment and Plan (1) Vomiting: Status: Acute (2) Hypotension: Status: Acute (3) HCC (hepatocellular carcinoma): Status: Acute Plan Assessment: 70-year-old gentleman with underlying hepatocellular carcinoma and GI bleed admitted with hypotension and suspicion for coffee-ground emesis Plan: Neuro: No acute issues. Cardiac: Hypotension, day improving with IV fluids. Pulmonary: No acute issues. Renal: No acute issues. Endo: No acute issues. GI: Suspicion for upper GI bleed. Empiric added PPI. Gastroenterology evaluation. ID: No acute issues Heme/Onc: Monitor hemoglobin, transfusion threshold of 7. Psych: No acute issues. Miscellaneous: No acute issues. Prophylaxis: Pneumatic compression, PPI Diet: NPO
[2025-02-16] MEDS: Lactated Ringers 1,000 ML 999 ML IV ×2 (13:49→15:48)
--- NOTE | 2025-02-16 14:07 | PC.NURSE ---
Nurse to nurse report given over the phone for an ICU bed.
--- NOTE | 2025-02-16 14:22 | PC.NURSE ---
report given to agricultural and forestry supervisorKEYONA thorne over the phone
--- NOTE | 2025-02-16 14:37 | PHA.MEDREC ---
Addendum entered by Sasha Moser RPh 02/16/25 14:45: reviewed by [facility]. Original Note: Pharmacy Consult ? Medication Reconciliation Pharmacy has completed the medication reconciliation. Pt poor historian with his medications. Called pt family member Efrem ([phone]) and he confirmed pt medications. Pt taking Durvalumab 50mg iv injection once a month by his cancer Dr and family state pt was due to get that today but came in the Ed instead, pt takes Iron tablets Q48H and took those yesterday.
--- NOTE | 2025-02-16 15:33 | PM.EVENT ---
Event Note Date of Service: 02/16/25 Event Note: GI Consult-Full note dictated-History from his nurses, the EMR, and his nephew, Efrem. Patient is presently confused and can not give a reliable history. Imp/Recs: 1. Reported description of some possible coffee grounds emesis and melena at home, but without hematemesis or hematochezia. He has had no signs of bleeding, N/V, or diarrhea since arrival in the ER. His Hgb has been fairly stable and the BUN is just minimally elevated compared to his creatinine. I suspect this represents a limited UGI bleed in relation to gastritis, PUD, esophagitis, or even a Alexandra-Montesinos tear. I do not think this represents a variceal bleed. Given his current clinical condition with confusion, weakness, and overall frail appearance, I will hold off on an upper endoscopy unless he shows signs of active bleeding. Continue IV PPI and advance diet as tolerated, F/U Hgb and transfuse PRN, call GI if active bleeding occurs. 2. Enteritis on CT scan is most likely related to his chemotherapy, although there is no report of diarrhea here in the hospital. Would observe for now and treat supportively. If diarrhea develops I would recommend checking stool specimens for C.diff and GI Panel. 3. Alcohol-related liver disease/Cirrhosis on CT scan--currently stable from that standpoint in regard to his TBili, PT/INR, and Ammonia level. There does not appear to any significant ascites on the imaging studies either. Observe. 4. Hepatoma-as per Oncology. Dr. Wood is covering GI from the rest of today through 02/20. Case D/W Dr. Wood and Dr. Garnica. Thanks. Time Spent With Patient Time: Total time managing care of this patient today ____ minutes.
[2025-02-16 16:10] LABS: Appearance Urine Clear; Glucose Urine UA Negative (Negative); PH 5.0 (5.0-9.0); Specific Gravity - Urine 1.025 (1.005-1.025)
--- NOTE | 2025-02-16 17:34 | PC.NURSE ---
Assumed care at 1430. Upon initial assessment, pt tremulous and confused. Somewhat redirectable. Alert to self. States he knows he is in a bar! Sitter and camera in room. Pt repositioned q2hr as tolerated. See MAR and assessments or further details. Fall & safety precautions in place.
[2025-02-16 19:18] LABS: MANUAL DIFF FLAG NO
[2025-02-16 19:37] LABS: Albumin Level 3.3 g/dL (3.5-5.0); Anion Gap 13 (12-20); Blood Urea Nitrogen 18 mg/dL (9-16); Calcium 9.7 mg/dL (8.4-10.2); Carbon Dioxide 19 mmol/L (22-29); Chloride 106 mmol/L (96-108); Creatinine Clr Calc Pharmacy 63.6; Estimated Glomerular Filt Rate > 60; Magnesium 1.4 mg/dL (1.6-2.6); Potassium 4.3 mmol/L (3.3-5.1); Sodium 134 mmol/L (135-145)
[2025-02-16 19:51] LABS: Hematocrit 31.2 % (42.0-52.0); Hemoglobin 10.8 g/dl (14.0-18.0); Imm Gran Abs Auto 0.03 X10*3/uL (0.00-0.03); Imm Gran Pct Auto 0.6 % (0.0-0.4); Lymphocytes Absolute Auto 1.0 X10*3/uL (1.2-4.9); Mean Corpuscular HGB Conc 34.6 g/dl (31.0-36.0); Mean Corpuscular Hemoglobin 30.9 pg (27.0-33.0); Mean Corpuscular Volume 89.4 fL (80.0-98.0); NRBC Abs Auto 0.000 X10*3/uL (0.0-0.012); NRBC Pct Auto 0.0 /100WBC (0.0-0.2); Platelet Count 340 X10*3/uL (160-400); Red Blood Count 3.49 X10*6/uL (4.60-5.80); White Blood Count 5.1 X10*3/uL (4.8-10.8)
[2025-02-16] MEDS: Magnesium Sulfate/H2O 2 GM/50 ML PIGGYBACK IV (19:59)
[2025-02-16] MEDS: Albumin Human 25 % 100 ML IV (19:59)
[2025-02-17] VITALS (34 sets, daily range): BP systolic 78–147; BP diastolic 45–97; PULSE 78–106; RESP 12–24; TEMP 36.7–38.3; O2SAT 92–96; BMI 20.9
[2025-02-17] MEDS: Albumin Human 25 % 100 ML IV (01:24)
--- NOTE | 2025-02-17 01:57 | CONS_ITS ---
DATE OF SERVICE: 02/16/2025 REASON FOR CONSULTATION: Reported melena and coffee-grounds emesis with an abnormal CT scan of the GI tract. History has been obtained mainly from the EMR and his nephew, Efrem HISTORY OF PRESENT ILLNESS: The patient is a 70-year-old male with the diagnosis of hepatoma since late February of 2024. This was confirmed on biopsy in March of 2024. This has been treated through [facility] with initially immunotherapy and then subsequent TACE procedures with Dr. Tobar at [facility], and finally most recently with chemotherapy as well. His recent course has been that of some worsening anorexia, weight loss, and overall feeling of fatigue. He was found to be quite weak and relatively hypotensive when he came in for chemotherapy today in the Oncology Department and was sent to the ER. According to the patient's nephew, Efrem, he did have some blackish vomitus at home. There was also a question of some black stools. There was no evidence of any hematemesis or hematochezia. He does have a previous history of a small gastric ulcer seen in 2021 with endoscopy. He has a former history of alcohol abuse, but has not used any alcohol since the diagnosis of his hepatoma. There is no reported use of blood thinners or anything such as NSAIDs. He does appear to be on iron supplements at least every other day. Since arrival in the ER, he has had no signs of bleeding. He has had no vomiting or diarrhea. He has been receiving fluids to try to stabilize his blood pressure. His medications at home included loratadine, Zofran, and the chemotherapy with durvalumab and tremelimumab. He has also been on iron supplements. PAST MEDICAL HISTORY: Diagnosis of hepatoma on biopsy in March of this year. He has undergone the above-mentioned treatments including the immunotherapy, transarterial chemoembolization at [facility], and chemotherapy. He has a history of asthma and psoriatic arthritis. History of tubular adenomas of the colon removed in June 2021, July of 2021, and in 2023. History of a small gastric ulcer seen on an upper endoscopy in 2021 with gastric biopsies negative for H pylori. There is no reported history of LA, diabetes or stroke. SURGICAL HISTORY: Includes that of the right shoulder. FAMILY HISTORY: Negative for GI malignancy nor liver disease. SOCIAL HISTORY: He does not smoke. He is single. 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 He apparently did have a history of fairly steady drinking although was able to work. REVIEW OF SYSTEMS: Currently not obtainable. PHYSICAL EXAMINATION: GENERAL: The patient is an alert, chronically ill-appearing male, in no distress. He cannot really give any history and cannot answer as to the year or location. SKIN: Warm and dry. Nonjaundiced. Anicteric sclerae. CARDIAC: Normal S1, S2. ABDOMEN: Soft, nondistended and without rebound or guarding. There is some mild diffuse tenderness. His CT of the chest, abdomen, and pelvis earlier today was negative for pulmonary embolus. There was a small right pleural effusion. There was a large calcified mass in the liver, which appears larger than on the previous studies. Gallstones are present in the gallbladder, but without any sign of biliary obstruction. The spleen and pancreas were normal. The GI tract shows some abnormal wall thickening in multiple loops of the distal ileum, consistent with enteritis. There was no obstruction. The liver did have some nodular contour to it, raising a suspicion of cirrhosis. The portal vein was patent and without any sign of thrombosis. Hemoglobin yesterday was 13.0. Hemoglobin this morning was 12.3 and repeat this afternoon was 11.4. Platelet count was 509,000 this morning and repeat was 346,000. White blood cell count 6.6. PT 15.5 with INR 1.3. Sodium 132, potassium 4.7, chloride 98, CO2 of 18, BUN 21, creatinine 0.9, calcium 11.1, total bilirubin 0.7, AST 69, ALT 20, alkaline phosphatase 354 and albumin of 3.5. IMPRESSION: Given the patient's clinical history he may very well have had a self-limited upper gastrointestinal bleed, but there has been no sign of active bleeding since arrival here in the hospital. Given his clinical history, this may very well represent some bleeding from gastritis, esophagitis, duodenitis, and/or peptic ulcer disease. I doubt this represents anything such as an upper gastrointestinal neoplasm. I do not think this sounds like variceal bleeding given no reported hematemesis. At this point, I would hold off upper endoscopy, given no active bleeding, his overall frail appearance, weakness, and some confusion. Certainly, if he shows signs of active bleeding, then that could be reassessed. In the meantime, I would continue his IV PPI and advance his diet as tolerated. I would continue to follow his hemoglobin and transfuse him if need be. He does not appear to have any enteritis based on his clinical history given no reported diarrhea here in the hospital, but this will need to be observed. I suspect the CT scan findings of enteritis could certainly be related to his current use of chemotherapy. If he does begin to have diarrhea, I would check stool specimens for gastrointestinal panel and Clostridium difficile. While he appears to have some cirrhosis on his imaging studies, his liver disease seems to be fairly stable, given normal PT with INR, normal total bilirubin, and no sign of any ascites or encephalopathy based on the normal ammonia level. I would continue to observe him in that regard. Obviously, hopefully, he will remain abstinent from alcohol long-term. This has all been discussed in detail with the patient's nephew, Mr. Efrem Galicia, and he is comfortable with this plan. Again, I did advise him that if he begins to show signs of active bleeding, we could always reassess things and have him undergo upper endoscopy if need be. Dr. Wood will be covering the GI service over the next 4 days during the . He is aware of the patient. Thank you for the consultation. MD ZACKARY Boss/YANCI / [phone] MTDJean Marie
[2025-02-17 05:00] LABS: VBG HCO3 16 mmol/L (22-26); VBG O2 % Saturation 96.0 %
[2025-02-17 05:32] LABS: MANUAL DIFF FLAG NO
[2025-02-17 05:38] LABS: Hematocrit 35.2 % (42.0-52.0); Hemoglobin 11.7 g/dl (14.0-18.0); Imm Gran Abs Auto 0.02 X10*3/uL (0.00-0.03); Imm Gran Pct Auto 0.4 % (0.0-0.4); Lymphocytes Absolute Auto 1.1 X10*3/uL (1.2-4.9); Mean Corpuscular HGB Conc 33.2 g/dl (31.0-36.0); Mean Corpuscular Hemoglobin 29.9 pg (27.0-33.0); Mean Corpuscular Volume 90.0 fL (80.0-98.0); NRBC Abs Auto 0.000 X10*3/uL (0.0-0.012); NRBC Pct Auto 0.0 /100WBC (0.0-0.2); Platelet Count 353 X10*3/uL (160-400); Red Blood Count 3.91 X10*6/uL (4.60-5.80); White Blood Count 5.7 X10*3/uL (4.8-10.8)
[2025-02-17 05:58] LABS: Albumin Level 4.1 g/dL (3.5-5.0); Anion Gap 19 (12-20); Blood Urea Nitrogen 14 mg/dL (9-16); Calcium 10.4 mg/dL (8.4-10.2); Carbon Dioxide 17 mmol/L (22-29); Chloride 105 mmol/L (96-108); Creatinine Clr Calc Pharmacy 81.3; Estimated Glomerular Filt Rate > 60; Magnesium 1.6 mg/dL (1.6-2.6); Potassium 4.1 mmol/L (3.3-5.1); Sodium 137 mmol/L (135-145)
[2025-02-17] MEDS: Lactated Ringers 1,000 ML 999 ML IV ×3 (06:44→10:57)
[2025-02-17 06:50] LABS: Venous Blood Gas Refer to POC result
--- NOTE | 2025-02-17 06:57 | PC.NURSE ---
Assumed care at 1900. Patient alert to self and able to correctly give month, but unsure of place or why he is here. Resistive?to care at times and requiring frequent redirection, but largely cooperative. 1-1 sitter at bedside for safety. SR/ST on tele, HR 90s-100s. Patient lung sounds diminished to the bases, but saturating well on room air. abdomen soft and round, active BS x4 and passing flatus. Condom cath in place, draining clear concentrated urine. Skin warm and dry, blanchable redness to buttocks with pink foam in place for protection. Patient repositioned Q2HR, bed locked in lowest position, bed alarm on. Approx 0600, patient with soft BPs, MAP <65. SENIOR NET C DEVELOPER Maria notified, 1L LR bolus ordered and administered per MAY, pending effectiveness. Bedside report given to oncoming RN.
[2025-02-17] MEDS: 0.9 % Sodium Chloride Flush 3 ML SYRINGE IVFLUSH ×2 (08:14→16:02)
--- NOTE | 2025-02-17 10:35 | P.PNCC_ITS ---
Subjective Subjective Date of Service: 02/17/25 Interval History: 70-year-old gentleman with remote GI bleed secondary to gastric ulcer, gastritis, hemorrhoids, hepatocellular carcinoma on immunologic therapy presented [facility] oncology office with hypotension and what appears to have been coffee-ground emesis. On ER evaluation patient with hypotension with initial poor response to IV fluid. Gastroenterology service consulted by emergency and plans for intervention at this time No overt GI bleeding, admitted to intensive care unit for close monitoring. This a.m. with development of hypotension requiring pressor support but no rebleeding. Overnight events as above. Critical Care Time (minutes): 45 Physical Exam 2 Vital Signs: Vital Signs: Last Vital Signs Temp 98.4 F 02/17/25 10:00 Pulse 79 02/17/25 10:15 Resp 20 02/17/25 10:00 BP 111/68 02/17/25 10:15 Pulse Ox 96 02/17/25 10:00 O2 Del Method Room Air 02/17/25 10:00 FiO2 30 02/16/25 21:00 BMI result Body Mass Index 20.9 Const: General: no acute distress, alert and awake Eyes: Sclerae: sclerae normal EOM: EOMs intact bilaterally Neck: Neck: Yes no lymphadenopathy, Yes trachea midline and Yes supple Resp: Effort & Inspection: normal respiratory effort and no respiratory distress Auscultation: clear to auscultation bilaterally Cardio: Rate: regular rate Rhythm: regular rhythm Heart sounds: no gallops, no murmurs and no rubs GI: Palpation (GI): Soft to palpation and Other GI palpation findings present ( Nontender) Auscultation: normal bowel sounds Extrem: General: Yes no pedal edema, No clubbing and No cyanosis Objective Data Labs 02/17/25 04:51 02/17/25 04:51 Labs: Laboratory Results - last 24 hr 02/16/25 02/16/25 02/16/25 10:16 10:40 10:45 WBC 6.6 RBC 4.05 L Hgb 12.3 L Hct 37.3 L MCV 92.1 MCH 30.4 MCHC 33.0 RDW 13.6 Plt Count 509 H MPV 8.7 L Immature Gran % (Auto) 1.1 H Neut % (Auto) 48.7 Lymph % (Auto) 18.1 L [place] % (Auto) 14.6 H Eos % (Auto) 15.8 H Baso % (Auto) 1.7 Lymph # (Auto) 1.2 [place] # (Auto) 1.0 Eos # (Auto) 1.0 H Baso # (Auto) 0.1 Abs Immat Gran (auto) 0.07 H Absolute Neuts (auto) 3.2 Absolute Nucleated RBC 0.000 Nucleated RBC % (auto) 0.0 Smear Tech's Comments VERIFIED Hold Purple Top SEE NOTE PT INR APTT Hold Blue Top SEE NOTE VBG pH VBG pCO2 VBG pO2 VBG HCO3 VBG O2 Saturation VBG Base Excess Sodium 132 L Potassium 4.3 Chloride 100 Carbon Dioxide 17 L Anion Gap 19 BUN 27 H Creatinine 1.25 Estim Creat Clear Calc 46.8 Estimated GFR 57 POC Glucose 78 Random Glucose 72 Lactic Acid Calcium 10.7 H Phosphorus Magnesium 1.7 Total Bilirubin 0.7 AST 59 H ALT 14 Alkaline Phosphatase 296 H Ammonia NT-Pro-B Natriuret Pep 37.1 Total Protein 7.3 Albumin 3.5 Urine Color Urine Appearance Urine pH Ur Specific [place] Urine Protein Urine Glucose (UA) Urine Ketones Urine Blood Urine Nitrite Ur Leukocyte Esterase Blood Type O Positive Antibody Screen NEGATIVE Crossmatch See Detail 02/16/25 02/16/25 02/16/25 11:08 12:31 13:19 WBC 6.6 RBC 3.76 L Hgb 11.4 L Hct 35.0 L MCV 93.1 MCH 30.3 MCHC 32.6 RDW 13.5 Plt Count 346 D MPV 7.8 L Immature Gran % (Auto) 0.9 H Neut % (Auto) 51.9 Lymph % (Auto) 18.0 L [place] % (Auto) 14.7 H Eos % (Auto) 13.0 H Baso % (Auto) 1.5 Lymph # (Auto) 1.2 [place] # (Auto) 1.0 Eos # (Auto) 0.9 H Baso # (Auto) 0.1 Abs Immat Gran (auto) 0.06 H Absolute Neuts (auto) 3.4 Absolute Nucleated RBC 0.000 Nucleated RBC % (auto) 0.0 Smear Tech's Comments Hold Purple Top PT 15.5 H INR 1.3 H APTT 39.3 H Hold Blue Top VBG pH VBG pCO2 VBG pO2 VBG HCO3 VBG O2 Saturation VBG Base Excess Sodium Potassium Chloride Carbon Dioxide Anion Gap BUN Creatinine Estim Creat Clear Calc Estimated GFR POC Glucose Random Glucose Lactic Acid Calcium Phosphorus Magnesium Total Bilirubin AST ALT Alkaline Phosphatase Ammonia 22 NT-Pro-B Natriuret Pep Total Protein Albumin Urine Color Urine Appearance Urine pH Ur Specific [place] Urine Protein Urine Glucose (UA) Urine Ketones Urine Blood Urine Nitrite Ur Leukocyte Esterase Blood Type Antibody Screen Crossmatch 02/16/25 02/16/25 02/16/25 13:20 15:59 19:07 WBC 5.1 RBC 3.49 L Hgb 10.8 L Hct 31.2 L MCV 89.4 MCH 30.9 MCHC 34.6 RDW 13.5 Plt Count 340 MPV 8.4 L Immature Gran % (Auto) 0.6 H Neut % (Auto) 49.8 Lymph % (Auto) 19.6 L [place] % (Auto) 15.0 H Eos % (Auto) 13.4 H Baso % (Auto) 1.6 Lymph # (Auto) 1.0 L [place] # (Auto) 0.8 Eos # (Auto) 0.7 H Baso # (Auto) 0.1 Abs Immat Gran (auto) 0.03 Absolute Neuts (auto) 2.6 Absolute Nucleated RBC 0.000 Nucleated RBC % (auto) 0.0 Smear Tech's Comments Hold Purple Top SEE NOTE PT INR APTT Hold Blue Top VBG pH VBG pCO2 VBG pO2 VBG HCO3 VBG O2 Saturation VBG Base Excess Sodium 134 L Potassium 4.3 Chloride 106 Carbon Dioxide 19 L Anion Gap 13 BUN 18 H Creatinine 0.92 Estim Creat Clear Calc 63.6 Estimated GFR > 60 POC Glucose Random Glucose 79 Lactic Acid Calcium 9.7 D Phosphorus 3.3 Magnesium 1.4 L* Total Bilirubin AST ALT Alkaline Phosphatase Ammonia NT-Pro-B Natriuret Pep Total Protein Albumin 3.3 L Urine Color Yellow Urine Appearance Clear Urine pH 5.0 Ur Specific [place] 1.025 Urine Protein Negative Urine Glucose (UA) Negative Urine Ketones 15 Urine Blood Negative Urine Nitrite Negative Ur Leukocyte Esterase Negative Blood Type Antibody Screen Crossmatch 02/17/25 02/17/25 02/17/25 04:51 04:54 07:49 WBC 5.7 RBC 3.91 L Hgb 11.7 L Hct 35.2 L MCV 90.0 MCH 29.9 MCHC 33.2 RDW 13.6 Plt Count 353 MPV 8.6 L Immature Gran % (Auto) 0.4 Neut % (Auto) 52.1 Lymph % (Auto) 20.0 [place] % (Auto) 14.4 H Eos % (Auto) 12.0 H Baso % (Auto) 1.1 Lymph # (Auto) 1.1 L [place] # (Auto) 0.8 Eos # (Auto) 0.7 H Baso # (Auto) 0.1 Abs Immat Gran (auto) 0.02 Absolute Neuts (auto) 3.0 Absolute Nucleated RBC 0.000 Nucleated RBC % (auto) 0.0 Smear Tech's Comments Hold Purple Top PT INR APTT Hold Blue Top VBG pH 7.45 H VBG pCO2 23 VBG pO2 75 VBG HCO3 16 L VBG O2 Saturation 96.0 VBG Base Excess -5.3 Sodium 137 Potassium 4.1 Chloride 105 Carbon Dioxide 17 L Anion Gap 19 BUN 14 Creatinine 0.80 Estim Creat Clear Calc 81.3 Estimated GFR > 60 POC Glucose Random Glucose 72 Lactic Acid 1.1 Calcium 10.4 H D Phosphorus 2.9 Magnesium 1.6 Total Bilirubin AST ALT Alkaline Phosphatase Ammonia NT-Pro-B Natriuret Pep Total Protein Albumin 4.1 Urine Color Urine Appearance Urine pH Ur Specific [place] Urine Protein Urine Glucose (UA) Urine Ketones Urine Blood Urine Nitrite Ur Leukocyte Esterase Blood Type Antibody Screen Crossmatch Progress Note: A&P Assessment and plan (1) Hypotension: Status: Acute (2) Vomiting: Status: Acute (3) HCC (hepatocellular carcinoma): Status: Acute Plan Assessment: 70-year-old gentleman with underlying hepatocellular carcinoma and GI bleed admitted with hypotension and suspicion for coffee-ground emesis Plan: Neuro: No acute issues. Cardiac: Hypotension, continue to titrate off pressor support as tolerated. Pulmonary: No acute issues. Renal: No acute issues. Endo: No acute issues. GI: Suspicion for upper GI bleed. Empiric PPI. Gastroenterology service care appreciated. ID: No acute issues Heme/Onc: Monitor hemoglobin, transfusion threshold of 7. Psych: No acute issues. Miscellaneous: No acute issues. Prophylaxis: Pneumatic compression, PPI Diet: Clear liquids Quality Stroke Does the patient have a stroke diagnosis?: No VTE Prior VTE?: No VTE Risk Level:: Medical - moderate - high VTE Device Contraindication: N/A - Device Ordered VTE Drug Contraindication: Treatment Not Indicated
--- NOTE | 2025-02-17 13:19 | MHC.CM.PN ---
Attempted to meet with patient in regards to discharge planning. Patient is currently confused. No family present. Will attempt to meet again. Continue to monitor for d/c needs.
--- NOTE | 2025-02-17 17:48 | PC.NURSE ---
Assumed care at 0700. Upon initial assessment,? Camera and 1:1 sitter in room for patient safety. 1 L LR bolus given for hypotension at start of shift. Minimal improvement in BPs; MD made aware. Per MD, levophed drip started at 0755. Additional bolus of 2L LR given starting at approx 0945. Levophed drip titrated down and paused at approx 1210. At 1410, pt complained of ?a lot? of pain, but unable to ascribe a number. MD made aware. Pt medicated per MAR. Pt repositioned q2hr as tolerated. See MAR and assessments for further details. Fall & safety precautions in place.
[2025-02-17 20:08] LABS: Hematocrit 36.1 % (42.0-52.0); Hemoglobin 12.3 g/dl (14.0-18.0); Mean Corpuscular HGB Conc 34.1 g/dl (31.0-36.0); Mean Corpuscular Hemoglobin 30.6 pg (27.0-33.0); Mean Corpuscular Volume 89.8 fL (80.0-98.0); NRBC Abs Auto 0.000 X10*3/uL (0.0-0.012); NRBC Pct Auto 0.0 /100WBC (0.0-0.2); Platelet Count 314 X10*3/uL (160-400); Red Blood Count 4.02 X10*6/uL (4.60-5.80); White Blood Count 6.3 X10*3/uL (4.8-10.8)
[2025-02-17 20:27] LABS: Anion Gap 18 (12-20); Blood Urea Nitrogen 9 mg/dL (9-16); Calcium 10.2 mg/dL (8.4-10.2); Carbon Dioxide 17 mmol/L (22-29); Chloride 106 mmol/L (96-108); Creatinine Clr Calc Pharmacy 104.9; Estimated Glomerular Filt Rate > 60; Magnesium 1.2 mg/dL (1.6-2.6); Potassium 3.8 mmol/L (3.3-5.1); Sodium 137 mmol/L (135-145)
[2025-02-17] MEDS: Magnesium Sulfate/H2O 2 GM/50 ML PIGGYBACK IV (20:41)
[2025-02-18] VITALS (16 sets, daily range): BP systolic 97–145; BP diastolic 61–88; PULSE 103–119; RESP 18–26; TEMP 36.6–38.3; O2SAT 93–96; BMI 21.7
[2025-02-18] MEDS: 0.9 % Sodium Chloride Flush 3 ML SYRINGE IVFLUSH ×3 (00:44→23:18)
[2025-02-18 05:17] LABS: Hematocrit 38.3 % (42.0-52.0); Hemoglobin 13.2 g/dl (14.0-18.0); Imm Gran Abs Auto 0.05 X10*3/uL (0.00-0.03); Imm Gran Pct Auto 0.6 % (0.0-0.4); Lymphocytes Absolute Auto 1.2 X10*3/uL (1.2-4.9); MANUAL DIFF FLAG NO; Mean Corpuscular HGB Conc 34.5 g/dl (31.0-36.0); Mean Corpuscular Hemoglobin 30.3 pg (27.0-33.0); Mean Corpuscular Volume 87.8 fL (80.0-98.0); NRBC Abs Auto 0.000 X10*3/uL (0.0-0.012); NRBC Pct Auto 0.0 /100WBC (0.0-0.2); Platelet Count 394 X10*3/uL (160-400); Red Blood Count 4.36 X10*6/uL (4.60-5.80); White Blood Count 8.4 X10*3/uL (4.8-10.8)
[2025-02-18 05:36] LABS: Alanine Aminotransferase 6 U/L (0-40); Albumin Level 3.5 g/dL (3.5-5.0); Alkaline Phosphatase 206 U/L (39-117); Anion Gap 19 (12-20); Aspartate Amino Transferase 52 U/L (5-37); Blood Urea Nitrogen 8 mg/dL (9-16); Calcium 10.1 mg/dL (8.4-10.2); Carbon Dioxide 17 mmol/L (22-29); Chloride 104 mmol/L (96-108); Creatinine Clr Calc Pharmacy 96.6; Estimated Glomerular Filt Rate > 60; Magnesium 1.5 mg/dL (1.6-2.6); Potassium 3.6 mmol/L (3.3-5.1); Sodium 136 mmol/L (135-145); Total Protein 6.2 g/dL (6.5-8.0)
[2025-02-18] MEDS: Magnesium Sulfate/H2O 2 GM/50 ML PIGGYBACK IV (06:28)
--- NOTE | 2025-02-18 06:29 | PC.NURSE ---
8AM MAGNESIUM STARTED NOW PER PROVIDER
--- NOTE | 2025-02-18 06:32 | PC.NURSE ---
CARE ASSUMED 7PM..AWAKE..EXTREMELY HARD OF HEARING..ORIENTED TO PERSON ONLY..TYLER..FOLLOWS SIMPLE COMMANDS..RESPIRATIONS EASY ON ROOM AIR...BP REMAINS STABLE OFF LEVOPHED..INCONTINENT SMEARING BLACK STOOL..SERIAL H/H DRAWS STABLE...REFUSES PO INTAKE OVERNIGHT..MgSO4 2 GRAMS X2 DOSES IV OVERNIGHT..[place] EXTERNAL CATHETER DRAINED 1045ml YELLOW OVERNIGHT PLUS MODERATE INCONANCE URINE WHEN CATHETER DISLODGED..SINUS TACHYCARDIA 1ST-DEGREE AV-BLOCK HR 105-108..ISOLATED PVC
--- NOTE | 2025-02-18 08:50 | P.PNCC_ITS ---
Subjective Subjective Date of Service: 02/18/25 Interval History: 70-year-old gentleman with remote GI bleed secondary to gastric ulcer, gastritis, hemorrhoids, hepatocellular carcinoma on immunologic therapy presented [facility]ology office with hypotension and what appears to have been coffee-ground emesis. On ER evaluation patient with hypotension with initial poor response to IV fluid. Gastroenterology service consulted by emergency and plans for intervention at this time No overt GI bleeding, admitted to intensive care unit for close monitoring. On 02/17/2025 in a.m. patient with development of hypotension briefly requiring pressor support but no rebleeding. No events overnight. Critical Care Time (minutes): 0 Physical Exam 2 Vital Signs: Vital Signs: Last Vital Signs Temp 100.2 F 02/18/25 08:00 Pulse 103 H 02/18/25 08:00 Resp 25 H 02/18/25 08:00 BP 137/66 02/18/25 08:00 Pulse Ox 94 02/18/25 08:00 O2 Del Method Room Air 02/18/25 08:00 FiO2 30 02/16/25 21:00 BMI result Body Mass Index 21.7 Const: General: no acute distress, alert and awake Eyes: Sclerae: sclerae normal EOM: EOMs intact bilaterally Neck: Neck: Yes no lymphadenopathy, Yes trachea midline and Yes supple Resp: Effort & Inspection: normal respiratory effort and no respiratory distress Auscultation: clear to auscultation bilaterally Cardio: Rate: tachycardic Rhythm: regular rhythm Heart sounds: no gallops, no murmurs and no rubs GI: Palpation (GI): Soft to palpation and Other GI palpation findings present ( Nontender) Auscultation: normal bowel sounds Extrem: General: Yes no pedal edema, No clubbing and No cyanosis Objective Data Labs 02/18/25 04:49 02/18/25 04:49 Labs: Laboratory Results - last 24 hr 02/17/25 02/18/25 20:02 04:49 WBC 6.3 8.4 RBC 4.02 L 4.36 L Hgb 12.3 L 13.2 L Hct 36.1 L 38.3 L MCV 89.8 87.8 MCH 30.6 30.3 MCHC 34.1 34.5 RDW 13.7 13.4 Plt Count 314 394 D MPV 8.1 L 8.4 L Immature Gran % (Auto) 0.6 H Neut % (Auto) 61.1 Lymph % (Auto) 14.7 L [place] % (Auto) 12.6 H Eos % (Auto) 9.9 H Baso % (Auto) 1.1 Lymph # (Auto) 1.2 [place] # (Auto) 1.1 Eos # (Auto) 0.8 H Baso # (Auto) 0.1 Abs Immat Gran (auto) 0.05 H Absolute Neuts (auto) 5.1 Absolute Nucleated RBC 0.000 0.000 Nucleated RBC % (auto) 0.0 0.0 Sodium 137 136 Potassium 3.8 3.6 Chloride 106 104 Carbon Dioxide 17 L 17 L Anion Gap 18 19 BUN 9 8 L Creatinine 0.62 0.70 Estim Creat Clear Calc 104.9 96.6 Estimated GFR > 60 > 60 Random Glucose 70 65 Calcium 10.2 10.1 Phosphorus 3.2 3.4 Magnesium 1.2 L* 1.5 L Total Bilirubin 1.1 H AST 52 H ALT 6 Alkaline Phosphatase 206 H Total Protein 6.2 L Albumin 3.5 Microbiology Microbiology Results: Microbiology 02/17/25 05:23 Blood - Venous Blood Culture - Preliminary No growth after 24 hours. 02/17/25 05:23 Blood - Venous Blood Culture - Preliminary No growth after 24 hours. Progress Note: A&P Assessment and plan (1) Hypotension: Status: Acute (2) HCC (hepatocellular carcinoma): Status: Acute Plan Assessment: 70-year-old gentleman with underlying hepatocellular carcinoma and GI bleed admitted with hypotension and suspicion for coffee-ground emesis Plan: Neuro: No acute issues. Cardiac: Hypotension, resolved. Unclear etiology. Pulmonary: No acute issues. Renal: No acute issues. Endo: No acute issues. GI: Suspicion for upper GI bleed. Empiric PPI. Gastroenterology service care appreciated. No rebleeding. ID: No acute issues Heme/Onc: Monitor hemoglobin, transfusion threshold of 7. Psych: No acute issues. Miscellaneous: No acute issues. Prophylaxis: Pneumatic compression, PPI Diet: Regular Quality Stroke Does the patient have a stroke diagnosis?: No VTE Prior VTE?: No VTE Risk Level:: Medical - moderate - high VTE Device Contraindication: N/A - Device Ordered VTE Drug Contraindication: Treatment Not Indicated
--- NOTE | 2025-02-18 09:11 | MHC.CM.PN ---
Met with pt to review d/c planning needs: pt resides alone, has no services or DME. States he has been functioning ok alone. Pt requests a few days to think about his options ([facility] [employer], etc) Referral to [facility] in case pt decides on services. HCP requested, IMM in chart. Pt to call friend for transportation.
--- NOTE | 2025-02-18 09:21 | MHC.CLN ---
NUTRITION DIET RX: REGULAR. DECREASED PO DUE TO RECENT VOMITTING. DX HEPATOCELLULAR CARCINOMA. FOLLOW FOR PO INTAKE. SEE CLINICAL NUTRITION ASSESSMENT.
[2025-02-18] MEDS: metroNIDAZOLE/NS 500 MG/100 ML PIGGYBACK 100 MG IV ×2 (15:39→23:13)
[2025-02-19] VITALS (7 sets, daily range): BP systolic 90–130; BP diastolic 50–86; PULSE 91–120; RESP 14–18; TEMP 36.5–38.6; O2SAT 91–97; BMI 20.1
[2025-02-19 07:18] LABS: INTERNATIONAL NORM RATIO 1.6 (0.9-1.1); Prothrombin Time 19.1 SEC (11.2-13.5)
[2025-02-19 07:44] LABS: Alanine Aminotransferase 6 U/L (0-40); Albumin Level 3.4 g/dL (3.5-5.0); Alkaline Phosphatase 199 U/L (39-117); Anion Gap 22 (12-20); Aspartate Amino Transferase 46 U/L (5-37); Blood Urea Nitrogen 9 mg/dL (9-16); Calcium 10.2 mg/dL (8.4-10.2); Carbon Dioxide 14 mmol/L (22-29); Chloride 105 mmol/L (96-108); Creatinine Clr Calc Pharmacy 93.4; Estimated Glomerular Filt Rate > 60; Potassium 3.8 mmol/L (3.3-5.1); Sodium 137 mmol/L (135-145); Total Protein 6.4 g/dL (6.5-8.0)
[2025-02-19 07:54] LABS: Magnesium 1.4 mg/dL (1.6-2.6)
[2025-02-19 08:18] LABS: Hematocrit 37.0 % (42.0-52.0); Hemoglobin 12.4 g/dl (14.0-18.0); Mean Corpuscular HGB Conc 33.5 g/dl (31.0-36.0); Mean Corpuscular Hemoglobin 30.2 pg (27.0-33.0); Mean Corpuscular Volume 90.0 fL (80.0-98.0); NRBC Abs Auto 0.000 X10*3/uL (0.0-0.012); NRBC Pct Auto 0.0 /100WBC (0.0-0.2); Platelet Count 431 X10*3/uL (160-400); Red Blood Count 4.11 X10*6/uL (4.60-5.80); White Blood Count 7.9 X10*3/uL (4.8-10.8)
[2025-02-19] MEDS: Ferrous Sulfate 324 MG TABLET.DR PO (08:51)
[2025-02-19] MEDS: Magnesium Sulfate/H2O 2 GM/50 ML PIGGYBACK IV (08:51)
[2025-02-19] MEDS: metroNIDAZOLE/NS 500 MG/100 ML PIGGYBACK 100 MG IV ×3 (08:51→22:54)
--- NOTE | 2025-02-19 09:13 | ECG_ITS ---
Test Reason : cp Blood Pressure : */* mmHG Vent. Rate : 118 BPM Atrial Rate : * BPM P-R Int : * ms QRS Dur : 66 ms QT Int : 410 ms P-R-T Axes : * 33 41 degrees QTcB Int : 574 ms Artifact in tracing Undetermined rhythm Low voltage QRS Abnormal ECG When compared with ECG of 11-Feb-2024 01:21, Due to poor quallity, cannot compare rhythm T wave amplitude has decreased in Lateral leads Referred By: Dorita Michelle Electronically Signed By: YUAN CONDON
[2025-02-19 09:18] LABS: Chlamydia pneumoniae PCR Not Detected (Not Detect.); Coronavirus 229E PCR Not Detected (Not Detect.); Coronavirus HKU1 PCR Not Detected (Not Detect.); Coronavirus NL63 PCR Not Detected (Not Detect.); Coronavirus OC43 PCR Not Detected (Not Detect.); RSV PCR Not Detected (Not Detect.); Rhino/Enterovirus PCR Not Detected (Not Detect.)
[2025-02-19 09:32] LABS: Influenza A H1 PCR Not Detected (Not Detect.); Influenza A H1-2009 PCR Not Detected (Not Detect.); Influenza A H3 PCR Not Detected (Not Detect.); SARS-CoV-2 PCR Not Detected (Not Detect.)
[2025-02-19 11:18] LABS: Ammonia 35 umol/L (13-55)
--- NOTE | 2025-02-19 11:40 | MHC.SLORD ---
Speech Language Pathology Order Status: HANG GLIDING INSTRUCTOR called in to assess pt for PO tolerance, pt somnolent and unable to follow simple cues at 11:30am. HANG GLIDING INSTRUCTOR to assess when pt more alert and able to participate in eval. Recc NPO strict pending further assessment, oral care as indicated. MD and RN notified via secure text.
--- NOTE | 2025-02-19 12:16 | HO.PM.IMPN ---
Subjective Subjective Date of Service: 02/19/25 Interval History: febrile c/o diarrhea though none noted by nursing staff confused and tremulous. no EtOH since March and family confirms this No hematemesis, hematochezia, or melena. Review of Systems Review of Systems: Yes all other systems are reviewed and are negative Physical Exam Vital Signs: Vital Signs: Last Vital Signs Temp 101.4 F H 02/19/25 09:45 Pulse 101 H 02/19/25 08:00 Resp 18 02/19/25 08:00 BP 115/73 02/19/25 08:00 Pulse Ox 95 02/19/25 08:00 O2 Del Method Room Air 02/19/25 08:00 FiO2 30 02/16/25 21:00 BMI result Body Mass Index 20.1 Gen: ill-appearing, tremulous HEENT: sclera anicteric, moist mucus membranes Neck: supple Lungs: clear to auscultation bilaterally Heart: regular rate and rhythm, no murmurs Abd: soft, non-tender, non-distended Ext: no edema Skin: warm/well-perfused Neuro: alert, oriented to self/place, tremulous with apparent asterixis Psych: appropriate affect Objective Data Active Medications Albuterol Sulfate (Albuterol Sulfate 90 Mcg 8 Gm Inhaler) 2 puff INHALE Q4H PRN PRN Reason: shortness of breath or wheezin Allopurinol (Allopurinol 300 Mg Tablet) 300 mg PO DAILY [facility] Last Admin: 02/19/25 09:44 Dose: Not Given Documented By: KYLEE Non-Admin Reason: Patient Refused Ferrous Sulfate (Ferrous Sulfate 324 Mg Tablet.) 324 mg PO Q48H [facility] Last Admin: 02/19/25 08:51 Dose: 324 mg Documented By: KYLEE Levofloxacin (Levaquin) 750 mg in 150 mls @ 100 mls/hr IV Q24H [facility] Last Infusion: 02/18/25 18:04 Dose: Infused Documented By: KYLEE Metronidazole (Flagyl) 500 mg in 100 mls @ 100 mls/hr IV Q8H [facility] Last Infusion: 02/19/25 10:03 Dose: Infused Documented By: KYLEE Lactulose (Lactulose 20 Gm/30 Ml Solution) 30 gm PO DAILY [facility] Last Admin: 02/19/25 10:56 Dose: Not Given Documented By: KYLEE Non-Admin Reason: held per provider Loratadine (Loratadine 10 Mg Tablet) 10 mg PO DAILY PRN PRN Reason: Allergy Symptoms Magnesium Oxide (Magnesium Oxide 400 Mg Tablet) 400 mg PO BIDPC [facility] Last Admin: 02/19/25 08:51 Dose: 400 mg Documented By: KYLEE Pantoprazole Sodium (Pantoprazole Sodium 40 Mg/10 Ml Vial) 40 mg IVPUSH BID@0630,1630 [facility] Last Admin: 02/19/25 05:31 Dose: 40 mg Documented By: JANETTE Rifaximin (Rifaximin 550 Mg Tablet) 550 mg PO BID [facility] Last Admin: 02/19/25 10:56 Dose: Not Given Documented By: KYLEE Non-Admin Reason: held per provider Sodium Chloride (0.9 % Sodium Chloride Flush 3 Ml Syringe) 3 ml IVFLUSH QSHIFT [facility] Last Admin: 02/19/25 08:50 Dose: Not Given Documented By: KYLEE Non-Admin Reason: IV Running Labs 02/19/25 07:29 02/19/25 06:53 Labs: Laboratory Results - last 24 hr 02/18/25 02/19/25 02/19/25 Unknown 06:53 07:29 MCV 90.0 MCH 30.2 MCHC 33.5 RDW 13.8 Plt Count 431 H MPV 8.5 L Absolute Nucleated RBC 0.000 Nucleated RBC % (auto) 0.0 PT 19.1 H D INR 1.6 H Anion Gap 22 H Estim Creat Clear Calc 93.4 Estimated GFR > 60 Random Glucose 61 Calcium 10.2 Magnesium 1.4 L* Total Bilirubin 1.1 H AST 46 H ALT 6 Alkaline Phosphatase 199 H Ammonia C-Reactive Protein 22.01 H Total Protein 6.4 L Albumin 3.4 L Respiratory Panel Forbes See Note Adenovirus (Rapid PCR) Not Detected B.pert (TEM-PCR) Not Detected B.parapertussis DNA PCR Not Detected C. pneumoniae DNA (PCR) Not Detected Coronavirus OC43 (PCR) Not Detected Coronavirus HKU1 (PCR) Not Detected Coronavirus 229E (PCR) Not Detected Coronavirus NL63 (PCR) Not Detected Human Metapneumovir PCR Not Detected Influenza A (RT-PCR) Not Detected Influenza A (H1) PCR Not Detected Influ A (H1/09) PCR Not Detected Influenza A (H3) PCR Not Detected Influenza B (RT-PCR) Not Detected M. pneumoniae (PCR) Not Detected Parainfluenza 1 (PCR) Not Detected Parainfluenza 2 (PCR) Not Detected Parainfluenza 3 (PCR) Not Detected Parainfluenza 4 (PCR) Not Detected RSV (PCR) Not Detected Entero/Rhino (PCR) Not Detected SARS-CoV-2 RNA (RT-PCR) Not Detected 02/19/25 11:02 MCV MCH MCHC RDW Plt Count MPV Absolute Nucleated RBC Nucleated RBC % (auto) PT INR Anion Gap Estim Creat Clear Calc Estimated GFR Random Glucose Calcium Magnesium Total Bilirubin AST ALT Alkaline Phosphatase Ammonia 35 C-Reactive Protein Total Protein Albumin Respiratory Panel Forbes Adenovirus (Rapid PCR) B.pert (TEM-PCR) B.parapertussis DNA PCR C. pneumoniae DNA (PCR) Coronavirus OC43 (PCR) Coronavirus HKU1 (PCR) Coronavirus 229E (PCR) Coronavirus NL63 (PCR) Human Metapneumovir PCR Influenza A (RT-PCR) Influenza A (H1) PCR Influ A (H1/09) PCR Influenza A (H3) PCR Influenza B (RT-PCR) M. pneumoniae (PCR) Parainfluenza 1 (PCR) Parainfluenza 2 (PCR) Parainfluenza 3 (PCR) Parainfluenza 4 (PCR) RSV (PCR) Entero/Rhino (PCR) SARS-CoV-2 RNA (RT-PCR) Microbiology Microbiology Results: Microbiology 02/17/25 05:23 Blood Culture - Preliminary Blood - Venous No growth after 48 hours. 02/17/25 05:23 Blood Culture - Preliminary Blood - Venous No growth after 48 hours. Assessment and Plan (1) Hypotension: Status: Acute Assessment and Plan: d4, 70yo M with cirrhosis, HCC s/p chemo-embolization + TACE, currently on tremelimumab + durvalumab immunotherapy, hx GI bleed from gastric ulcer, EtOH abuse in remission sent in from Oncology office where he was to undergo 4th cycle of immunotherapy but sent in with hypotension and question of coffee-ground emesis. Admitted to ICU for pressor support; no overt GI bleed and stepped down to telemetry 02/18/25. Febrile with question of enteritis. fever - suspect due to underlying cancer but covering for enteritis with levofloxacin and metronidazole 02/18-. hypotension possible GI bleed - resolved; continue to hold lisinopril; continue IV PPI; GI consulted and no plans for EGD; transfused 1u PRBCS in ED though Hb has been stable around 02-02 acute metabolic encephalopathy - suspect hepatic despite normal ammonia; start rifaximin and lactulose - obtain MRI brain with contrast to check for metastases - METAL TUBE CUTTER evaluation: NPO for now given poor mental status coagulopathy - likely due to cirrhosis; give vit K and recheck INR tomorrow hypoMg - replete IV, recheck level tomorrow VTE ppx: SCDs dispo: TBD In my clinical judgment, the patient requires continued inpatient hospitalization for the following reasons: fever, encephalopathy Total time managing care of this patient today: 50 minutes. Quality Stroke Does the patient have a stroke diagnosis?: No VTE Prior VTE?: No VTE Risk Level:: Medical - moderate - high VTE Device Contraindication: N/A - Device Ordered VTE Drug Contraindication: Treatment Not Indicated
[2025-02-19 20:37] LABS: Magnesium 1.5 mg/dL (1.6-2.6)
--- NOTE | 2025-02-19 22:20 | P.CNHO_ITS ---
Subjective - Subjective Chief complaint: Consult for: HCC. Patient: known to practice within the last 3 years Consult date: 02/19/25 Requesting Physician: Dr. Michelle. Primary Care Provider: MARYJO Spencer Family Provider: MARYJO Spencer Medical Summary: DIAGNOSIS: HCC. Process Analyst Utilized?: No - Serbian Speaking HPI - Consult Narrative Reason for consult: Consult for: HCC. 2. Hematemesis. Narrative: Christoph Muñoz is a 70 year old gentleman, presented with hematemesis. He has a history of Hepatocellular carcinoma, status post chemoembolization at [facility] in March of this year. He was subsequently started on atezolizumab and bevacizumab in April. He received cycle 7 in August. In September he underwent taste at [facility] under the care of . He was then treated with lenvatinib for 3 weeks till end of October however he tolerated that poorly. He was then started on temelimumab + durvalumab immunotherapy, he recently received cycle 4. He presented today with increased weakness, confusion, vomiting black tarry substance, and no bowel movement over 3 days after taking immodium for diarrhea. He stated that he has been feeling generally unwell and this morning he vomited dark substance that was sticky. He has not had a bowel movement in 3 days after taking immodium for diarrhea. CTA OF THE CHEST AND ABDOMEN: 1. No evidence of pulmonary emboli. Small right pleural effusion. 2. Interval enlargement of the patient's known calcified mass. There are new smaller calcified masses at the dome, consistent with progression of disease. 3. Abnormal wall thickening of multiple loops of distal ileum, consistent with enteritis. This may be infectious or inflammatory in nature. BRAIN MRI REVEALED: No evidence of enhancement. No evidence of metastatic disease. Review of Systems - Constitutional Reports system reviewed and no additional complaints, except as documented, Reports anorexia, Reports fatigue, Reports lack of energy, Reports malaise, Reports weakness, Reports weight loss - Eyes Reports system reviewed and no additional complaints, except as documented - ENT Reports system reviewed and no additional complaints, except as documented - Cardiovascular Reports system reviewed and no additional complaints, except as documented - Respiratory Reports no additional respiratory complaints - Gastrointestinal Reports system reviewed and no additional complaints, except as documented, Reports abdominal pain, Reports bloating, Reports coffee ground vomit, Reports constipation, Reports dyspepsia, Reports vomiting blood - Genitourinary Genitourinary: Reports no additional male genitourinary complaints - Musculoskeletal Reports system reviewed and no additional complaints, except as documented - Integumentary/Breasts Skin/Breast: Reports no additional skin complaints - Neurologic Reports as per HPI, Reports confusion, Denies memory loss, Denies seizure-like activity - Psychiatric Reports system reviewed and no additional complaints, except as documented - Endocrine Reports no additional endocrine complaints - Hematologic/Lymphatic Reports system reviewed and no additional complaints, except as documented - Allergic/Immunologic Reports system reviewed and no additional complaints, except as documented Oncology Screenings - ECOG Performance Status ECOG Performance Status: 1 [facility] Medical History: Medical History (Last Reviewed 02/16/25 @ 14:43 by Ignacio Brambila RN) Allergic rhinitis Arthritis Asthma Gastric ulcer GERD (gastroesophageal reflux disease) GI bleed HTN (hypertension) Liver cancer Metastasis Peptic ulcer Functional capacity: uses cane/walker Patient : No Family History: Family History (Last Reviewed 02/16/25 @ 10:55 by ARABELLA Patel) Mother Cardiovascular disease Father Diabetes Surgical History: Surgical History (Last Reviewed 02/16/25 @ 14:43 by Ignacio Brambila RN) H/O colonoscopy Onset Date: ~2021 History of esophagogastroduodenoscopy (EGD) Hx of bilateral inguinal hernia repair Hx of shoulder surgery Social History: Social History (Last Reviewed 02/16/25 @ 10:55 by ARABELLA Patel) Living Situation History: Household Members: Unknown / Unable to asses Caregiver staying overnight: No Housing: Unknown / Unable to asses Are you a primary rn coronary care unit to a significant other at home: No Do you presently have visiting nurse or other home services: No 75 years or older and lives alone: No Tobacco History: Patient Tobacco Use Status: Never used Tobacco Tobacco use type: Cigarette e-Cigarette/Vaping Use: Never Used Second Hand Smoke Exposure: No Occupation Assessmet: service: No Current occupational status: employed Current occupational status: retired Current occupational exposures/hazards: No Home Medications and Allergies Current Medications: Current Medications Albuterol Sulfate (Albuterol Sulfate 90 Mcg 8 Gm Inhaler) 2 puff INHALE Q4H PRN PRN Reason: shortness of breath or wheezin Allopurinol (Allopurinol 300 Mg Tablet) 300 mg PO DAILY [facility] Last Admin: 02/19/25 09:44 Dose: Not Given Ferrous Sulfate (Ferrous Sulfate 324 Mg Tablet.) 324 mg PO Q48H [facility] Last Admin: 02/19/25 08:51 Dose: 324 mg Levofloxacin (Levaquin) 750 mg in 150 mls @ 100 mls/hr IV Q24H [facility] Last Infusion: 02/19/25 18:03 Dose: Infused Metronidazole (Flagyl) 500 mg in 100 mls @ 100 mls/hr IV Q8H [facility] Last Infusion: 02/19/25 17:21 Dose: Infused Lactulose (Lactulose 20 Gm/30 Ml Solution) 30 gm PO DAILY [facility] Last Admin: 02/19/25 10:56 Dose: Not Given Loratadine (Loratadine 10 Mg Tablet) 10 mg PO DAILY PRN PRN Reason: Allergy Symptoms Magnesium Oxide (Magnesium Oxide 400 Mg Tablet) 400 mg PO BIDPC [facility] Last Admin: 02/19/25 16:24 Dose: Not Given Pantoprazole Sodium (Pantoprazole Sodium 40 Mg/10 Ml Vial) 40 mg IVPUSH BID@0630,1630 [facility] Last Admin: 02/19/25 16:16 Dose: 40 mg Rifaximin (Rifaximin 550 Mg Tablet) 550 mg PO BID [facility] Last Admin: 02/19/25 19:50 Dose: Not Given Sodium Chloride (0.9 % Sodium Chloride Flush 3 Ml Syringe) 3 ml IVFLUSH QSHIFT [facility] Last Admin: 02/19/25 15:06 Dose: Not Given Home Medications ?Medication ?Instructions ?Recorded ?Confirmed ?Type loratadine 10 mg tablet (Allergy 10 mg PO DAILY PRN Allergy Symptoms 05/2302/16/25 History Relief (loratadine)) durvalumab 50 mg/mL intravenous 50 mg IV QMONTH 01/21/25 02/16/25 Histor y solution allopurinol 300 mg tablet 300 mg PO DAILY 02/16/25 02/16/25 Histor y ferrous sulfate 325 mg (65 mg 325 mg PO Q48H 02/16/25 02/16/25 History iron) tablet Allergies Allergy/AdvReac Type Severity Reaction Status Date / Time Penicillins Allergy Severe ANAPHYLAXIS Verified 02/16/25 10:14 Physical Exam Vital signs: Vital Signs Temp 98.5 F 02/19/25 19:10 Pulse 104 H 02/19/25 19:10 Resp 18 02/19/25 19:10 BP 100/50 L 02/19/25 19:10 Pulse Ox 94 02/19/25 19:10 O2 Del Method Room Air 02/19/25 19:10 FiO2 30 02/16/25 21:00 Intake & Output 02/19/25 02/19/25 02/20/25 06:59 18:59 06:59 Intake Total 100 / 400 501 / 501 Output Total 600 / 1130 500 / 500 Balance -500 / -730 Urine Output (Average ml/kg/hr) 0.79 0.66 Intake: Intake, Oral Amount 50 / 50 Intake, IV Amount 100 / 400 451 / 451 Magnesium Sulfate/H2O 2 gm In 50 / 50 50 ml @ 25 mls/hr IV ONCE ONE Rx#:[id number] Phytonadione (Vit K1) 10 mg In 51 / 51 0.9 % Sodium Chloride 50 ml @ 51 mls/hr IV ONCE ONE Rx#: [id number] levoFLOXacin/D5W 750 mg In 150 150 / 150 ml @ 100 mls/hr IV Q24H [facility] Rx# :[id number] metroNIDAZOLE/NS 500 mg In 100 100 / 200 200 / 200 ml @ 100 mls/hr IV Q8H [facility] Rx#: [id number] Output: Output, Urine Amount 600 / 910 300 / 300 Output, Urine Amount (Catheter) 200 / 200 Condom 200 / 200 Other: NPO Yes Breakfast % Eaten 25% Eating (Feeding) Ability Cueing Needed Number of Incontinent Voids 1 Urine catheter Urine Color Yellow Last Bowel Movement 02/17/25 Weight 63.5 kg Weight 63.5 kg - Constitutional Present: mild distress - Routine HEENT Exam Head: Present: normal inspection, normocephalic ENT: Present: mucous membranes moist - Routine Neck Exam Present: supple Hem/Onc Consult Result - Labs CBC & Chem 7: 02/23/25 07:35 02/22/25 06:17 Labs: Short CBC 02/19/25 Range/Units 07:29 WBC 7.9 (4.8-10.8) X10*3/uL Hgb 12.4 L (14.0-18.0) g/dl Hct 37.0 L (42.0-52.0) % Plt Count 431 H (160-400) X10*3/uL BMP 02/19/25 06:53 Sodium 137 Potassium 3.8 Chloride 105 Carbon Dioxide 14 L BUN 9 Creatinine 0.67 Calcium 10.2 Liver Function 02/19/25 Range/Units 06:53 Total Bilirubin 1.1 H (0.0-1.0) mg/dL AST 46 H (5-37) U/L ALT 6 (0-40) U/L Alkaline Phosphatase 199 H (39-117) U/L Albumin 3.4 L (3.5-5.0) g/dL Assessment and Plan Patient Active problem list reviewed?: Yes (1) HCC (hepatocellular carcinoma) Status: Acute Assessment and plan: 70-year-old gentleman with a history of HCC diagnosed in February of last year. He underwent chemoembolization at [facility] in March of this year. He was subsequently started on atezolizumab and bevacizumab in April. He received cycle 7 in August. In September he underwent taste at [facility] under the care of . He was then treated with lenvatinib for 3 weeks till end of October however he tolerated that poorly. [place] [facility] [place] revealed: 1. Large nonenhancing masses in the right hepatic lobe segment 8 and 5, with numerous surrounding nonenhancing lesions consistent with posttreatment change. Scattered additional nonenhancing foci throughout the right hepatic lobe, also consistent with treated lesions. 2. 1.9 cm arterially enhancing lesion in segment IVb with central washout is similar to prior study. Li-RADS 5. 3. Two arterially hyperenhancing lesions in the left hepatic lobe measuring up to 0.7 cm in segment 3 are similar to the prior study. Li-RADS 5. 0.6 cm arterially hyperenhancing focus in segment 7 is new from prior study, but could be a perfusional given interval treatment of this lobe.Li-RADS 3. 4. Two focal areas of heterogeneous arterial hyperenhancement in segment 7 near previously treated lesions, not seen on delayed postcontrast images may also be perfusional. Recommend attention on follow-up studies. He was then started on temelimumab + durvalumab immunotherapy, he recently received cycle 4. He now presents with mental confusion, nausea vomiting and a bout of hematemesis. He had a fever so concern is enteritis. He is being covered with levofloxacin and metronidazole, since 02/18. CTA OF THE CHEST AND ABDOMEN: 1. No evidence of pulmonary emboli. Small right pleural effusion. 2. Interval enlargement of the patient's known calcified mass. There are new smaller calcified masses at the dome, consistent with progression of disease. 3. Abnormal wall thickening of multiple loops of distal ileum, consistent with enteritis. This may be infectious or inflammatory in nature. CBC from today: WBC 7.9, HGB 12.4, HCT 37, PLT 431. He was initially admitted to ICU for pressor support. There was no subsequent GI bleeding noted, so he was stepped down to telemetry 02/18/25. He has had altered mental status: DIFFERENTIAL DIAGNOSIS: 1. Brain metastases: MRI brain with contrast revealed no evidence of brain metastases. 2. Acute metabolic encephalopathy: 3. Could be related to hepatic encephalopathy. 4. Other possibility is that of adrenal insufficiency, given the prolonged immunotherapy he has had. Serum AM cortisol is being tested: This came back really low. Meanwhile, he has been started on rifaximin and lactulose. PLAN: He was started on steroid replacement therapy. For now he is being kept NPO in view of his poor mental status. To continue IV PPI. He was transfused 1u PRBCS in ED. GI has been consulted. They said to hold off on EGD since his Hb has been stable around 12 gms. Will continue supportive care as you are doing. I discussed his condition with his nephew. He understands the gravity of the situation. Moral support provided. Will keep in touch with him. Thank you for the consult, I will follow along with you. CC: Lili Lucas. (2) HCC (hepatocellular carcinoma) Problem details: Status post chemoembolization by IR at [facility] on Friday04/16/24. He started bevacizumab and atezolizumab on 04/29/24 Status: Acute - Time Spent With Patient Time Spent with Patient (in minutes): 30
[2025-02-20] VITALS (10 sets, daily range): BP systolic 78–120; BP diastolic 50–80; PULSE 86–104; RESP 16–20; TEMP 36.2–37.6; O2SAT 93–95; BMI 19.5
[2025-02-20 02:50] LABS: Hematocrit 35.0 % (42.0-52.0); Hemoglobin 11.6 g/dl (14.0-18.0); Mean Corpuscular HGB Conc 33.1 g/dl (31.0-36.0); Mean Corpuscular Hemoglobin 30.1 pg (27.0-33.0); Mean Corpuscular Volume 90.9 fL (80.0-98.0); NRBC Abs Auto 0.000 X10*3/uL (0.0-0.012); NRBC Pct Auto 0.0 /100WBC (0.0-0.2); Platelet Count 363 X10*3/uL (160-400); Red Blood Count 3.85 X10*6/uL (4.60-5.80); White Blood Count 7.5 X10*3/uL (4.8-10.8)
[2025-02-20 03:17] LABS: Troponin-I High Sensitivity 6.6 ng/L (<3.5-35.0)
[2025-02-20 03:25] LABS: Alanine Aminotransferase < 6 U/L (0-40); Albumin Level 3.2 g/dL (3.5-5.0); Alkaline Phosphatase 191 U/L (39-117); Anion Gap 17 (12-20); Aspartate Amino Transferase 56 U/L (5-37); Blood Urea Nitrogen 10 mg/dL (9-16); Calcium 10.4 mg/dL (8.4-10.2); Carbon Dioxide 20 mmol/L (22-29); Chloride 107 mmol/L (96-108); Creatinine Clr Calc Pharmacy 83.4; Estimated Glomerular Filt Rate > 60; Magnesium 1.4 mg/dL (1.6-2.6); Potassium 3.8 mmol/L (3.3-5.1); Sodium 140 mmol/L (135-145); Total Protein 6.0 g/dL (6.5-8.0)
[2025-02-20] MEDS: Magnesium Sulfate/H2O 2 GM/50 ML PIGGYBACK IV (03:44)
[2025-02-20] MEDS: Albumin Human 25 % 100 ML 133.33 ML IV (05:12)
[2025-02-20] MEDS: Lactated Ringers 1,000 ML 125 ML IVCONT ×3 (05:21→22:55)
--- NOTE | 2025-02-20 06:15 | PM.EVENT ---
Event Note Date of Service: 02/20/25 Event Note: Patient developed marked hypotension tonight. BP dropped to 70/50. Urinary output 200 mL over the last 8 hours. Patient received LR 30 mL/kg bolus + albumin then maintenance. BP after bolus increased to 98/60. Lactic acid obtained came back negative. Blood cultures were repeated. Patient already receiving empiric IV antibiotic therapy with metronidazole and levofloxacin. Time Spent With Patient Time: Total time managing care of this patient today ____ minutes.
[2025-02-20 06:49] LABS: Hematocrit 30.5 % (42.0-52.0); Hemoglobin 10.2 g/dl (14.0-18.0); Mean Corpuscular HGB Conc 33.4 g/dl (31.0-36.0); Mean Corpuscular Hemoglobin 29.9 pg (27.0-33.0); Mean Corpuscular Volume 89.4 fL (80.0-98.0); NRBC Abs Auto 0.000 X10*3/uL (0.0-0.012); NRBC Pct Auto 0.0 /100WBC (0.0-0.2); Platelet Count 289 X10*3/uL (160-400); Red Blood Count 3.41 X10*6/uL (4.60-5.80); White Blood Count 5.7 X10*3/uL (4.8-10.8)
[2025-02-20 06:58] LABS: Ammonia 25 umol/L (13-55)
[2025-02-20 07:08] LABS: Alanine Aminotransferase < 6 U/L (0-40); Albumin Level 3.4 g/dL (3.5-5.0); Alkaline Phosphatase 164 U/L (39-117); Anion Gap 17 (12-20); Aspartate Amino Transferase 43 U/L (5-37); Blood Urea Nitrogen 10 mg/dL (9-16); Calcium 10.1 mg/dL (8.4-10.2); Carbon Dioxide 19 mmol/L (22-29); Chloride 108 mmol/L (96-108); Creatinine Clr Calc Pharmacy 93.6; Estimated Glomerular Filt Rate > 60; Magnesium 1.6 mg/dL (1.6-2.6); Potassium 3.8 mmol/L (3.3-5.1); Sodium 140 mmol/L (135-145); Total Protein 5.8 g/dL (6.5-8.0)
[2025-02-20 07:28] LABS: INTERNATIONAL NORM RATIO 1.5 (0.9-1.1); Prothrombin Time 18.1 SEC (11.2-13.5)
[2025-02-20] MEDS: metroNIDAZOLE/NS 500 MG/100 ML PIGGYBACK 100 MG IV ×2 (10:53→17:01)
[2025-02-20] MEDS: 0.9 % Sodium Chloride Flush 3 ML SYRINGE IVFLUSH ×3 (10:57→22:55)
--- NOTE | 2025-02-20 11:30 | MHC.SL.SWA ---
Speech Pathologist Impression: Risk of Aspiration, Moderate Oropharyngeal Dysphagia Risk of Aspiration Due to: Mental Status Dysphasia Diet Status:Start on NDD2/HTL Liquid Consistency and Strategies for Safe Swallow: Liquid Intake Recommendation: Honey Thick Solid Food Consistency: Dietary Recommendations: Grnd/Mech Altered (NDD2) Additional Modifications to Solid Foods: Patient presents w/ moderate oropharyngeal dysphagia, marked by periodic oral holding, slowed and disorganized mastication pattern, delayed pharyngeal swallow trigger, and incomplete laryngeal elevation. Patient displayed overt s/s of aspiration/penetration on thin and nectar thick consistencies. Recommend start on GROUND/MECH ALTERED (NDD2) diet and HONEY THICK liquids, pills CRUSHED in PUREE. Patient will need 1:1 assistance feeding and cues: take small bites, allow ample time for patient to chew, check oral cavity for any residue, clear residue by cuing patient for double swallow or liquid wash, liquids by spoon or cup, NO STRAWS, ensure upright 90 degree position. Notified MD, RN, and RD of recommendations via secure text, also written on whiteboard in patient's room. LANDFILL GRADER will continue to follow to monitor patient's tolerance of recommended diet and feeding needs. Oral Medication Intake: Crushed with Puree Please contact the pharmacy regarding appropriate crushable or liquid drug formulations that are available whenever modified delivery is recommended. Supervision While Eating and Drinking for Safe Swallow: Total Assistance (1:1) Recommendation for Speech: Inpatient Speech Therapy Comment: LANDFILL GRADER will continue to follow to monitor patient's tolerance of recommended diet and feeding needs. Frequency/Duration: Daily M-F Date Range for Service Req: Timeline to reassess: Envelope Folding Machine Adjuster Clinican/Clinical Fellow: No Supervisory Statement: I have reviewed and agree with the student/clinical fellow's documentation: N/A Speech Language Pathologist: Corin Newton M.A., CCC-LANDFILL GRADER
[2025-02-20 13:58] LABS: Free T4 (Free Thyroxine) 0.97 ng/dL (0.71-1.85)
--- NOTE | 2025-02-20 14:03 | HO.PM.IMPN ---
Subjective Subjective Date of Service: 02/20/25 Interval History: BP overnight, responded to albumin and fluids still confused, less tremulous No hematemesis, hematochezia, or melena. no further fever Review of Systems Review of Systems: Yes all other systems are reviewed and are negative Physical Exam Vital Signs: Vital Signs: Last Vital Signs Temp 97.2 F 02/20/25 12:00 Pulse 90 02/20/25 12:00 Resp 18 02/20/25 12:00 BP 116/63 02/20/25 12:00 Pulse Ox 95 02/20/25 12:00 O2 Del Method Room Air 02/20/25 12:00 FiO2 30 02/16/25 21:00 BMI result Body Mass Index 19.5 Gen: ill-appearing, tremulous HEENT: sclera anicteric, moist mucus membranes Neck: supple Lungs: clear to auscultation bilaterally Heart: regular rate and rhythm, no murmurs Abd: soft, non-tender, non-distended Ext: no edema Skin: warm/well-perfused Neuro: alert, oriented to self/place, tremulous with apparent asterixis Psych: appropriate affect Objective Data Active Medications Albuterol Sulfate (Albuterol Sulfate 90 Mcg 8 Gm Inhaler) 2 puff INHALE Q4H PRN PRN Reason: shortness of breath or wheezin Allopurinol (Allopurinol 300 Mg Tablet) 300 mg PO DAILY [facility] Last Admin: 02/20/25 11:37 Dose: 300 mg Documented By: KIERRA Ferrous Sulfate (Ferrous Sulfate 324 Mg Tablet.Dr) 324 mg PO Q48H [facility] [place] Last Admin: 02/19/25 08:51 Dose: 324 mg Documented By: KYLEE Levofloxacin (Levaquin) 750 mg in 150 mls @ 100 mls/hr IV Q24H [facility] [place] Last Infusion: 02/19/25 18:03 Dose: Infused Documented By: KYLEE Metronidazole (Flagyl) 500 mg in 100 mls @ 100 mls/hr IV Q8H [facility] [place] Last Infusion: 02/20/25 13:00 Dose: Infused Documented By: JAMIL Lactated Ringer's (Lr) 1,000 mls @ 125 mls/hr IVCONT .Q8H [facility] [place] Last Admin: 02/20/25 14:02 Dose: 125 mls/hr Documented By: JAMIL Lactulose (Lactulose 20 Gm/30 Ml Solution) 30 gm PO TID [facility] [place] Last Admin: 02/20/25 11:42 Dose: 30 gm Documented By: KIERRA Loratadine (Loratadine 10 Mg Tablet) 10 mg PO DAILY PRN PRN Reason: Allergy Symptoms Magnesium Oxide (Magnesium Oxide 400 Mg Tablet) 400 mg PO BIDPC [facility] [place] Last Admin: 02/20/25 11:37 Dose: 400 mg Documented By: KIERRA Pantoprazole Sodium (Pantoprazole Sodium 40 Mg/10 Ml Vial) 40 mg IVPUSH BID@0630,1630 [facility] [place] Last Admin: 02/20/25 05:06 Dose: 40 mg Documented By: JANETTE Rifaximin (Rifaximin 550 Mg Tablet) 550 mg PO BID [facility] [place] Last Admin: 02/20/25 11:37 Dose: 550 mg Documented By: KIERRA Sodium Chloride (0.9 % Sodium Chloride Flush 3 Ml Syringe) 3 ml IVFLUSH QSHIFT [facility] [place] Last Admin: 02/20/25 10:57 Dose: 3 ml Documented By: JAMIL Labs 02/20/25 06:32 02/20/25 06:32 Labs: Laboratory Results - last 24 hr 02/19/25 02/20/25 02/20/25 19:56 02:41 06:32 MCV 90.9 89.4 MCH 30.1 29.9 MCHC 33.1 33.4 RDW 13.9 13.9 Plt Count 363 289 MPV 8.3 L 8.2 L Absolute Nucleated RBC 0.000 0.000 Nucleated RBC % (auto) 0.0 0.0 PT 18.1 H INR 1.5 H Anion Gap 17 17 Estim Creat Clear Calc 83.4 93.6 Estimated GFR > 60 > 60 Random Glucose 73 72 Lactic Acid 1.3 Calcium 10.4 H 10.1 Magnesium 1.5 L 1.4 L* 1.6 Total Bilirubin 1.0 1.0 AST 56 H 43 H ALT < 6 < 6 Alkaline Phosphatase 191 H 164 H Ammonia 25 Troponin I High Sens 6.6 D Total Protein 6.0 L 5.8 L Albumin 3.2 L 3.4 L TSH 6.21 H Free T4 0.97 Microbiology Microbiology Results: Microbiology 02/18/25 16:01 Blood Culture - Preliminary Blood - Venous No growth after 24 hours. 02/18/25 16:01 Blood Culture - Preliminary Blood - Venous No growth after 24 hours. Assessment and Plan (1) Hypotension: Status: Acute Assessment and Plan: d4, 70yo M with cirrhosis, HCC s/p chemo-embolization + TACE, currently on tremelimumab + durvalumab immunotherapy, hx GI bl5ed from gastric ulcer, EtOH abuse in remission sent in from Oncology office where he was to undergo 4th cycle of immunotherapy but sent in with hypotension and question of coffee-ground emesis. Admitted to ICU for pressor support; no overt GI bleed and stepped down to telemetry 02/18/25. Febrile with question of enteritis. fever - suspect due to underlying cancer but covering for enteritis with levofloxacin and metronidazole 02/18-. Heme/Onc consultation hypotension possible GI bleed - continue IV LR; start midodrine; continue to hold lisinopril; continue IV PPI; GI consulted and no plans for EGD; transfused 1u pRBCS in ED though Hb has been stable around -12 acute metabolic encephalopathy - suspect hepatic despite normal ammonia; start rifaximin and lactulose - no mets to brain on MRI with contrast - HARDBOARD GRINDER evaluation: NDD2 solids/honey liquids coagulopathy - likely due to cirrhosis hypoMg - repleted VTE ppx: SCDs dispo: TBD In my clinical judgment, the patient requires continued inpatient hospitalization for the following reasons: hypotension, encephalopathy Total time managing care of this patient today: 50 minutes. Quality Stroke Does the patient have a stroke diagnosis?: No VTE Prior VTE?: No VTE Risk Level:: Medical - moderate - high VTE Device Contraindication: N/A - Device Ordered VTE Drug Contraindication: Treatment Not Indicated
[2025-02-20 19:05] LABS: CDiff Gene PCR NEGATIVE (Negative)
--- NOTE | 2025-02-20 19:55 | PC.NURSE ---
this RN at bedside giving pt afternoon meds. pt was able to tolerate meds crushed in putting with no coughing after swallowing. pt did not tolerate lactulose admin. pt began coughing after a small spoonful of med. pt also did not tolerate small spoonful of juice, again began coughing and attempting to chew liquid.
[2025-02-21] VITALS (8 sets, daily range): BP systolic 118–156; BP diastolic 67–84; PULSE 96–104; RESP 18–20; TEMP 36.3–37.6; O2SAT 92–98; BMI 20.7
[2025-02-21] MEDS: metroNIDAZOLE/NS 500 MG/100 ML PIGGYBACK 100 MG IV (00:21)
[2025-02-21] MEDS: Lactated Ringers 1,000 ML 125 ML IVCONT (06:15)
[2025-02-21 07:41] LABS: Hematocrit 32.1 % (42.0-52.0); Hemoglobin 10.8 g/dl (14.0-18.0); Mean Corpuscular HGB Conc 33.6 g/dl (31.0-36.0); Mean Corpuscular Hemoglobin 30.6 pg (27.0-33.0); Mean Corpuscular Volume 90.9 fL (80.0-98.0); NRBC Abs Auto 0.000 X10*3/uL (0.0-0.012); NRBC Pct Auto 0.0 /100WBC (0.0-0.2); Platelet Count 318 X10*3/uL (160-400); Red Blood Count 3.53 X10*6/uL (4.60-5.80); White Blood Count 5.7 X10*3/uL (4.8-10.8)
[2025-02-21 07:44] LABS: INTERNATIONAL NORM RATIO 1.7 (0.9-1.1); Prothrombin Time 20.3 SEC (11.2-13.5)
[2025-02-21 08:31] LABS: Alanine Aminotransferase 7 U/L (0-40); Albumin Level 3.2 g/dL (3.5-5.0); Alkaline Phosphatase 185 U/L (39-117); Anion Gap 13 (12-20); Aspartate Amino Transferase 43 U/L (5-37); Blood Urea Nitrogen 7 mg/dL (9-16); Calcium 9.7 mg/dL (8.4-10.2); Carbon Dioxide 22 mmol/L (22-29); Chloride 109 mmol/L (96-108); Creatinine Clr Calc Pharmacy 102.5; Estimated Glomerular Filt Rate > 60; Magnesium 1.1 mg/dL (1.6-2.6); Potassium 3.3 mmol/L (3.3-5.1); Sodium 141 mmol/L (135-145); Total Protein 5.9 g/dL (6.5-8.0)
[2025-02-21 08:53] LABS: Free T4 (Free Thyroxine) 1.00 ng/dL (0.71-1.85)
[2025-02-21] MEDS: Magnesium Sulfate/H2O 2 GM/50 ML PIGGYBACK IV (09:14)
[2025-02-21] MEDS: Ferrous Sulfate 324 MG TABLET.DR PO (09:15)
[2025-02-21] MEDS: Phytonadione (Vit K1) Oral 10 MG/ML AMPUL PO (09:15)
[2025-02-21 12:19] LABS: ABG HCO3 24 mmol/L (22-26); ABG O2 % Saturation 95.0 %
--- NOTE | 2025-02-21 12:25 | MHC.CLN ---
F/U PO INTAKE POOR TAKING ONLY BITES AND 25% X1 MEAL DIET RX: GRD WITH HT LIQ RECOMMEND ADDING MAGIC CUP TID TO INCREASE KCALS SUPP TO PROVIDE 870KCALS, 27G PROTEIN (MAGIC CUP IS HONEY CONSISTENCY) MONITOR PO INTAKE AND ENCOURAGE SUPPLEMENTS
[2025-02-21] MEDS: Hydrocortisone Sod Succ/PF 100 MG VIAL IVPUSH ×2 (12:28→20:06)
--- NOTE | 2025-02-21 13:06 | P.PNIM_ITS ---
Subjective Subjective Date of Service: 02/21/25 Interval History: still tremulous and extremely confused, breathing quickly though SaO2 92% cortisol <1 Review of Systems Review of Systems: Yes Unobtainable due to mental status Physical Exam 2 Vital Signs: Vital Signs: Last Vital Signs Temp 97.3 F 02/21/25 11:24 Pulse 98 02/21/25 11:24 Resp 18 02/21/25 11:24 BP 131/76 02/21/25 11:24 Pulse Ox 92 02/21/25 11:24 O2 Del Method Room Air 02/21/25 11:24 FiO2 30 02/16/25 21:00 BMI result Body Mass Index 20.7 Gen: ill-appearing, tremulous, tachypneic HEENT: sclera anicteric, moist mucus membranes Neck: supple Lungs: clear to auscultation bilaterally Heart: regular rate and rhythm, no murmurs Abd: soft, non-tender, non-distended Ext: no edema Skin: warm/well-perfused Neuro: alert, disoriented, tremulous with apparent asterixis Psych: impaired insight Objective Data Active Medications Albuterol Sulfate (Albuterol Sulfate 90 Mcg 8 Gm Inhaler) 2 puff INHALE Q4H PRN PRN Reason: shortness of breath or wheezin Allopurinol (Allopurinol 300 Mg Tablet) 300 mg PO DAILY [facility] Last Admin: 02/21/25 09:15 Dose: 300 mg Documented By: RUPA Ferrous Sulfate (Ferrous Sulfate 324 Mg Tablet.Dr) 324 mg PO Q48H [facility] Last Admin: 02/21/25 09:15 Dose: 324 mg Documented By: RUPA Hydrocortisone Sodium Succinate (Hydrocortisone Sod Succ/Pf 100 Mg Vial) 100 mg IVPUSH Q8H [facility] Last Admin: 02/21/25 12:28 Dose: 100 mg Documented By: RUPA Lactated Ringer's (Lr) 1,000 mls @ 125 mls/hr IVCONT .Q8H [facility] Last Admin: 02/21/25 06:15 Dose: 125 mls/hr Documented By: TOHMAS Lactulose (Lactulose 20 Gm/30 Ml Solution) 30 gm PO TID [facility] Last Admin: 02/21/25 09:15 Dose: 30 gm Documented By: RUPA Levofloxacin (Levofloxacin 750 Mg Tablet) 750 mg PO Q24H [facility] Loratadine (Loratadine 10 Mg Tablet) 10 mg PO DAILY PRN PRN Reason: Allergy Symptoms Magnesium Oxide (Magnesium Oxide 400 Mg Tablet) 800 mg PO BIDPC [facility] Last Admin: 02/21/25 09:15 Dose: 800 mg Documented By: RUPA Metronidazole (Metronidazole 500 Mg Tablet) 500 mg PO Q8H [facility] Last Admin: 02/21/25 09:15 Dose: 500 mg Documented By: RUPA Midodrine (Midodrine Hcl 2.5 Mg Tablet) 2.5 mg PO TID@0900,1300,1700 [facility] Last Admin: 02/21/25 09:15 Dose: 2.5 mg Documented By: RUPA Pantoprazole Sodium (Pantoprazole Sodium 40 Mg/10 Ml Vial) 40 mg IVPUSH BID@0630,1630 [facility] Last Admin: 02/21/25 06:15 Dose: 40 mg Documented By: THOMAS Rifaximin (Rifaximin 550 Mg Tablet) 550 mg PO BID [facility] Last Admin: 02/21/25 09:15 Dose: 550 mg Documented By: RUPA Sodium Chloride (0.9 % Sodium Chloride Flush 3 Ml Syringe) 3 ml IVFLUSH QSHIFT [facility] Last Admin: 02/21/25 11:34 Dose: Not Given Documented By: RUPA Non-Admin Reason: IV Running Labs 02/21/25 06:51 02/21/25 06:51 Labs: Laboratory Results - last 24 hr 02/20/25 02/20/25 02/21/25 02:41 16:59 06:51 MCV 90.9 MCH 30.6 MCHC 33.6 RDW 13.9 Plt Count 318 MPV 8.6 L Absolute Nucleated RBC 0.000 Nucleated RBC % (auto) 0.0 PT 20.3 H INR 1.7 H O2 Saturation ABG pH at Pt Temp ABG pCO2 at Pt Temp ABG pO2 at Pt Temp ABG HCO3 ABG Base Excess (Actual) Anion Gap 13 Estim Creat Clear Calc 102.5 Estimated GFR > 60 Random Glucose 78 Calcium 9.7 Magnesium 1.1 L* Total Bilirubin 0.7 AST 43 H ALT 7 Alkaline Phosphatase 185 H Total Protein 5.9 L Albumin 3.2 L TSH 6.21 H 7.17 H Free T4 0.97 1.00 Random Cortisol < 1.0 C. difficile Tox B Gene NEGATIVE 02/21/25 12:15 MCV MCH MCHC RDW Plt Count MPV Absolute Nucleated RBC Nucleated RBC % (auto) PT INR O2 Saturation 95.0 ABG pH at Pt Temp 7.46 H ABG pCO2 at Pt Temp 33 ABG pO2 at Pt Temp 72 L ABG HCO3 24 ABG Base Excess (Actual) 1.3 Anion Gap Estim Creat Clear Calc Estimated GFR Random Glucose Calcium Magnesium Total Bilirubin AST ALT Alkaline Phosphatase Total Protein Albumin TSH Free T4 Random Cortisol C. difficile Tox B Gene Microbiology Microbiology Results: Microbiology 02/20/25 02:41 Blood Culture - Preliminary Blood - Venous No growth after 24 hours. 02/20/25 02:41 Blood Culture - Preliminary Blood - Venous No growth after 24 hours. 02/18/25 16:01 Blood Culture - Preliminary Blood - Venous No growth after 48 hours. 02/18/25 16:01 Blood Culture - Preliminary Blood - Venous No growth after 48 hours. Assessment and Plan (1) Hypotension: Status: Acute Assessment and Plan: d6, 70yo M with cirrhosis, HCC s/p chemo-embolization + TACE, currently on tremelimumab + durvalumab immunotherapy, hx GI bled from gastric ulcer, EtOH abuse in remission sent in from Oncology office where he was to undergo 4th cycle of immunotherapy but sent in with hypotension and question of coffee- ground emesis. Initially admitted to ICU for pressor support; no overt GI bleed and stepped down to telemetry 02/18/25. Febrile with question of enteritis. Ultimately found to have severe adrenal insufficiency, likely a side-effect of immune checkpoint inhibitor therapy. adrenal insufficiency - will start hydrocortisone 100 mg q8h plus fludrocortisone 0.1 mg daily; likely side effect of immune checkpoint inhibitors; discussed with Heme-Onc fever - probably due to adrenal insufficiency but covering for enteritis with levofloxacin and metronidazole 02/18- hypotension - as above, likely due to adrenal insufficiency; d/c midodrine possible GI bleed - continue IV PPI; GI consulted and no plans for EGD; transfused 1u pRBCS in ED though Hb has been stable around - acute metabolic encephalopathy - suspect due to adrenal insufficiency +/- hepatic despite normal ammonia; started rifaximin and lactulose - no mets to brain on MRI with contrast - [employer]PER[employer]ENT TRANSMISSION evaluation: NDD2 solids/honey liquids coagulopathy - likely due to cirrhosis; give another dose vit K and recheck INR hypoMg - replete IV/PO; recheck level tomorrow VTE ppx: SCDs dispo: STR In my clinical judgment, the patient requires continued inpatient hospitalization for the following reasons: hypotension, encephalopathy I updated the pt's nephew/HCP Efrem Galicia by phone Total time managing care of this patient today: 65 minutes. Quality Stroke Does the patient have a stroke diagnosis?: No VTE Prior VTE?: No VTE Risk Level:: Medical - moderate - high VTE Device Contraindication: N/A - Device Ordered VTE Drug Contraindication: Treatment Not Indicated
[2025-02-21 14:13] LABS: E. coli EAEC Not Detected (Not Detect.); E. coli EPEC Not Detected (Not Detect.); E. coli ETEC Not Detected (Not Detect.); E. coli STEC Not Detected (Not Detect.); Shigella sp./EIEC Not Detected (Not Detect.)
--- NOTE | 2025-02-21 14:34 | MHC.SL.SWA ---
Speech Pathologist Impression: Mild to moderate dysphagia in setting of cognitive decline Risk of Aspiration Due to: Cognition Weakness Dysphasia Diet Status: NDD2 with HTL, tsp presentations when pt alert and responding to PO, SCENARIO WRITER continues to follow Liquid Consistency and Strategies for Safe Swallow: Liquid Intake Recommendation: Pudding Thick Liquid Intake Strategies: Small Sips Solid Food Consistency: Dietary Recommendations: Grnd/Mech Altered (NDD2) Additional Modifications to Solid Foods: Oral Medication Intake: Crushed with Puree Please contact the pharmacy regarding appropriate crushable or liquid drug formulations that are available whenever modified delivery is recommended. Compensatory Strategies and Precautions to be Taken for Safe Swallow: Sitting Upright (90 deg) Liquids from Spoon Small Bites and Sips Alternate Liquids/Solids Rate of Ingestion Change Supervision While Eating and Drinking for Safe Swallow: Total Assistance (1:1) Foods to Avoid: Swallowing Recommended Treatments: Compens. Strategy Educat. Recommendation for Speech: Inpatient Speech Therapy Comment: Pt seen for dysphagia treatment, RN and SECURITIES SALES ASSOCIATE noted pt ate most of breakfast and 25% of lunch. Pt alertness waxed and waned, with occasional verbal responses and adequate eye contact. Thermal stim provided, reflexive swallow and speech production triggered with technique. Pt had infrequent cough throughout treatment Trials of HTL, NTL and loose puree presented. Pt exhibited improved oropharyngeal control with HTL by spoon sips and purees by tsp than with NTL sips. RN and SECURITIES SALES ASSOCIATE consulted, no changes to pt diet at this time. Frequency/Duration: Daily M-F Date Range for Service Req: Timeline to reassess: Page Designer Clinican/Clinical Fellow: No Supervisory Statement: I have reviewed and agree with the student/clinical fellow's documentation: N/A Speech Language Pathologist: Brooke Hernandez M.S., [facility]-SCENARIO WRITER
--- NOTE | 2025-02-21 15:24 | MHC.CM.PN ---
JEWEL met with pt.'s HCP: Efrem today, Efrem is not able to provide 24/7 care to pt. who lives alone. Efrem explained to CM that the pt.'s oncologist has informed him that the tx for CA is not working and they advised to stop tx. Pt. is confused at this time, DCP is STR, referrals out.
[2025-02-21] MEDS: 0.9 % Sodium Chloride Flush 3 ML SYRINGE IVFLUSH ×2 (16:49→20:07)
[2025-02-22 03:28] VITALS: BP 124/70; PULSE 81; RESP 20; TEMP 36.4; O2SAT 94
[2025-02-22] MEDS: Hydrocortisone Sod Succ/PF 100 MG VIAL IVPUSH ×3 (04:16→21:38)
[2025-02-22 06:00] VITALS: BMI 21.5
[2025-02-22 07:04] LABS: Hematocrit 31.6 % (42.0-52.0); Hemoglobin 10.8 g/dl (14.0-18.0); Mean Corpuscular HGB Conc 34.2 g/dl (31.0-36.0); Mean Corpuscular Hemoglobin 30.5 pg (27.0-33.0); Mean Corpuscular Volume 89.3 fL (80.0-98.0); NRBC Abs Auto 0.000 X10*3/uL (0.0-0.012); NRBC Pct Auto 0.0 /100WBC (0.0-0.2); Platelet Count 292 X10*3/uL (160-400); Red Blood Count 3.54 X10*6/uL (4.60-5.80); White Blood Count 3.7 X10*3/uL (4.8-10.8)
[2025-02-22 07:12] LABS: INTERNATIONAL NORM RATIO 1.7 (0.9-1.1); Prothrombin Time 20.3 SEC (11.2-13.5)
[2025-02-22 07:34] LABS: ABG Refer to POC result
[2025-02-22 07:37] LABS: Alanine Aminotransferase < 6 U/L (0-40); Albumin Level 3.3 g/dL (3.5-5.0); Alkaline Phosphatase 167 U/L (39-117); Anion Gap 15 (12-20); Aspartate Amino Transferase 32 U/L (5-37); Blood Urea Nitrogen 12 mg/dL (9-16); Calcium 9.6 mg/dL (8.4-10.2); Carbon Dioxide 21 mmol/L (22-29); Chloride 110 mmol/L (96-108); Creatinine Clr Calc Pharmacy 93.1; Estimated Glomerular Filt Rate > 60; Magnesium 1.3 mg/dL (1.6-2.6); Potassium 3.4 mmol/L (3.3-5.1); Sodium 143 mmol/L (135-145); Total Protein 6.1 g/dL (6.5-8.0)
[2025-02-22 08:09] VITALS: BP 123/73; PULSE 82; RESP 18; TEMP 36.2; O2SAT 94
[2025-02-22] MEDS: 0.9 % Sodium Chloride Flush 3 ML SYRINGE IVFLUSH ×3 (09:18→21:38)
[2025-02-22] MEDS: Magnesium Sulfate/H2O 2 GM/50 ML PIGGYBACK IV (09:18)
[2025-02-22 12:00] VITALS: BP 124/76; PULSE 94; RESP 18; TEMP 36.4; O2SAT 96
[2025-02-22 15:51] VITALS: BP 122/72; PULSE 86; RESP 18; TEMP 36.6; O2SAT 94
--- NOTE | 2025-02-22 17:08 | MHC.SL.SWA ---
Speech Pathologist Impression: Moderate oropharyngeal dysphagia Risk of Aspiration Due to: Dysphasia Diet Status: Recommend CONTINUE with NDD2, HONEY THICK Liquids. Liquid Consistency and Strategies for Safe Swallow: Liquid Intake Recommendation: Honey Thick Liquid Intake Strategies: Small Sips Solid Food Consistency: Dietary Recommendations: Grnd/Mech Altered (NDD2) Additional Modifications to Solid Foods: Oral Medication Intake: Crushed with Puree Please contact the pharmacy regarding appropriate crushable or liquid drug formulations that are available whenever modified delivery is recommended. Compensatory Strategies and Precautions to be Taken for Safe Swallow: Sitting Upright (90 deg) Liquids from Spoon Small Bites and Sips Alternate Liquids/Solids Rate of Ingestion Change Supervision While Eating and Drinking for Safe Swallow: Total Assistance (1:1) Foods to Avoid: Swallowing Recommended Treatments: Compens. Strategy Educat. Recommendation for Speech: Inpatient Speech Therapy Comment: Patient seen for dysphagia treatment. Patient more alert than previous sessions. Patient with nonsense verbalizations and confusion. Patient accepting HTL of cranberry juice and a couple bites of pudding with baron cracker crumbs. Patient requiring moderate cues to masticate baron cracker crumbs. Cough x1 noted, no changes in vocal quality or tearing of eyes with intake. No other overt s/sx of penetration/aspiration. Patient tolerating current diet. Recommend CONTINUE with NDD2, HONEY THICK Liquids. POULTRY BREEDER to continue to follow. Frequency/Duration: Daily M-F Date Range for Service Req: Timeline to reassess: Telephone Cleaner Clinican/Clinical Fellow: No Supervisory Statement: I have reviewed and agree with the student/clinical fellow's documentation: N/A Speech Language Pathologist: Carlota Degroot M.A., [facility]POULTRY BREEDER
--- NOTE | 2025-02-22 17:45 | P.PNIM_ITS ---
Subjective Subjective Date of Service: 02/22/25 Interval History: Remains confused Review of Systems Review of Systems: Yes Unobtainable due to mental status Physical Exam 2 Vital Signs: Vital Signs: Last Vital Signs Temp 97.8 F 02/22/25 15:51 Pulse 86 02/22/25 15:51 Resp 18 02/22/25 15:51 BP 122/72 02/22/25 15:51 Pulse Ox 94 02/22/25 15:51 O2 Del Method Room Air 02/22/25 15:51 FiO2 30 02/16/25 21:00 BMI result Body Mass Index 21.5 Objective Data Active Medications Albuterol Sulfate (Albuterol Sulfate 90 Mcg 8 Gm Inhaler) 2 puff INHALE Q4H PRN PRN Reason: shortness of breath or wheezin Allopurinol (Allopurinol 300 Mg Tablet) 300 mg PO DAILY [facility] Last Admin: 02/22/25 09:18 Dose: 300 mg Documented By: CROW Ferrous Sulfate (Ferrous Sulfate 324 Mg Tablet.) 324 mg PO Q48H [facility] Last Admin: 02/21/25 09:15 Dose: 324 mg Documented By: RUPA Fludrocortisone Acetate (Fludrocortisone Acetate 0.1 Mg Tablet) 0.1 mg PO DAILY [facility] Last Admin: 02/22/25 09:18 Dose: 0.1 mg Documented By: CROW Hydrocortisone Sodium Succinate (Hydrocortisone Sod Succ/Pf 100 Mg Vial) 100 mg IVPUSH Q8H [facility] Last Admin: 02/22/25 12:54 Dose: 100 mg Documented By: CROW Lactulose (Lactulose 20 Gm/30 Ml Solution) 30 gm PO TID [facility] Last Admin: 02/22/25 17:04 Dose: Not Given Documented By: CROW Non-Admin Reason: multiple loose stools Levofloxacin (Levofloxacin 750 Mg Tablet) 750 mg PO Q24H [facility] Last Admin: 02/22/25 17:07 Dose: 750 mg Documented By: CROW Loratadine (Loratadine 10 Mg Tablet) 10 mg PO DAILY PRN PRN Reason: Allergy Symptoms Magnesium Oxide (Magnesium Oxide 400 Mg Tablet) 800 mg PO BIDPC [facility] Last Admin: 02/22/25 17:08 Dose: 800 mg Documented By: CROW Metronidazole (Metronidazole 500 Mg Tablet) 500 mg PO Q8H [facility] Last Admin: 02/22/25 17:08 Dose: 500 mg Documented By: CROW Pantoprazole Sodium (Pantoprazole Sodium 40 Mg/10 Ml Vial) 40 mg IVPUSH BID@0630,1630 [facility] Last Admin: 02/22/25 17:07 Dose: 40 mg Documented By: CROW Rifaximin (Rifaximin 550 Mg Tablet) 550 mg PO BID [facility] Last Admin: 02/22/25 09:18 Dose: 550 mg Documented By: CROW Sodium Chloride (0.9 % Sodium Chloride Flush 3 Ml Syringe) 3 ml IVFLUSH QSHIFT [facility] Last Admin: 02/22/25 17:08 Dose: 3 ml Documented By: CROW Labs 02/23/25 07:35 02/22/25 06:17 Labs: Laboratory Results - last 24 hr 02/22/25 02/22/25 06:16 06:17 MCV 89.3 MCH 30.5 MCHC 34.2 RDW 13.9 Plt Count 292 MPV 8.4 L Absolute Nucleated RBC 0.000 Nucleated RBC % (auto) 0.0 PT 20.3 H INR 1.7 H Anion Gap 15 Estim Creat Clear Calc 93.1 Estimated GFR > 60 Random Glucose 137 H Calcium 9.6 Magnesium 1.3 L* Total Bilirubin 0.6 AST 32 ALT < 6 Alkaline Phosphatase 167 H Total Protein 6.1 L Albumin 3.3 L Microbiology Microbiology Results: Microbiology 02/17/25 05:23 Blood Culture - Final Blood - Venous No growth after 5 days. 02/17/25 05:23 Blood Culture - Final Blood - Venous No growth after 5 days. 02/20/25 02:41 Blood Culture - Preliminary Blood - Venous No growth after 48 hours. 02/20/25 02:41 Blood Culture - Preliminary Blood - Venous No growth after 48 hours. Assessment and Plan (1) Hypotension: Status: Acute Assessment and Plan: 70yo M with cirrhosis, HCC s/p chemo-embolization + TACE, currently on tremelimumab + durvalumab immunotherapy, hx GI bled from gastric ulcer, EtOH abuse in remission sent in from Oncology office where he was to undergo 4th cycle of immunotherapy but sent in with hypotension and question of coffee- ground emesis. Initially admitted to ICU for pressor support; no overt GI bleed and stepped down to telemetry 02/18/25. Febrile with question of enteritis. Ultimately found to have severe adrenal insufficiency, likely a side-effect of immune checkpoint inhibitor therapy. adrenal insufficiency - hydrocortisone 100 mg q8h plus fludrocortisone 0.1 mg daily; likely side effect of immune checkpoint inhibitors; discussed with Heme-Onc fever - probably due to adrenal insufficiency but covering for enteritis with levofloxacin and metronidazole 02/18- hypotension - as above, likely due to adrenal insufficiency; d/c midodrine possible GI bleed - continue IV PPI; GI consulted and no plans for EGD; transfused 1u pRBCS in ED though Hb has been stable around 02-02 acute metabolic encephalopathy - suspect due to adrenal insufficiency +/- hepatic despite normal ammonia; started rifaximin and lactulose - no mets to brain on MRI with contrast - RADIO ANNOUNCER evaluation: NDD2 solids/honey liquids coagulopathy - likely due to cirrhosis; give another dose vit K and recheck INR hypoMg - replete IV/PO; recheck level tomorrow VTE ppx: SCDs dispo: STR In my clinical judgment, the patient requires continued inpatient hospitalization for the following reasons: hypotension, encephalopathy I updated the pt's nephew/HCP Efrem Galicia by phone Quality Stroke Does the patient have a stroke diagnosis?: No VTE Prior VTE?: No VTE Risk Level:: Medical - moderate - high VTE Device Contraindication: N/A - Device Ordered VTE Drug Contraindication: Treatment Not Indicated
[2025-02-22 19:33] VITALS: BP 121/68; PULSE 105; RESP 20; TEMP 36.3; O2SAT 92
[2025-02-23] VITALS: BP 118/65; PULSE 81; RESP 20; TEMP 36.5; O2SAT 94
[2025-02-23 03:16] VITALS: BP 114/66; PULSE 95; RESP 20; TEMP 36.2; O2SAT 94
[2025-02-23] MEDS: Hydrocortisone Sod Succ/PF 100 MG VIAL IVPUSH ×3 (05:11→21:25)
[2025-02-23 06:00] VITALS: BMI 20.5
[2025-02-23 07:46] LABS: Hematocrit 31.4 % (42.0-52.0); Hemoglobin 10.8 g/dl (14.0-18.0); Mean Corpuscular HGB Conc 34.4 g/dl (31.0-36.0); Mean Corpuscular Hemoglobin 30.2 pg (27.0-33.0); Mean Corpuscular Volume 87.7 fL (80.0-98.0); NRBC Abs Auto 0.000 X10*3/uL (0.0-0.012); NRBC Pct Auto 0.0 /100WBC (0.0-0.2); Platelet Count 300 X10*3/uL (160-400); Red Blood Count 3.58 X10*6/uL (4.60-5.80); White Blood Count 6.5 X10*3/uL (4.8-10.8)
[2025-02-23 08:00] VITALS: BP 130/74; PULSE 78; RESP 18; TEMP 36.3; O2SAT 94
[2025-02-23] MEDS: Ferrous Sulfate 324 MG TABLET.DR PO (10:19)
[2025-02-23] MEDS: 0.9 % Sodium Chloride Flush 3 ML SYRINGE IVFLUSH ×2 (10:22→18:07)
--- NOTE | 2025-02-23 10:36 | MHC.CLN ---
F/U PO INTAKE 25% CONSISTENTLY DIET RX: GRD WITH HT LIQ RECEIVING MAGIC CUP TID TO INCREASE KCALS SUPP PROVIDES 870KCALS, 27G PROTEIN (MAGIC CUP IS HONEY CONSISTENCY) MONITOR PO INTAKE AND ENCOURAGE SUPPLEMENTS
[2025-02-23 12:00] VITALS: BP 111/69; PULSE 93; RESP 18; TEMP 36.2; O2SAT 96
--- NOTE | 2025-02-23 15:52 | MHC.SL.SWA ---
Speech Pathologist Impression: Moderate dysphagia in setting of encephalopathy Risk of Aspiration Due to: Confusion Weakness Dysphasia Diet Status: GROUND/MECH ALTERED (NDD2) diet and HONEY THICK liquids, pills CRUSHED in PUREE, 1:1 assistance feeding (assist pt in holding cup/utensils) and cue pt to take small bites, allow ample time for patient to chew, check oral cavity for any residue, clear residue by cuing patient for double swallow or liquid wash, ensure upright 90 degree position. Liquid Consistency and Strategies for Safe Swallow: Liquid Intake Recommendation: [place] Thick Liquid Intake Strategies: Small Sips Solid Food Consistency: Dietary Recommendations: Grnd/Mech Altered (NDD2) Additional Modifications to Solid Foods: Oral Medication Intake: Crushed with Puree Please contact the pharmacy regarding appropriate crushable or liquid drug formulations that are available whenever modified delivery is recommended. Compensatory Strategies and Precautions to be Taken for Safe Swallow: Sitting Upright (90 deg) Liquids from Spoon Small Bites and Sips Alternate Liquids/Solids Rate of Ingestion Change Supervision While Eating and Drinking for Safe Swallow: Total Assistance (1:1) Foods to Avoid: Swallowing Recommended Treatments: Compens. Strategy Educat. Recommendation for Speech: Inpatient Speech Therapy Comment: Patient seen for dysphagia treatment, pt more alert and responsive today. Trials of thins presented, pt bit cup and straw but was able to follow simple cues. Pt verbalized intermittently during breaks in trials. Pt tolerated approximately 4oz of thins by small sips without overt s/s of aspiration; however, upon voicing to speak spontaneously, reflexive cough triggered. Pt cough remains weak; voicing absent of wetness in all instances. Recc remain on current liquid thickness d/t weakness, [employer] tx daily to re-assess for liquid advance as pt condition improves. [employer] communicated with pt nephew via phone call to provide update on diet, nephew agrees with pt remaining on current diet. MD and RN notified via secure text. [employer] continues to follow daily. Frequency/Duration: Daily M-F Date Range for Service Req: Timeline to reassess: Tool Grinder Operator External Clinican/Clinical Fellow: No Supervisory Statement: I have reviewed and agree with the student/clinical fellow's documentation: N/A Speech Language Pathologist: Carlota Degroot M.A., CCC-[employer]
--- NOTE | 2025-02-23 15:58 | P.PNIM_ITS ---
Subjective Subjective Date of Service: 02/23/25 Interval History: Seemingly less confused talking more, Review of Systems Review of Systems: Yes Unobtainable due to mental status Physical Exam 2 Vital Signs: Vital Signs: Last Vital Signs Temp 97.2 F 02/23/25 12:00 Pulse 93 02/23/25 12:00 Resp 18 02/23/25 12:00 BP 111/69 02/23/25 12:00 Pulse Ox 96 02/23/25 12:00 O2 Del Method Room Air 02/23/25 12:00 FiO2 30 02/16/25 21:00 BMI result Body Mass Index 20.5 General: awake, alert, no acute distress Resp: CTA bilateral CVS: S1,S2,RRR GI: +BS, NT, no distention Skin: No rash Neuro: motor grossly intact Psych: appropriate affect Objective Data Active Medications Albuterol Sulfate (Albuterol Sulfate 90 Mcg 8 Gm Inhaler) 2 puff INHALE Q4H PRN PRN Reason: shortness of breath or wheezin Allopurinol (Allopurinol 300 Mg Tablet) 300 mg PO DAILY [facility] Last Admin: 02/23/25 10:18 Dose: 300 mg Documented By: VIJAY Ferrous Sulfate (Ferrous Sulfate 324 Mg Tablet.Dr) 324 mg PO Q48H [facility] Last Admin: 02/23/25 10:19 Dose: 324 mg Documented By: VIJAY Fludrocortisone Acetate (Fludrocortisone Acetate 0.1 Mg Tablet) 0.1 mg PO DAILY [facility] Last Admin: 02/23/25 10:18 Dose: 0.1 mg Documented By: VIJAY Hydrocortisone Sodium Succinate (Hydrocortisone Sod Succ/Pf 100 Mg Vial) 100 mg IVPUSH Q8H [facility] Last Admin: 02/23/25 12:49 Dose: 100 mg Documented By: VIJAY Lactulose (Lactulose 20 Gm/30 Ml Solution) 30 gm PO TID [facility] Last Admin: 02/23/25 10:19 Dose: 30 gm Documented By: VIJAY Levofloxacin (Levofloxacin 750 Mg Tablet) 750 mg PO Q24H [facility] Last Admin: 02/22/25 17:07 Dose: 750 mg Documented By: CROW Loratadine (Loratadine 10 Mg Tablet) 10 mg PO DAILY PRN PRN Reason: Allergy Symptoms Magnesium Oxide (Magnesium Oxide 400 Mg Tablet) 800 mg PO BIDPC [facility] Last Admin: 02/23/25 10:18 Dose: 800 mg Documented By: VIJAY Metronidazole (Metronidazole 500 Mg Tablet) 500 mg PO Q8H [facility] Last Admin: 02/23/25 10:19 Dose: 500 mg Documented By: VIJAY Pantoprazole Sodium (Pantoprazole Sodium 40 Mg/10 Ml Vial) 40 mg IVPUSH BID@0630,1630 [facility] Last Admin: 02/23/25 05:11 Dose: 40 mg Documented By: JANETTE Rifaximin (Rifaximin 550 Mg Tablet) 550 mg PO BID [facility] Last Admin: 02/23/25 10:19 Dose: 550 mg Documented By: VIJAY Sodium Chloride (0.9 % Sodium Chloride Flush 3 Ml Syringe) 3 ml IVFLUSH QSHIFT [facility] Last Admin: 02/23/25 10:22 Dose: 3 ml Documented By: VIJAY Labs 02/23/25 07:35 02/22/25 06:17 Labs: Laboratory Results - last 24 hr 02/23/25 07:35 MCV 87.7 MCH 30.2 MCHC 34.4 RDW 13.7 Plt Count 300 MPV 8.7 L Absolute Nucleated RBC 0.000 Nucleated RBC % (auto) 0.0 Microbiology Microbiology Results: Microbiology 02/17/25 05:23 Blood Culture - Final Blood - Venous No growth after 5 days. 02/17/25 05:23 Blood Culture - Final Blood - Venous No growth after 5 days. 02/20/25 02:41 Blood Culture - Preliminary Blood - Venous No growth after 48 hours. 02/20/25 02:41 Blood Culture - Preliminary Blood - Venous No growth after 48 hours. Assessment and Plan (1) Hypotension: Status: Acute Assessment and Plan: 70yo M with cirrhosis, HCC s/p chemo-embolization + TACE, currently on tremelimumab + durvalumab immunotherapy, hx GI bled from gastric ulcer, EtOH abuse in remission sent in from Oncology office where he was to undergo 4th cycle of immunotherapy but sent in with hypotension and question of coffee- ground emesis. Initially admitted to ICU for pressor support; no overt GI bleed and stepped down to telemetry 02/18/25. Febrile with question of enteritis. Ultimately found to have severe adrenal insufficiency, likely a side-effect of immune checkpoint inhibitor therapy. adrenal insufficiency - hydrocortisone 100 mg q8h plus fludrocortisone 0.1 mg daily; likely side effect of immune checkpoint inhibitors; discussed with Heme-Onc fever - probably due to adrenal insufficiency but covering for enteritis with levofloxacin and metronidazole 02/18- hypotension, resolved - as above, likely due to adrenal insufficiency; d/c midodrine possible GI bleed - continue IV PPI; GI consulted and no plans for EGD; transfused 1u pRBCS in ED though Hb has been stable around 02-02 acute metabolic encephalopathy - suspect due to adrenal insufficiency +/- hepatic despite normal ammonia; started rifaximin and lactulose - no mets to brain on MRI with contrast - [employer] evaluation: NDD2 solids/honey liquids coagulopathy - likely due to cirrhosis; give another dose vit K and recheck INR hypoMg - replete IV/PO; recheck level tomorrow VTE ppx: SCDs dispo: STR In my clinical judgment, the patient requires continued inpatient hospitalization for the following reasons: hypotension, encephalopathy Quality Stroke Does the patient have a stroke diagnosis?: No VTE Prior VTE?: No VTE Risk Level:: Medical - moderate - high VTE Device Contraindication: N/A - Device Ordered VTE Drug Contraindication: Treatment Not Indicated
[2025-02-23 16:00] VITALS: BP 127/73; PULSE 92; RESP 18; TEMP 36.3; O2SAT 96
--- NOTE | 2025-02-23 16:06 | MHC.CM.PN ---
Per rounds, pt. is not ready to DC, DCP: STR, CM to follow for DC needs.
[2025-02-23 20:00] VITALS: BP 134/64; PULSE 94; RESP 18; TEMP 36.6; O2SAT 92
[2025-02-24] VITALS (7 sets, daily range): BP systolic 133–157; BP diastolic 70–91; PULSE 82–91; RESP 16–20; TEMP 36.1–36.7; O2SAT 93–96; BMI 20.5
[2025-02-24] MEDS: 0.9 % Sodium Chloride Flush 3 ML SYRINGE IVFLUSH ×4 (02:20→21:18)
[2025-02-24] MEDS: Hydrocortisone Sod Succ/PF 100 MG VIAL IVPUSH ×3 (05:15→21:18)
[2025-02-24 07:41] LABS: INTERNATIONAL NORM RATIO 1.4 (0.9-1.1); Prothrombin Time 17.1 SEC (11.2-13.5)
[2025-02-24 08:41] LABS: Anion Gap 11 (12-20); Blood Urea Nitrogen 22 mg/dL (9-16); Calcium 8.7 mg/dL (8.4-10.2); Carbon Dioxide 24 mmol/L (22-29); Chloride 116 mmol/L (96-108); Creatinine Clr Calc Pharmacy 86.3; Estimated Glomerular Filt Rate > 60; Potassium 3.2 mmol/L (3.3-5.1); Sodium 148 mmol/L (135-145)
[2025-02-24 11:30] LABS: Hematocrit 32.1 % (42.0-52.0); Hemoglobin 10.6 g/dl (14.0-18.0); Mean Corpuscular HGB Conc 33.0 g/dl (31.0-36.0); Mean Corpuscular Hemoglobin 30.0 pg (27.0-33.0); Mean Corpuscular Volume 90.9 fL (80.0-98.0); NRBC Abs Auto 0.000 X10*3/uL (0.0-0.012); NRBC Pct Auto 0.0 /100WBC (0.0-0.2); Platelet Count 354 X10*3/uL (160-400); Red Blood Count 3.53 X10*6/uL (4.60-5.80); White Blood Count 5.2 X10*3/uL (4.8-10.8)
--- NOTE | 2025-02-24 12:42 | P.PNIM_ITS ---
Subjective Subjective Date of Service: 02/24/25 Interval History: Seems better, remains confused however Physical Exam 2 Vital Signs: Vital Signs: Last Vital Signs Temp 98.1 F 02/24/25 11:31 Pulse 85 02/24/25 11:31 Resp 16 02/24/25 11:31 BP 145/80 H 02/24/25 11:31 Pulse Ox 95 02/24/25 11:31 O2 Del Method Room Air 02/24/25 11:31 FiO2 30 02/16/25 21:00 BMI result Body Mass Index 20.5 Objective Data Active Medications Albuterol Sulfate (Albuterol Sulfate 90 Mcg 8 Gm Inhaler) 2 puff INHALE Q4H PRN PRN Reason: shortness of breath or wheezin Allopurinol (Allopurinol 300 Mg Tablet) 300 mg PO DAILY [facility] Last Admin: 02/24/25 10:51 Dose: 300 mg Documented By: VIJAY Ferrous Sulfate (Ferrous Sulfate 324 Mg Tablet.Dr) 324 mg PO Q48H [facility] Last Admin: 02/23/25 10:19 Dose: 324 mg Documented By: VIJAY Fludrocortisone Acetate (Fludrocortisone Acetate 0.1 Mg Tablet) 0.1 mg PO DAILY [facility] Last Admin: 02/24/25 10:51 Dose: 0.1 mg Documented By: VIJAY Hydrocortisone Sodium Succinate (Hydrocortisone Sod Succ/Pf 100 Mg Vial) 100 mg IVPUSH Q8H [facility] Last Admin: 02/24/25 05:15 Dose: 100 mg Documented By: JANETTE Lactulose (Lactulose 20 Gm/30 Ml Solution) 30 gm PO TID [facility] Last Admin: 02/24/25 10:52 Dose: 30 gm Documented By: VIJAY Levofloxacin (Levofloxacin 750 Mg Tablet) 750 mg PO Q24H [facility] Last Admin: 02/23/25 15:55 Dose: 750 mg Documented By: VIJAY Loratadine (Loratadine 10 Mg Tablet) 10 mg PO DAILY PRN PRN Reason: Allergy Symptoms Magnesium Oxide (Magnesium Oxide 400 Mg Tablet) 800 mg PO BIDPC [facility] Last Admin: 02/24/25 10:51 Dose: 800 mg Documented By: VIJAY Metronidazole (Metronidazole 500 Mg Tablet) 500 mg PO Q8H [facility] Last Admin: 02/24/25 10:51 Dose: 500 mg Documented By: VIJAY Pantoprazole Sodium (Pantoprazole Sodium 40 Mg/10 Ml Vial) 40 mg IVPUSH BID@0630,1630 [facility] Last Admin: 02/24/25 05:15 Dose: 40 mg Documented By: JANETTE Rifaximin (Rifaximin 550 Mg Tablet) 550 mg PO BID [facility] Last Admin: 02/24/25 10:51 Dose: 550 mg Documented By: VIJAY Sodium Chloride (0.9 % Sodium Chloride Flush 3 Ml Syringe) 3 ml IVFLUSH QSHIFT [facility] Last Admin: 02/24/25 10:51 Dose: 3 ml Documented By: VIJAY Labs 02/24/25 06:27 02/24/25 06:27 Labs: Laboratory Results - last 24 hr 02/24/25 06:27 MCV 90.9 MCH 30.0 MCHC 33.0 RDW 14.5 Plt Count 354 MPV 8.9 L Absolute Nucleated RBC 0.000 Nucleated RBC % (auto) 0.0 Hold Purple Top SEE NOTE PT 17.1 H INR 1.4 H Anion Gap 11 L Estim Creat Clear Calc 86.3 Estimated GFR > 60 Random Glucose 124 H Calcium 8.7 D Microbiology Microbiology Results: Microbiology 02/18/25 16:01 Blood Culture - Final Blood - Venous No growth after 5 days. 02/18/25 16:01 Blood Culture - Final Blood - Venous No growth after 5 days. Assessment and Plan (1) Hypotension: Status: Acute Assessment and Plan: 70yo M with cirrhosis, HCC s/p chemo-embolization + TACE, currently on tremelimumab + durvalumab immunotherapy, hx GI bled from gastric ulcer, EtOH abuse in remission sent in from Oncology office where he was to undergo 4th cycle of immunotherapy but sent in with hypotension and question of coffee- ground emesis. Initially admitted to ICU for pressor support; no overt GI bleed and stepped down to telemetry 02/18/25. Febrile with question of enteritis. Ultimately found to have severe adrenal insufficiency, likely a side-effect of immune checkpoint inhibitor therapy. adrenal insufficiency - hydrocortisone 100 mg q8h plus fludrocortisone 0.1 mg daily; likely side effect of immune checkpoint inhibitors; discussed with Heme-Onc fever - probably due to adrenal insufficiency but covering for enteritis with levofloxacin and metronidazole 02/18- -resolved hypotension, resolved - as above, likely due to adrenal insufficiency; stopped midodrine possible GI bleed - continue IV PPI; GI consulted and no plans for EGD; transfused 1u pRBCS in ED though Hb has been stable around 11-12 acute metabolic encephalopathy - suspect due to adrenal insufficiency +/- hepatic despite normal ammonia; started rifaximin and lactulose - no mets to brain on MRI with contrast - [employer]ES [employer]OMOTER evaluation: NDD2 solids/honey liquids coagulopathy - likely due to cirrhosis; give another dose vit K and recheck INR hypoMg - replete IV/PO; recheck level tomorrow Hypernatremia d/t dehydration IVF and recheck tomorrow VTE ppx: SCDs dispo: STR In my clinical judgment, the patient requires continued inpatient hospitalization for the following reasons: hypotension, encephalopathy Quality Stroke Does the patient have a stroke diagnosis?: No VTE Prior VTE?: No VTE Risk Level:: Medical - moderate - high VTE Device Contraindication: N/A - Device Ordered VTE Drug Contraindication: Treatment Not Indicated
[2025-02-24 13:10] LABS: Magnesium 1.8 mg/dL (1.6-2.6)
--- NOTE | 2025-02-24 14:27 | MHC.SL.SWA ---
Speech Pathologist Impression: Moderate oropharyngeal dysphagia Risk of Aspiration Due to: Ecephalopathy; confusion, weakness Dysphasia Diet Status: UPGRADE to NDD2 (ground/mechanical), NECTAR THICK Liquids with 1:1 feeding assistance Liquid Consistency and Strategies for Safe Swallow: Liquid Intake Recommendation: [place] Thick Liquid Intake Strategies: Small Sips Solid Food Consistency: Dietary Recommendations: Grnd/Mech Altered (NDD2) Additional Modifications to Solid Foods: Oral Medication Intake: Crushed with Puree Please contact the pharmacy regarding appropriate crushable or liquid drug formulations that are available whenever modified delivery is recommended. Compensatory Strategies and Precautions to be Taken for Safe Swallow: Sitting Upright (90 deg) Liquids from Cup Liquids from Straw Liquids from Spoon Small Bites and Sips Alternate Liquids/Solids Rate of Ingestion Change Supervision While Eating and Drinking for Safe Swallow: Total Assistance (1:1) Foods to Avoid: Swallowing Recommended Treatments: Compens. Strategy Educat. Recommendation for Speech: Inpatient Speech Therapy Comment: Patient seen for dysphagia treatment, patient more alert and responsive today. Trials of thins presented, patient able to hold cup with [id number] assistance from COKE WORKER. Patient taking large cup sips with audible swallow. COKE WORKER tipping back cup to control liquid amount. Patient with no s/sx of penetration/aspiration. Patient remains confusion and unable to communicate effectively. NTLs also trialed this date, large cup sips taken with no overt s/sx of penetration/aspiration. Patient also taking a few bites of pudding with baron cracker crumbs, occasional prolonged mastication with cues to chew the baron crackers , adequate cohesion and clearance noted. Recommend UPGRADE to NDD2 (ground/mechanical), NECTAR THICK Liquids. MD, RN, and RD aware of change in liquids via secure chat. COKE WORKER changing diet in expanse. COKE WORKER to continue to follow. Frequency/Duration: Daily M-F Date Range for Service Req: Timeline to reassess: Outbound Telemarketing Representative Clinican/Clinical Fellow: No Supervisory Statement: I have reviewed and agree with the student/clinical fellow's documentation: N/A Speech Language Pathologist: Carlota Degroot M.A., [facility]-COKE WORKER
--- NOTE | 2025-02-24 15:27 | MHC.CM.PN ---
CM spoke to pt.'s HCP, Efrem, to discuss the pt.'s DCP. CM let HCP know that pt. will likely need SNF care and that he will have to make financial plans for this. Efrem said that he thought pt. would improve and go to STR. PT notes state that pt. cannot follow cues for therapy at this time. Efrem had informed CM at an earlier conversation that the oncologist has rec stopping the chemotherapy because it is not working. Pt. lived alone prior to coming to hosp. HCP said he is limited in how much assistance he can provide. CM advised him to follow up on atty visit for financial planning for SNF care for pt. Eferm said he would do this.
[2025-02-25] MEDS: diazePAM 10 MG/2 ML CARTRIDGE 2.5 MG IVPUSH (02:51)
[2025-02-25 03:25] VITALS: BP 148/83; PULSE 82; RESP 18; TEMP 36.6; O2SAT 98
[2025-02-25] MEDS: Hydrocortisone Sod Succ/PF 100 MG VIAL IVPUSH ×3 (04:25→21:30)
[2025-02-25 04:26] VITALS: BMI 20.1
[2025-02-25 07:47] LABS: INTERNATIONAL NORM RATIO 1.3 (0.9-1.1); Prothrombin Time 16.1 SEC (11.2-13.5)
[2025-02-25 07:52] VITALS: BP 147/86; PULSE 70; RESP 20; TEMP 36.6; O2SAT 94
[2025-02-25] MEDS: 0.9 % Sodium Chloride Flush 3 ML SYRINGE IVFLUSH (09:42)
[2025-02-25] MEDS: Ferrous Sulfate 324 MG TABLET.DR PO (09:43)
--- NOTE | 2025-02-25 11:23 | MHC.CLN ---
F/U PO INTAKE POOR TO FAIR CONSUMING BETWEEN BITES TO 50% NOTED FEVER DIET RX: GRD WITH NT LIQ-SERVICE CONTROL OPERATOR FOLLOWING RECEIVING MAGIC CUP TID TO INCREASE KCALS SUPP PROVIDES 870KCALS, 27G PROTEIN (MAGIC CUP IS HONEY CONSISTENCY) WILL ADD ENSURE BID TO INCREASE KCALS CONTINUE TO MONITOR PO INTAKE AND ENCOURAGE SUPPLEMENTS
[2025-02-25 11:59] VITALS: BP 143/85; PULSE 79; RESP 20; TEMP 36.4; O2SAT 95
--- NOTE | 2025-02-25 14:57 | MHC.SL.SWA ---
Speech Pathologist Impression: Risk of Aspiration, Oropharyngeal Dysphagia Risk of Aspiration Due to: Mentation Dysphasia Diet Status: No Change Liquid Consistency and Strategies for Safe Swallow: Liquid Intake Recommendation: [place] Thick Liquid Intake Strategies: Small Sips Solid Food Consistency: Dietary Recommendations: Grnd/Mech Altered (NDD2) Oral Medication Intake: Crushed with Puree Please contact the pharmacy regarding appropriate crushable or liquid drug formulations that are available whenever modified delivery is recommended. Compensatory Strategies and Precautions to be Taken for Safe Swallow: Sitting Upright (90 deg) Liquids from Cup Liquids from Straw Liquids from Spoon Small Bites and Sips Alternate Liquids/Solids Rate of Ingestion Change Supervision While Eating and Drinking for Safe Swallow: Total Assistance (1:1) Swallowing Recommended Treatments: Compens. Strategy Educat. Recommendation for Speech: Inpatient Speech Therapy Comment: Recommend GROUND/MECH ALTERED (NDD2) diet and NECTAR THICK liquids, pills CRUSHED in PUREE, 1:1 assistance feeding (assist pt in holding cup/utensils) and cue pt to take small bites, allow ample time for patient to chew, check oral cavity for any residue, clear residue by cuing patient for double swallow or liquid wash, ensure upright 90 degree position. Notified MD, RN, and RD of recommendations via secure text, also written on whiteboard in patient's room. [facility] BUSINESS ADMINISTRATOR will continue to follow to monitor patient's tolerance of recommended diet and feeding needs. Frequency/Duration: Daily M-F Date Range for Service Req: Timeline to reassess: Powerhouse Attendant Clinican/Clinical Fellow: No Supervisory Statement: I have reviewed and agree with the student/clinical fellow's documentation: N/A Speech Language Pathologist: Corin Newton M.A., [facility] BUSINESS ADMINISTRATOR
[2025-02-25 15:18] VITALS: BP 128/85; PULSE 70; RESP 16; TEMP 36.6; O2SAT 96
--- NOTE | 2025-02-25 16:37 | P.PNIM_ITS ---
Subjective Subjective Date of Service: 02/25/25 Interval History: Remains very confused not able to have any discussion with him Physical Exam 2 Vital Signs: Vital Signs: Last Vital Signs Temp 97.8 F 02/25/25 15:18 Pulse 70 02/25/25 15:18 Resp 16 02/25/25 15:18 BP 128/85 02/25/25 15:18 Pulse Ox 96 02/25/25 15:18 O2 Del Method Room Air 02/25/25 15:18 FiO2 30 02/16/25 21:00 BMI result Body Mass Index 20.1 Objective Data Active Medications Albuterol Sulfate (Albuterol Sulfate 90 Mcg 8 Gm Inhaler) 2 puff INHALE Q4H PRN PRN Reason: shortness of breath or wheezin Allopurinol (Allopurinol 300 Mg Tablet) 300 mg PO DAILY [facility] Last Admin: 02/25/25 09:42 Dose: 300 mg Documented By: MUSA Ferrous Sulfate (Ferrous Sulfate 324 Mg Tablet.Dr) 324 mg PO Q48H [facility] Last Admin: 02/25/25 09:43 Dose: 324 mg Documented By: UMSA Fludrocortisone Acetate (Fludrocortisone Acetate 0.1 Mg Tablet) 0.1 mg PO DAILY [facility] Last Admin: 02/25/25 09:43 Dose: 0.1 mg Documented By: MUSA Hydrocortisone Sodium Succinate (Hydrocortisone Sod Succ/Pf 100 Mg Vial) 100 mg IVPUSH Q8H [facility] Last Admin: 02/25/25 12:05 Dose: 100 mg Documented By: MUSA Dextrose (D5w) 1,000 mls @ 80 mls/hr IVCONT .[id number] [facility] Last Admin: 02/25/25 15:20 Dose: 80 mls/hr Documented By: MUSA Lactulose (Lactulose 20 Gm/30 Ml Solution) 30 gm PO TID [facility] Last Admin: 02/25/25 16:05 Dose: 30 gm Documented By: MUSA Levofloxacin (Levofloxacin 750 Mg Tablet) 750 mg PO Q24H [facility] Last Admin: 02/25/25 16:05 Dose: 750 mg Documented By: MUSA Loratadine (Loratadine 10 Mg Tablet) 10 mg PO DAILY PRN PRN Reason: Allergy Symptoms Magnesium Oxide (Magnesium Oxide 400 Mg Tablet) 800 mg PO BIDPC [facility] Last Admin: 02/25/25 09:42 Dose: 800 mg Documented By: MUSA Metronidazole (Metronidazole 500 Mg Tablet) 500 mg PO Q8H [facility] Last Admin: 02/25/25 09:43 Dose: 500 mg Documented By: MUSA Rifaximin (Rifaximin 550 Mg Tablet) 550 mg PO BID [facility] Last Admin: 02/25/25 09:43 Dose: 550 mg Documented By: MUSA Sodium Chloride (0.9 % Sodium Chloride Flush 3 Ml Syringe) 3 ml IVFLUSH QSHIFT [facility] Last Admin: 02/25/25 16:05 Dose: Not Given Documented By: MUSA Non-Admin Reason: IV Running Labs 02/24/25 06:27 02/24/25 06:27 Labs: Laboratory Results - last 24 hr 02/25/25 07:09 Hold Purple Top SEE NOTE PT 16.1 H INR 1.3 H Microbiology Microbiology Results: Microbiology 02/20/25 02:41 Blood Culture - Final Blood - Venous No growth after 5 days. 02/20/25 02:41 Blood Culture - Final Blood - Venous No growth after 5 days. Assessment and Plan (1) Hypotension: Status: Acute Assessment and Plan: 70yo M with cirrhosis, HCC s/p chemo-embolization + TACE, currently on tremelimumab + durvalumab immunotherapy, hx GI bled from gastric ulcer, EtOH abuse in remission sent in from Oncology office where he was to undergo 4th cycle of immunotherapy but sent in with hypotension and question of coffee- ground emesis. Initially admitted to ICU for pressor support; no overt GI bleed and stepped down to telemetry 02/18/25. Febrile with question of enteritis. Ultimately found to have severe adrenal insufficiency, likely a side-effect of immune checkpoint inhibitor therapy. adrenal insufficiency - hydrocortisone 100 mg q8h plus fludrocortisone 0.1 mg daily; likely side effect of immune checkpoint inhibitors; discussed with Heme-Onc, start tappering tomorrow fever - probably due to adrenal insufficiency but covering for enteritis with levofloxacin and metronidazole 02/18- -resolved hypOtension, resolved - as above, likely due to adrenal insufficiency; stopped midodrine possible GI bleed - continue IV PPI; GI consulted and no plans for EGD; transfused 1u pRBCS in ED though Hb has been stable around 11-12 acute metabolic encephalopathy - suspect due to adrenal insufficiency +/- hepatic despite normal ammonia; started rifaximin and lactulose - no mets to brain on MRI with contrast - POLE INSPECTOR evaluation: NDD2 solids/honey liquids coagulopathy - likely due to cirrhosis; give another dose vit K and recheck INR hypoMg - replete IV/PO; recheck level tomorrow Hypernatremia d/t dehydration IVF and recheck tomorrow VTE ppx: SCDs dispo: STR In my clinical judgment, the patient requires continued inpatient hospitalization for the following reasons: hypotension, encephalopathy Quality Stroke Does the patient have a stroke diagnosis?: No VTE Prior VTE?: No VTE Risk Level:: Medical - moderate - high VTE Device Contraindication: N/A - Device Ordered VTE Drug Contraindication: Treatment Not Indicated
[2025-02-25 17:28] LABS: Hematocrit 36.1 % (42.0-52.0); Hemoglobin 12.1 g/dl (14.0-18.0); Mean Corpuscular HGB Conc 33.5 g/dl (31.0-36.0); Mean Corpuscular Hemoglobin 30.2 pg (27.0-33.0); Mean Corpuscular Volume 90.0 fL (80.0-98.0); NRBC Abs Auto 0.000 X10*3/uL (0.0-0.012); NRBC Pct Auto 0.0 /100WBC (0.0-0.2); Platelet Count 335 X10*3/uL (160-400); Red Blood Count 4.01 X10*6/uL (4.60-5.80); White Blood Count 5.7 X10*3/uL (4.8-10.8)
[2025-02-25 17:49] LABS: Anion Gap 11 (12-20); Blood Urea Nitrogen 20 mg/dL (9-16); Calcium 9.0 mg/dL (8.4-10.2); Carbon Dioxide 27 mmol/L (22-29); Chloride 111 mmol/L (96-108); Creatinine Clr Calc Pharmacy 92.3; Estimated Glomerular Filt Rate > 60; Magnesium 1.9 mg/dL (1.6-2.6); Potassium 2.4 mmol/L (3.3-5.1); Sodium 147 mmol/L (135-145)
[2025-02-25] MEDS: Potassium Chloride/H20 10 MEQ/100 ML PIGGYBACK 100 MEQ IV ×4 (18:13→22:54)
[2025-02-25] MEDS: Potassium Chloride Packet 20 MEQ PACKET 40 MEQ PO (18:16)
[2025-02-25 20:00] VITALS: BP 153/82; PULSE 87; RESP 16; TEMP 36.6; O2SAT 94
[2025-02-26] VITALS (7 sets, daily range): BP systolic 125–156; BP diastolic 70–99; PULSE 63–83; RESP 17–20; TEMP 36.3–37; O2SAT 95–97; BMI 18.4
[2025-02-26] MEDS: 0.9 % Sodium Chloride Flush 3 ML SYRINGE IVFLUSH ×3 (02:10→23:59)
[2025-02-26] MEDS: Hydrocortisone Sod Succ/PF 100 MG VIAL IVPUSH (05:17)
[2025-02-26 11:23] LABS: Anion Gap 11 (12-20); Blood Urea Nitrogen 18 mg/dL (9-16); Calcium 8.3 mg/dL (8.4-10.2); Carbon Dioxide 26 mmol/L (22-29); Chloride 106 mmol/L (96-108); Creatinine Clr Calc Pharmacy 95.4; Estimated Glomerular Filt Rate > 60; Potassium 2.4 mmol/L (3.3-5.1); Sodium 141 mmol/L (135-145)
--- NOTE | 2025-02-26 11:33 | HO.PM.IMPN ---
Subjective Subjective Date of Service: 02/26/25 Interval History: Overall still confused, but seemed a bit better today Physical Exam Vital Signs: Vital Signs: Last Vital Signs Temp 98.6 F 02/26/25 08:00 Pulse 63 02/26/25 08:00 Resp 18 02/26/25 08:00 BP 150/88 H 02/26/25 08:00 Pulse Ox 96 02/26/25 08:00 O2 Del Method Room Air 02/26/25 08:00 FiO2 30 02/16/25 21:00 BMI result Body Mass Index 18.4 Const: Other: General: confused, not orieted at all Resp: CTA bilateral CVS: S1,S2,RRR GI: +BS, NT, no distention Skin: No rash Neuro: motor grossly intact Psych: flat Objective Data Active Medications Albuterol Sulfate (Albuterol Sulfate 90 Mcg 8 Gm Inhaler) 2 puff INHALE Q4H PRN PRN Reason: shortness of breath or wheezin Allopurinol (Allopurinol 300 Mg Tablet) 300 mg PO DAILY [facility] Last Admin: 02/26/25 09:06 Dose: 300 mg Documented By: KINGSLEY Ferrous Sulfate (Ferrous Sulfate 324 Mg Tablet.) 324 mg PO Q48H [facility] Last Admin: 02/25/25 09:43 Dose: 324 mg Documented By: MUSA Fludrocortisone Acetate (Fludrocortisone Acetate 0.1 Mg Tablet) 0.1 mg PO DAILY [facility] Last Admin: 02/26/25 09:06 Dose: 0.1 mg Documented By: KINGSLEY Hydrocortisone Sodium Succinate (Hydrocortisone Sod Succ/Pf 100 Mg Vial) 100 mg IVPUSH Q8H [facility] Last Admin: 02/26/25 05:17 Dose: 100 mg Documented By: SAUD Dextrose (D5w) 1,000 mls @ 80 mls/hr IVCONT .[id number] [facility] Last Admin: 02/26/25 10:17 Dose: 80 mls/hr Documented By: KINGSLEY Potassium Chloride (Potassium Chloride/H20) 10 meq in 100 mls @ 100 mls/hr IV Q1H [facility] Stop: 02/26/25 15:14 Lactulose (Lactulose 20 Gm/30 Ml Solution) 30 gm PO TID [facility] Last Admin: 02/26/25 07:54 Dose: Not Given Documented By: KINGSLEY Non-Admin Reason: liquid BM Levofloxacin (Levofloxacin 750 Mg Tablet) 750 mg PO Q24H [facility] Last Admin: 02/25/25 16:05 Dose: 750 mg Documented By: MUSA Loratadine (Loratadine 10 Mg Tablet) 10 mg PO DAILY PRN PRN Reason: Allergy Symptoms Magnesium Oxide (Magnesium Oxide 400 Mg Tablet) 800 mg PO BIDPC [facility] Last Admin: 02/26/25 09:09 Dose: 800 mg Documented By: KINGSLEY Metronidazole (Metronidazole 500 Mg Tablet) 500 mg PO Q8H [facility] Last Admin: 02/26/25 09:07 Dose: 500 mg Documented By: KINGSLEY Potassium Chloride (Potassium Chloride Packet 20 Meq Packet) 40 meq PO BID [facility] Stop: 02/26/25 21:01 Rifaximin (Rifaximin 550 Mg Tablet) 550 mg PO BID [facility] Last Admin: 02/26/25 09:08 Dose: 550 mg Documented By: KINGSLEY Sodium Chloride (0.9 % Sodium Chloride Flush 3 Ml Syringe) 3 ml IVFLUSH QSHIFT [facility] Last Admin: 02/26/25 09:10 Dose: 3 ml Documented By: KINGSLEY Labs 02/25/25 17:10 02/26/25 10:39 Labs: Laboratory Results - last 24 hr 02/25/25 02/26/25 17:10 10:39 MCV 90.0 MCH 30.2 MCHC 33.5 RDW 14.6 Plt Count 335 MPV 8.7 L Absolute Nucleated RBC 0.000 Nucleated RBC % (auto) 0.0 Hold Purple Top SEE NOTE Anion Gap 11 L 11 L Estim Creat Clear Calc 92.3 95.4 Estimated GFR > 60 > 60 Random Glucose 149 H 192 H Calcium 9.0 8.3 L D Magnesium 1.9 Microbiology Microbiology Results: Microbiology 02/20/25 02:41 Blood Culture - Final Blood - Venous No growth after 5 days. 02/20/25 02:41 Blood Culture - Final Blood - Venous No growth after 5 days. Assessment and Plan (1) Hypotension: Status: Acute Assessment and Plan: 70yo M with cirrhosis, HCC s/p chemo-embolization + TACE, currently on tremelimumab + durvalumab immunotherapy, hx GI bled from gastric ulcer, EtOH abuse in remission sent in from Oncology office where he was to undergo 4th cycle of immunotherapy but sent in with hypotension and question of coffee-ground emesis. Initially admitted to ICU for pressor support; no overt GI bleed and stepped down to telemetry 02/18/25. Febrile with question of enteritis. Ultimately found to have severe adrenal insufficiency, likely a side-effect of immune checkpoint inhibitor therapy. adrenal insufficiency - hydrocortisone 100 mg q8h plus fludrocortisone 0.1 mg daily; likely side effect of immune checkpoint inhibitors; discussed with Heme-Onc, start tappering tomorrow fever - probably due to adrenal insufficiency but covering for enteritis with levofloxacin and metronidazole 02/18- 02/27, 10 days -resolved hypOtension, resolved - as above, likely due to adrenal insufficiency; stopped midodrine possible GI bleed - continue IV PPI; GI consulted and no plans for EGD; transfused 1u pRBCS in ED though Hb has been stable around 11-12 acute metabolic encephalopathy - suspect due to adrenal insufficiency +/- hepatic despite normal ammonia; started rifaximin and lactulose - no mets to brain on MRI with contrast - RUG SETTER VELVET evaluation: NDD2 solids/honey liquids coagulopathy - likely due to cirrhosis; give another dose vit K and recheck INR hypoMg - replete IV/PO; recheck level tomorrow Hypokalemia, IV and oral repeat Hypernatremia d/t dehydration VTE ppx: SCDs dispo: STR In my clinical judgment, the patient requires continued inpatient hospitalization for the following reasons: hypotension, encephalopathy Quality Stroke Does the patient have a stroke diagnosis?: No VTE Prior VTE?: No VTE Risk Level:: Medical - moderate - high VTE Device Contraindication: N/A - Device Ordered VTE Drug Contraindication: Treatment Not Indicated
[2025-02-26] MEDS: Potassium Chloride/H20 10 MEQ/100 ML PIGGYBACK 100 MEQ IV ×4 (11:40→16:49)
[2025-02-26] MEDS: Potassium Chloride Packet 20 MEQ PACKET 40 MEQ PO ×2 (11:40→21:19)
--- NOTE | 2025-02-26 13:51 | PC.NURSE ---
Addendum entered by Marla Augustine RN 02/26/25 13:54: Efrem is trying to obtain Health Care Proxy Information, as he is designated as such, but does not have the document. Efrem is concerned with patient's prognosis. He reports that the pt still has an outpatient MRI scheduled for Friday. Original Note: Pt oriented to self, recognized nephew, Efrem. Pt was able to eat his breakfast with assistance. However, he seemed to have difficulty swallowing this afternoon, like he forgot how to do it. He held thickened liquid in his mouth for 4-5 minutes before being coaxed to spit it out. Uable to take PO potassium at this time. Efrem is trying to obtain [facility] Proxy Information
--- NOTE | 2025-02-26 17:27 | PC.NURSE ---
Able to take pills crushed in pudding this afternoon. Taking nectar thick liquids without difficulty.
[2025-02-26] MEDS: Hydrocortisone Sod Succ/PF 100 MG VIAL 50 MG IVPUSH (20:51)
[2025-02-26 22:49] LABS: Anion Gap 10 (12-20); Carbon Dioxide 26 mmol/L (22-29); Chloride 106 mmol/L (96-108); Potassium 3.4 mmol/L (3.3-5.1); Sodium 139 mmol/L (135-145)
[2025-02-27 03:59] VITALS: BP 140/95; PULSE 94; RESP 20; TEMP 36.4; O2SAT 96
[2025-02-27] MEDS: Hydrocortisone Sod Succ/PF 100 MG VIAL 50 MG IVPUSH ×3 (05:03→21:46)
[2025-02-27 06:00] VITALS: BMI 19.7; BMI 21.6
[2025-02-27 07:37] VITALS: BP 142/84; PULSE 76; RESP 18; TEMP 36.7; O2SAT 95
[2025-02-27] MEDS: Ferrous Sulfate 324 MG TABLET.DR PO (08:14)
[2025-02-27] MEDS: 0.9 % Sodium Chloride Flush 3 ML SYRINGE IVFLUSH ×3 (08:14→21:47)
[2025-02-27 09:45] LABS: Alanine Aminotransferase 21 U/L (0-40); Albumin Level 3.3 g/dL (3.5-5.0); Alkaline Phosphatase 151 U/L (39-117); Anion Gap 11 (12-20); Aspartate Amino Transferase 88 U/L (5-37); Blood Urea Nitrogen 17 mg/dL (9-16); Calcium 8.2 mg/dL (8.4-10.2); Carbon Dioxide 25 mmol/L (22-29); Chloride 105 mmol/L (96-108); Creatinine Clr Calc Pharmacy 126.8; Estimated Glomerular Filt Rate > 60; Potassium 2.9 mmol/L (3.3-5.1); Sodium 138 mmol/L (135-145); Total Protein 6.2 g/dL (6.5-8.0)
--- NOTE | 2025-02-27 11:27 | P.PNIM_ITS ---
Subjective Subjective Date of Service: 02/27/25 Interval History: Alert, no distress, confused but overall seems better potassium is better but still low Physical Exam 2 Vital Signs: Vital Signs: Last Vital Signs Temp 98.0 F 02/27/25 07:37 Pulse 76 02/27/25 07:37 Resp 18 02/27/25 07:37 BP 142/84 H 02/27/25 07:37 Pulse Ox 95 02/27/25 07:37 O2 Del Method Room Air 02/27/25 07:37 FiO2 30 02/16/25 21:00 BMI result Body Mass Index 21.6 Const: Other: General: confused, not orieted at all Resp: CTA bilateral CVS: S1,S2,RRR GI: +BS, NT, no distention Skin: No rash Neuro: motor grossly intact Psych: flat Objective Data Active Medications Albuterol Sulfate (Albuterol Sulfate 90 Mcg 8 Gm Inhaler) 2 puff INHALE Q4H PRN PRN Reason: shortness of breath or wheezin Allopurinol (Allopurinol 300 Mg Tablet) 300 mg PO DAILY [facility] Last Admin: 02/27/25 08:14 Dose: 300 mg Documented By: KINGSLEY Ferrous Sulfate (Ferrous Sulfate 324 Mg Tablet.Dr) 324 mg PO Q48H [facility] Last Admin: 02/27/25 08:14 Dose: 324 mg Documented By: KINGSLEY Fludrocortisone Acetate (Fludrocortisone Acetate 0.1 Mg Tablet) 0.1 mg PO DAILY [facility] Last Admin: 02/27/25 08:14 Dose: 0.1 mg Documented By: KINGSLEY Hydrocortisone Sodium Succinate (Hydrocortisone Sod Succ/Pf 100 Mg Vial) 50 mg IVPUSH Q8H [facility] Last Admin: 02/27/25 05:03 Dose: 50 mg Documented By: SAUD Lactulose (Lactulose 20 Gm/30 Ml Solution) 30 gm PO TID [facility] Last Admin: 02/27/25 10:19 Dose: Not Given Documented By: KINGSLEY Non-Admin Reason: Patient Condition Contraindication Levofloxacin (Levofloxacin 750 Mg Tablet) 750 mg PO Q24H [facility] Last Admin: 02/26/25 16:26 Dose: 750 mg Documented By: KINGSLEY Loratadine (Loratadine 10 Mg Tablet) 10 mg PO DAILY PRN PRN Reason: Allergy Symptoms Magnesium Oxide (Magnesium Oxide 400 Mg Tablet) 800 mg PO BIDPC [facility] Last Admin: 02/27/25 08:14 Dose: 800 mg Documented By: KINGSLEY Metronidazole (Metronidazole 500 Mg Tablet) 500 mg PO Q8H [facility] Last Admin: 02/27/25 08:14 Dose: 500 mg Documented By: KINGSLEY Rifaximin (Rifaximin 550 Mg Tablet) 550 mg PO BID [facility] Last Admin: 02/27/25 08:13 Dose: 550 mg Documented By: KINGSLEY Sodium Chloride (0.9 % Sodium Chloride Flush 3 Ml Syringe) 3 ml IVFLUSH QSHIFT [facility] Last Admin: 02/27/25 08:14 Dose: 3 ml Documented By: KINGSLEY Labs 02/25/25 17:10 02/27/25 08:43 Labs: Laboratory Results - last 24 hr 02/26/25 02/27/25 22:17 08:43 Hold Purple Top SEE NOTE Anion Gap 10 L 11 L Estim Creat Clear Calc 126.8 Estimated GFR > 60 Random Glucose 107 Calcium 8.2 L Total Bilirubin 0.4 AST 88 H ALT 21 Alkaline Phosphatase 151 H Total Protein 6.2 L Albumin 3.3 L Microbiology Microbiology Results: Microbiology 02/20/25 02:41 Blood Culture - Final Blood - Venous No growth after 5 days. 02/20/25 02:41 Blood Culture - Final Blood - Venous No growth after 5 days. Assessment and Plan (1) Hypotension: Status: Acute Assessment and Plan: 70yo M with cirrhosis, HCC s/p chemo-embolization + TACE, currently on tremelimumab + durvalumab immunotherapy, hx GI bled from gastric ulcer, EtOH abuse in remission sent in from Oncology office where he was to undergo 4th cycle of immunotherapy but sent in with hypotension and question of coffee- ground emesis. Initially admitted to ICU for pressor support; no overt GI bleed and stepped down to telemetry 02/18/25. Febrile with question of enteritis. Ultimately found to have severe adrenal insufficiency, likely a side-effect of immune checkpoint inhibitor therapy. adrenal insufficiency - hydrocortisone 50 mg q8h plus fludrocortisone 0.1 mg daily; likely side effect of immune checkpoint inhibitors; discussed with Heme-Onc, start tappering tomorrow fever - probably due to adrenal insufficiency but covering for enteritis with levofloxacin and metronidazole 02/18- 02/27, 10 days -resolved hypOtension, resolved - as above, likely due to adrenal insufficiency; stopped midodrine possible GI bleed - continue IV PPI; GI consulted and no plans for EGD; transfused 1u pRBCS in ED though Hb has been stable around 02-02 acute metabolic encephalopathy - suspect due to adrenal insufficiency +/- hepatic despite normal ammonia; started rifaximin and lactulose - no mets to brain on MRI with contrast - 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: NDD2 solids/honey liquids coagulopathy - likely due to cirrhosis; give another dose vit K and recheck INR hypoMg - replete IV/PO; recheck level tomorrow Hypokalemia, IV and oral repeat Hypernatremia d/t dehydration VTE ppx: SCDs dispo: STR In my clinical judgment, the patient requires continued inpatient hospitalization for the following reasons: hypotension, encephalopathy Quality Stroke Does the patient have a stroke diagnosis?: No VTE Prior VTE?: No VTE Risk Level:: Medical - moderate - high VTE Device Contraindication: N/A - Device Ordered VTE Drug Contraindication: Treatment Not Indicated
[2025-02-27 11:42] VITALS: BP 131/81; PULSE 74; RESP 16; TEMP 36.5; O2SAT 97
[2025-02-27 12:08] LABS: MANUAL DIFF FLAG NO
[2025-02-27] MEDS: Potassium Chloride/H20 10 MEQ/100 ML PIGGYBACK 100 MEQ IV ×2 (12:09→13:21)
[2025-02-27] MEDS: Potassium Chloride Packet 20 MEQ PACKET 40 MEQ PO ×2 (12:09→21:46)
[2025-02-27 12:11] LABS: Hematocrit 39.0 % (42.0-52.0); Hemoglobin 13.2 g/dl (14.0-18.0); Imm Gran Abs Auto 0.15 X10*3/uL (0.00-0.03); Imm Gran Pct Auto 1.8 % (0.0-0.4); Lymphocytes Absolute Auto 0.9 X10*3/uL (1.2-4.9); Mean Corpuscular HGB Conc 33.8 g/dl (31.0-36.0); Mean Corpuscular Hemoglobin 30.4 pg (27.0-33.0); Mean Corpuscular Volume 89.9 fL (80.0-98.0); NRBC Abs Auto 0.000 X10*3/uL (0.0-0.012); NRBC Pct Auto 0.0 /100WBC (0.0-0.2); Platelet Count 371 X10*3/uL (160-400); Red Blood Count 4.34 X10*6/uL (4.60-5.80); White Blood Count 8.3 X10*3/uL (4.8-10.8)
[2025-02-27 15:41] VITALS: BP 124/88; PULSE 92; RESP 18; TEMP 36.2; O2SAT 97
[2025-02-27 19:50] VITALS: BP 124/74; PULSE 87; RESP 19; TEMP 36.6; O2SAT 97
[2025-02-27 23:32] VITALS: BP 136/80; PULSE 79; RESP 19; TEMP 36.6; O2SAT 97
--- NOTE | 2025-02-28 | EEG_ITS ---
History: H/O cirrhosis, s/p chemo-embolization on tremelimumab and durvalimab immunotherapy, h/o GI bleed, Etoh abuse - pt was admitted for altered mental state, question of coffee ground emesis Medication:albuterol, allopurinol, ferrous sulfate, fludrocortisone acetate, levofloxacin, loratadine, magnesium, rifaximin Technical Description Photic Stimulation: completed Hyperventilation: omitted Behavioral State: pt is altered and unable to answers questions or carry on conversation during this study State of Consciousness: minimal awake, mostly sleep Skull Defect: no Sedation: no Handedness: unknown : Duration: 30mins 30 secs Ocean Forwarder Comments: Last Meal: unknown Time / date of last symptom: present - pt is altered Description: This is a 16 channel EEG with an EKG lead. Patient is reported altered during the tracing. Background EEG rhythm is mostly in theta to delta range low to medium amplitude with some lead and muscle artifacts. No obvious sharp wave spikes or paroxysmal tendency noted. Photic stimulation does not produce any significant driving. Hyperventilation is not performed. Cardiac lead does not reveal any significant arrhythmia. Impression: Generalized slowing with no epileptic discharges noted. MTDD
[2025-02-28 03:19] VITALS: BP 130/87; PULSE 80; RESP 19; TEMP 36.8; O2SAT 97
[2025-02-28 03:57] VITALS: BMI 19.7
[2025-02-28] MEDS: Hydrocortisone Sod Succ/PF 100 MG VIAL 50 MG IVPUSH ×3 (04:14→21:54)
[2025-02-28 08:00] VITALS: BP 135/88; PULSE 79; RESP 18; TEMP 36.4; O2SAT 96
[2025-02-28 08:44] LABS: Alanine Aminotransferase 29 U/L (0-40); Albumin Level 3.1 g/dL (3.5-5.0); Alkaline Phosphatase 139 U/L (39-117); Anion Gap 12 (12-20); Aspartate Amino Transferase 83 U/L (5-37); Blood Urea Nitrogen 23 mg/dL (9-16); Calcium 8.0 mg/dL (8.4-10.2); Carbon Dioxide 23 mmol/L (22-29); Chloride 109 mmol/L (96-108); Creatinine Clr Calc Pharmacy 107.6; Estimated Glomerular Filt Rate > 60; Potassium 3.5 mmol/L (3.3-5.1); Sodium 140 mmol/L (135-145); Total Protein 5.9 g/dL (6.5-8.0)
[2025-02-28] MEDS: Potassium Chloride Packet 20 MEQ PACKET 40 MEQ PO (09:23)
--- NOTE | 2025-02-28 11:37 | MHC.CLN ---
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
[2025-02-28 11:43] VITALS: BP 141/80; PULSE 88; RESP 18; TEMP 36.4; O2SAT 96
--- NOTE | 2025-02-28 14:53 | P.PNIM_ITS ---
Subjective Subjective Date of Service: 02/28/25 Interval History: Alert, but not oriented and very confused still vitals are good Physical Exam 2 Vital Signs: Vital Signs: Last Vital Signs Temp 97.6 F 02/28/25 11:43 Pulse 88 02/28/25 11:43 Resp 18 02/28/25 11:43 BP 141/80 H 02/28/25 11:43 Pulse Ox 96 02/28/25 11:43 O2 Del Method Room Air 02/28/25 11:43 FiO2 30 02/16/25 21:00 BMI result Body Mass Index 19.7 Const: Other: General: confused, not orieted at all Resp: CTA bilateral CVS: S1,S2,RRR GI: +BS, NT, no distention Skin: No rash Neuro: motor grossly intact Psych: flat Objective Data Active Medications Albuterol Sulfate (Albuterol Sulfate 90 Mcg 8 Gm Inhaler) 2 puff INHALE Q4H PRN PRN Reason: shortness of breath or wheezin Allopurinol (Allopurinol 300 Mg Tablet) 300 mg PO DAILY [facility] Last Admin: 02/28/25 09:22 Dose: 300 mg Documented By: MUSA Ferrous Sulfate (Ferrous Sulfate 324 Mg Tablet.Dr) 324 mg PO Q48H [facility] Last Admin: 02/27/25 08:14 Dose: 324 mg Documented By: KINGSLEY Fludrocortisone Acetate (Fludrocortisone Acetate 0.1 Mg Tablet) 0.1 mg PO DAILY [facility] Last Admin: 02/28/25 09:22 Dose: 0.1 mg Documented By: MUSA Hydrocortisone Sodium Succinate (Hydrocortisone Sod Succ/Pf 100 Mg Vial) 50 mg IVPUSH Q8H [facility] Last Admin: 02/28/25 13:04 Dose: 50 mg Documented By: MUSA Lactulose (Lactulose 20 Gm/30 Ml Solution) 30 gm PO TID [facility] Last Admin: 02/28/25 09:22 Dose: 30 gm Documented By: MUSA Levofloxacin (Levofloxacin 750 Mg Tablet) 750 mg PO Q24H [facility] Last Admin: 02/27/25 17:02 Dose: 750 mg Documented By: KINGSLEY Loratadine (Loratadine 10 Mg Tablet) 10 mg PO DAILY PRN PRN Reason: Allergy Symptoms Magnesium Oxide (Magnesium Oxide 400 Mg Tablet) 800 mg PO BIDPC [facility] Last Admin: 02/28/25 09:22 Dose: 800 mg Documented By: MUSA Metronidazole (Metronidazole 500 Mg Tablet) 500 mg PO Q8H [facility] Last Admin: 02/28/25 09:22 Dose: 500 mg Documented By: MUSA Potassium Chloride (Potassium Chloride Packet 20 Meq Packet) 40 meq PO BID [facility] Last Admin: 02/28/25 09:23 Dose: 40 meq Documented By: MUSA Rifaximin (Rifaximin 550 Mg Tablet) 550 mg PO BID [facility] Last Admin: 02/28/25 09:22 Dose: 550 mg Documented By: MUSA Sodium Chloride (0.9 % Sodium Chloride Flush 3 Ml Syringe) 3 ml IVFLUSH QSHIFT [facility] Last Admin: 02/28/25 10:59 Dose: Not Given Documented By: MUSA Non-Admin Reason: IV Running Labs 02/27/25 08:43 02/28/25 07:59 Labs: Laboratory Results - last 24 hr 02/28/25 07:59 Anion Gap 12 Estim Creat Clear Calc 107.6 Estimated GFR > 60 Random Glucose 124 H Calcium 8.0 L Total Bilirubin 0.4 AST 83 H ALT 29 Alkaline Phosphatase 139 H Total Protein 5.9 L Albumin 3.1 L Microbiology Microbiology Results: Microbiology 02/20/25 02:41 Blood Culture - Final Blood - Venous No growth after 5 days. 02/20/25 02:41 Blood Culture - Final Blood - Venous No growth after 5 days. Assessment and Plan (1) Hypotension: Status: Acute Assessment and Plan: 70-year-old male with cirrhosis and HCC (s/p chemo-embolization and TACE), currently on tremelimumab and durvalumab immunotherapy. History notable for GI bleed from gastric ulcer and alcohol abuse (in remission). Patient was sent from Oncology office, where he was scheduled for his 4th cycle of immunotherapy, due to hypotension and possible coffee-ground emesis. Initial course: Admitted to ICU for pressor support. No overt GI bleed observed. Stepped down to telemetry on 02/18/25. Febrile with concern for enteritis. Ultimately found to have severe adrenal insufficiency, likely secondary to immune checkpoint inhibitor therapy. Adrenal insufficiency (AI) ? likely immune checkpoint inhibitor-related On hydrocortisone started at 100 mg IV q8h, now 50 and fludrocortisone 0.1 mg daily (discussed with Heme-Onc), Associated encephalopathy persists. Fever Likely secondary to adrenal insufficiency, but empirically covered for enteritis with levofloxacin and metronidazole (02/18?02/27, 10 days). Fever resolved. Hypotension Attributed to adrenal insufficiency; resolved with steroid replacement. Midodrine discontinued. Possible GI bleed Continue IV PPI. GI consulted; no plans for EGD. Transfused 1 unit pRBCs in ED; hemoglobin stable at 11?12. Acute metabolic encephalopathy Suspected secondary to adrenal insufficiency and/or hepatic etiology (ammonia normal). Started on rifaximin and lactulose. MRI brain with contrast: no metastases. SENIOR SOLUTIONS ARCHITECT evaluation: NDD2 solids, honey-thick liquids. Coagulopathy Likely due to cirrhosis and remote heavy alcohol use. Given additional vitamin K; rechecking INR. Hypomagnesemia Repleted IV/PO. Hypokalemia Treated with IV and oral replacement; now normalized. Hypernatremia Attributed to dehydration; now resolved. VTE prophylaxis SCDs in place. Disposition STR, when his condition is much better with clear mental status Need for inpatietn: ongoing management for AI complicated by encephalopathy Code: Ok with CPR but no intubation. I had goal of care coversation with HCP [place], Efrem [phone], and he's aware of clinical course and given no improvement and that prognosis is not good and hospice maybe consider in the near future, he's prepared for this. Quality Stroke Does the patient have a stroke diagnosis?: No VTE Prior VTE?: No VTE Risk Level:: Medical - moderate - high VTE Device Contraindication: N/A - Device Ordered VTE Drug Contraindication: Treatment Not Indicated
[2025-02-28 16:00] VITALS: BP 136/78; PULSE 78; RESP 18; TEMP 36.3; O2SAT 97
--- NOTE | 2025-02-28 16:03 | MHC.SLORD ---
Speech Language Pathology Order Status: No CONTROL PANEL BUILDER tx 02/28, CONTROL PANEL BUILDER continues to follow
--- NOTE | 2025-02-28 16:24 | MHC.CM.PN ---
Per rounds, pt. still very confused, spoke to family about planning, possibly for Hospice services, CM will follow and assist with DCP.
[2025-02-28] MEDS: 0.9 % Sodium Chloride Flush 3 ML SYRINGE IVFLUSH ×2 (17:00→21:54)
[2025-02-28 19:28] VITALS: BP 132/76; PULSE 84; RESP 19; TEMP 36.8; O2SAT 97
[2025-03-01] VITALS (7 sets, daily range): BP systolic 134–155; BP diastolic 66–87; PULSE 70–126; RESP 16–20; TEMP 36.1–36.7; O2SAT 95–98; BMI 19.7
[2025-03-01] MEDS: OLANZapine 10 MG VIAL 5 MG IM (00:25)
[2025-03-01] MEDS: Hydrocortisone Sod Succ/PF 100 MG VIAL 50 MG IVPUSH ×3 (05:12→20:17)
--- NOTE | 2025-03-01 07:22 | PC.NURSE ---
Assumed care of pt 02/28/25 1900. Pt refused scheduled lactulose and PO potassium. Attempted to educate pt about risks and benefits involved. pt unable to verbalize understanding of education due to altered mental status; disoriented to time and situation. Dr Nguyen notified about pt's refusal. Alternative routes of medication requested. No new orders received. Continuos telemetry and fall precautions in effect.
[2025-03-01 08:21] LABS: Alanine Aminotransferase 22 U/L (0-40); Albumin Level 2.9 g/dL (3.5-5.0); Alkaline Phosphatase 134 U/L (39-117); Aspartate Amino Transferase 64 U/L (5-37); Blood Urea Nitrogen 23 mg/dL (9-16); Calcium 8.1 mg/dL (8.4-10.2); Creatinine Clr Calc Pharmacy 105.9; Estimated Glomerular Filt Rate > 60; Total Protein 5.4 g/dL (6.5-8.0)
[2025-03-01 08:31] LABS: Anion Gap 10 (12-20); Carbon Dioxide 26 mmol/L (22-29); Chloride 111 mmol/L (96-108); Potassium 3.5 mmol/L (3.3-5.1); Sodium 143 mmol/L (135-145)
[2025-03-01] MEDS: Ferrous Sulfate 324 MG TABLET.DR PO (10:23)
[2025-03-01] MEDS: Potassium Chloride Packet 20 MEQ PACKET 40 MEQ PO ×2 (10:26→20:18)
[2025-03-01] MEDS: 0.9 % Sodium Chloride Flush 3 ML SYRINGE IVFLUSH ×3 (12:53→20:21)
--- NOTE | 2025-03-01 16:10 | MHC.SLORD ---
Speech Language Pathology Order Status: TOPSTITCHER ZIGZAG unable to see patient this date. Per RN, no concerns; taking medications crushed in puree and tolerating current diet. TOPSTITCHER ZIGZAG to continue to follow.
--- NOTE | 2025-03-01 17:19 | HO.PM.IMPN ---
Subjective Subjective Date of Service: 03/01/25 Interval History: Minimally communicative with minimal engagement during visit Receiving EEG Review of Systems Review of Systems: Yes all other systems are reviewed and are negative Physical Exam Exam: Exam: General: Comfortable, no pain, A&O x 0 Cardiac: S1, S2 auscultated with no S3/4, no MRG. Well perfused. Respiratory: Normal breath sounds auscultated throughout all lung zones, without wheezing, rales. Normal rate. GI/ : No abdominal pain on palpation, no masses or distentions. MSK: Normal ambulation without pain at bony prominences or musculature Neurological: Normal neurological examination on overview, without obvious CN II-XII abnormalities. Vital Signs: Vital Signs: Last Vital Signs Temp 97.6 F 03/01/25 15:20 Pulse 126 H 03/01/25 15:20 Resp 20 03/01/25 15:20 BP 139/81 03/01/25 15:20 Pulse Ox 95 03/01/25 15:20 O2 Del Method Room Air 03/01/25 15:20 FiO2 30 02/16/25 21:00 BMI result Body Mass Index 19.7 Objective Data Active Medications Albuterol Sulfate (Albuterol Sulfate 90 Mcg 8 Gm Inhaler) 2 puff INHALE Q4H PRN PRN Reason: shortness of breath or wheezin Allopurinol (Allopurinol 300 Mg Tablet) 300 mg PO DAILY [facility] Last Admin: 03/01/25 10:23 Dose: 300 mg Documented By: KINGSLEY Ferrous Sulfate (Ferrous Sulfate 324 Mg Tablet.Dr) 324 mg PO Q48H [facility] Last Admin: 03/01/25 10:23 Dose: 324 mg Documented By: KINGSLEY Fludrocortisone Acetate (Fludrocortisone Acetate 0.1 Mg Tablet) 0.1 mg PO DAILY [facility] Last Admin: 03/01/25 10:24 Dose: 0.1 mg Documented By: KINGSLEY Hydrocortisone Sodium Succinate (Hydrocortisone Sod Succ/Pf 100 Mg Vial) 50 mg IVPUSH Q8H [facility] Last Admin: 03/01/25 12:48 Dose: 50 mg Documented By: KINGSLEY Lactulose (Lactulose 20 Gm/30 Ml Solution) 30 gm PO TID [facility] Last Admin: 03/01/25 16:36 Dose: Not Given Documented By: KINGSLEY Non-Admin Reason: Patient Condition Contraindication Levofloxacin (Levofloxacin 750 Mg Tablet) 750 mg PO Q24H [facility] Last Admin: 02/28/25 17:01 Dose: 750 mg Documented By: MUSA Loratadine (Loratadine 10 Mg Tablet) 10 mg PO DAILY PRN PRN Reason: Allergy Symptoms Magnesium Oxide (Magnesium Oxide 400 Mg Tablet) 800 mg PO BIDPC [facility] Last Admin: 03/01/25 10:25 Dose: 800 mg Documented By: KINGSLEY Metronidazole (Metronidazole 500 Mg Tablet) 500 mg PO Q8H [facility] Last Admin: 03/01/25 10:25 Dose: 500 mg Documented By: KINGSLEY Potassium Chloride (Potassium Chloride Packet 20 Meq Packet) 40 meq PO BID [facility] Last Admin: 03/01/25 10:26 Dose: 40 meq Documented By: KINGSLEY Rifaximin (Rifaximin 550 Mg Tablet) 550 mg PO BID [facility] Last Admin: 03/01/25 10:26 Dose: 550 mg Documented By: KINGSLEY Sodium Chloride (0.9 % Sodium Chloride Flush 3 Ml Syringe) 3 ml IVFLUSH QSHIFT [facility] Last Admin: 03/01/25 12:53 Dose: 3 ml Documented By: KINGSLEY Labs 02/27/25 08:43 03/01/25 07:09 Labs: Laboratory Results - last 24 hr 03/01/25 07:09 Anion Gap 10 L Estim Creat Clear Calc 105.9 Estimated GFR > 60 Random Glucose 108 Calcium 8.1 L Total Bilirubin 0.4 AST 64 H ALT 22 Alkaline Phosphatase 134 H Total Protein 5.4 L Albumin 2.9 L Assessment and Plan (1) Hypertension: Status: Acute (2) Hypotension: Status: Acute (3) PVD (peripheral vascular disease): Status: Acute (4) Hematemesis: Status: Acute (5) Gastritis: Status: Acute (6) Anemia: Status: Acute (7) Thrombocytosis: Status: Acute (8) HCC (hepatocellular carcinoma): Status: Acute Plan 70-year-old male with cirrhosis and HCC (s/p chemo-embolization and TACE), currently on tremelimumab and durvalumab immunotherapy. History notable for GI bleed from gastric ulcer and alcohol abuse (in remission). Patient was sent from Oncology office, where he was scheduled for his 4th cycle of immunotherapy, due to hypotension and possible coffee-ground emesis. Initial course: Admitted to ICU for pressor support. No overt GI bleed observed. Stepped down to telemetry on 02/18/25. Febrile with concern for enteritis. Ultimately found to have severe adrenal insufficiency, likely secondary to immune checkpoint inhibitor therapy. Adrenal insufficiency (AI) ? likely immune checkpoint inhibitor-related On hydrocortisone started at 100 mg IV q8h, now 50 and fludrocortisone 0.1 mg daily (discussed with Heme-Onc), Associated encephalopathy persists. Fever Likely secondary to adrenal insufficiency, but empirically covered for enteritis with levofloxacin and metronidazole (02/18?02/27, 10 days). Fever resolved. Hypotension Attributed to adrenal insufficiency; resolved with steroid replacement. Midodrine discontinued. Possible GI bleed Continue IV PPI. GI consulted; no plans for EGD. Transfused 1 unit pRBCs in ED; hemoglobin stable at 11?12. Acute metabolic encephalopathy Suspected secondary to adrenal insufficiency and/or hepatic etiology (ammonia normal). Started on rifaximin and lactulose. MRI brain with contrast: no metastases. SCALE OPERATOR evaluation: NDD2 solids, honey-thick liquids. Coagulopathy Likely due to cirrhosis and remote heavy alcohol use. Given additional vitamin K; rechecking INR. Hypomagnesemia Repleted IV/PO. Hypokalemia Treated with IV and oral replacement; now normalized. Hypernatremia Attributed to dehydration; now resolved. VTE prophylaxis: SCDs in place. Disposition: STR, when his condition is much better with clear mental status Need for inpatient: ongoing management for AI complicated by encephalopathy Total time managing care of this patient today: 35 minutes. Quality Stroke Does the patient have a stroke diagnosis?: No VTE Prior VTE?: No VTE Risk Level:: Medical - moderate - high VTE Device Contraindication: N/A - Device Ordered VTE Drug Contraindication: Treatment Not Indicated
[2025-03-02 03:02] VITALS: BP 146/81; PULSE 71; RESP 16; TEMP 36.1; O2SAT 98
[2025-03-02] MEDS: Hydrocortisone Sod Succ/PF 100 MG VIAL 50 MG IVPUSH ×3 (05:11→23:22)
[2025-03-02 05:24] VITALS: BMI 18.5
[2025-03-02 08:00] VITALS: BP 159/79; PULSE 76; RESP 17; TEMP 36.4; O2SAT 97
[2025-03-02 08:21] LABS: Alanine Aminotransferase 27 U/L (0-40); Albumin Level 3.2 g/dL (3.5-5.0); Alkaline Phosphatase 149 U/L (39-117); Anion Gap 7 (12-20); Aspartate Amino Transferase 70 U/L (5-37); Blood Urea Nitrogen 20 mg/dL (9-16); Calcium 8.0 mg/dL (8.4-10.2); Carbon Dioxide 29 mmol/L (22-29); Chloride 110 mmol/L (96-108); Creatinine Clr Calc Pharmacy 99.6; Estimated Glomerular Filt Rate > 60; Potassium 3.2 mmol/L (3.3-5.1); Sodium 143 mmol/L (135-145); Total Protein 6.0 g/dL (6.5-8.0)
[2025-03-02] MEDS: 0.9 % Sodium Chloride Flush 3 ML SYRINGE IVFLUSH ×2 (08:41→23:23)
[2025-03-02] MEDS: Potassium Chloride Packet 20 MEQ PACKET 40 MEQ PO ×2 (08:46→23:22)
[2025-03-02 12:00] VITALS: BP 142/83; PULSE 67; RESP 16; TEMP 36.4; O2SAT 99
--- NOTE | 2025-03-02 13:49 | PC.NURSE ---
Patient alert and oriented to self. Camera in the room for safety. Denies pain. Pleasantly confused and cooperative. Redness to buttocks and groin folds, applied triad cream. Pt refused breakfast, but ate 100% of lunch. Taking crushed pills with applesauce. Efrem Riley, upadated today by phone.
--- NOTE | 2025-03-02 14:40 | MHC.CM.PN ---
CM and MD spoke to HCP on the phone to discuss DCP. HCP expressed preference of [facility] as first choice of the accepting SNF's. HCP will manage the finances and arrange for private pay at the SNF. [facility] updated. Awaiting consult from Oncology re: immunotherapy med. to determine if it will be continued. CM to continue to assist with DCP.
--- NOTE | 2025-03-02 14:42 | MHC.CLN ---
F/U DIET RX: GRD WITH NT LIQ-CAMPAIGN MANAGEMENT SENIOR MANAGER FOLLOWING RECEIVING MAGIC CUP TID, PROVIDES 870KCALS, 27G PROTEIN (MAGIC CUP IS HONEY CONSISTENCY) ALSO RECEIVING ENSURE BID, PROVIDES 700KCALS, 40G PROTEIN VARIABLE INTAKE 0-100% WITH AVERAGE INTAKE 50% OR LESS CONTINUE TO MONITOR PO INTAKE AND ENCOURAGE SUPPLEMENTS
--- NOTE | 2025-03-02 14:53 | MHC.SL.SWA ---
Speech Pathologist Impression: Dysphagia unspecified Risk of Aspiration Due to: Generalized weakness Cognitive limitations (though cognition is improving) Dysphasia Diet Status: No Change Liquid Consistency and Strategies for Safe Swallow: Liquid Intake Recommendation: [place] Thick Liquid Intake Strategies: Small Sips Solid Food Consistency: Dietary Recommendations: Grnd/Mech Altered (NDD2) Additional Modifications to Solid Foods: Oral Medication Intake: Crushed with Puree Please contact the pharmacy regarding appropriate crushable or liquid drug formulations that are available whenever modified delivery is recommended. Compensatory Strategies and Precautions to be Taken for Safe Swallow: Sitting Upright (90 deg) Liquids from Cup Liquids from Straw Liquids from Spoon Small Bites and Sips Alternate Liquids/Solids Rate of Ingestion Change Supervision While Eating and Drinking for Safe Swallow: Total Assistance (1:1) Foods to Avoid: Swallowing Recommended Treatments: Compens. Strategy Educat. Recommendation for Speech: Inpatient Speech Therapy Comment: Pt seen by CAP SIZER, KNOWLEDGE MANAGER and sitter reported pt did not eat breakfast but ate all of his lunch. Pt alert to self, knew he was in a facility, knew his nephew Efrem would be visiting soon, and endorsed he did not eat breakfast. Pt politely declined further PO with CAP SIZER and stated he does not need to be on any fluids. Pt functional communication has improved in the past few days, though he remains confused but easily follows simple cues. Recommend CONTINUE on GROUND/MECH ALTERED (NDD2) diet with NECTAR THICK Liquids, aspiration precautions, 1:1 feeding. CAP SIZER to continue to follow. Frequency/Duration: Daily M-F Date Range for Service Req: Timeline to reassess: Asset Protection Agent Clinican/Clinical Fellow: No Supervisory Statement: I have reviewed and agree with the student/clinical fellow's documentation: N/A Speech Language Pathologist: Brooke Hernandez M.S., [facility]-CAP SIZER
[2025-03-02 15:27] VITALS: BP 151/76; PULSE 99; RESP 17; TEMP 36.4; O2SAT 95
[2025-03-02 19:52] VITALS: BP 135/86; PULSE 82; RESP 18; TEMP 36.2; O2SAT 98
[2025-03-02 23:59] VITALS: BP 144/83; PULSE 70; RESP 16; TEMP 36; O2SAT 99
[2025-03-03 03:04] VITALS: BP 150/81; PULSE 70; RESP 18; TEMP 36; O2SAT 99
[2025-03-03] MEDS: Hydrocortisone Sod Succ/PF 100 MG VIAL 50 MG IVPUSH ×3 (04:40→21:58)
[2025-03-03 04:42] VITALS: BMI 16.4
--- NOTE | 2025-03-03 06:09 | PC.NURSE ---
Assumed care at 2129. Patient alert oriented to person, place only. Very forgetful as forgets what has been said to him in the moment. Patient ambulated to commode, assist x2 as gait and balance are unsteady. Bed low locked position with bed alarm on. Patient incontinent of large loose brown BM. Sleeping in naps overnight and no reports of pain. VSS Refer to eMAR for assessment
[2025-03-03 07:51] VITALS: BP 162/94; PULSE 86; RESP 18; TEMP 36.5; O2SAT 96
[2025-03-03] MEDS: Ferrous Sulfate 324 MG TABLET.DR PO (08:06)
[2025-03-03] MEDS: Potassium Chloride Packet 20 MEQ PACKET 40 MEQ PO ×2 (08:06→21:57)
[2025-03-03] MEDS: 0.9 % Sodium Chloride Flush 3 ML SYRINGE IVFLUSH ×2 (08:07→15:03)
[2025-03-03 08:22] LABS: Hematocrit 38.5 % (42.0-52.0); Hemoglobin 13.1 g/dl (14.0-18.0); Imm Gran Abs Auto 0.10 X10*3/uL (0.00-0.03); Imm Gran Pct Auto 0.9 % (0.0-0.4); Lymphocytes Absolute Auto 1.1 X10*3/uL (1.2-4.9); MANUAL DIFF FLAG NO; Mean Corpuscular HGB Conc 34.0 g/dl (31.0-36.0); Mean Corpuscular Hemoglobin 30.5 pg (27.0-33.0); Mean Corpuscular Volume 89.5 fL (80.0-98.0); NRBC Abs Auto 0.000 X10*3/uL (0.0-0.012); NRBC Pct Auto 0.0 /100WBC (0.0-0.2); Platelet Count 405 X10*3/uL (160-400); Red Blood Count 4.30 X10*6/uL (4.60-5.80); White Blood Count 10.7 X10*3/uL (4.8-10.8)
[2025-03-03 08:33] LABS: Ammonia 29 umol/L (13-55)
[2025-03-03 08:46] LABS: Alanine Aminotransferase 27 U/L (0-40); Albumin Level 3.2 g/dL (3.5-5.0); Alkaline Phosphatase 149 U/L (39-117); Anion Gap 10 (12-20); Aspartate Amino Transferase 61 U/L (5-37); Blood Urea Nitrogen 19 mg/dL (9-16); Calcium 7.9 mg/dL (8.4-10.2); Carbon Dioxide 24 mmol/L (22-29); Chloride 111 mmol/L (96-108); Creatinine Clr Calc Pharmacy 98.0; Estimated Glomerular Filt Rate > 60; Potassium 3.6 mmol/L (3.3-5.1); Sodium 141 mmol/L (135-145); Total Protein 6.1 g/dL (6.5-8.0)
[2025-03-03 08:59] LABS: Syphilis Screen Nonreactive (Nonreactive)
[2025-03-03 09:15] LABS: Folate 5.7 ng/mL (> or = 4.0); Vitamin B12 930 pg/mL (200-900)
--- NOTE | 2025-03-03 09:29 | PC.NURSE ---
Pt doing well, calm and cooperative with care, seen by ST, took pills whole in Apple sauce, thick liquids. Foam changed on buttocks for protection, red, blanchable. Bed alarm and camera for safety.
--- NOTE | 2025-03-03 09:51 | PC.NURSE ---
Waiting on MD for PO Lactulose. Ammonia is 29
--- NOTE | 2025-03-03 11:10 | P.PNIM_ITS ---
Subjective Subjective Date of Service: 03/03/25 Interval History: No new issues today Asks me to explain myself this morning - on clarification he informs me that, he is waiting for surgery and for a catheterization . He informs me this is no way to treat your son . Remains very altered and confused Non reliable historian Review of Systems Review of Systems: Yes Unobtainable due to mental status Physical Exam 2 Exam: Exam: General: Comfortable, no pain, A&O x 0 Cardiac: S1, S2 auscultated with no S3/4, no MRG. Well perfused. Respiratory: Normal breath sounds auscultated throughout all lung zones, without wheezing, rales. Normal rate. GI/ : No abdominal pain on palpation, no masses or distentions. MSK: Normal ambulation without pain at bony prominences or musculature Neurological: Normal neurological examination on overview, without obvious CN II-XII abnormalities. Vital Signs: Vital Signs: Last Vital Signs Temp 97.7 F 03/03/25 07:51 Pulse 86 03/03/25 07:51 Resp 18 03/03/25 07:51 BP 162/94 H 03/03/25 07:51 Pulse Ox 96 03/03/25 07:51 O2 Del Method Room Air 03/03/25 07:51 FiO2 30 02/16/25 21:00 BMI result Body Mass Index 16.4 Objective Data Active Medications Albuterol Sulfate (Albuterol Sulfate 90 Mcg 8 Gm Inhaler) 2 puff INHALE Q4H PRN PRN Reason: shortness of breath or wheezin Allopurinol (Allopurinol 300 Mg Tablet) 300 mg PO DAILY [facility] Last Admin: 03/03/25 08:06 Dose: 300 mg Documented By: DARION Ferrous Sulfate (Ferrous Sulfate 324 Mg Tablet.) 324 mg PO Q48H [facility] Last Admin: 03/03/25 08:06 Dose: 324 mg Documented By: DARION Fludrocortisone Acetate (Fludrocortisone Acetate 0.1 Mg Tablet) 0.1 mg PO DAILY [facility] Last Admin: 03/03/25 08:06 Dose: 0.1 mg Documented By: DARION Hydrocortisone Sodium Succinate (Hydrocortisone Sod Succ/Pf 100 Mg Vial) 50 mg IVPUSH Q8H [facility] Last Admin: 03/03/25 04:40 Dose: 50 mg Documented By: PILI Lactulose (Lactulose 20 Gm/30 Ml Solution) 30 gm PO TID [facility] Last Admin: 03/03/25 10:38 Dose: 30 gm Documented By: DARION Levofloxacin (Levofloxacin 750 Mg Tablet) 750 mg PO Q24H [facility] Last Admin: 03/02/25 16:55 Dose: 750 mg Documented By: SOFFAMarcin Loratadine (Loratadine 10 Mg Tablet) 10 mg PO DAILY PRN PRN Reason: Allergy Symptoms Magnesium Oxide (Magnesium Oxide 400 Mg Tablet) 800 mg PO BIDPC [facility] Last Admin: 03/03/25 08:06 Dose: 800 mg Documented By: DARION Potassium Chloride (Potassium Chloride Packet 20 Meq Packet) 40 meq PO BID [facility] Last Admin: 03/03/25 08:06 Dose: 40 meq Documented By: DARION Rifaximin (Rifaximin 550 Mg Tablet) 550 mg PO BID [facility] Last Admin: 03/03/25 08:10 Dose: 550 mg Documented By: DARION Sodium Chloride (0.9 % Sodium Chloride Flush 3 Ml Syringe) 3 ml IVFLUSH QSHIFT [facility] Last Admin: 03/03/25 08:07 Dose: 3 ml Documented By: DARION Labs 03/03/25 07:57 03/03/25 07:57 Labs: Laboratory Results - last 24 hr 03/03/25 07:57 MCV 89.5 MCH 30.5 MCHC 34.0 RDW 16.5 H Plt Count 405 H MPV 8.4 L Immature Gran % (Auto) 0.9 H Neut % (Auto) 82.5 H Lymph % (Auto) 10.3 L Piatt % (Auto) 6.1 Eos % (Auto) 0.1 Baso % (Auto) 0.1 Lymph # (Auto) 1.1 L [place]att # (Auto) 0.7 Eos # (Auto) 0.0 Baso # (Auto) 0.0 Abs Immat Gran (auto) 0.10 H Absolute Neuts (auto) 8.8 H Absolute Nucleated RBC 0.000 Nucleated RBC % (auto) 0.0 Anion Gap 10 L Estim Creat Clear Calc 98.0 Estimated GFR > 60 Random Glucose 109 Calcium 7.9 L Total Bilirubin 0.8 AST 61 H ALT 27 Alkaline Phosphatase 149 H Ammonia 29 Total Protein 6.1 L Albumin 3.2 L Vitamin B12 930 H Folate 5.7 TSH 2.73 T.pallidum Ab (EIA) Nonreactive Assessment and Plan (1) ACP (advance care planning): Status: Acute (2) HCC (hepatocellular carcinoma): Status: Acute (3) Thrombocytosis: Status: Acute (4) Delirium: Status: Acute (5) Metabolic encephalopathy: Status: Acute (6) Adrenal insufficiency: Status: Acute Plan 70-year-old male with cirrhosis and HCC (s/p chemo-embolization and TACE), currently on tremelimumab and durvalumab immunotherapy. History notable for GI bleed from gastric ulcer and alcohol abuse (in remission). Patient was sent from Oncology office, where he was scheduled for his 4th cycle of immunotherapy, due to hypotension and possible coffee-ground emesis. Initial course: Admitted to ICU for pressor support. No overt GI bleed observed. Stepped down to telemetry on 02/18/25. Febrile with concern for enteritis. Ultimately found to have severe adrenal insufficiency, likely secondary to immune checkpoint inhibitor therapy. Adrenal insufficiency (AI) ? likely immune checkpoint inhibitor-related On hydrocortisone started at 100 mg IV q8h, now 50 and fludrocortisone 0.1 mg daily (discussed with Heme-Onc), Associated encephalopathy persists. Fever Likely secondary to adrenal insufficiency, but empirically covered for enteritis with levofloxacin and metronidazole (02/18?02/27, 10 days). Fever resolved. Hypotension Attributed to adrenal insufficiency; resolved with steroid replacement. Midodrine discontinued. Possible GI bleed Continue IV PPI. GI consulted; no plans for EGD. Transfused 1 unit pRBCs in ED; hemoglobin stable at 11?12. Acute metabolic encephalopathy Suspected secondary to adrenal insufficiency and/or hepatic etiology (ammonia normal). Started on rifaximin and lactulose. MRI brain with contrast: no metastases. TECHNICAL ENGINEER evaluation: NDD2 solids, honey-thick liquids. Thaimine 400mg IV once followed by 200mg IV daily ordered in case element of wernicke contributing Further evaluation with ammonia, B12, folic, TSH, RPR ordered Coagulopathy Likely due to cirrhosis and remote heavy alcohol use. Given additional vitamin K; recheck INR. Hypomagnesemia Repleted IV/PO. Hypokalemia Treated with IV and oral replacement; now normalized. Hypernatremia Attributed to dehydration; now resolved. VTE prophylaxis: SCDs in place. Disposition: STR, when his condition is much better with clear mental status Need for inpatient: ongoing management for AI complicated by encephalopathy Total time managing care of this patient today: 45 minutes. Quality Stroke Does the patient have a stroke diagnosis?: No VTE Prior VTE?: No VTE Risk Level:: Medical - moderate - high VTE Device Contraindication: N/A - Device Ordered VTE Drug Contraindication: Treatment Not Indicated
[2025-03-03 11:55] VITALS: BP 136/82; PULSE 81; RESP 18; O2SAT 98
--- NOTE | 2025-03-03 13:42 | MHC.SL.SWA ---
Speech Pathologist Impression: Risk of Aspiration, Oropharyngeal Dysphagia Risk of Aspiration Due to: Mentation Dysphasia Diet Status: No Change- Start on FFWP Liquid Consistency and Strategies for Safe Swallow: Liquid Intake Recommendation: [place] Thick Liquid Intake Strategies: Small Sips Solid Food Consistency: Dietary Recommendations: Grnd/Mech Altered (NDD2) Additional Modifications to Solid Foods: Allow ice chips/sips of water by teaspoon only BETWEEN meals AFTER oral care is provided as per [facility] Free Water Protocol: -Liquids other than water (i.e. coffee, juice, soda) and any liquids given with meals/food to be thickened to nectar thick consistency -Wait at least 30 minutes after meal for FFW -Provide oral care before presenting ice chips/water -Water ONLY unthickened by teaspoon Oral Medication Intake: Crushed with Puree Please contact the pharmacy regarding appropriate crushable or liquid drug formulations that are available whenever modified delivery is recommended. Compensatory Strategies and Precautions to be Taken for Safe Swallow: Sitting Upright (90 deg) Liquids from Cup Liquids from Straw Liquids from Spoon Small Bites and Sips Alternate Liquids/Solids Rate of Ingestion Change Supervision While Eating and Drinking for Safe Swallow: Total Assistance (1:1) Swallowing Recommended Treatments: Compens. Strategy Educat. Recommendation for Speech: Inpatient Speech Therapy Comment: Recommend GROUND/MECH ALTERED (NDD2) diet and NECTAR THICK liquids, pills CRUSHED in PUREE, 1:1 assistance feeding (assist pt in holding cup/utensils; straws ok) and cue pt to take small bites, allow ample time for patient to chew, check oral cavity for any residue, clear residue by cuing patient for double swallow or liquid wash, ensure upright 90 degree position. MUSIC INTERN will continue to follow to monitor patient's tolerance of recommended diet and feeding needs. Frequency/Duration: Daily M-F Date Range for Service Req: Timeline to reassess: Basket Operator Clinican/Clinical Fellow: No Supervisory Statement: I have reviewed and agree with the student/clinical fellow's documentation: N/A Speech Language Pathologist: Corin Newton M.A., [facility]MUSIC INTERN
[2025-03-03 15:53] VITALS: BP 147/86; PULSE 88; RESP 16; TEMP 36.8; O2SAT 98
[2025-03-03 20:00] VITALS: BP 133/79; PULSE 94; RESP 18; TEMP 36.2; O2SAT 94
[2025-03-03 23:40] VITALS: BP 128/64; PULSE 92; RESP 18; TEMP 36.2; O2SAT 96
[2025-03-04 03:48] VITALS: BP 136/82; PULSE 79; RESP 18; TEMP 36.2; O2SAT 94
[2025-03-04] MEDS: Hydrocortisone Sod Succ/PF 100 MG VIAL 50 MG IVPUSH ×3 (05:57→20:09)
[2025-03-04 06:00] VITALS: BMI 17.0
[2025-03-04 07:05] VITALS: BP 155/86; PULSE 73; RESP 18; TEMP 36.6; O2SAT 99
[2025-03-04] MEDS: 0.9 % Sodium Chloride Flush 3 ML SYRINGE IVFLUSH ×2 (07:54→20:10)
[2025-03-04] MEDS: Potassium Chloride Packet 20 MEQ PACKET 40 MEQ PO ×2 (07:54→20:09)
[2025-03-04] MEDS: Thiamine HCL 200 MG in 0.9 % Sodium Chloride 100 ML 202 MG IV (08:01)
[2025-03-04 11:58] VITALS: BP 143/86; PULSE 79; RESP 16; TEMP 36.6; O2SAT 96
--- NOTE | 2025-03-04 12:24 | MHC.CLN ---
F/U DIET RX: GROUND WITH NECTAR THICK LIQUIDS. RECEIVING MAGIC CUP TID (870KCALS, 27G PROTEIN). RECEIVING ENSURE BID (700KCALS, 40G PROTEIN). PO INTAKE CONTINUES TO BE VARIABLE 0-100%. SHOWS SIGNIFICANT WEIGHT LOSS SINCE ADM, -9.8%. CONTINUE TO MONITOR PO INTAKE AND ENCOURAGE SUPPLEMENTS.
--- NOTE | 2025-03-04 12:52 | P.PNIM_ITS ---
Subjective Subjective Date of Service: 03/04/25 Interval History: No new changes patient's mental status Remains altered and confused with, with short-term memory loss Review of Systems Review of Systems: Yes Unobtainable due to mental condition and Unobtainable due to mental status Physical Exam 2 Exam: Exam: General: Comfortable, no pain, A&O x 0 Cardiac: S1, S2 auscultated with no S3/4, no MRG. Well perfused. Respiratory: Normal breath sounds auscultated throughout all lung zones, without wheezing, rales. Normal rate. GI/ : No abdominal pain on palpation, no masses or distentions. MSK: Normal ambulation without pain at bony prominences or musculature Neurological: Normal neurological examination on overview, without obvious CN II-XII abnormalities. Vital Signs: Vital Signs: Last Vital Signs Temp 97.9 F 03/04/25 11:58 Pulse 79 03/04/25 11:58 Resp 16 03/04/25 11:58 BP 143/86 H 03/04/25 11:58 Pulse Ox 96 03/04/25 11:58 O2 Del Method Room Air 03/04/25 11:58 FiO2 30 02/16/25 21:00 BMI result Body Mass Index 17.0 Objective Data Active Medications Albuterol Sulfate (Albuterol Sulfate 90 Mcg 8 Gm Inhaler) 2 puff INHALE Q4H PRN PRN Reason: shortness of breath or wheezin Allopurinol (Allopurinol 300 Mg Tablet) 300 mg PO DAILY [facility] Last Admin: 03/04/25 07:54 Dose: 300 mg Documented By: DARION Ferrous Sulfate (Ferrous Sulfate 324 Mg Tablet.) 324 mg PO Q48H [facility] Last Admin: 03/03/25 08:06 Dose: 324 mg Documented By: DARION Fludrocortisone Acetate (Fludrocortisone Acetate 0.1 Mg Tablet) 0.1 mg PO DAILY [facility] Last Admin: 03/04/25 07:54 Dose: 0.1 mg Documented By: DARION Hydrocortisone Sodium Succinate (Hydrocortisone Sod Succ/Pf 100 Mg Vial) 50 mg IVPUSH Q8H [facility] Last Admin: 03/04/25 12:04 Dose: 50 mg Documented By: DARION Thiamine HCl 200 mg/ Sodium (Chloride) 102 mls @ 202 mls/hr IV DAILY [facility] Last Infusion: 03/04/25 08:50 Dose: Infused Documented By: DARION Lactulose (Lactulose 20 Gm/30 Ml Solution) 30 gm PO TID [facility] Last Admin: 03/04/25 07:54 Dose: 30 gm Documented By: DARION Loratadine (Loratadine 10 Mg Tablet) 10 mg PO DAILY PRN PRN Reason: Allergy Symptoms Magnesium Oxide (Magnesium Oxide 400 Mg Tablet) 800 mg PO BIDPC [facility] Last Admin: 03/04/25 07:54 Dose: 800 mg Documented By: DARION Potassium Chloride (Potassium Chloride Packet 20 Meq Packet) 40 meq PO BID [facility] Last Admin: 03/04/25 07:54 Dose: 40 meq Documented By: DARION Rifaximin (Rifaximin 550 Mg Tablet) 550 mg PO BID [facility] Last Admin: 03/04/25 07:53 Dose: 550 mg Documented By: DARION Sodium Chloride (0.9 % Sodium Chloride Flush 3 Ml Syringe) 3 ml IVFLUSH QSHIFT [facility] Last Admin: 03/04/25 07:54 Dose: 3 ml Documented By: DARION Labs 03/03/25 07:57 03/03/25 07:57 Assessment and Plan (1) ACP (advance care planning): Status: Acute (2) Hypertension: Status: Acute (3) Hypotension: Status: Acute (4) Hypotension: Status: Acute (5) PVD (peripheral vascular disease): Status: Acute (6) HLD (hyperlipidemia): Status: Acute (7) Adrenal insufficiency: Status: Acute (8) [place] (hard of hearing): Status: Acute (9) Vomiting: Status: Acute (10) Chronic GERD: Status: Acute (11) Hematemesis: Status: Acute (12) HCC (hepatocellular carcinoma): Status: Acute (13) HCC (hepatocellular carcinoma): Status: Acute (14) Thrombocytosis: Status: Acute (15) Anemia: Status: Acute (16) Delirium: Status: Acute (17) Metabolic encephalopathy: Status: Acute Plan 70-year-old male with cirrhosis and HCC (s/p chemo-embolization and TACE), currently on tremelimumab and durvalumab immunotherapy. History notable for GI bleed from gastric ulcer and alcohol abuse (in remission). Patient was sent from Oncology office, where he was scheduled for his 4th cycle of immunotherapy, due to hypotension and possible coffee-ground emesis. Initial course: Admitted to ICU for pressor support. No overt GI bleed observed. Stepped down to telemetry on 02/18/25. Febrile with concern for enteritis. Ultimately found to have severe adrenal insufficiency, likely secondary to immune checkpoint inhibitor therapy. Adrenal insufficiency (AI) ? likely immune checkpoint inhibitor-related On hydrocortisone started at 100 mg IV q8h, now 50 and fludrocortisone 0.1 mg daily (discussed with Heme-Onc), Associated encephalopathy persists. Fever Likely secondary to adrenal insufficiency, but empirically covered for enteritis with levofloxacin and metronidazole (02/18?02/27, 10 days). Fever resolved. Hypotension Attributed to adrenal insufficiency; resolved with steroid replacement. Midodrine discontinued. Possible GI bleed Continue IV PPI. GI consulted; no plans for EGD. Transfused 1 unit pRBCs in ED; hemoglobin stable at 11?12. Acute metabolic encephalopathy Suspected secondary to adrenal insufficiency and/or hepatic etiology (ammonia normal). Started on rifaximin and lactulose. MRI brain with contrast: no metastases. AUTOMATION SALES MANAGER evaluation: NDD2 solids, honey-thick liquids. Thaimine 400mg IV once followed by 200mg IV daily ordered in case element of wernicke contributing Further evaluation with ammonia, B12, folic, TSH, RPR ordered Coagulopathy Likely due to cirrhosis and remote heavy alcohol use. Given additional vitamin K; recheck INR. Hypomagnesemia Repleted IV/PO. Hypokalemia Treated with IV and oral replacement; now normalized. Hypernatremia Attributed to dehydration; now resolved. VTE prophylaxis: SCDs in place. Disposition: STR, when his condition is much better with clear mental status Need for inpatient: ongoing management for AI complicated by encephalopathy Requires further discussion for goals of care and possible transition to PATIENT ACCOUNTS COORDINATOR Total time managing care of this patient today: 45 minutes. Quality Stroke Does the patient have a stroke diagnosis?: No VTE Prior VTE?: No VTE Risk Level:: Medical - moderate - high VTE Device Contraindication: N/A - Device Ordered VTE Drug Contraindication: Treatment Not Indicated
--- NOTE | 2025-03-04 15:32 | MHC.CM.PN ---
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
[2025-03-04 15:50] VITALS: BP 141/85; PULSE 68; RESP 16; TEMP 36.7; O2SAT 99
--- NOTE | 2025-03-04 15:55 | MHC.SL.SWA ---
Speech Pathologist Impression: Risk of Aspiration, Oropharyngeal Dysphagia Risk of Aspiration Due to: Mentation Dysphasia Diet Status: Upgrade from NT to THIN liquids Liquid Consistency and Strategies for Safe Swallow: Liquid Intake Recommendation: Thin Liquid Intake Strategies: Small Sips Solid Food Consistency: Dietary Recommendations: Grnd/Mech Altered (NDD2) Additional Modifications to Solid Foods: Recommend UPGRADE to THIN liquids (via individual sips- monitor with straw pinch or controlled cup), continue on GROUND/MECH ALTERED (NDD2) solids. Diet order adjusted per KITCHEN UTILITY ASSOCIATE, notified MD, RN, and RD via Mabel Message. Patient will need 1:1 assistance feeding, crush meds in puree when possible. Oral Medication Intake: Crushed with Puree Please contact the pharmacy regarding appropriate crushable or liquid drug formulations that are available whenever modified delivery is recommended. Compensatory Strategies and Precautions to be Taken for Safe Swallow: Sitting Upright (90 deg) Liquids from Cup Liquids from Straw Liquids from Spoon Small Bites and Sips Alternate Liquids/Solids Rate of Ingestion Change Supervision While Eating and Drinking for Safe Swallow: Total Assistance (1:1) Swallowing Recommended Treatments: Compens. Strategy Educat. Recommendation for Speech: Inpatient Speech Therapy Frequency/Duration: Daily M-F Date Range for Service Req: Timeline to reassess: Tile Layer Drainage Clinican/Clinical Fellow: No Supervisory Statement: I have reviewed and agree with the student/clinical fellow's documentation: N/A Speech Language Pathologist: Corin Newton M.A., CCC-KITCHEN UTILITY ASSOCIATE
[2025-03-04 19:57] VITALS: BP 161/84; PULSE 75; RESP 16; TEMP 36.3; O2SAT 100
[2025-03-04 23:14] VITALS: BP 150/80; PULSE 70; RESP 16; TEMP 36.2; O2SAT 99
[2025-03-05 03:45] VITALS: BP 139/73; PULSE 62; RESP 18; TEMP 35.8; O2SAT 99
[2025-03-05] MEDS: Hydrocortisone Sod Succ/PF 100 MG VIAL 50 MG IVPUSH ×3 (04:35→20:09)
[2025-03-05 05:17] VITALS: BMI 17.1
[2025-03-05] MEDS: Ferrous Sulfate 324 MG TABLET.DR PO (07:25)
[2025-03-05] MEDS: Thiamine HCL 200 MG in 0.9 % Sodium Chloride 100 ML 202 MG IV (07:25)
[2025-03-05] MEDS: Potassium Chloride Packet 20 MEQ PACKET 40 MEQ PO ×2 (07:26→20:09)
[2025-03-05] MEDS: 0.9 % Sodium Chloride Flush 3 ML SYRINGE IVFLUSH ×3 (07:26→20:09)
[2025-03-05 07:58] VITALS: BP 157/91; PULSE 68; RESP 16; TEMP 36.3; O2SAT 98
[2025-03-05 11:59] VITALS: BP 123/76; PULSE 71; RESP 16; TEMP 36.4; O2SAT 99
--- NOTE | 2025-03-05 12:53 | HO.PM.IMPN ---
Subjective Subjective Date of Service: 03/05/25 Interval History: No new issues or complaints Remains very confused Review of Systems Review of Systems: Yes Unobtainable due to mental condition and Unobtainable due to mental status Physical Exam Exam: Exam: General: Comfortable, no pain, A&O x 0 Cardiac: S1, S2 auscultated with no S3/4, no MRG. Well perfused. Respiratory: Normal breath sounds auscultated throughout all lung zones, without wheezing, rales. Normal rate. GI/ : No abdominal pain on palpation, no masses or distentions. MSK: Normal ambulation without pain at bony prominences or musculature Neurological: Normal neurological examination on overview, without obvious CN II-XII abnormalities. Vital Signs: Vital Signs: Last Vital Signs Temp 97.5 F 03/05/25 11:59 Pulse 71 03/05/25 11:59 Resp 16 03/05/25 11:59 BP 123/76 03/05/25 11:59 Pulse Ox 99 03/05/25 11:59 O2 Del Method Room Air 03/05/25 11:59 FiO2 30 02/16/25 21:00 BMI result Body Mass Index 17.1 Objective Data Active Medications Albuterol Sulfate (Albuterol Sulfate 90 Mcg 8 Gm Inhaler) 2 puff INHALE Q4H PRN PRN Reason: shortness of breath or wheezin Allopurinol (Allopurinol 300 Mg Tablet) 300 mg PO DAILY [facility] Last Admin: 03/05/25 07:33 Dose: 300 mg Documented By: GWEN Ferrous Sulfate (Ferrous Sulfate 324 Mg Tablet.) 324 mg PO Q48H [facility] Last Admin: 03/05/25 07:25 Dose: 324 mg Documented By: GWEN Fludrocortisone Acetate (Fludrocortisone Acetate 0.1 Mg Tablet) 0.1 mg PO DAILY [facility] Last Admin: 03/05/25 07:25 Dose: 0.1 mg Documented By: GWEN Hydrocortisone Sodium Succinate (Hydrocortisone Sod Succ/Pf 100 Mg Vial) 50 mg IVPUSH Q8H [facility] Last Admin: 03/05/25 12:06 Dose: 50 mg Documented By: GWEN Thiamine HCl 200 mg/ Sodium (Chloride) 102 mls @ 202 mls/hr IV DAILY [facility] Last Infusion: 03/05/25 08:04 Dose: Infused Documented By: GWEN Lactulose (Lactulose 20 Gm/30 Ml Solution) 30 gm PO TID [facility] Last Admin: 03/05/25 12:49 Dose: Not Given Documented By: GWEN Non-Admin Reason: pt having normal bms Loratadine (Loratadine 10 Mg Tablet) 10 mg PO DAILY PRN PRN Reason: Allergy Symptoms Magnesium Oxide (Magnesium Oxide 400 Mg Tablet) 800 mg PO BIDPC [facility] Last Admin: 03/05/25 07:25 Dose: 800 mg Documented By: GWEN Potassium Chloride (Potassium Chloride Packet 20 Meq Packet) 40 meq PO BID [facility] Last Admin: 03/05/25 07:26 Dose: 40 meq Documented By: GWEN Rifaximin (Rifaximin 550 Mg Tablet) 550 mg PO BID [facility] Last Admin: 03/05/25 07:33 Dose: 550 mg Documented By: GWEN Sodium Chloride (0.9 % Sodium Chloride Flush 3 Ml Syringe) 3 ml IVFLUSH QSHIFT [facility] Last Admin: 03/05/25 07:26 Dose: 3 ml Documented By: GWEN Labs 03/03/25 07:57 03/03/25 07:57 Assessment and Plan (1) Hypertension: Status: Acute (2) Hypotension: Status: Acute (3) PVD (peripheral vascular disease): Status: Acute (4) Adrenal insufficiency: Status: Acute (5) [place] (hard of hearing): Status: Acute (6) Vomiting: Status: Acute (7) Chronic GERD: Status: Acute (8) HCC (hepatocellular carcinoma): Status: Acute (9) Delirium: Status: Acute (10) Metabolic encephalopathy: Status: Acute Plan 70-year-old male with cirrhosis and HCC (s/p chemo-embolization and TACE), currently on tremelimumab and durvalumab immunotherapy. History notable for GI bleed from gastric ulcer and alcohol abuse (in remission). Patient was sent from Oncology office, where he was scheduled for his 4th cycle of immunotherapy, due to hypotension and possible coffee-ground emesis. Initial course: Admitted to ICU for pressor support. No overt GI bleed observed. Stepped down to telemetry on 02/18/25. Febrile with concern for enteritis. Ultimately found to have severe adrenal insufficiency, likely secondary to immune checkpoint inhibitor therapy. Adrenal insufficiency (AI) ? likely immune checkpoint inhibitor-related On hydrocortisone started at 100 mg IV q8h, now 50 and fludrocortisone 0.1 mg daily (discussed with Heme-Onc), Associated encephalopathy persists. Fever Likely secondary to adrenal insufficiency, but empirically covered for enteritis with levofloxacin and metronidazole (02/18?02/27, 10 days). Fever resolved. Hypotension Attributed to adrenal insufficiency; resolved with steroid replacement. Midodrine discontinued. Possible GI bleed Continue IV PPI. GI consulted; no plans for EGD. Transfused 1 unit pRBCs in ED; hemoglobin stable at 11?12. Acute metabolic encephalopathy Suspected secondary to adrenal insufficiency and/or hepatic etiology (ammonia normal). Started on rifaximin and lactulose. MRI brain with contrast: no metastases. PHOTO STYLIST evaluation: NDD2 solids, honey-thick liquids. Thaimine 400mg IV admisnistered followed by 200mg IV daily ordered in case element of wernicke contributing Further evaluation with ammonia, B12, folic, TSH, RPR ordered Coagulopathy Likely due to cirrhosis and remote heavy alcohol use. Given additional vitamin K; recheck INR. Hypomagnesemia Repleted IV/PO. Hypokalemia Treated with IV and oral replacement; now normalized. Hypernatremia Attributed to dehydration; now resolved. VTE prophylaxis: SCDs in place. Disposition: STR, when his condition is much better with clear mental status Need for inpatient: ongoing management for AI complicated by encephalopathy Requires further discussion for goals of care and possible transition to INTELLECTUAL PROPERTY LEGAL ASSISTANT Total time managing care of this patient today: 35 minutes. Quality Stroke Does the patient have a stroke diagnosis?: No VTE Prior VTE?: No VTE Risk Level:: Medical - moderate - high VTE Device Contraindication: N/A - Device Ordered VTE Drug Contraindication: Treatment Not Indicated
--- NOTE | 2025-03-05 13:32 | P.PNHO-ONC_ITS ---
Medical Summary - Medical Summary Date of Service: 03/05/25 Chief complaint: hepatocellular carcinoma Primary Care Provider: GEMMA Spencer- Medical Summary: DIAGNOSIS: HCC. He is being [place] [facility] [place] and was admitted with hemetemesis. 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 He has a history of Hepatocellular carcinoma, status post chemoembolization at [facility] in March of this year. He was subsequently started on atezolizumab and bevacizumab in April. He received cycle 7 in August. In September he underwent taste at [facility] under the care of . He was then treated with lenvatinib for 3 weeks till end of October however he tolerated that poorly. He was then started on temelimumab + durvalumab immunotherapy, he recently received cycle 4. He presented today with increased weakness, confusion, vomiting black tarry substance, and no bowel movement over 3 days after taking immodium for diarrhea. He stated that he has been feeling generally unwell and this morning he vomited dark substance that was sticky. He has not had a bowel movement in 3 days after taking immodium for diarrhea. CTA OF THE CHEST AND ABDOMEN: 1. No evidence of pulmonary emboli. Small right pleural effusion. 2. Interval enlargement of the patient's known calcified mass. There are new smaller calcified masses at the dome, consistent with progression of disease. 3. Abnormal wall thickening of multiple loops of distal ileum, consistent with enteritis. This may be infectious or inflammatory in nature. BRAIN MRI REVEALED: No evidence of enhancement. No evidence of metastatic disease. Review of Systems - Constitutional Reports anorexia - Eyes Reports other - ENT Reports dizziness - Cardiovascular Reports lightheadedness, Reports shortness of breath causing sudden awakening - Respiratory Reports dyspnea on exertion - Gastrointestinal Reports abdominal pain - Genitourinary Genitourinary: Reports urinary incontinence - Musculoskeletal Reports abnormal walking - Neurologic Reports confusion, Reports weakness, Denies memory loss, Denies seizure-like activity [facility] Medical History: Medical History (Last Reviewed 02/16/25 @ 14:43 by Ignacio Brambila RN) Allergic rhinitis Arthritis Asthma Gastric ulcer GERD (gastroesophageal reflux disease) GI bleed HTN (hypertension) Liver cancer Metastasis Peptic ulcer Functional capacity: uses cane/walker Family History: Family History (Last Reviewed 02/16/25 @ 10:55 by ARABELLA Patel) Mother Cardiovascular disease Father Diabetes Surgical History: Surgical History (Last Reviewed 02/16/25 @ 14:43 by Ignacio Brambila RN) H/O colonoscopy Onset Date: ~2021 History of esophagogastroduodenoscopy (EGD) Hx of bilateral inguinal hernia repair Hx of shoulder surgery Social History: Social History (Last Reviewed 02/16/25 @ 10:55 by ARABELLA Patel) Living Situation History: Household Members: Unknown / Unable to asses Caregiver staying overnight: No Housing: Unknown / Unable to asses Are you a primary lpn care manager to a significant other at home: No Do you presently have visiting nurse or other home services: No 75 years or older and lives alone: No Tobacco History: Patient Tobacco Use Status: Never used Tobacco Tobacco use type: Cigarette e-Cigarette/Vaping Use: Never Used Second Hand Smoke Exposure: No Occupation Assessmet: service: No Current occupational status: employed Current occupational status: retired Current occupational exposures/hazards: No Home Medications and Allergies Current Medications: Current Medications Albuterol Sulfate (Albuterol Sulfate 90 Mcg 8 Gm Inhaler) 2 puff INHALE Q4H PRN PRN Reason: shortness of breath or wheezin Allopurinol (Allopurinol 300 Mg Tablet) 300 mg PO DAILY [facility] Last Admin: 03/05/25 07:33 Dose: 300 mg Ferrous Sulfate (Ferrous Sulfate 324 Mg Tablet.Dr) 324 mg PO Q48H [facility] Last Admin: 03/05/25 07:25 Dose: 324 mg Fludrocortisone Acetate (Fludrocortisone Acetate 0.1 Mg Tablet) 0.1 mg PO DAILY [facility] Last Admin: 03/05/25 07:25 Dose: 0.1 mg Hydrocortisone Sodium Succinate (Hydrocortisone Sod Succ/Pf 100 Mg Vial) 50 mg IVPUSH Q8H [facility] Last Admin: 03/05/25 12:06 Dose: 50 mg Thiamine HCl 200 mg/ Sodium (Chloride) 102 mls @ 202 mls/hr IV DAILY [facility] Last Infusion: 03/05/25 08:04 Dose: Infused Lactulose (Lactulose 20 Gm/30 Ml Solution) 30 gm PO TID [facility] Last Admin: 03/05/25 12:49 Dose: Not Given Loratadine (Loratadine 10 Mg Tablet) 10 mg PO DAILY PRN PRN Reason: Allergy Symptoms Magnesium Oxide (Magnesium Oxide 400 Mg Tablet) 800 mg [facility] Last Admin: 03/05/25 07:25 Dose: 800 mg Potassium Chloride (Potassium Chloride Packet 20 Meq Packet) 40 meq PO BID [facility] Last Admin: 03/05/25 07:26 Dose: 40 meq Rifaximin (Rifaximin 550 Mg Tablet) 550 mg PO BID [facility] Last Admin: 03/05/25 07:33 Dose: 550 mg Sodium Chloride (0.9 % Sodium Chloride Flush 3 Ml Syringe) 3 ml IVFLUSH QSHIFT [facility] Last Admin: 03/05/25 07:26 Dose: 3 ml Home Medications ?Medication ?Instructions ?Recorded ?Confirmed ?Type loratadine 10 mg tablet (Allergy 10 mg PO DAILY PRN Allergy Symptoms 05/2302/16/25 History Relief (loratadine)) durvalumab 50 mg/mL intravenous 50 mg IV QMONTH 01/21/25 02/16/25 Histor y solution allopurinol 300 mg tablet 300 mg PO DAILY 02/16/25 02/16/25 Histor y ferrous sulfate 325 mg (65 mg 325 mg PO Q48H 02/16/25 02/16/25 History iron) tablet Allergies Allergy/AdvReac Type Severity Reaction Status Date / Time Penicillins Allergy Severe ANAPHYLAXIS Verified 02/16/25 10:14 Exam Vital signs: Vital Signs Temp 97.5 F 03/05/25 11:59 Pulse 71 03/05/25 11:59 Resp 16 03/05/25 11:59 BP 123/76 03/05/25 11:59 Pulse Ox 99 03/05/25 11:59 O2 Del Method Room Air 03/05/25 11:59 FiO2 30 02/16/25 21:00 Intake & Output 03/04/25 03/05/25 03/05/25 18:59 06:59 18:59 Intake Total 702 / 732 30 / 732 102 / 102 Balance 702 / 732 30 / 732 102 / 102 Intake: Intake, Oral Amount 600 / 630 30 / 630 Intake, IV Amount 102 / 102 102 / 102 Thiamine HCL 200 mg In 0.9 % 102 / 102 102 / 102 Sodium Chloride 100 ml @ 202 mls/hr IV DAILY [facility] Rx#: [id number] Other: Meal Refused Yes: Breakfast Breakfast % Eaten 0% Lunch % Eaten 25% Eating (Feeding) Ability 1:1 Feed Cueing Needed Number of Incontinent Voids 1 Number of Unmeasured Voids 2 Last Bowel Movement 03/05/25 03/05/25 Weight 54 kg Weight 54 kg BMI result Body Mass Index 17.1 - Constitutional Present: no acute distress, mild distress - Routine HEENT Exam Head: Present: normal inspection, normocephalic ENT: Present: normal exam - Routine Neck Exam Present: full ROM - Routine Respiratory Exam Present: decreased breath sounds - Routine Cardiovascular Exam Cardiovascular: Present: RRR - Routine Abdominal Exam Present: diminished bowel sounds - Detailed Neurological Exam: Coma Scale Eye Opening: Spontaneous (4) Data - Labs CBC & Chem 7: 03/03/25 07:57 03/03/25 07:57 Labs: Laboratory Last Values WBC 10.7 X10*3/uL (4.8-10.8) 03/03/25 07:57 RBC 4.30 X10*6/uL (4.60-5.80) L 03/03/25 07:57 Hgb 13.1 g/dl (14.0-18.0) L 03/03/25 07:57 Hct 38.5 % (42.0-52.0) L 03/03/25 07:57 MCV 89.5 fL (80.0-98.0) 03/03/25 07:57 MCH 30.5 pg (27.0-33.0) 03/03/25 07:57 MCHC 34.0 g/dl (31.0-36.0) 03/03/25 07:57 RDW 16.5 % (11.0-16.0) H 03/03/25 07:57 Plt Count 405 X10*3/uL (160-400) H 03/03/25 07:57 MPV 8.4 fL (9.4-12.4) L 03/03/25 07:57 Immature Gran % (Auto) 0.9 % (0.0-0.4) H 03/03/25 07:57 Neut % (Auto) 82.5 % (45-73) H 03/03/25 07:57 Lymph % (Auto) 10.3 % (20-40) L 03/03/25 07:57 Gordon % (Auto) 6.1 % (2-11) 03/03/25 07:57 Eos % (Auto) 0.1 % (0-4) 03/03/25 07:57 Baso % (Auto) 0.1 % (0-2) 03/03/25 07:57 Lymph # (Auto) 1.1 X10*3/uL (1.2-4.9) L 03/03/25 07:57 Gordon # (Auto) 0.7 X10*3/uL (0.1-1.2) 03/03/25 07:57 Eos # (Auto) 0.0 X10*3/uL (0.0-0.4) 03/03/25 07:57 Baso # (Auto) 0.0 X10*3/uL (0.0-0.2) 03/03/25 07:57 Abs Immat Gran (auto) 0.10 X10*3/uL (0.00-0.03) H 03/03/25 07:57 Absolute Neuts (auto) 8.8 x10*3/uL (2.0-8.3) H 03/03/25 07:57 Absolute Nucleated RBC 0.000 X10*3/uL (0.0-0.012) 03/03/25 07:57 Nucleated RBC % (auto) 0.0 /100WBC (0.0-0.2) 03/03/25 07:57 Smear Tech's Comments VERIFIED 02/16/25 10:40 Hold Purple Top SEE NOTE 02/27/25 08:43 PT 16.1 SEC (11.2-13.5) H 02/25/25 07:09 INR 1.3 (0.9-1.1) H 02/25/25 07:09 APTT 39.3 SEC (26.7-34.1) H 02/16/25 11:08 Hold Blue Top SEE NOTE 02/16/25 10:45 O2 Saturation 95.0 % 02/21/25 12:15 ABG pH at Pt Temp 7.46 (7.35-7.45) H 02/21/25 12:15 ABG pCO2 at Pt Temp 33 mmHg (32-45) 02/21/25 12:15 ABG pO2 at Pt Temp 72 mmHg (83-108) L 02/21/25 12:15 ABG HCO3 24 mmol/L (22-26) 02/21/25 12:15 ABG Base Excess (Actual) 1.3 mmol/L 02/21/25 12:15 VBG pH 7.45 (7.32-7.43) H 02/17/25 04:54 VBG pCO2 23 mmHg 02/17/25 04:54 VBG pO2 75 mmHg 02/17/25 04:54 VBG HCO3 16 mmol/L (22-26) L 02/17/25 04:54 VBG O2 Saturation 96.0 % 02/17/25 04:54 VBG Base Excess -5.3 mmol/L 02/17/25 04:54 Sodium 141 mmol/L (135-145) 03/03/25 07:57 Potassium 3.6 mmol/L (3.3-5.1) 03/03/25 07:57 Chloride 111 mmol/L (96-108) H 03/03/25 07:57 Carbon Dioxide 24 mmol/L (22-29) 03/03/25 07:57 Anion Gap 10 (12-20) L 03/03/25 07:57 BUN 19 mg/dL (9-16) H 03/03/25 07:57 Creatinine 0.52 mg/dL (0.5-1.4) 03/03/25 07:57 Estim Creat Clear Calc 98.0 03/03/25 07:57 Estimated GFR > 60 03/03/25 07:57 POC Glucose 78 mg/dL (60-115) 02/16/25 10:16 Random Glucose 109 mg/dL (60-115) 03/03/25 07:57 Lactic Acid 1.3 mmol/L (0.5-2.0) 02/20/25 02:41 Calcium 7.9 mg/dL (8.4-10.2) L 03/03/25 07:57 Phosphorus 3.4 mg/dL (2.7-4.5) 02/18/25 04:49 Magnesium 1.9 mg/dL (1.6-2.6) 02/25/25 17:10 Total Bilirubin 0.8 mg/dL (0.0-1.0) 03/03/25 07:57 AST 61 U/L (5-37) H 03/03/25 07:57 ALT 27 U/L (0-40) 03/03/25 07:57 Alkaline Phosphatase 149 U/L (39-117) H 03/03/25 07:57 Ammonia 29 umol/L (13-55) 03/03/25 07:57 Troponin I High Sens 6.6 ng/L (<3.5-35.0) D 02/20/25 02:41 C-Reactive Protein 14.99 mg/dL (< or = 0.50) H 02/21/25 06:51 NT-Pro-B Natriuret Pep 37.1 pg/mL (<300) 02/16/25 10:45 Total Protein 6.1 g/dL (6.5-8.0) L 03/03/25 07:57 Albumin 3.2 g/dL (3.5-5.0) L 03/03/25 07:57 Vitamin B12 930 pg/mL (200-900) H 03/03/25 07:57 Folate 5.7 ng/mL (> or = 4.0) 03/03/25 07:57 TSH 2.73 uIU/mL (0.32-4.0) 03/03/25 07:57 Free T4 1.00 ng/dL (0.71-1.85) 02/21/25 06:51 Random Cortisol < 1.0 ug/dL 02/21/25 06:51 Urine Color Yellow 02/16/25 15:59 Urine Appearance Clear 02/16/25 15:59 Urine pH 5.0 (5.0-9.0) 02/16/25 15:59 Ur Specific Melba 1.025 (1.005-1.025) 02/16/25 15:59 Urine Protein Negative mg/dL (Neg-Trace) 02/16/25 15:59 Urine Glucose (UA) Negative mg/dL (Negative) 02/16/25 15:59 Urine Ketones 15 mg/dL (Negative) 02/16/25 15:59 Urine Blood Negative (Negative) 02/16/25 15:59 Urine Nitrite Negative (Negative) 02/16/25 15:59 Ur Leukocyte Esterase Negative (Negative) 02/16/25 15:59 Stl C. cayetanensis PCR Not Detected (Not Detect.) 02/20/25 16:59 Stool Rotavirus A PCR Not Detected (Not Detect.) 02/20/25 16:59 Stl Adenov F 40/41 PCR Not Detected (Not Detect.) 02/20/25 16:59 Stool Astrovirus (PCR) Not Detected (Not Detect.) 02/20/25 16:59 Stool Campylobacter PCR Not Detected (Not Detect.) 02/20/25 16:59 Stool Cryptosporidium PCR Not Detected (Not Detect.) 02/20/25 16:59 Stl Sh Tox Pr E STEC PCR Not Detected (Not Detect.) 02/20/25 16:59 Stool E coli O157 PCR Not applicable (Not Detect.) 02/20/25 16:59 Stl Enterotoxigenic E PCR Not Detected (Not Detect.) 02/20/25 16:59 Stool EPEC (PCR) Not Detected (Not Detect.) 02/20/25 16:59 Stool EAEC (PCR) Not Detected (Not Detect.) 02/20/25 16:59 Stl E. histolytica PCR Not Detected (Not Detect.) 02/20/25 16:59 Stool Giardia Lamblia PCR Not Detected (Not Detect.) 02/20/25 16:59 Stl P. shigelloides PCR Not Detected (Not Detect.) 02/20/25 16:59 Stool Salmonella PCR Not Detected (Not Detect.) 02/20/25 16:59 Stool Sapovirus (PCR) Not Detected (Not Detect.) 02/20/25 16:59 Stl Shigella/EIEC PCR Not Detected (Not Detect.) 02/20/25 16:59 St Y.enterocolitica PCR Not Detected (Not Detect.) 02/20/25 16:59 Stool Vibrio (PCR) Not Detected (Not Detect.) 02/20/25 16:59 Stl Vibrio cholerae PCR Not Detected (Not Detect.) 02/20/25 16:59 Stl Norovirus GI/GII PCR Not Detected (Not Detect.) 02/20/25 16:59 Respiratory Panel Forbes See Note 02/18/25 Unknown T.pallidum Ab (EIA) Nonreactive (Nonreactive) 03/03/25 07:57 Adenovirus (Rapid PCR) Not Detected (Not Detect.) 02/18/25 Unknown B.pert (TEM-PCR) Not Detected (Not Detect.) 02/18/25 Unknown B.parapertussis DNA PCR Not Detected (Not Detect.) 02/18/25 Unknown C. pneumoniae DNA (PCR) Not Detected (Not Detect.) 02/18/25 Unknown C. difficile Tox B Gene NEGATIVE (Negative) 02/20/25 16:59 Coronavirus OC43 (PCR) Not Detected (Not Detect.) 02/18/25 Unknown Coronavirus HKU1 (PCR) Not Detected (Not Detect.) 02/18/25 Unknown Coronavirus 229E (PCR) Not Detected (Not Detect.) 02/18/25 Unknown Coronavirus NL63 (PCR) Not Detected (Not Detect.) 02/18/25 Unknown Human Metapneumovir PCR Not Detected (Not Detect.) 02/18/25 Unknown Influenza A (RT-PCR) Not Detected (Not Detect.) 02/18/25 Unknown Influenza A (H1) PCR Not Detected (Not Detect.) 02/18/25 Unknown Influ A (H1/09) PCR Not Detected (Not Detect.) 02/18/25 Unknown Influenza A (H3) PCR Not Detected (Not Detect.) 02/18/25 Unknown Influenza B (RT-PCR) Not Detected (Not Detect.) 02/18/25 Unknown M. pneumoniae (PCR) Not Detected (Not Detect.) 02/18/25 Unknown Parainfluenza 1 (PCR) Not Detected (Not Detect.) 02/18/25 Unknown Parainfluenza 2 (PCR) Not Detected (Not Detect.) 02/18/25 Unknown Parainfluenza 3 (PCR) Not Detected (Not Detect.) 02/18/25 Unknown Parainfluenza 4 (PCR) Not Detected (Not Detect.) 02/18/25 Unknown RSV (PCR) Not Detected (Not Detect.) 02/18/25 Unknown Entero/Rhino (PCR) Not Detected (Not Detect.) 02/18/25 Unknown SARS-CoV-2 RNA (RT-PCR) Not Detected (Not Detect.) 02/18/25 Unknown Blood Type O Positive 02/16/25 10:40 Antibody Screen NEGATIVE 02/16/25 10:40 Crossmatch See Detail 02/16/25 10:40 - Imaging Radiologist's impression: ITS Impressions Abdomen/Pelvis CT 02/16/25 11:27 IMPRESSION: 1. No evidence of pulmonary emboli. Small right pleural effusion. 2. Interval enlargement of the patient's known calcified mass. There are new smaller calcified masses at the dome, consistent with progression of disease. 3. Abnormal wall thickening of multiple loops of distal ileum, consistent with enteritis. This may be infectious or inflammatory in nature. Electronically signed by: Pedro Puckett MD 02/16/2025 12:03 PM EST RP Chest CTA 02/16/25 11:27 IMPRESSION: 1. No evidence of pulmonary emboli. Small right pleural effusion. 2. Interval enlargement of the patient's known calcified mass. There are new smaller calcified masses at the dome, consistent with progression of disease. 3. Abnormal wall thickening of multiple loops of distal ileum, consistent with enteritis. This may be infectious or inflammatory in nature. Electronically signed by: Pedro Puckett MD 02/16/2025 12:03 PM EST RP Brain MRI 02/18/25 13:09 IMPRESSION: 1. Somewhat motion degraded examination. No evidence of intracranial hemorrhage, acute infarction, mass effect, or edema. 2. Mildly age advanced cerebral and cerebellar atrophy. 3. Hemispheric white matter foci of T2 signal hyperintensity, nonspecific, however statistically related to mild to moderate small vessel ischemic changes. 4. Scattered foci of hemosiderin deposition, nonspecific. Differential includes nonspecific/hypertensive microhemorrhages versus amyloid angiopathy. Electronically signed by: Nakul Francis MD 02/18/2025 02:03 PM EST RP Chest X-Ray 02/21/25 12:42 IMPRESSION: . Concerning acute airspace disease right lung with small right-sided pleural effusion. Please refer to the CT chest abdomen and pelvis dated February 16, 2025 Electronically signed by: Angel Rodríguez MD 02/21/2025 01:09 PM EST RP Assessment and Plan Patient Active problem list reviewed?: Yes (1) Hematemesis Status: Acute Assessment and plan: The bleeding has and he feels weak but stable. He denies pain. No change in treatment ils needed. - Time Spent With Patient Time Spent with Patient (in minutes): 15
[2025-03-05 15:23] VITALS: BP 132/74; PULSE 76; RESP 18; TEMP 36.2; O2SAT 99
[2025-03-05 20:00] VITALS: BP 127/72; PULSE 75; RESP 18; TEMP 36.3; O2SAT 98
[2025-03-05 23:46] VITALS: BP 136/86; PULSE 63; RESP 16; TEMP 36.6; O2SAT 98
[2025-03-06 02:44] VITALS: BP 155/78; PULSE 55; RESP 18; TEMP 36.4; O2SAT 99
[2025-03-06] MEDS: Hydrocortisone Sod Succ/PF 100 MG VIAL 50 MG IVPUSH ×3 (04:17→20:53)
[2025-03-06 06:00] VITALS: BMI 17.1
[2025-03-06] MEDS: Thiamine HCL 200 MG in 0.9 % Sodium Chloride 100 ML 202 MG IV (07:29)
[2025-03-06] MEDS: 0.9 % Sodium Chloride Flush 3 ML SYRINGE IVFLUSH ×3 (07:30→21:00)
[2025-03-06] MEDS: Potassium Chloride Packet 20 MEQ PACKET 40 MEQ PO ×2 (07:33→20:53)
[2025-03-06 08:00] VITALS: BP 143/76; PULSE 64; RESP 14; TEMP 36.6; O2SAT 100
--- NOTE | 2025-03-06 10:15 | PM.HEMONCPN ---
Medical Summary - Medical Summary Date of Service: 03/06/25 Primary Care Provider: Lianne Lucas, [facility]- Medical Summary: DIAGNOSIS: HCC. He is being treated at [facility] [place] for HCC and was admitted with hemetemesis.He has been free of bleeding this weekend so far. Senior Bookkeeper Utilized?: No - Botswanan Speaking Interval History Interval history: Christoph Muñoz is a 70 year old gentleman, presented with hematemesis. He has a history of Hepatocellular carcinoma, status post chemoembolization at [facility] in March of this year. He was subsequently started on atezolizumab and bevacizumab in April. He received cycle 7 in August. In September he underwent taste at [facility] under the care of . He was then treated with lenvatinib for 3 weeks till end of October however he tolerated that poorly. He was then started on temelimumab + durvalumab immunotherapy, he recently received cycle 4. He presented today with increased weakness, confusion, vomiting black tarry substance, and no bowel movement over 3 days after taking immodium for diarrhea. He stated that he has been feeling generally unwell and this morning he vomited dark substance that was sticky. He has not had a bowel movement in 3 days after taking immodium for diarrhea. CTA OF THE CHEST AND ABDOMEN: 1. No evidence of pulmonary emboli. Small right pleural effusion. 2. Interval enlargement of the patient's known calcified mass. There are new smaller calcified masses at the dome, consistent with progression of disease. 3. Abnormal wall thickening of multiple loops of distal ileum, consistent with enteritis. This may be infectious or inflammatory in nature. BRAIN MRI REVEALED: No evidence of enhancement. No evidence of metastatic disease. Review of Systems - Constitutional Reports anorexia - ENT Reports system reviewed and no additional complaints, except as documented - Cardiovascular Reports shortness of breath - Respiratory Reports dyspnea on exertion - Gastrointestinal Reports abdominal pain - Neurologic Reports abnormal gait, Reports confusion, Reports weakness, Denies memory loss, Denies seizure-like activity [facility] Medical History: Medical History (Last Reviewed 02/16/25 @ 14:43 by Ignacio Brambila RN) Allergic rhinitis Arthritis Asthma Gastric ulcer GERD (gastroesophageal reflux disease) GI bleed HTN (hypertension) Liver cancer Metastasis Peptic ulcer Functional capacity: uses cane/walker Family History: Family History (Last Reviewed 02/16/25 @ 10:55 by ARABELLA Patel) Mother Cardiovascular disease Father Diabetes Surgical History: Surgical History (Last Reviewed 02/16/25 @ 14:43 by Ignacio Brambila RN) H/O colonoscopy Onset Date: ~2021 History of esophagogastroduodenoscopy (EGD) Hx of bilateral inguinal hernia repair Hx of shoulder surgery Social History: Social History (Last Reviewed 02/16/25 @ 10:55 by ARABELLA Patel) Living Situation History: Household Members: Unknown / Unable to asses Caregiver staying overnight: No Housing: Unknown / Unable to asses Are you a primary prompt care rn to a significant other at home: No Do you presently have visiting nurse or other home services: No 75 years or older and lives alone: No Tobacco History: Patient Tobacco Use Status: Never used Tobacco Tobacco use type: Cigarette e-Cigarette/Vaping Use: Never Used Second Hand Smoke Exposure: No Occupation Assessmet: service: No Current occupational status: employed Current occupational status: retired Current occupational exposures/hazards: No Home Medications and Allergies Current Medications: Current Medications Albuterol Sulfate (Albuterol Sulfate 90 Mcg 8 Gm Inhaler) 2 puff INHALE Q4H PRN PRN Reason: shortness of breath or wheezin Allopurinol (Allopurinol 300 Mg Tablet) 300 mg PO DAILY [facility] Last Admin: 03/06/25 07:34 Dose: 300 mg Ferrous Sulfate (Ferrous Sulfate 324 Mg Tablet.Dr) 324 mg PO Q48H [facility] Last Admin: 03/05/25 07:25 Dose: 324 mg Fludrocortisone Acetate (Fludrocortisone Acetate 0.1 Mg Tablet) 0.1 mg PO DAILY [facility] Last Admin: 03/06/25 07:34 Dose: 0.1 mg Hydrocortisone Sodium Succinate (Hydrocortisone Sod Succ/Pf 100 Mg Vial) 50 mg IVPUSH Q8H [facility] Last Admin: 03/06/25 04:17 Dose: 50 mg Thiamine HCl 200 mg/ Sodium (Chloride) 102 mls @ 202 mls/hr IV DAILY [facility] Last Infusion: 03/06/25 08:10 Dose: Infused Lactulose (Lactulose 20 Gm/30 Ml Solution) 30 gm PO TID [facility] Last Admin: 03/06/25 08:07 Dose: Not Given Loratadine (Loratadine 10 Mg Tablet) 10 mg PO DAILY PRN PRN Reason: Allergy Symptoms Magnesium Oxide (Magnesium Oxide 400 Mg Tablet) 800 mg PO BIDPC [facility] Last Admin: 03/06/25 07:34 Dose: 800 mg Potassium Chloride (Potassium Chloride Packet 20 Meq Packet) 40 meq PO BID [facility] Last Admin: 03/06/25 07:33 Dose: 40 meq Rifaximin (Rifaximin 550 Mg Tablet) 550 mg PO BID [facility] Last Admin: 03/06/25 07:34 Dose: 550 mg Sodium Chloride (0.9 % Sodium Chloride Flush 3 Ml Syringe) 3 ml IVFLUSH QSHIFT [facility] Last Admin: 03/06/25 07:30 Dose: 3 ml Home Medications ?Medication ?Instructions ?Recorded ?Confirmed ?Type loratadine 10 mg tablet (Allergy 10 mg PO DAILY PRN Allergy Symptoms 06/16/20 02/16/25 History Relief (loratadine)) durvalumab 50 mg/mL intravenous 50 mg IV QMONTH 01/21/25 02/16/25 History solution allopurinol 300 mg tablet 300 mg PO DAILY 02/16/25 02/16/25 History ferrous sulfate 325 mg (65 mg 325 mg PO Q48H 02/16/25 02/16/25 History iron) tablet Allergies Allergy/AdvReac Type Severity Reaction Status Date / Time Penicillins Allergy Severe ANAPHYLAXIS Verified 02/16/25 10:14 Exam Vital signs: Vital Signs Temp 97.8 F 03/06/25 08:00 Pulse 64 03/06/25 08:00 Resp 14 03/06/25 08:00 BP 143/76 H 03/06/25 08:00 Pulse Ox 100 03/06/25 08:00 O2 Del Method Room Air 03/06/25 08:00 FiO2 30 02/16/25 21:00 Intake & Output 03/05/25 03/06/25 03/06/25 18:59 06:59 18:59 Intake Total 102 / 102 102 / 102 Output Total 400 / 400 Balance -298 / -298 102 / 102 Urine Output (Average ml/kg/hr) 0.62 0.62 0.62 Intake: Intake, IV Amount 102 / 102 102 / 102 Thiamine HCL 200 mg In 0.9 % 102 / 102 102 / 102 Sodium Chloride 100 ml @ 202 mls/hr IV DAILY [facility] Rx#: [id number] Output: Output, Urine Amount 400 / 400 Other: Dinner % Eaten 50% Eating (Feeding) Ability 1:1 Feed Number of Bowel Movements 1 Urine Urinal Urine Color Tea Last Bowel Movement 03/05/25 03/06/25 03/05/25 Stool Incontinent Incontinent Stool Amount Small Small Stool Color Brown Brown Stool Consistency Loose Mushy Weight 54.2 kg Weight 54.2 kg BMI result Body Mass Index 17.1 - Constitutional Present: no acute distress, mild distress - Routine HEENT Exam Head: Present: normal inspection, normocephalic - Routine Neck Exam Present: full ROM - Routine Respiratory Exam Present: decreased breath sounds - Routine Cardiovascular Exam Cardiovascular: Present: RRR - Routine Abdominal Exam Present: diminished bowel sounds - Detailed Neurological Exam: Coma Scale Eye Opening: Spontaneous (4) Data - Labs CBC & Chem 7: 03/03/25 07:57 03/03/25 07:57 - Imaging Radiologist's impression: ITS Impressions Abdomen/Pelvis CT 02/16/25 11:27 IMPRESSION: 1. No evidence of pulmonary emboli. Small right pleural effusion. 2. Interval enlargement of the patient's known calcified mass. There are new smaller calcified masses at the dome, consistent with progression of disease. 3. Abnormal wall thickening of multiple loops of distal ileum, consistent with enteritis. This may be infectious or inflammatory in nature. Electronically signed by: Pedro Puckett MD 02/16/2025 12:03 PM EST RP Chest CTA 02/16/25 11:27 IMPRESSION: 1. No evidence of pulmonary emboli. Small right pleural effusion. 2. Interval enlargement of the patient's known calcified mass. There are new smaller calcified masses at the dome, consistent with progression of disease. 3. Abnormal wall thickening of multiple loops of distal ileum, consistent with enteritis. This may be infectious or inflammatory in nature. Electronically signed by: Pedro Puckett MD 02/16/2025 12:03 PM EST RP Brain MRI 02/18/25 13:09 IMPRESSION: 1. Somewhat motion degraded examination. No evidence of intracranial hemorrhage, acute infarction, mass effect, or edema. 2. Mildly age advanced cerebral and cerebellar atrophy. 3. Hemispheric white matter foci of T2 signal hyperintensity, nonspecific, however statistically related to mild to moderate small vessel ischemic changes. 4. Scattered foci of hemosiderin deposition, nonspecific. Differential includes nonspecific/hypertensive microhemorrhages versus amyloid angiopathy. Electronically signed by: Nakul Francis MD 02/18/2025 02:03 PM EST RP Chest X-Ray 02/21/25 12:42 IMPRESSION: . Concerning acute airspace disease right lung with small right-sided pleural effusion. Please refer to the CT chest abdomen and pelvis dated February 16, 2025 Electronically signed by: Angel Rodríguez MD 02/21/2025 01:09 PM EST RP Assessment and Plan Patient Active problem list reviewed?: Yes (1) Hematemesis Status: Acute Assessment and plan: The bleeding has and he feels weak but stable. He denies pain. No change in treatment ils needed. - Time Spent With Patient Time Spent with Patient (in minutes): 15
--- NOTE | 2025-03-06 11:01 | P.PNIM_ITS ---
Subjective Subjective Date of Service: 03/06/25 Interval History: no new issues or complaints Remains altered Review of Systems Review of Systems: Yes Unobtainable due to mental condition and Unobtainable due to mental status Physical Exam 2 Exam: Exam: General: Comfortable, no pain, A&O x 0 Cardiac: S1, S2 auscultated with no S3/4, no MRG. Well perfused. Respiratory: Normal breath sounds auscultated throughout all lung zones, without wheezing, rales. Normal rate. GI/ : No abdominal pain on palpation, no masses or distentions. MSK: Normal ambulation without pain at bony prominences or musculature Neurological: Normal neurological examination on overview, without obvious CN II-XII abnormalities. Vital Signs: Vital Signs: Last Vital Signs Temp 97.8 F 03/06/25 08:00 Pulse 64 03/06/25 08:00 Resp 14 03/06/25 08:00 BP 143/76 H 03/06/25 08:00 Pulse Ox 100 03/06/25 08:00 O2 Del Method Room Air 03/06/25 08:00 FiO2 30 02/16/25 21:00 BMI result Body Mass Index 17.1 Objective Data Active Medications Albuterol Sulfate (Albuterol Sulfate 90 Mcg 8 Gm Inhaler) 2 puff INHALE Q4H PRN PRN Reason: shortness of breath or wheezin Allopurinol (Allopurinol 300 Mg Tablet) 300 mg PO DAILY [facility] Last Admin: 03/06/25 07:34 Dose: 300 mg Documented By: GWEN Ferrous Sulfate (Ferrous Sulfate 324 Mg Tablet.) 324 mg PO Q48H [facility] Last Admin: 03/05/25 07:25 Dose: 324 mg Documented By: GWEN Fludrocortisone Acetate (Fludrocortisone Acetate 0.1 Mg Tablet) 0.1 mg PO DAILY [facility] Last Admin: 03/06/25 07:34 Dose: 0.1 mg Documented By: GWEN Hydrocortisone Sodium Succinate (Hydrocortisone Sod Succ/Pf 100 Mg Vial) 50 mg IVPUSH Q8H [facility] Last Admin: 03/06/25 04:17 Dose: 50 mg Documented By: ADAN Thiamine HCl 200 mg/ Sodium (Chloride) 102 mls @ 202 mls/hr IV DAILY [facility] Last Infusion: 03/06/25 08:10 Dose: Infused Documented By: GWEN Lactulose (Lactulose 20 Gm/30 Ml Solution) 30 gm PO TID [facility] Last Admin: 03/06/25 08:07 Dose: Not Given Documented By: GWEN Non-Admin Reason: pt having normal bms Loratadine (Loratadine 10 Mg Tablet) 10 mg PO DAILY PRN PRN Reason: Allergy Symptoms Magnesium Oxide (Magnesium Oxide 400 Mg Tablet) 800 mg PO BIDPC [facility] Last Admin: 03/06/25 07:34 Dose: 800 mg Documented By: GWEN Potassium Chloride (Potassium Chloride Packet 20 Meq Packet) 40 meq PO BID [facility] Last Admin: 03/06/25 07:33 Dose: 40 meq Documented By: GWEN Rifaximin (Rifaximin 550 Mg Tablet) 550 mg PO BID [facility] Last Admin: 03/06/25 07:34 Dose: 550 mg Documented By: GWEN Sodium Chloride (0.9 % Sodium Chloride Flush 3 Ml Syringe) 3 ml IVFLUSH QSHIFT [facility] Last Admin: 03/06/25 07:30 Dose: 3 ml Documented By: GWEN Labs 03/03/25 07:57 03/03/25 07:57 Assessment and Plan (1) Hypotension: Status: Acute (2) Adrenal insufficiency: Status: Acute (3) [place] (hard of hearing): Status: Acute (4) HCC (hepatocellular carcinoma): Status: Acute (5) Thrombocytosis: Status: Acute (6) Anemia: Status: Acute (7) Delirium: Status: Acute (8) Metabolic encephalopathy: Status: Acute Plan 70-year-old male with cirrhosis and HCC (s/p chemo-embolization and TACE), currently on tremelimumab and durvalumab immunotherapy. History notable for GI bleed from gastric ulcer and alcohol abuse (in remission). Patient was sent from Oncology office, where he was scheduled for his 4th cycle of immunotherapy, due to hypotension and possible coffee-ground emesis. Initial course: Admitted to ICU for pressor support. No overt GI bleed observed. Stepped down to telemetry on 02/18/25. Febrile with concern for enteritis. Ultimately found to have severe adrenal insufficiency, likely secondary to immune checkpoint inhibitor therapy. Adrenal insufficiency (AI) ? likely immune checkpoint inhibitor-related On hydrocortisone started at 100 mg IV q8h, now 50 and fludrocortisone 0.1 mg daily (discussed with Heme-Onc), Associated encephalopathy persists. Fever Likely secondary to adrenal insufficiency, but empirically covered for enteritis with levofloxacin and metronidazole (02/18?02/27, 10 days). Fever resolved. Hypotension Attributed to adrenal insufficiency; resolved with steroid replacement. Midodrine discontinued. Possible GI bleed Continue IV PPI. GI consulted; no plans for EGD. Transfused 1 unit pRBCs in ED; hemoglobin stable at 11?12. Acute metabolic encephalopathy Suspected secondary to adrenal insufficiency and/or hepatic etiology (ammonia normal). Started on rifaximin and lactulose. MRI brain with contrast: no metastases. BACK TUFTER evaluation: NDD2 solids, honey-thick liquids. Thaimine 400mg IV admisnistered followed by 200mg IV daily ordered in case element of wernicke contributing Further evaluation with ammonia, B12, folic, TSH, RPR ordered Coagulopathy Likely due to cirrhosis and remote heavy alcohol use. Given additional vitamin K; recheck INR. Hypomagnesemia Repleted IV/PO. Hypokalemia Treated with IV and oral replacement; now normalized. Hypernatremia Attributed to dehydration; now resolved. VTE prophylaxis: SCDs in place. Disposition: STR, when his condition is much better with clear mental status vs. GOC discussion/ possible transition to [facility] Need for inpatient: ongoing management for AI complicated by encephalopathy Total time managing care of this patient today: 35 minutes. Quality Stroke Does the patient have a stroke diagnosis?: No VTE Prior VTE?: No VTE Risk Level:: Medical - moderate - high VTE Device Contraindication: N/A - Device Ordered VTE Drug Contraindication: Treatment Not Indicated
[2025-03-06 11:55] VITALS: BP 117/71; PULSE 79; RESP 16; TEMP 36.6; O2SAT 97
[2025-03-06 15:04] VITALS: BP 118/67; PULSE 88; RESP 18; TEMP 36.2; O2SAT 98
--- NOTE | 2025-03-06 15:35 | P.EN_ITS ---
Event Note Date of Service: 03/06/25 Event Note: Extensive discussion with the patient's power of defense attorney. 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 Discussion regarding code status to be changed from DNI/CPR to CUSTOMER ASSOCIATE was made and clarified. We will involve hospice service. Comfort Measures Only Goals of Care: The goal is to provide maximal comfort and preserved dignity, allowing for a natural dying process. Life prolonging treatments are not being pursued due to multi organ dysfunction with terminal diagnosis, poor prognosis, overwhelming disease burden. Advanced directives: Patient's advanced directive is on file and reviewed. The patient's surrogate, is aware and agrees with the plan for CUSTOMER ASSOCIATE. Interventions: All interventions will be focused on symptom management including pain, anxiety, dyspnea, nausea/vomiting. Resuscitation status: CUSTOMER ASSOCIATE orders are to be placed Time Spent With Patient Time: Total time managing care of this patient today 45 minutes.
[2025-03-07] MEDS: Hydrocortisone Sod Succ/PF 100 MG VIAL 50 MG IVPUSH ×3 (05:08→20:50)
[2025-03-07] MEDS: Potassium Chloride Packet 20 MEQ PACKET 40 MEQ PO ×2 (11:38→20:49)
[2025-03-07] MEDS: Thiamine HCL 200 MG in 0.9 % Sodium Chloride 100 ML 202 MG IV (11:38)
[2025-03-07] MEDS: Ferrous Sulfate 324 MG TABLET.DR PO (11:51)
--- NOTE | 2025-03-07 13:49 | MHC.CLN ---
F/U PT TRANSITIONED TO BILLBOARD ERECTOR YESTERDAY PO INTAKE 25-50% DIET RX: GROUND WILL D/C MAGIC CUP TID AND ENSURE BID WILL FOLLOW WITH TEAM AND PROVIDE SUPPORT NEEDED PRIMARY GOAL IS COMFORT
--- NOTE | 2025-03-07 14:17 | MHC.SLORD ---
Speech Language Pathology Order Status: Pt SYSTEMS NAVIGATOR, no further dysphagia tx indicated.
--- NOTE | 2025-03-07 15:30 | MHC.CM.PN ---
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 A Hospice consult has been referred to [facility]. Prem Thurman is asking questions. Clinical information has been sent to the facility.
--- NOTE | 2025-03-07 15:56 | P.PNIM_ITS ---
Subjective Subjective Date of Service: 03/07/25 Interval History: remains altered today remains POLISHING WHEEL SETTER planning discharge to facility vs home hospice Review of Systems Review of Systems: Yes Unobtainable due to mental status Physical Exam 2 Exam: Exam: General: Comfortable, no pain, A&O x 0 Cardiac: S1, S2 auscultated with no S3/4, no MRG. Well perfused. Respiratory: Normal breath sounds auscultated throughout all lung zones, without wheezing, rales. Normal rate. GI/ : No abdominal pain on palpation, no masses or distentions. MSK: Normal ambulation without pain at bony prominences or musculature Neurological: Normal neurological examination on overview, without obvious CN II-XII abnormalities. Vital Signs: Vital Signs: Last Vital Signs Temp 97.2 F 03/06/25 15:04 Pulse 88 03/06/25 15:04 Resp 18 03/06/25 15:04 BP 118/67 03/06/25 15:04 Pulse Ox 98 03/06/25 15:04 O2 Del Method Room Air 03/06/25 15:04 FiO2 30 02/16/25 21:00 BMI result Body Mass Index 17.1 Objective Data Active Medications Albuterol Sulfate (Albuterol Sulfate 90 Mcg 8 Gm Inhaler) 2 puff INHALE Q4H PRN PRN Reason: shortness of breath or wheezin Ferrous Sulfate (Ferrous Sulfate 324 Mg Tablet.) 324 mg PO Q48H [facility] Last Admin: 03/07/25 11:51 Dose: 324 mg Documented By: NIKITA Fludrocortisone Acetate (Fludrocortisone Acetate 0.1 Mg Tablet) 0.1 mg PO DAILY [facility] Last Admin: 03/07/25 11:39 Dose: 0.1 mg Documented By: NIKITA Hydrocortisone Sodium Succinate (Hydrocortisone Sod Succ/Pf 100 Mg Vial) 50 mg IVPUSH Q8H [facility] Last Admin: 03/07/25 13:30 Dose: 50 mg Documented By: NIKITA Thiamine HCl 200 mg/ Sodium (Chloride) 102 mls @ 202 mls/hr IV DAILY [facility] Last Infusion: 03/07/25 12:23 Dose: Infused Documented By: NIKITA Lactulose (Lactulose 20 Gm/30 Ml Solution) 30 gm PO TID [facility] Last Admin: 03/07/25 14:43 Dose: Not Given Documented By: NIKITA Non-Admin Reason: Regular BMs. Loratadine (Loratadine 10 Mg Tablet) 10 mg PO DAILY PRN PRN Reason: Allergy Symptoms Magnesium Oxide (Magnesium Oxide 400 Mg Tablet) 800 mg PO BIDPC [facility] Last Admin: 03/07/25 11:39 Dose: 800 mg Documented By: NIKITA Potassium Chloride (Potassium Chloride Packet 20 Meq Packet) 40 meq PO BID [facility] Last Admin: 03/07/25 11:38 Dose: 40 meq Documented By: NIKITA Rifaximin (Rifaximin 550 Mg Tablet) 550 mg PO BID [facility] Last Admin: 03/07/25 11:39 Dose: 550 mg Documented By: NIKITA Sodium Chloride (0.9 % Sodium Chloride Flush 3 Ml Syringe) 3 ml IVFLUSH QSHIFT [facility] Last Admin: 03/07/25 11:43 Dose: Not Given Documented By: NIKITA Non-Admin Reason: Previously Administered Labs 03/03/25 07:57 03/03/25 07:57 Assessment and Plan (1) Hypertension: Status: Acute (2) ACP (advance care planning): Status: Acute (3) Hypotension: Status: Acute (4) Hypotension: Status: Acute (5) PVD (peripheral vascular disease): Status: Acute (6) HLD (hyperlipidemia): Status: Acute (7) Adrenal insufficiency: Status: Acute (8) [place] (hard of hearing): Status: Acute (9) Vomiting: Status: Acute (10) Chronic GERD: Status: Acute (11) Hematemesis: Status: Acute (12) Anemia: Status: Acute (13) Thrombocytosis: Status: Acute (14) HCC (hepatocellular carcinoma): Status: Acute (15) Delirium: Status: Acute (16) Metabolic encephalopathy: Status: Acute Plan 70-year-old male with cirrhosis and HCC (s/p chemo-embolization and TACE), currently on tremelimumab and durvalumab immunotherapy. History notable for GI bleed from gastric ulcer and alcohol abuse (in remission). Patient was sent from Oncology office, where he was scheduled for his 4th cycle of immunotherapy, due to hypotension and possible coffee-ground emesis. Initial course: Admitted to ICU for pressor support. No overt GI bleed observed. Stepped down to telemetry on 02/18/25. Febrile with concern for enteritis. Ultimately found to have severe adrenal insufficiency, likely secondary to immune checkpoint inhibitor therapy. 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 Attempting high dose thiamine therapy. Extensive discussion with the patient's power of mergers and acquisitions attorney 03/06/2025. 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 Discussion regarding code status to be changed from DNI/CPR to POLISHING WHEEL SETTER was made and clarified. We will involve hospice service. Attempted to update POA 03/07/2025 without success by phone. MEDICAL ISSUES Adrenal insufficiency (AI) ? likely immune checkpoint inhibitor-related HCC Cirrhosis Acute metabolic encephalopathy Possible Korsakoff Encephalopathy Fever Hypotension Possible GI bleed with haematemesis Coagulopathy Hypomagnesemia Hypokalemia Hypernatremia Dehydration Comfort Measures Only Goals of Care: The goal is to provide maximal comfort and preserved dignity, allowing for a natural dying process. Life prolonging treatments are not being pursued due to multi organ dysfunction with terminal diagnosis, poor prognosis, overwhelming disease burden. Advanced directives: Patient's advanced directive is on file and reviewed. The patient's surrogate, is aware and agrees with the plan for POLISHING WHEEL SETTER. Interventions: All interventions will be focused on symptom management including pain, anxiety, dyspnea, nausea/vomiting. Resuscitation status: POLISHING WHEEL SETTER orders are to be placed VTE prophylaxis: N/A Disposition: Transition to facility hospice Need for inpatient: Placement Total time managing care of this patient today: 35 minutes. Quality Stroke Does the patient have a stroke diagnosis?: No VTE Prior VTE?: No VTE Risk Level:: Medical - moderate - high VTE Device Contraindication: N/A - Device Ordered VTE Drug Contraindication: Treatment Not Indicated
[2025-03-07] MEDS: 0.9 % Sodium Chloride Flush 3 ML SYRINGE IVFLUSH ×2 (17:39→20:55)
[2025-03-08] MEDS: Hydrocortisone Sod Succ/PF 100 MG VIAL 50 MG IVPUSH ×3 (05:24→20:29)
[2025-03-08 07:08] VITALS: BP 158/84; PULSE 60; RESP 16; TEMP 36.6; O2SAT 99
[2025-03-08] MEDS: 0.9 % Sodium Chloride Flush 3 ML SYRINGE IVFLUSH ×3 (08:00→20:30)
[2025-03-08] MEDS: Thiamine HCL 200 MG in 0.9 % Sodium Chloride 100 ML IV (08:00)
[2025-03-08] MEDS: Potassium Chloride Packet 20 MEQ PACKET 40 MEQ PO ×2 (08:00→20:29)
--- NOTE | 2025-03-08 10:04 | HO.SKINPHOTO ---
Location: Coccyx Buttock pink but blanchable. Patient encouraged to turn and reposition, airloss mattress in place. Barrier cream applied instead of foam dressing due to large amount of stool incontinence.
--- NOTE | 2025-03-08 11:13 | HO.PM.IMPN ---
Subjective Subjective Date of Service: 03/08/25 Interval History: Patient seen and examined at bedside this morning, patient alert and oriented, we will try to reach Hematology Oncology as well as POA discussed continue goals of care. Review of Systems Review of Systems: Yes Unobtainable due to mental condition Physical Exam Exam: Exam: General: A&O x 2 Cardiac: S1, S2 auscultated with no S3/4, no MRG. Well perfused. Respiratory: Normal breath sounds auscultated throughout all lung zones, without wheezing, rales. Normal rate. GI/ : No abdominal pain on palpation, no masses or distentions. MSK: Normal ambulation without pain at bony prominences or musculature Neurological: Normal neurological examination on overview, without obvious CN II-XII abnormalities. Vital Signs: Vital Signs: Last Vital Signs Temp 98 F 03/08/25 07:08 Pulse 60 03/08/25 07:08 Resp 16 03/08/25 07:08 BP 158/84 H 03/08/25 07:08 Pulse Ox 99 03/08/25 07:08 O2 Del Method Room Air 03/08/25 07:08 FiO2 30 02/16/25 21:00 BMI result Body Mass Index 17.1 Objective Data Active Medications Albuterol Sulfate (Albuterol Sulfate 90 Mcg 8 Gm Inhaler) 2 puff INHALE Q4H PRN PRN Reason: shortness of breath or wheezin Ferrous Sulfate (Ferrous Sulfate 324 Mg Tablet.) 324 mg PO Q48H [facility] Last Admin: 03/07/25 11:51 Dose: 324 mg Documented By: NIKITA Fludrocortisone Acetate (Fludrocortisone Acetate 0.1 Mg Tablet) 0.1 mg PO DAILY [facility] Last Admin: 03/08/25 08:00 Dose: 0.1 mg Documented By: YUE Hydrocortisone Sodium Succinate (Hydrocortisone Sod Succ/Pf 100 Mg Vial) 50 mg IVPUSH Q8H [facility] Last Admin: 03/08/25 05:24 Dose: 50 mg Documented By: DELIA Thiamine HCl 200 mg/ Sodium (Chloride) 102 mls @ 202 mls/hr IV DAILY [facility] Last Infusion: 03/08/25 08:31 Dose: Infused Documented By: YUE Lactulose (Lactulose 20 Gm/30 Ml Solution) 30 gm PO TID [facility] Last Admin: 03/08/25 08:01 Dose: Not Given Documented By: YUE Non-Admin Reason: 5 loose BMs reported on dermatology nurse. Loratadine (Loratadine 10 Mg Tablet) 10 mg PO DAILY PRN PRN Reason: Allergy Symptoms Magnesium Oxide (Magnesium Oxide 400 Mg Tablet) 800 mg PO BIDPC [facility] Last Admin: 03/08/25 08:00 Dose: 800 mg Documented By: YUE Potassium Chloride (Potassium Chloride Packet 20 Meq Packet) 40 meq PO BID [facility] Last Admin: 03/08/25 08:00 Dose: 40 meq Documented By: YUE Rifaximin (Rifaximin 550 Mg Tablet) 550 mg PO BID [facility] Last Admin: 03/08/25 08:00 Dose: 550 mg Documented By: YUE Sodium Chloride (0.9 % Sodium Chloride Flush 3 Ml Syringe) 3 ml IVFLUSH QSHIFT [facility] Last Admin: 03/08/25 08:00 Dose: 3 ml Documented By: YUE Labs 03/03/25 07:57 03/03/25 07:57 Assessment and Plan (1) Hypotension: Status: Acute (2) Adrenal insufficiency: Status: Acute (3) [place] (hard of hearing): Status: Acute (4) HCC (hepatocellular carcinoma): Status: Acute (5) Thrombocytosis: Status: Acute (6) Anemia: Status: Acute (7) Delirium: Status: Acute (8) Metabolic encephalopathy: Status: Acute Plan 70-year-old male with cirrhosis and HCC (s/p chemo-embolization and TACE), currently on tremelimumab and durvalumab immunotherapy. History notable for GI bleed from gastric ulcer and alcohol abuse (in remission). Patient was sent from Oncology office, where he was scheduled for his 4th cycle of immunotherapy, due to hypotension and possible coffee-ground emesis. Initial course: Admitted to ICU for pressor support. No overt GI bleed observed. Stepped down to telemetry on 02/18/25. Febrile with concern for enteritis. Ultimately found to have severe adrenal insufficiency, likely secondary to immune checkpoint inhibitor therapy. Toxic metabolic encephalopathy, improved Suspected secondary to adrenal insufficiency and/or hepatic etiology (ammonia normal). Continue rifaximin and lactulose. MRI brain with contrast: no metastases. DIGITAL CONTROLS TECHNICAL OFFICER evaluation: NDD2 solids, honey-thick liquids. Thaimine 200mg IV daily Hepatocellular carcinoma s/p chemoembolization and temelimumab + durvalumab immunotherapy, he recently received cycle 4. -imaging reviewed -continue to follow with heme/onc as outpatient Adrenal insufficiency (AI) ? likely immune checkpoint inhibitor-related On hydrocortisone started at 100 mg IV q8h, now 50 and fludrocortisone 0.1 mg daily (discussed with Heme-Onc), Coagulopathy Likely due to cirrhosis and remote heavy alcohol use. Given additional vitamin K; recheck INR. Hypomagnesemia Repleted IV/PO. Hypokalemia Treated with IV and oral replacement; now normalized. Hypernatremia Attributed to dehydration; now resolved. VTE prophylaxis: SCDs in place. 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 Quality Stroke Does the patient have a stroke diagnosis?: No VTE Prior VTE?: No VTE Risk Level:: Medical - moderate - high VTE Device Contraindication: N/A - Device Ordered VTE Drug Contraindication: Treatment Not Indicated
[2025-03-08 15:25] VITALS: BP 125/78; PULSE 81; RESP 18; TEMP 36.9; O2SAT 97
--- NOTE | 2025-03-08 16:39 | PC.NURSE ---
Provider notified via [employer] that patient's HCP Efrem came by and would like an update. HCP wanted to be sure that now that Christoph is more alert and oreinted that he be involved in some of his decision making in terms of transitioning out of the hospital.
--- NOTE | 2025-03-08 17:11 | HO.WOUND ---
Wound Consult: Initial - Photo Review 70yr old?male admitted to [facility] on 02/16/25 13:42- See progress notes and H&P for detailed history.? Wound consult placed for Sacrum and Coccyx.? Recent code status change to GANG INVESTIGATOR (Comfort Measures Only). Patient skin not assessed however brief chart review completed and photo reviewed. Topical orders for wound care to maintain comfort and dignity. [place] red intact blanchable tissue per direct care nurse. Goals of Treatment: ?Barrier cream and foam dressing to aid in off loading. Recommendations: 1. Turn and Reposition every 2 hours and as needed for patient comfort.? Use pillows or wedges to support off loading positions. 2. Off Load all bony prominences with use of pillows and heel boots if needed.? Apply Preventative foams where needed. ? 3. Monitor for incontinence and moisture control, use barrier creams when needed for prevention and treatment. 4. Provide adequate and supplemental nutrition.? 5. Order low air loss mattress. 6. When applicable maintain blood glucose levels per Providers order. Sacrum - Off Load Pressure with Q2 hr turns and use of pillows - Routine cleansing.? Apply skin prep allow to dry.? Cover with foam dressing to aid in off loading and protection from friction. Change every 3 days and PRN. Buttock - Cleanse with PH balance spray or wipes, pat dry. ?Apply thin layer of barrier cream to affected area.? Apply twice daily and Reapply thin layer PRN after each episode of incontinence. Re-consult wound care Nurse for wound deterioration or wound changes.
--- NOTE | 2025-03-08 17:47 | P.PNHO-ONC_ITS ---
Medical Summary - Medical Summary Date of Service: 03/08/25 Chief complaint: Consult for: HCC. Primary Care Provider: GEMMA Spencer- Medical Summary: DIAGNOSIS: HCC. He is being treated at [facility] for HCC and was admitted with hemetemesis.He has been free of bleeding this weekend so far. Revenue Stamper Utilized?: No - Yakut Speaking Interval History Interval history: Christoph Muñoz is a 70 year old gentleman, presented with hematemesis. He has a history of Hepatocellular carcinoma, status post chemoembolization at [facility] in March of this year. He was subsequently started on atezolizumab and bevacizumab in April. He received cycle 7 in August. In September he underwent taste at [facility] under the care of . He was then treated with lenvatinib for 3 weeks till end of October however he tolerated that poorly. He was then started on temelimumab + durvalumab immunotherapy, he recently received cycle 4. He presented today with increased weakness, confusion, vomiting black tarry substance, and no bowel movement over 3 days after taking immodium for diarrhea. He stated that he has been feeling generally unwell and this morning he vomited dark substance that was sticky. He has not had a bowel movement in 3 days after taking immodium for diarrhea. CTA OF THE CHEST AND ABDOMEN: 1. No evidence of pulmonary emboli. Small right pleural effusion. 2. Interval enlargement of the patient's known calcified mass. There are new smaller calcified masses at the dome, consistent with progression of disease. 3. Abnormal wall thickening of multiple loops of distal ileum, consistent with enteritis. This may be infectious or inflammatory in nature. BRAIN MRI REVEALED: No evidence of enhancement. No evidence of metastatic disease. Review of Systems - Neurologic Reports as per HPI, Reports abnormal gait, Reports confusion, Reports dizziness, Reports weakness, Denies memory loss, Denies seizure-like activity [facility] Medical History: Medical History (Last Reviewed 03/09/25 @ 11:26 by PREETI Hernandez-L) Allergic rhinitis Arthritis Asthma Gastric ulcer GERD (gastroesophageal reflux disease) GI bleed HTN (hypertension) Liver cancer Metastasis Peptic ulcer Functional capacity: uses cane/walker Family History: Family History (Last Reviewed 02/16/25 @ 10:55 by ARABELLA Patel) Mother Cardiovascular disease Father Diabetes Surgical History: Surgical History (Last Reviewed 03/09/25 @ 11:26 by VALARIE Hernandez) H/O colonoscopy Onset Date: ~2021 History of esophagogastroduodenoscopy (EGD) Hx of bilateral inguinal hernia repair Hx of shoulder surgery Social History: Social History (Last Reviewed 02/16/25 @ 10:55 by ARABELLA Patel) Living Situation History: Household Members: Unknown / Unable to asses Caregiver staying overnight: No Housing: Unknown / Unable to asses Are you a primary managed care nurse to a significant other at home: No Do you presently have visiting nurse or other home services: No 75 years or older and lives alone: No Tobacco History: Patient Tobacco Use Status: Never used Tobacco Tobacco use type: Cigarette e-Cigarette/Vaping Use: Never Used Second Hand Smoke Exposure: No Occupation Assessmet: service: No Current occupational status: employed Current occupational status: retired Current occupational exposures/hazards: No Home Medications and Allergies Current Medications: Current Medications Albuterol Sulfate (Albuterol Sulfate 90 Mcg 8 Gm Inhaler) 2 puff INHALE Q4H PRN PRN Reason: shortness of breath or wheezin Ferrous Sulfate (Ferrous Sulfate 324 Mg Tablet.Dr) 324 mg PO Q48H [facility] Last Admin: 03/07/25 11:51 Dose: 324 mg Fludrocortisone Acetate (Fludrocortisone Acetate 0.1 Mg Tablet) 0.1 mg PO DAILY [facility] Last Admin: 03/08/25 08:00 Dose: 0.1 mg Hydrocortisone Sodium Succinate (Hydrocortisone Sod Succ/Pf 100 Mg Vial) 50 mg IVPUSH Q8H [facility] Last Admin: 03/08/25 13:37 Dose: 50 mg Thiamine HCl 200 mg/ Sodium (Chloride) 102 mls @ 202 mls/hr IV DAILY [facility] Last Infusion: 03/08/25 08:31 Dose: Infused Lactulose (Lactulose 20 Gm/30 Ml Solution) 30 gm PO TID [facility] Last Admin: 03/08/25 17:19 Dose: 30 gm Loratadine (Loratadine 10 Mg Tablet) 10 mg PO DAILY PRN PRN Reason: Allergy Symptoms Magnesium Oxide (Magnesium Oxide 400 Mg Tablet) 800 mg PO BIDPC [facility] Last Admin: 03/08/25 17:18 Dose: 800 mg Potassium Chloride (Potassium Chloride Packet 20 Meq Packet) 40 meq PO BID [facility] Last Admin: 03/08/25 08:00 Dose: 40 meq Rifaximin (Rifaximin 550 Mg Tablet) 550 mg PO BID [facility] Last Admin: 03/08/25 08:00 Dose: 550 mg Sodium Chloride (0.9 % Sodium Chloride Flush 3 Ml Syringe) 3 ml IVFLUSH QSHIFT [facility] Last Admin: 03/08/25 17:21 Dose: 3 ml Home Medications ?Medication ?Instructions ?Recorded ?Confirmed ?Type loratadine 10 mg tablet (Allergy 10 mg PO DAILY PRN Allergy Symptoms 05/2302/16/25 History Relief (loratadine)) durvalumab 50 mg/mL intravenous 50 mg IV QMONTH 01/21/25 02/16/25 Histor y solution allopurinol 300 mg tablet 300 mg PO DAILY 02/16/25 02/16/25 Histor y ferrous sulfate 325 mg (65 mg 325 mg PO Q48H 02/16/25 02/16/25 History iron) tablet Allergies Allergy/AdvReac Type Severity Reaction Status Date / Time Penicillins Allergy Severe ANAPHYLAXIS Verified 02/16/25 10:14 Exam Vital signs: Vital Signs Temp 98.4 F 03/08/25 15:25 Pulse 81 03/08/25 15:25 Resp 18 03/08/25 15:25 BP 125/78 03/08/25 15:25 Pulse Ox 97 03/08/25 15:25 O2 Del Method Room Air 03/08/25 15:25 FiO2 30 02/16/25 21:00 Intake & Output 03/07/25 03/08/25 03/08/25 18:59 06:59 18:59 Intake Total 102 / 102 102 / 102 Balance 102 / 102 102 / 102 Intake: Intake, IV Amount 102 / 102 102 / 102 Thiamine HCL 200 mg In 0.9 % 102 / 102 102 / 102 Sodium Chloride 100 ml @ 202 mls/hr IV DAILY [facility] Rx#: [id number] Other: Last Bowel Movement 03/07/25 03/08/25 03/08/25 Weight 54.2 kg BMI result Body Mass Index 17.1 - Constitutional Present: no acute distress, mild distress - Routine HEENT Exam Head: Present: normal inspection, normocephalic - Routine Neck Exam Present: full ROM - Routine Respiratory Exam Present: decreased breath sounds - Routine Cardiovascular Exam Cardiovascular: Present: RRR - Routine Abdominal Exam Present: diminished bowel sounds - Detailed Neurological Exam: Coma Scale Eye Opening: Spontaneous (4) Data - Labs CBC & Chem 7: 03/03/25 07:57 03/03/25 07:57 - Imaging Radiologist's impression: ITS Impressions Abdomen/Pelvis CT 02/16/25 11:27 IMPRESSION: 1. No evidence of pulmonary emboli. Small right pleural effusion. 2. Interval enlargement of the patient's known calcified mass. There are new smaller calcified masses at the dome, consistent with progression of disease. 3. Abnormal wall thickening of multiple loops of distal ileum, consistent with enteritis. This may be infectious or inflammatory in nature. Electronically signed by: Pedro Puckett MD 02/16/2025 12:03 PM EST RP Chest CTA 02/16/25 11:27 IMPRESSION: 1. No evidence of pulmonary emboli. Small right pleural effusion. 2. Interval enlargement of the patient's known calcified mass. There are new smaller calcified masses at the dome, consistent with progression of disease. 3. Abnormal wall thickening of multiple loops of distal ileum, consistent with enteritis. This may be infectious or inflammatory in nature. Electronically signed by: Pedro Puckett MD 02/16/2025 12:03 PM EST RP Brain MRI 02/18/25 13:09 IMPRESSION: 1. Somewhat motion degraded examination. No evidence of intracranial hemorrhage, acute infarction, mass effect, or edema. 2. Mildly age advanced cerebral and cerebellar atrophy. 3. Hemispheric white matter foci of T2 signal hyperintensity, nonspecific, however statistically related to mild to moderate small vessel ischemic changes. 4. Scattered foci of hemosiderin deposition, nonspecific. Differential includes nonspecific/hypertensive microhemorrhages versus amyloid angiopathy. Electronically signed by: Nakul Francis MD 02/18/2025 02:03 PM EST RP Chest X-Ray 02/21/25 12:42 IMPRESSION: . Concerning acute airspace disease right lung with small right-sided pleural effusion. Please refer to the CT chest abdomen and pelvis dated February 16, 2025 Electronically signed by: Angel Rodríguez MD 02/21/2025 01:09 PM EST RP Assessment and Plan Patient Active problem list reviewed?: Yes (1) HCC (hepatocellular carcinoma) Status: Acute Assessment and plan: 70-year-old gentleman with a history of HCC diagnosed in February of last year. He underwent chemoembolization at [facility] in March of this year. He was subsequently started on atezolizumab and bevacizumab in April. He received cycle 7 in August. In September he underwent taste at [facility] under the care of . He was then treated with lenvatinib for 3 weeks till end of October however he tolerated that poorly. [place] [facility] [place] revealed: 1. Large nonenhancing masses in the right hepatic lobe segment 8 and 5, with numerous surrounding nonenhancing lesions consistent with posttreatment change. Scattered additional nonenhancing foci throughout the right hepatic lobe, also consistent with treated lesions. 2. 1.9 cm arterially enhancing lesion in segment IVb with central washout is similar to prior study. Li-RADS 5. 3. Two arterially hyperenhancing lesions in the left hepatic lobe measuring up to 0.7 cm in segment 3 are similar to the prior study. Li-RADS 5. 0.6 cm arterially hyperenhancing focus in segment 7 is new from prior study, but could be a perfusional given interval treatment of this lobe.Li-RADS 3. 4. Two focal areas of heterogeneous arterial hyperenhancement in segment 7 near previously treated lesions, not seen on delayed postcontrast images may also be perfusional. Recommend attention on follow-up studies. He was then started on temelimumab + durvalumab immunotherapy, he recently received cycle 4. He now presents with mental confusion, nausea vomiting and a bout of hematemesis. He had a fever so concern is enteritis. He is being covered with levofloxacin and metronidazole, since 02/18. CTA OF THE CHEST AND ABDOMEN: 1. No evidence of pulmonary emboli. Small right pleural effusion. 2. Interval enlargement of the patient's known calcified mass. There are new smaller calcified masses at the dome, consistent with progression of disease. 3. Abnormal wall thickening of multiple loops of distal ileum, consistent with enteritis. This may be infectious or inflammatory in nature. CBC from today: WBC 7.9, HGB 12.4, HCT 37, PLT 431. He was initially admitted to ICU for pressor support. There was no subsequent GI bleeding noted, so he was stepped down to telemetry 02/18/25. He has had altered mental status: DIFFERENTIAL DIAGNOSIS: 1. Brain metastases: MRI brain with contrast revealed no evidence of brain metastases. 2. Acute metabolic encephalopathy: 3. Could be related to hepatic encephalopathy. 4. Other possibility is that of adrenal insufficiency, given the prolonged immunotherapy he has had. Serum AM cortisol is being tested: This came back really low. Meanwhile, he has been started on rifaximin and lactulose. PLAN: He was started on steroid replacement therapy. For now he is being kept NPO in view of his poor mental status. To continue IV PPI. He was transfused 1u PRBCS in ED. GI has been consulted. They said to hold off on EGD since his Hb has been stable around 12 gms. Will continue supportive care as you are doing. I discussed his condition with his nephew. He understands the gravity of the situation. Moral support provided. Will keep in touch with him. Thank you for the consult, I will follow along with you. CC: Lili Lucas. Patient actually started waking up and felt much better. Was sent to [facility] for rehab. I will follow him up as an outpatient. Will proceed with his MRI of the abdomen at that time. (2) HCC (hepatocellular carcinoma) Problem details: Status post chemoembolization by IR at [facility] on Friday04/16/24. He started bevacizumab and atezolizumab on 04/29/24 Status: Acute - Time Spent With Patient Time Spent with Patient (in minutes): 30
[2025-03-08 19:08] VITALS: BP 126/75; PULSE 65; RESP 16; TEMP 36; O2SAT 96
[2025-03-09 03:35] VITALS: BP 154/80; PULSE 62; RESP 16; TEMP 36.3; O2SAT 99
[2025-03-09] MEDS: Hydrocortisone Sod Succ/PF 100 MG VIAL 50 MG IVPUSH ×3 (04:29→20:13)
[2025-03-09 07:08] VITALS: BP 149/82; PULSE 62; RESP 15; TEMP 36.6; O2SAT 98
[2025-03-09] MEDS: Potassium Chloride Packet 20 MEQ PACKET 40 MEQ PO ×2 (08:08→20:13)
[2025-03-09] MEDS: Ferrous Sulfate 324 MG TABLET.DR PO (08:09)
[2025-03-09] MEDS: Thiamine HCL 200 MG in 0.9 % Sodium Chloride 100 ML IV (08:10)
[2025-03-09] MEDS: 0.9 % Sodium Chloride Flush 3 ML SYRINGE IVFLUSH ×3 (08:14→20:17)
--- NOTE | 2025-03-09 09:45 | HO.PM.IMPN ---
Subjective Subjective Date of Service: 03/09/25 Interval History: Patient seen examined at bedside this morning, patient is alert and oriented, states that he wishes to work with physical therapy and set goals for him. Review of Systems Review of Systems: Yes all other systems are reviewed and are negative Physical Exam Exam: Exam: General: A&O x 3 Cardiac: S1, S2 auscultated with no S3/4, no MRG. Well perfused. Respiratory: Normal breath sounds auscultated throughout all lung zones, without wheezing, rales. Normal rate. GI/ : No abdominal pain on palpation, no masses or distentions. MSK: Normal ambulation without pain at bony prominences or musculature Neurological: Normal neurological examination on overview, without obvious CN II-XII abnormalities. Vital Signs: Vital Signs: Last Vital Signs Temp 98 F 03/09/25 07:08 Pulse 62 03/09/25 07:08 Resp 15 03/09/25 07:08 BP 149/82 H 03/09/25 07:08 Pulse Ox 98 03/09/25 07:08 O2 Del Method Room Air 03/09/25 07:08 FiO2 30 02/16/25 21:00 BMI result Body Mass Index 17.1 Objective Data Active Medications Albuterol Sulfate (Albuterol Sulfate 90 Mcg 8 Gm Inhaler) 2 puff INHALE Q4H PRN PRN Reason: shortness of breath or wheezin Ferrous Sulfate (Ferrous Sulfate 324 Mg Tablet.) 324 mg PO Q48H [facility] Last Admin: 03/09/25 08:09 Dose: 324 mg Documented By: GWEN Fludrocortisone Acetate (Fludrocortisone Acetate 0.1 Mg Tablet) 0.1 mg PO DAILY [facility] Last Admin: 03/09/25 08:09 Dose: 0.1 mg Documented By: GWEN Hydrocortisone Sodium Succinate (Hydrocortisone Sod Succ/Pf 100 Mg Vial) 50 mg IVPUSH Q8H [facility] Last Admin: 03/09/25 04:29 Dose: 50 mg Documented By: LEFEBVA Thiamine HCl 200 mg/ Sodium (Chloride) 102 mls @ 202 mls/hr IV DAILY [facility] Last Infusion: 03/09/25 08:50 Dose: Infused Documented By: GWEN Lactulose (Lactulose 20 Gm/30 Ml Solution) 30 gm PO TID [facility] Last Admin: 03/09/25 08:16 Dose: Not Given Documented By: GWEN Non-Admin Reason: pt having normal bms Loratadine (Loratadine 10 Mg Tablet) 10 mg PO DAILY PRN PRN Reason: Allergy Symptoms Magnesium Oxide (Magnesium Oxide 400 Mg Tablet) 800 mg PO BIDPC [facility] Last Admin: 03/09/25 08:09 Dose: 800 mg Documented By: GWEN Potassium Chloride (Potassium Chloride Packet 20 Meq Packet) 40 meq PO BID [facility] Last Admin: 03/09/25 08:08 Dose: 40 meq Documented By: GWEN Rifaximin (Rifaximin 550 Mg Tablet) 550 mg PO BID [facility] Last Admin: 03/09/25 08:09 Dose: 550 mg Documented By: GWEN Sodium Chloride (0.9 % Sodium Chloride Flush 3 Ml Syringe) 3 ml IVFLUSH QSHIFT [facility] Last Admin: 03/09/25 08:14 Dose: 3 ml Documented By: GWEN Labs 03/03/25 07:57 03/03/25 07:57 Assessment and Plan (1) Adrenal insufficiency: Status: Acute (2) [place] (hard of hearing): Status: Acute (3) HCC (hepatocellular carcinoma): Status: Acute (4) Thrombocytosis: Status: Acute (5) Anemia: Status: Acute Plan 70-year-old male with cirrhosis and HCC (s/p chemo-embolization and TACE), currently on tremelimumab and durvalumab immunotherapy. History notable for GI bleed from gastric ulcer and alcohol abuse (in remission). Patient was sent from Oncology office, where he was scheduled for his 4th cycle of immunotherapy, due to hypotension and possible coffee-ground emesis. Initial course: Admitted to ICU for pressor support. No overt GI bleed observed. Stepped down to telemetry on 02/18/25. Febrile with concern for enteritis. Ultimately found to have severe adrenal insufficiency, likely secondary to immune checkpoint inhibitor therapy. Toxic metabolic encephalopathy, improved Suspected secondary to adrenal insufficiency and/or hepatic etiology (ammonia normal). Continue rifaximin and lactulose. MRI brain with contrast: no metastases. 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 Thaimine 200mg IV daily Hepatocellular carcinoma s/p chemoembolization and temelimumab + durvalumab immunotherapy, he recently received cycle 4. -imaging reviewed -continue to follow with heme/onc as outpatient Adrenal insufficiency (AI) ? likely immune checkpoint inhibitor-related Continue hydrocortisone 50 and fludrocortisone 0.1 mg daily (discussed with Heme-Onc), Coagulopathy Likely due to cirrhosis and remote heavy alcohol use. Given additional vitamin K; recheck INR. VTE prophylaxis: SCDs in place. Disposition: PT/OT reassessment, will schedule for possible DC to STR Total time managing care of this patient today: 35 minutes. Quality Stroke Does the patient have a stroke diagnosis?: No VTE Prior VTE?: No VTE Risk Level:: Medical - moderate - high VTE Device Contraindication: N/A - Device Ordered VTE Drug Contraindication: Treatment Not Indicated
[2025-03-09 11:06] VITALS: BP 132/68; PULSE 68; RESP 16; TEMP 36.6; O2SAT 98
--- NOTE | 2025-03-09 11:11 | MHC.SL.SWA ---
Speech Pathologist Impression: Oropharyngeal coordination WNL Risk of Aspiration Due to: Medical complexity Dysphasia Diet Status: UPGRADE to NDD3 (chopped) diet with THIN liquids, assist with tray set up and during meal as needed, meds whole with sips of liquid, PUBLIC RELATIONS COUNSELOR following Liquid Consistency and Strategies for Safe Swallow: Liquid Intake Recommendation: Thin Liquid Intake Strategies: Small Sips Solid Food Consistency: Dietary Recommendations: Chopped/Advanced (NDD3) Additional Modifications to Solid Foods: Oral Medication Intake: Whole with Liquid Please contact the pharmacy regarding appropriate crushable or liquid drug formulations that are available whenever modified delivery is recommended. Compensatory Strategies and Precautions to be Taken for Safe Swallow: Sitting Upright (90 deg) Small Bites and Sips Alternate Liquids/Solids Rate of Ingestion Change Supervision While Eating and Drinking for Safe Swallow: Tray Set Up Foods to Avoid: Swallowing Recommended Treatments: Compens. Strategy Educat. Recommendation for Speech: Inpatient Speech Therapy Comment: Order placed for repeat clinical bedside swallow evaluation as pt status has improved. 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 RN reported pt has been taking meds with liquid, no issues. PRESCRIPTION CLERK LENSES reported pt fed himself this morning. Pt alert, conversant and aware of situation, though mildly to moderately aphasic. Pt verbalized his understanding of swallow safety strategies even before PUBLIC RELATIONS COUNSELOR initiated reason for visit, which indicates pt has relatively solid recall of recent events. Pt exhibited adequate oropharyngeal coordination when eating baron crackers and sipping milk. Respiratory coordination WNL, no overt s/s of aspiration with trials. Pt in agreement with upgraded diet, RN and MD notified via secure text, white board in pt room updated. Recc NDD3 with thins, straws ok, assist with setup and during meal as needed, meds as pt prefers. PUBLIC RELATIONS COUNSELOR to follow. Frequency/Duration: Daily M-F Date Range for Service Req: Timeline to reassess: Card Doffer Clinican/Clinical Fellow: No Supervisory Statement: I have reviewed and agree with the student/clinical fellow's documentation: N/A Speech Language Pathologist: Brooke Hernandez M.S., [facility]-PUBLIC RELATIONS COUNSELOR
--- NOTE | 2025-03-09 15:11 | MHC.CM.PN ---
pt is ready for dc pt accepted at [facility] care they are going for auth
--- NOTE | 2025-03-09 15:33 | MHC.CM.PN ---
pts hcp christopher is aware and agreeable and will be in early tomorrow to speak with pt
[2025-03-09 15:42] VITALS: BP 135/64; PULSE 70; RESP 18; TEMP 36.6; O2SAT 98
[2025-03-09 20:00] VITALS: BP 127/76; PULSE 72; RESP 16; TEMP 36.2; O2SAT 95
[2025-03-09 23:38] VITALS: BP 148/79; PULSE 64; RESP 14; TEMP 36.2; O2SAT 99
[2025-03-10 03:06] VITALS: BP 129/72; PULSE 64; RESP 16; TEMP 36; O2SAT 98
[2025-03-10] MEDS: Hydrocortisone Sod Succ/PF 100 MG VIAL 50 MG IVPUSH ×2 (04:37→12:23)
[2025-03-10 06:00] VITALS: BMI 18.9
[2025-03-10 07:54] VITALS: BP 147/80; PULSE 66; RESP 18; TEMP 36.7; O2SAT 99
[2025-03-10] MEDS: 0.9 % Sodium Chloride Flush 3 ML SYRINGE IVFLUSH (09:31)
[2025-03-10] MEDS: Potassium Chloride Packet 20 MEQ PACKET 40 MEQ PO (09:31)
[2025-03-10] MEDS: Thiamine HCL 200 MG in 0.9 % Sodium Chloride 100 ML IV (09:32)
[2025-03-10 12:00] VITALS: BP 132/75; PULSE 88; RESP 18; TEMP 36.6; O2SAT 98
--- NOTE | 2025-03-10 13:48 | P.DS_ITS ---
DS: Providers Provider Date of admission: 02/16/25 13:42 Date of discharge: 03/10/25 Primary care physician: GEMMA Spencer- Consults: 02/16/25 13:50 Consult to Gastroenterology Routine Consulting Provider: [facility] Rajesh Barajas Reason for consultation: ?UGIB Has provider been notified: No 02/19/25 10:50 Consult to Hematology / Oncology Routine Consulting Provider: [facility] [place] Oncology/Hematology Reason for consultation: HCC, hypotension, fever DS: Diagnosis Discharge Diagnosis (1) HCC (hepatocellular carcinoma): Status: Acute DS: Summary Hospital Course Hospital Course: 70-year-old male with cirrhosis and HCC (s/p chemo-embolization and TACE), currently on tremelimumab and durvalumab immunotherapy. History notable for GI bleed from gastric ulcer and alcohol abuse (in remission). Patient was sent from Oncology office, where he was scheduled for his 4th cycle of immunotherapy, due to hypotension and possible coffee-ground emesis. Initial course: Admitted to ICU for pressor support. No overt GI bleed observed. Stepped down to telemetry on 02/18/25. Febrile with concern for enteritis. Ultimately found to have severe adrenal insufficiency, likely secondary to immune checkpoint inhibitor therapy. Toxic metabolic encephalopathy, improved Suspected secondary to adrenal insufficiency and/or hepatic etiology (ammonia normal). Adrenal insufficiency (AI) ? likely immune checkpoint inhibitor-related MRI brain with contrast: no metastases. oral thiamine Continue rifaximin and lactulose. will transition from hydrocortisone IV to PO prednisone 50mg Week 1, Week 2 40 mg/day, Week 3 30 mg/day, Week 4 20 mg/day, maintain at this level until seen by endocrinology Continue hydrocortisone 50 and fludrocortisone 0.1 mg daily (discussed with Heme-Onc), Hepatocellular carcinoma s/p chemoembolization and temelimumab + durvalumab immunotherapy, he recently received cycle 4. -imaging reviewed -continue to follow with heme/onc as outpatient Coagulopathy Likely due to cirrhosis and remote heavy alcohol use. Time Attestation Discharge Coordination Time (in mins): 35 minutes Quality: Safe Use of Opioids Does Pt have an Active Cancer Diagnosis on the Problem List?: Yes Opioid Measure Date for CMS Report: 02/08/25 Opioid Measure Time for CMS Report: 13:48 Quality: Stroke Does the patient have a stroke diagnosis?: No Physical Exam Exam: Exam: General: A&O x 3 Cardiac: S1, S2 auscultated with no S3/4, no MRG. Well perfused. Respiratory: Normal breath sounds auscultated throughout all lung zones, without wheezing, rales. Normal rate. GI/ : No abdominal pain on palpation, no masses or distentions. MSK: Normal ambulation without pain at bony prominences or musculature Neurological: Normal neurological examination on overview, without obvious CN II-XII abnormalities. Vital Signs: Vital Signs: Last Vital Signs Temp 97.8 F 03/10/25 12:00 Pulse 88 03/10/25 12:00 Resp 18 03/10/25 12:00 BP 132/75 03/10/25 12:00 Pulse Ox 98 03/10/25 12:00 O2 Del Method Room Air 03/10/25 12:00 FiO2 30 02/16/25 21:00 BMI result Body Mass Index 18.9 DS: Data Data Completed and Pending Completed studies during hospitalization [Text1]: Procedures Control Bleeding in Gastrointestinal Tract, Via Natural or Artificial Opening Endoscopic (07/25/21) Excision of Ascending Colon, Via Natural or Artificial Opening Endoscopic, Diagnostic (07/25/21) Excision of Stomach, Pylorus, Via Natural or Artificial Opening Endoscopic, Di agnostic (07/25/21) Discharge Plan Discharge Anticipated Discharge Date/Time: 03/10/25 14:32 Patient Disposition: [facility] Discharge Diagnosis: Encephalopathy Adrenal insuficiency Hepatocellular carcinoma Referrals: Brionna REDDY [Outside] - 1 Week Chandrakant Klein MD [Physician, Endocrinology] - 1 Week Problems: Adrenal insufficiency Lianne Lucas FNP-BC [Primary Care Provider, Internal Medicine] - 1 Week Discharge Medications: New potassium chloride 20 mEq Packet 40 meq PO DAILY 30 Days Qty: 30 0RF magnesium oxide 400 mg (241.3 mg magnesium) Tablet 800 mg PO DAILY 30 Days Qty: 60 0RF fludrocortisone 0.1 mg Tablet 0.1 mg PO DAILY 30 Days Qty: 30 0RF lactulose 10 gram/15 mL Solution 30 g PO TID 30 Days Qty: 4050 0RF Xifaxan 550 mg Tablet 550 mg PO BID 30 Days Qty: 60 0RF prednisone 10 mg tablet 10 mg PO DAILY 28 Days Qty: 60 0RF Rx Instructions: 50mg Week 1, Week 2 40 mg/day, Week 3 30 mg/day, Week 4 20 mg/day thiamine HCl (vitamin B1) 100 mg tablet 100 mg PO DAILY Qty: 30 0RF Continued lisinopril 20 mg tablet 20 mg PO DAILY Qty: 90 3RF allopurinol 300 mg tablet 300 mg PO DAILY ferrous sulfate 325 mg (65 mg iron) tablet 325 mg PO Q48H loratadine [Allergy Relief (loratadine)] 10 mg tablet 10 mg PO DAILY PRN (Reason: Allergy Symptoms) albuterol sulfate [Ventolin HFA] 90 mcg/actuation HFA aerosol inhaler 2 puff inhalation Q4-6H PRN (Reason: shortness of breath or wheezing) Qty: 8.5 3RF durvalumab 50 mg/mL solution 50 mg IV QMONTH Discharge Orders: Discharge Order (Routine); Ordered 03/10/25 Ordered By: Sergio Echevarria Activity on Discharge: As tolerated Stand Alone Forms: Patient Portal Discharge page Print Language: Swedish Care Plan Goals: continue working with physical therapy at rehab continue with rifaxmin and lactulose for HCC continue oral vitamins Continue with prednisone until seen by endocrinology Health Concerns: Hepatocellular carcinoma adrenal insufficiency Encephalopathy Plan of Treatment: Continue PT/OT to improve strength rifaximin and lactulose given liver disease continue with prednisone and fludrocortisone for adrenal insufficiency Assessment: 70-year-old male with cirrhosis and HCC (s/p chemo-embolization and TACE), currently on tremelimumab and durvalumab immunotherapy. History notable for GI bleed from gastric ulcer and alcohol abuse (in remission). Patient was sent from Oncology office, where he was scheduled for his 4th cycle of immunotherapy, due to hypotension and possible coffee-ground emesis. Initial course: Admitted to ICU for pressor support. No overt GI bleed observed. Stepped down to telemetry on 02/18/25. Febrile with concern for enteritis. Ultimately found to have severe adrenal insufficiency, likely secondary to immune checkpoint inhibitor therapy. Improvement of symptoms and alert and oriented on magi of discharged
--- NOTE | 2025-03-10 13:55 | MHC.SL.SWA ---
Speech Pathologist Impression: WFL Risk of Aspiration Due to: Medical complexity Dysphasia Diet Status: Recommend CONTINUE with NDD3 (chopped/advanced), THIN liquids with tray set-up Liquid Consistency and Strategies for Safe Swallow: Liquid Intake Recommendation: Thin Liquid Intake Strategies: Small Sips Solid Food Consistency: Dietary Recommendations: Chopped/Advanced (NDD3) Additional Modifications to Solid Foods: Oral Medication Intake: Whole with Liquid Please contact the pharmacy regarding appropriate crushable or liquid drug formulations that are available whenever modified delivery is recommended. Compensatory Strategies and Precautions to be Taken for Safe Swallow: Sitting Upright (90 deg) Small Bites and Sips Alternate Liquids/Solids Rate of Ingestion Change Supervision While Eating and Drinking for Safe Swallow: Tray Set Up Foods to Avoid: Swallowing Recommended Treatments: Compens. Strategy Educat. Recommendation for Speech: Inpatient Speech Therapy Comment: Patient met in room for dysphagia treatment. Patient observed with lunch this date. Patient's nephewEfrem, at bedside visiting. NUT ROASTER HELPER assisted patient with meal set-up. Patient tolerating diet of NDD3, Thin liquids. Patient with no overt s/sx of penetration/aspiration. Patient having conversation with nephew in between bites. Feeding self and taking adequate bite sizes. Patient with no overt s/sx of penetration/aspiration. Reporting happiness with current diet and textures. RN with no concerns. Recommend CONTINUE with NDD3, Thin liquids. NUT ROASTER HELPER to follow-up x1. Frequency/Duration: Daily M-F Date Range for Service Req: Timeline to reassess: [place] Clinican/Clinical Fellow: No Supervisory Statement: I have reviewed and agree with the student/clinical fellow's documentation: N/A Speech Language Pathologist: Carlota Degroot M.A., CCC-NUT ROASTER HELPER
--- NOTE | 2025-03-10 14:27 | MHC.CM.PN ---
Addendum entered by Annette Sifuentes 03/10/25 14:29: IMM 03/10/25 Original Note: Patient is discharged today to [facility] for STR. Transport scheduled with Patricia, 4pm pick-up.
[2025-03-10 16:17] VITALS: BP 129/63; PULSE 83; RESP 15; TEMP 36.1; O2SAT 97
== END 2025-03-10 16:54 | disposition skilled nursing facility (03) | DRG 643 ==
LOC: HO.ED 13:21 → HO.EDOVER 13:45 → HO.ICU 13:58 → HO.IMC 02-18 12:13 → HO.S3 03-02 14:52
PROVIDERS: Family Medicine; Hospitalist; Internal Medicine; Physician Assistant Medical; Registered Nurse Community Health; Student in an Organized Health Care Education/Training Program; Admitting Provider Internal Medicine Pulmonary Disease; Emergency Provider Emergency Medicine; PCP Nurse Practitioner Family; Visit Provider Student in an Organized Health Care Education/Training Program
DX: E27.3 Drug-induced adrenocortical insufficiency (principal); G92.8 Other toxic encephalopathy; C22.0 Liver cell carcinoma; D68.4 Acquired coagulation factor deficiency; E87.0 Hyperosmolality and hypernatremia; K92.0 Hematemesis; Z51.5 Encounter for palliative care; F10.11 Alcohol abuse, in remission; E86.0 Dehydration; K70.30 Alcoholic cirrhosis of liver without ascites; T45.AX5A Adverse effect of immune checkpoint inhibitors and immunostimulant drugs, initial encounter; I95.9 Hypotension, unspecified; E87.6 Hypokalemia; E83.42 Hypomagnesemia; Z20.822 Contact with and (suspected) exposure to COVID-19; Z79.899 Other long term (current) drug therapy
CPT/HCPCS: 36415; 36600; 70551; 70552; 71045; 71275; 74177; 80048; 80051; 80053; 81003; 82040; 82140; 82533; 82607; 82746; 82803; 82947; 83605; 83735; 83880; 84100; 84439; 84443; 84484; 85025; 85027; 85610; 85730; 86140; 86780; 86850; 86900; 86901; 86920; 87040; 87493; 87507; 87633; 92526; 92610; 93005; 95819; 97162; 97166; 97530; 99285; A9585; J0131; J1720; J1836; J1956; J2359; J2470; J3010; J3360; J3411; J3430; J3475; J3480; J7120; P9016; P9047; Q9967

== ENCOUNTER → 2025-02-16 10:46 | Outpatient (BNV) | payer MEDICARE, SELFPAY | PROVIDERS: PCP Nurse Practitioner Family; Visit Provider Radiology Diagnostic Radiology | DX: K63.89 Other specified diseases of intestine (principal); J90 Pleural effusion, not elsewhere classified | CPT/HCPCS: 71275; 74177 ==

== ENCOUNTER 2025-02-16 13:42 | Outpatient (BNV) | payer MEDICARE, SELFPAY | END 2025-02-19 09:13 | PROVIDERS: Admitting Provider Internal Medicine Pulmonary Disease; Emergency Provider Emergency Medicine; PCP Nurse Practitioner Family; Visit Provider Internal Medicine | DX: R94.31 Abnormal electrocardiogram [ECG] [EKG] (principal); R07.9 Chest pain, unspecified | CPT/HCPCS: 93010 ==

== ENCOUNTER 2025-02-16 13:42 | Outpatient (BNV) | payer MEDICARE, SELFPAY | END 2025-02-28 07:45 | PROVIDERS: Admitting Provider Internal Medicine Pulmonary Disease; Emergency Provider Emergency Medicine; PCP Nurse Practitioner Family; Visit Provider Psychiatry & Neurology Neurology | DX: R25.1 Tremor, unspecified (principal); R41.0 Disorientation, unspecified | CPT/HCPCS: 95819 ==

== ENCOUNTER 2025-02-16 13:42 | Outpatient (BNV) | payer MEDICARE, SELFPAY | END 2025-02-21 12:08 | PROVIDERS: Admitting Provider Internal Medicine Pulmonary Disease; Emergency Provider Emergency Medicine; PCP Nurse Practitioner Family; Visit Provider Radiology Diagnostic Radiology | DX: R06.00 Dyspnea, unspecified (principal) | CPT/HCPCS: 71045 ==

== ENCOUNTER 2025-02-16 13:42 | Outpatient (BNV) | payer MEDICARE, SELFPAY | END 2025-02-19 12:02 | PROVIDERS: Admitting Provider Internal Medicine Pulmonary Disease; Emergency Provider Emergency Medicine; PCP Nurse Practitioner Family; Visit Provider Radiology Diagnostic Radiology | DX: G93.40 Encephalopathy, unspecified (principal); C22.0 Liver cell carcinoma | CPT/HCPCS: 70552 ==

== ENCOUNTER 2025-02-16 13:42 | Outpatient (BNV) | payer MEDICARE, SELFPAY | END 2025-02-18 13:09 | PROVIDERS: Admitting Provider Internal Medicine Pulmonary Disease; Emergency Provider Emergency Medicine; PCP Nurse Practitioner Family; Visit Provider Radiology Diagnostic Radiology | DX: G93.40 Encephalopathy, unspecified (principal); C22.0 Liver cell carcinoma | CPT/HCPCS: 70551 ==

== ENCOUNTER → 2025-02-16 13:42 | Outpatient (BNV) | payer MEDICARE, SELFPAY | PROVIDERS: Admitting Provider Internal Medicine Pulmonary Disease; Emergency Provider Emergency Medicine; PCP Nurse Practitioner Family; Visit Provider Internal Medicine Pulmonary Disease | DX: C22.0 Liver cell carcinoma (principal); I95.9 Hypotension, unspecified; R11.10 Vomiting, unspecified | CPT/HCPCS: 99221; 99291 ==

== ENCOUNTER → 2025-02-16 13:42 | Outpatient (BNV) | payer MEDICARE, SELFPAY | PROVIDERS: Admitting Provider Internal Medicine Pulmonary Disease; Emergency Provider Emergency Medicine; PCP Nurse Practitioner Family; Visit Provider Internal Medicine Medical Oncology | DX: C22.0 Liver cell carcinoma (principal); K92.0 Hematemesis | CPT/HCPCS: 99222 ==

== ENCOUNTER → 2025-02-16 13:42 | Outpatient (BNV) | payer MEDICARE, SELFPAY | PROVIDERS: Admitting Provider Internal Medicine Pulmonary Disease; Emergency Provider Emergency Medicine; PCP Nurse Practitioner Family; Visit Provider Family Medicine | DX: I95.9 Hypotension, unspecified (principal) | CPT/HCPCS: 99233 ==